=== PATIENT | male | born 1955 | race Caucasian/White ===

== ENCOUNTER → 2018-01-30 07:59 | Outpatient (CLI) | payer MEDICAID, SELFPAY ==
[2018-01-30 09:51] LABS: Vitamin D,25 Hydroxy 21.8 ng/mL (29.95-100.01)
[2018-01-30 09:55] LABS: Anion Gap 12 (5-15); BUN 14 mg/dL (7-18); BUN/Creat Ratio 11.5 RATIO (10-20); Calcium,Total 8.8 mg/dL (8.5-10.1); Chloride 103 mmol/L (98-107); Cholesterol 172 mg/dL (200); Creatinine, Serum 1.22 mg/dL (0.70-1.30); EST Glomerular Filtration Rate 64 mL/min (>60); Est Glom Filt Rate - Afr Amer 77 mL/min (>60); Glucose 97 mg/dL (74-106); High Density Lipoprotein 39 mg/dL; Sodium Level 142 mmol/L (136-145); Thyroid Stim Hormone (TSH) 2.66 uIU/mL (0.358-3.74); Triglycerides 245 mg/dL; Very Low Density Lipoprotein 49 mg/dL (5-40)
== END ==
PROVIDERS: Family Provider Family Medicine; PCP Family Medicine; Visit Provider Family Medicine
DX: Z00.00 Encounter for general adult medical examination without abnormal findings (principal); Z12.5 Encounter for screening for malignant neoplasm of prostate
CPT/HCPCS: 36415; 80048; 80061; 82306; 84153; 84443; G0103

== ENCOUNTER 2018-04-07 08:40 | Day surgery (SDC) | payer MEDICAID, SELFPAY ==
[2018-04-07 09:00] VITALS: BP 110/80; PULSE 96; RESP 18; TEMP 36.9; O2SAT 97; BMI 33.6
--- NOTE | 2018-04-07 09:54 | H&P.OPEN ---
History of Present Illness Date of Admission: 04/07/18 The patient is a 62 year old M here for screening colonoscopy. He has no abdominal pain or blood in his stool. He has never had a colonoscopy in the past. He denies any family history of colon cancer. Past Medical/Surgical History - Planned Operation Planned Operative Procedure/s: COLONOSCOPY Date of Operative Procedure: 04/07/18 Permit Signed: Yes S.O.S: No Is This Patient Having a Total Joint: No - Previous Hospitalizations/Surgeries HX Hospitalizations: No Any Problems With Anesthesia: No You/Your Family Experience Fever (Hyperthermia) With Anes: No Cholinesterase deficiency: No - Cardiovascular Hx Chest Pain within Last 2 months: No Hx of Irregular Heartbeat and/or Afib: No Hx Heart Attack: No Hx Congestive Heart Failure: No Hx Rheumatic Fever: No Hx Hypertension: Yes Hx Internal Defibrillator: No Hx Pacemaker: No Hx Cardiac Catheterization: No Hx Cardiac Surgery/Stents/Etc.: No Hx Stress Test: No HX Edema: No Hx Pain in Legs when Walking/Leg Cramps: No - Respiratory Chronic Cough: No HX of Shortness of Breath: No Hoarseness: No Hx Chronic Obstructive Pulmonary Disease (COPD): No Hx Asthma: No Hx Emphysema: No Hx Sleep Apnea: No Hx Oxygen Use at Home: No Hx Respiratory Tract Infection/Cold (presently): No Do You Snore Loudly (louder than talking or can be heard): No Do You Often Feel Tired/ Fatigued/ Sleepy Dring Daytime?: No Has Anyone Observed You Stop Breathing During Sleep?: No Result (for STOP score): Negative Hx Smoking: No Smoking Status: Never smoker - Gastrointestinal Hx Gastroesophageal Reflux: No Hx Gastrointestinal Disorders: No Hx Gastrointestinal Bleed: No Hx Ulcer: No Hx Hiatal Hernia: No Difficulty Chewing/Swallowing: No Recent Onset of Swallowing Problems: No Special diet followed at home: No Hx Unplanned Weight Loss of 20#: No HX Unplanned Weight Gain of 20#: No - Neurological Hx Seizures: No HX Syncope/Blackout Spells/Unconsciousness: No Hx CVA/Stroke: No Hx Transient Ischemic Attacks (TIA): No Hx Multiple Sclerosis: No Hx Parkinson's Disease: No Hx Head/Neck Injury: No Hx Headaches: No Hx Back Injury/Pain: No Recent Onset of Speech Difficulty: No Restless Legs: No Does patient have nerve stimulator: No - Blood Disorder Hx Leukemia: No Bleeding Tendencies: No Hx Deep Vein Thrombosis: No Hx High Cholesterol: No Blood Transmitted Disease: No Hx Hepatitis: No Hx Cirrhosis: No Hx Anemia: No Hx Blood Disorders: No - Reproduction Is Patient Lactating: No - Genitourinary Hx Renal Disease: No - Musculoskeletal Hx Arthritis: No Hx Rheumatoid Arthritis: No Hx Gout: No Recent Onset of an Orthopedic Problem: No - Endocrine Hx Diabetes: No Thyroid Disease: No Hx Steroid Therapy: No - Psycho/Social Hx Substance Use: No Hx Alcohol Use: No Hx Anxiety: No Hx Depression: Yes Mental Illness: Yes - SCHIZOPHRENIA Hx Dementia: No - Miscellaneous Hx Cancer: No Recent Exposure to Contagious Disease: No Active MRSA: No Hx of C-Diff: No Any Loose Teeth: No Allergies No Known Allergies Allergy (Verified 04/05/18 11:46) - Discharge Is Pt Admitted From a [facility], or a Halfway: Yes After D/C, Where Do you Plan to Go: Return Home - From the PAT History Number of Risk Factors: 1 - Physical Exam General: Alert HEENT: Atraumatic Lungs: Normal air movement Cardiovascular: Regular rate, Regular Rhythm Abdomen: Soft, Non Tender, Non-Distended Vital Signs Temp Pulse Resp BP Pulse Ox 98.4 F 96 18 110/80 97 04/07/18 09:00 04/07/18 09:00 04/07/18 09:00 04/07/18 09:00 04/07/18 09:00 Oxygen Delivery Method Room Air Weight: 227 lb 15.327 oz Body Mass Index (BMI) 33.6 Assessment/Plan 62-year-old male for screening colonoscopy 1. I explained endoscopy in detail to the patient. I explained the risks including but not limited to stroke or heart attack with anesthesia, perforation of the GI tract, bleeding, infection. I explained that any of these could necessitate further emergency surgery. The patient understands and all questions were answered sufficiently. The patient wishes to proceed with procedure. Adrian Morgan MD Pager: [facility] [address] [place] [address], [address] [place] [address] Office: Surgery Risks - Colonoscopy Risks Include but are not Limited To: Risks include but are not limited to: Bleeding, perforation requiring further surgery, inability to complete colonoscopy requiring barium enema.
[2018-04-07 10:32] VITALS: BP 110/80; BP 114/81; PULSE 72; RESP 15; TEMP 36.6; O2SAT 93
[2018-04-07 10:37] VITALS: BP 110/80; BP 117/78; PULSE 69; RESP 16; O2SAT 95
[2018-04-07 10:42] VITALS: BP 110/80; BP 115/82; PULSE 65; RESP 16; O2SAT 93
--- NOTE | 2018-04-07 10:45 | OP.ENDO_ITS ---
Patient Name: Juan Pagan Procedure Date: 04/07/2018 9:48 AM Date of : 1955 Age: 62 Procedure: Colonoscopy Indications: Screening for colorectal malignant neoplasm Providers: Adrian Morgan MD Medicines: Monitored Anesthesia Care Patient Profile: This is a 62 year old male. Refer to note in patient chart for documentation of history and physical. Last Colonoscopy: none. The patient's first colonoscopy is today. Complications: No immediate complications. Procedure: Pre-Anesthesia Assessment: - Prior to the procedure, a History and Physical was performed, and patient medications and allergies were reviewed. The patient's tolerance of previous anesthesia was also reviewed. The risks and benefits of the procedure and the sedation options and risks were discussed with the patient. All questions were answered, and informed consent was obtained. Prior Anticoagulants: The patient has taken no previous anticoagulant or antiplatelet agents. After reviewing the risks and benefits, the patient was deemed in satisfactory condition to undergo the procedure. After I obtained informed consent, the scope was passed under direct vision. Throughout the procedure, the patient's blood pressure, pulse, and oxygen saturations were monitored continuously. The colonoscope was introduced through the anus and advanced to the cecum, identified by appendiceal orifice and ileocecal valve. The colonoscopy was performed without difficulty. The patient tolerated the procedure well. The quality of the bowel preparation was good. Scope In: 10:03:45 AM Scope Withdrawal Time 0 hours 5 minutes 41 seconds Scope Out: 10:28:52 AM Total Procedure Duration Time 0 hours 25 minutes 7 seconds Findings: The entire examined colon appeared normal on direct and retroflexion views. Impression: - The entire examined colon is normal on direct and retroflexion views. - No specimens collected. Recommendation: - Discharge patient to home. - Resume previous diet. - Continue present medications. - Repeat colonoscopy in 10 years for screening purposes. Procedure Code(s): --- Professional --- G0121, Colorectal cancer screening; colonoscopy on individual not meeting criteria for high risk Diagnosis Code(s): --- Professional --- Z12.11, Encounter for screening for malignant neoplasm of colon CPT copyright 2017 [employer]. All rights reserved. The codes documented in this report are preliminary and upon moss picker review may be revised to meet current compliance requirements. Adrian Morgan MD 04/07/2018 10:45:01 AM This report has been signed electronically. Number of Addenda: 0 Note Initiated On: 04/07/2018 9:48 AM
[2018-04-07 10:47] VITALS: BP 110/80; BP 111/88; PULSE 67; RESP 16; TEMP 37.2; O2SAT 93
[2018-04-07 11:10] VITALS: BP 110/80
== END 2018-04-07 11:20 | disposition home or self-care (01) ==
LOC: EN 08:41 → AC 08:44
PROVIDERS: Family Provider Family Medicine; PCP Family Medicine; Referring Provider Surgery; Visit Provider Surgery
PROC: 0DJD8ZZ Inspection of Lower Intestinal Tract, Via Natural or Artificial Opening Endoscopic (ICD-10-PCS; CPT 45378; principal; 2018-04-07 08:55)
DX: Z12.11 Encounter for screening for malignant neoplasm of colon (principal); I10 Essential (primary) hypertension; F20.9 Schizophrenia, unspecified; Z79.899 Other long term (current) drug therapy
CPT/HCPCS: 45378; J7120

== ENCOUNTER → 2018-07-31 10:17 | Outpatient (CLI) | payer MEDICAID, SELFPAY ==
[2018-07-31 13:11] LABS: Vitamin D,25 Hydroxy 22.3 ng/mL (29.95-100.01)
[2018-07-31 13:37] LABS: Anion Gap 10 (5-15); BUN 12 mg/dL (7-18); BUN/Creat Ratio 10.9 RATIO (10-20); Chloride 106 mmol/L (98-107); Cholesterol 185 mg/dL (200); EST Glomerular Filtration Rate 72 mL/min (>60); Est Glom Filt Rate - Afr Amer 87 mL/min (>60); Glucose 104 mg/dL (74-106); High Density Lipoprotein 42 mg/dL; Potassium 4.2 mmol/L (3.5-5.1); Sodium Level 141 mmol/L (136-145); Triglycerides 251 mg/dL; Very Low Density Lipoprotein 50 mg/dL (5-40)
== END ==
PROVIDERS: Family Provider Family Medicine; PCP Family Medicine; Visit Provider Family Medicine
DX: E55.9 Vitamin D deficiency, unspecified (principal); I10 Essential (primary) hypertension
CPT/HCPCS: 36415; 80048; 80061; 82306

== ENCOUNTER 2019-01-02 08:39 | Observation (INO) | payer MEDICAID, SELFPAY ==
[2019-01-02] VITALS (11 sets, daily range): BP systolic 116–148; BP diastolic 71–97; PULSE 60–85; RESP 15–18; TEMP 36.8–36.9; O2SAT 94–96; BMI 30.9; BMI 32.3; BMI 32.4
--- NOTE | 2019-01-02 08:47 | EKG12_ITS ---
Test Reason : CP Blood Pressure : / mmHG Vent. Rate : 059 BPM Atrial Rate : 059 BPM P-R Int : 168 ms QRS Dur : 094 ms QT Int : 444 ms P-R-T Axes : 039 028 -06 degrees QTc Int : 439 ms Sinus bradycardia Otherwise normal ECG When compared with ECG of 02-JAN-2019 08:42, MANUAL COMPARISON REQUIRED, DATA IS UNCONFIRMED Confirmed by ELIZABETH PACHECO ([id number]), scientific editor MIGUEL LOZA ([id number]) on 01/05/2019 9:05:47 AM Referred By: Tanvir Sharma Confirmed By:ELIZABETH PACHECO
--- NOTE | 2019-01-02 08:50 | RAD_ITS ---
STUDY: X-RAY CHEST REASON FOR EXAM: Male, 63 years old. Left-sided chest pain. TECHNIQUE: Single AP portable view of the chest. COMPARISON: Comparison is made with prior study dated January 26, 2017 FINDINGS: EKG electrodes are seen. The lungs are clear and expanded. There is no demonstrated pleural abnormality. Normal size heart. Normal mediastinum and colleen. Normal visualized pulmonary arteries. Normal visualized aortic arch and descending thoracic aorta. There are diffuse degenerative changes of the visualized thoracic spine. Normal visualized ribs, clavicles, and shoulders. There is no demonstrated abnormality of the visualized soft tissue structures of the upper abdomen. RAD/Chest 1 View (Portable) IMPRESSION: No acute abnormality is seen. Electronically Signed: Korey Obrien, at 9:10 EDT , Service support ,
[2019-01-02] MEDS: Aspirin 81 MG TAB.CHEW 324 MG PO (09:07)
[2019-01-02] MEDS: 0.9% Normal Saline 1,000 ML 150 ML IV (09:07)
[2019-01-02 09:09] LABS: Absolute Lymphocyte Count 1.45 X10^3/uL (0.83-4.51); Absolute Neutrophil Count 2.2 X10^3/uL (2.0-7.7); Basophil# 0.02 X10^3/uL; Basophil% 0.5 % (0-1); Eosinophil# 0.09 X10^3/uL; Eosinophils% 2.1 % (0-5); Hematocrit 40.9 % (40-54); Hemoglobin 14.2 g/dL (13.0-16.5); Lymphocyte # 1.45 X10^3/ul (4.0); Lymphocyte % 33.9 % (19-41); Mean Corp Hgb Conc 34.7 g/dL (32-36); Mean Corpuscular Hgb 30.3 pg (27.0-32.0); Mean Corpuscular Volume 87.2 fL (80-94); Mean Platelet Vol. 9.8 fl (6.2-12.0); Monocyte% 11.7 % (0-10); NRBC Flagged by Analyzer 0 % (0-5); Neutrophil % 51.3 % (47-70); Platelet Count 186 K/mm3 (150-450); RBC Distribution Width SD 38.2 fl (35.1-43.9); Red Blood Count 4.69 M/mm3 (4.6-6.2); White Blood Count 4.3 K/mm3 (4.4-11.0)
[2019-01-02] MEDS: Nitroglycerin SL (ED/IMG/CATH) 0.4 MG TABLET SUBLINGUAL (09:13)
--- NOTE | 2019-01-02 09:23 | NURSING ---
1S DOSE OF NITRO GIVEN WITH NO PAIN RELIEF. PT'S BP DECREASED. PER DR MARQUEZ HOLD NITRO.
[2019-01-02 09:34] LABS: Anion Gap 7 (5-15); BUN 16 mg/dL (7-18); BUN/Creat Ratio 13.2 RATIO (10-20); Calcium,Total 8.9 mg/dL (8.5-10.1); Chloride 107 mmol/L (98-107); Creatinine, Serum 1.21 mg/dL (0.70-1.30); EST Glomerular Filtration Rate 64 mL/min (>60); Est Glom Filt Rate - Afr Amer 78 mL/min (>60); Estimated Creatinine Clearance 68.59 ml/min; Glucose 108 mg/dL (74-106); Potassium 3.8 mmol/L (3.5-5.1); Sodium Level 141 mmol/L (136-145)
[2019-01-02 09:51] LABS: D-Dimer Quantitative (DVT/PE) < 0.27 FEU/ug/m (0.27-0.49)
--- NOTE | 2019-01-02 09:56 | ED.VISSUMM ---
- ER Visit Summary Date of Service: 01/02/19 Chief Complaint: [Chest pain] History of Present Illness: The patient is a 63 M [presents to the emergency department chest discomfort x3 days. Patient states the pain seems to come and go. Patient states it was severe this morning but is improved currently and rates it a 5 out of 10. Describes it as a dull pain. The pain is not pleuritic. Patient believes he has had similar pain in 2004 and at which time he was treated with warfarin. Patient was unsure if he had had a blood clot in his leg or lung before and he told me know initially. Patient tells me is never had a stress test or cardiac history. He denies recent travel or surgery. He denies any fever or cough. Patient states that the pain does not come on with activity or exertion necessarily but can come on at any time. He denies any radiation of the pain. He denies any shortness of breath. He denies any nausea or vomiting or diaphoresis.] Patient somewhat of a poor historian. Physical Examination: [HEENT-PERRLA, EOMI. Cranial nerves II through XII grossly intact. TMs clear. Mucous membranes moist. No adenopathy. Cardiovascular-regular rate and rhythm without murmur or ectopy Lungs-clear to auscultation, chest wall stable without crepitus or subcu emphysema Abdomen-normoactive bowel sounds, soft, nontender, no rebound or rigidity, no peritoneal signs. Extremities-intact ?4, normal range of motion, normal pulses, atraumatic] Test Results: [EKG obtained arrival shows sinus rhythm with a ventricular rate of 74 bpm with some nonspecific ST changes. When compared with prior EKG from 2016 no new changes noted. CBC with differential is normal. Chemistries were normal. Troponin was less than 0.015. D-dimer was less than 0.27. Chest x-ray was normal.] Emergency Department Course and Treatment: [Patient received aspirin. Patient received 1 sublingual nitro which did drop his blood pressure however did not seem to improve his pain. On repeat examination however he states mostly the discomfort is gone however he has some minimal discomfort still in his left upper chest.] Treatment Plan: [Admit for further work-up and evaluation of his chest pain] Disposition: [Admit] Impression: [Chest pain-etiology uncertain] This note was generated with Dragon dictation software. It may contain incorrect words, spelling, and punctuation that were not noted in review of the chart prior to signing ED Disposition - Plan for ED Patient: Referrals: Luis Diaz MD [Primary Care Provider] -
--- NOTE | 2019-01-02 10:57 | PCM.HP.STD ---
Problem List (1) Chest pain Status: Acute (2) Hyperlipidemia Status: Chronic (3) Schizophrenia Status: Chronic History of Present Illness Date of Admission: 01/02/19 Chief Complaint: Chest pain. The patient is a 63 year old M past medical history as mentioned above presented to the emergency room because of chest pain. His symptoms started 3 days ago with intermittent left-sided chest pain, nonexertional, dull aching pain, 5 out of 10 in severity, nonradiating, without any associated symptoms and without aggravating or relieving factors. He denied associated shortness of breath, dizziness, lightheadedness, sweating, nausea or vomiting. He mentioned that he had similar pain 15 years ago and he was treated with the blood thinners but he is not sure. He denies history of PE or DVT. He denies cough or sputum production. He denies fever or chills. In the emergency department, his vital signs were stable. Routine blood work was unremarkable. EKG revealed normal sinus rhythm, normal CT interval, normal QRS, nonspecific T wave changes and no new changes compared to previous EKG from May,. Troponin was negative. D-dimer was normal. Chest x-ray showed no acute findings. He is being admitted for chest pain for evaluation. Past Medical History Past Medical History (Chronic Problems): Chronic Problems Hyperlipidemia (Chronic) Schizophrenia (Chronic) Allergies No Known Allergies Allergy (Verified 01/02/19 08:49) Home Medications: Ambulatory Orders Medication Instructions Recorded Atorvastatin Calcium [Lipitor] 10 mg PO QHS 05/18/16 Benztropine [Cogentin] 0.5 mg PO TID 05/18/16 Docusate Sodium [Dok] 100 mg PO DAILY 05/18/16 Loratadine [Claritin] 10 mg PO DAILY 05/18/16 Paliperidone Palmitate [Invega 156 mg IM Q30D 05/18/16 Sustenna] Propranolol HCl [Inderal] 10 mg PO BID 05/18/16 Vitamin E 400 units PO TID 05/18/16 peg 3350-electrolytes 236 4,000 ml PO ONCE #4000 ml 04/05/18 gram-22.74 gram-6.74 gram-5.86 gram solution Surgical History: no surgical history Psychiatric History: Schizophrenia Lives: - - [facility]. Smoking Status: Never smoker Alcohol: None Drugs: None - *Family History Maternal History Items: No pertinent history Paternal History Items: Heart Disease, Hypertension Review of Systems Constitutional: Denies: Anorexia, Chills, Fever, Weakness Eyes: Denies: Blurred vision, Cataracts, Conjunctivae Inflammation, Drainage, Eyelid Inflammation HEENT: Denies: Difficulty Hearing, Dysphasia, Ear Pain, Eye Pain, Nasal bleeding Cardiovascular: Reports: Chest Pain. Denies: Edema, Heaviness, Light Headedness, Orthopnea, Palpitations, Paroxysmal Noc. Dyspnea, Syncope Respiratory: Denies: Cough, Hemoptysis, Pleuritic Pain, Shortness of Breath, Sputum production, Wheezing Gastrointestinal: Denies: Abdominal Pain, Constipation, Diarrhea, Nausea, Vomiting Genitourinary: Denies: Dysuria, Frequency, Hematuria Musculoskeletal: Denies: Arm Pain, Back Pain, Foot Pain Skin: Denies: Dryness, Rash Neurological: Denies: Balance problems, Blurred vision, Double vision, Change in Speech, Slurred speech, Confusion, Incoordination, Numbness Psychiatric: Denies: Anxiety, Depression Endocrine: Denies: Change in Body Habitus, Polydipsia, Polyuria VTE Information - Inpt Only VTE Present on Admission: No VTE Mechan Device Prophylaxis: None VTE Pharm Prophylaxis ordered?: Yes Patient Problems: Active and Suspected Problems Chest pain (Acute) - Physical Exam General: Alert, Oriented x3, Cooperative, No apparent distress HEENT: Atraumatic, PERRLA, EOMI, Normocephalic Oral: Moist Mucosa, No Gingival or Mucosal Lesions/ Ulcerations Neck: Supple, No JVD, Negative Carotid Bruits, Trachea Midline, Thyroid Normal Size and Texture Lungs: Clear to auscultation, Normal air movement, No rhonchi, No wheeze, No rales Cardiovascular: Regular rate, Regular Rhythm, Normal S1, Normal S2, No murmurs, PMI Normal Abdomen: Bowel Sounds Present, Soft, Non Tender, Non-Distended, No Hepato-splenomegaly Extremities: No clubbing, No cyanosis, No edema Skin: No rashes, No breakdown Lymphatic: No Cervical, Supraclavicular, or Inguinal Adenopathy Neurological: Cranial nerves II-XII grossly intact, Motor Exam 5/5 strength throughout Psych/Mental Status: Normal Affect, Appropriate, Alert and oriented to time, place, person, mood and affect Vital Signs Temp Pulse Resp BP Pulse Ox 98.2 F 64 17 116/89 H 95 01/02/19 08:40 01/02/19 10:02 01/02/19 10:02 01/02/19 10:02 01/02/19 10:02 Oxygen Flow Rate (L/min) 2 Oxygen Delivery Method Room Air Weight: 227 lb 15.327 oz Body Mass Index (BMI) 30.9 Laboratory Tests Past 24 Hrs 01/02/19 01/02/19 01/02/19 08:53 08:53 08:53 WBC 4.3 L RBC 4.69 Hgb 14.2 Hct 40.9 MCV 87.2 MCH 30.3 MCHC 34.7 RDW Std Deviation 38.2 RDW Coeff of Clarissa 12.0 Plt Count 186 MPV 9.8 Immature Gran % (Auto) 0.500 Neut % (Auto) 51.3 Lymph % (Auto) 33.9 [place] % (Auto) 11.7 H Eos % (Auto) 2.1 Baso % (Auto) 0.5 Absolute Neuts (auto) 2.2 Absolute Lymphs (auto) 1.45 Nucleated RBC % 0 D-Dimer Quant (PE/DVT) < 0.27 L Sodium 141 Potassium 3.8 Chloride 107 Carbon Dioxide 27.0 Anion Gap 7 BUN 16 Creatinine 1.21 Estim Creat Clear Calc 68.59 Est GFR (MDRD) Af Amer 78 Est GFR (MDRD) Non-Af 64 BUN/Creatinine Ratio 13.2 Glucose 108 H Calcium 8.9 Troponin I < 0.015 Clinical Impression(s) from Imaging Studies Chest X-Ray 01/02/19 08:50 IMPRESSION: No acute abnormality is seen. Electronically Signed: Korey Obrien, at 9:10 EDT , Service support , Assessment/Plan All Active Problems Chest pain (Acute) This is a 63 years old male patient presented to the emergency room because of chest pain and he is being admitted for evaluation. #1 chest pain: Seems to be atypical. Risk factors are only age and history of hyperlipidemia. No family history of premature CAD. His father did have history of heart disease at older age. EKG reviewed as above, no acute ischemic changes. Troponin is negative. Chest x-ray showed no acute findings. Plan: Admit to PCU for observation, cardiac monitoring, serial cardiac enzymes, repeat EKG tomorrow morning, start baby aspirin, continue statins, hold propranolol, nuclear stress test tomorrow morning if cardiac enzymes are negative. #2 hyperlipidemia: Continue statins. #3 schizophrenia: Stable, continue Cogentin, hold Invega Sustenna injections. #4 DVT prophylaxis: Subcu Lovenox. This note was generated with [employer] dictation software. It may contain incorrect words, spelling, and punctuation that were not noted in checking the note before signing. Code Visit OBSV E&M: 01544 Initial observation care L3
[2019-01-02] MEDS: 0.9% Normal Saline 1,000 ML 75 ML IV (14:16)
[2019-01-02] MEDS: Benztropine 2 MG Tablet 0.5 MG PO ×2 (14:22→22:03)
[2019-01-02] MEDS: Atorvastatin Calcium 10 MG Tablet PO (22:01)
[2019-01-03] VITALS (7 sets, daily range): BP systolic 117–123; BP diastolic 67–79; PULSE 59–100; RESP 18; TEMP 36.4–37.1; O2SAT 95–96
--- NOTE | 2019-01-03 05:17 | EKG12_ITS ---
Test Reason : Blood Pressure : / mmHG Vent. Rate : 064 BPM Atrial Rate : 064 BPM P-R Int : 168 ms QRS Dur : 090 ms QT Int : 436 ms P-R-T Axes : 063 021 016 degrees QTc Int : 449 ms Normal sinus rhythm Normal ECG Confirmed by ELIZABETH PACHECO ([id number]), science editor CECILE YU ([id number] on 01/08/2019 11:32:38 AM Referred By: Tanvir Sharma Confirmed By:ELIZABETH PACHECO
--- NOTE | 2019-01-03 05:55 | EKG12_ITS ---
Test Reason : CP Blood Pressure : / mmHG Vent. Rate : 074 BPM Atrial Rate : 074 BPM P-R Int : 166 ms QRS Dur : 088 ms QT Int : 400 ms P-R-T Axes : 056 027 004 degrees QTc Int : 444 ms Normal sinus rhythm Nonspecific T wave abnormality Abnormal ECG Confirmed by CYNTHIA MADDOX, STEVE ([id number]), acquisitions editor MIGUEL LOZA ([id number]) on 01/04/2019 1:36:14 PM Referred By: Tanvir Sharma Confirmed By:STEVE MARIE MD
[2019-01-03] MEDS: Benztropine 2 MG Tablet 0.5 MG PO ×2 (06:07→14:04)
--- NOTE | 2019-01-03 10:23 | STRESSREP_ITS ---
Stress Test Report Date: 01/03/2019 Procedure: Pharmacologic stress nuclear imaging study Indications: Chest pain Consent: Per the patient Procedure: The patient underwent pharmacologic (Regadenoson) evaluation with a peak heart rate of 102 beats per minute (64 %predicted maximal heart rate) and a peak blood pressure of 122/84 mmHg. The baseline ECG demonstrated normal sinus rhythm, nonspecific ST-T changes. EKG during lexiscan infusion revealed no significant change from baseline. EKG post infusion revealed no significant change from baseline [There were no cardiac dysrhythmias pretest, during pharmacologic infusion, or recovery]. Patient had mild left-sided chest discomfort prior to Lexiscan infusion which persisted throughout the test. The examination was discontinued secondary to completion of protocol. Impression: 1. Lexiscan stress test test is negative for Lexiscan infusion induced EKG changes of ischemia. 2. Lexiscan stress test test is negative for Lexiscan infusion induced chest pain. 3. Results of the nuclear portion of the test is as below Myocardial perfusion imaging study: Technique: The patient was injected with 12 millicuries of technetium 99m Cardiolite and subsequently rest SPECT Cardiolite nuclear imaging was obtained in the horizontal long, vertical long, and short axis views. The patient underwent pharmacologic (Regadenoson) evaluation. Please see above for details. The patient was injected with 34.3 millicuries of technetium 99m Cardiolite and subsequently stress SPECT Cardiolite nuclear imaging was obtained in the horizontal long, vertical long, and short axis views. A gated Cardiolite study at peak stress was obtained. Interpretation: Rest and stress SPECT Cardiolite nuclear imaging status post realignment, normalization, and attenuation correction demonstrate [overall uniform myocardial radioisotope uptake. No evidence of significant ischemia or infarction]. Gated images reveal no significant regional wall motion abnormalities. The reported LVEF is 71 %. Impression: 1. There is no evidence of significant ischemia or infarction. 2. Estimated ejection fraction is 71%. This note was generated with [employer] software. It may contain incorrect words, spelling, and punctuation that were not noted in checking the note before signing.
[2019-01-03] MEDS: Docusate Sodium 100 MG Capsule PO (11:09)
[2019-01-03] MEDS: Loratadine 10 MG Tablet PO (11:09)
[2019-01-03] MEDS: Aspirin E.C. 81 MG Tablet PO (11:09)
--- NOTE | 2019-01-03 12:18 | DCINST_ITS ---
- Discharge Diagnoses Current Active Problems: Current Active and Chronic Problems Chest pain (Acute) Hyperlipidemia (Chronic) Schizophrenia (Chronic) You will use the following diet at home:: Regular Your food should be the consistency of: Regular Discharge Activity: Return to Normal Activity Weight Bearing Status: Full weight bearing Call your doctor if you observe: Fever of 101 or Higher, Shortness of breath, Dizziness, Fainting spells, Chest pain, Increased palpitations (irregular heartbeat), Uncontrolled pain Allergies/Adverse Reactions: Allergies No Known Allergies Allergy (Verified 01/02/19 08:49) Medications to take at Discharge Atorvastatin Calcium [Lipitor] 10 mg PO QHS 05/18/16 Benztropine [Cogentin] 0.5 mg PO TID 05/18/16 Docusate Sodium [Dok] 100 mg PO DAILY 05/18/16 Loratadine [Claritin] 10 mg PO DAILY 05/18/16 Paliperidone Palmitate [Invega Sustenna] 156 mg IM Q30D 05/18/16 Propranolol HCl [Inderal (Beta Shilpi)] 10 mg PO BID 05/18/16 Vitamin E 400 units PO TID 05/18/16 Primary Care Physician: Luis Diaz MD [Primary Care Provider] - Please follow up with your Primary Care Physician in: 2-4 weeks. Test Results: Test results from this visit will be discussed in further detail at your follow- up appointment, if applicable.
--- NOTE | 2019-01-03 12:39 | DS.PCM_ITS ---
Discharge Date and Diagnosis - Problem List Patient Problems: Active and Suspected Problems Chest pain (Acute) Date of Admission: 01/02/19 Date of Discharge: 01/03/19 - Primary Discharge Diagnosis Active and Suspected Problems Chest pain, ACS ruled out, probably musculoskeletal pain. - Secondary Discharge Diagnosis Chronic Problems Hyperlipidemia (Chronic) Schizophrenia (Chronic) Hospital Course and Treatment Imaging Results: 01/03/19 05:55 Nuclear Stress Test - Chemical [NM] AM (NON MEDS) Clinical Impression(s) from Imaging Studies Chest X-Ray 01/02/19 08:50 IMPRESSION: No acute abnormality is seen. Electronically Signed: Korey Obrien, at 9:10 EDT , Service support , Operations: None Procedures: EKG, Stress test Summary of Care Provided: Patient seen and examined on the day of discharge and appeared to be stable discharge home. He has no more chest pain. He denied any symptoms. Vital signs are stable. The patient is a 63 year old M admitted because of chest pain for evaluation. His factors were only his age and history of hyperlipidemia. His EKG revealed no acute ischemic changes. Chest x-ray showed no acute findings. Troponin was negative x2 d-dimer was negative. Routine blood work was unremarkable. His vital signs were stable. He underwent nuclear stress test that showed no evidence of stress-induced myocardial ischemia with preserved ejection fraction. ACS ruled out. His pain is likely muscle skeletal pain. Patient discharged home in a stable medical condition, discharged on his previous home medications without any changes, recommended follow-up with PCP in 2 to 4 weeks. Patient Problems: Active and Suspected Problems Chest pain (Acute) - Physical Exam General: Alert, Oriented x3, Cooperative, No apparent distress HEENT: Atraumatic, PERRLA, EOMI, Normocephalic Oral: Moist Mucosa, No Gingival or Mucosal Lesions/ Ulcerations Neck: Supple, No JVD, Negative Carotid Bruits, Trachea Midline Lungs: Clear to auscultation, Normal air movement, No rhonchi, No wheeze, No rales Cardiovascular: Regular rate, Regular Rhythm, Normal S1, Normal S2, PMI Normal Abdomen: Bowel Sounds Present, Soft, Non Tender, Non-Distended, No Hepato- splenomegaly Extremities: No clubbing, No cyanosis, No edema Skin: No rashes, No breakdown Lymphatic: No Cervical, Supraclavicular, or Inguinal Adenopathy Neurological: Cranial nerves II-XII grossly intact, Neuro grossly intact Psych/Mental Status: Normal Affect, Appropriate Vital Signs Temp Pulse Resp BP Pulse Ox 98.0 F 99 18 118/73 95 01/03/19 11:06 01/03/19 12:10 01/03/19 11:06 01/03/19 11:06 01/03/19 11:06 Oxygen Flow Rate (L/min) 2 Oxygen Delivery Method Room Air Weight: 219 lb 2.232 oz Body Mass Index (BMI) 32.3 Intake and Output for Last 24 Hours 01/01/19 01/02/19 01/03/19 23:59 23:59 23:59 Intake Total 1079 / 1870 1049 / 1049 Balance 1079 / 1870 1049 / 1049 Laboratory Tests Past 24 Hrs 01/02/19 01/02/19 12:15 14:48 Troponin I < 0.015 < 0.015 Discharge Activity: Return to Normal Activity Weight Bearing Status: Full weight bearing Call your doctor if you observe: Fever of 101 or Higher, Shortness of breath, Dizziness, Fainting spells, Chest pain, Increased palpitations (irregular heartbeat), Uncontrolled pain Home Medications: Medications to take at Discharge Atorvastatin Calcium [Lipitor] 10 mg PO QHS 05/18/16 Benztropine [Cogentin] 0.5 mg PO TID 05/18/16 Docusate Sodium [Dok] 100 mg PO DAILY 05/18/16 Loratadine [Claritin] 10 mg PO DAILY 05/18/16 Paliperidone Palmitate [Invega Sustenna] 156 mg IM Q30D 05/18/16 Propranolol HCl [Inderal (Beta Shilpi)] 10 mg PO BID 05/18/16 Vitamin E 400 units PO TID 05/18/16 Primary Care Physician: Luis Diaz MD [Primary Care Provider] - Please follow up with your Primary Care Physician in: 2-4 weeks. Disposition: Home Minutes spent on discharge:: 23 Patient Condition:: Stable Medical Necessity - Tobacco Use Smoking Status: Never smoker Meaningful Use Info Meaningful Use Diagnoses (Choose all that apply): None applicable Code Visit OBSV E&M: 53253 Observation care discharge
--- NOTE | 2019-01-03 13:29 | CASEMGMT ---
Patient [facility]. SW met with patient. SW asked if SW needs to call anyone at his [facility] and he said no. SW asked him if he will need a ride home and he does. SW asked if he can get in and out of a van by himself and he said he could. SW called [facility] van and patient needs to be at the main entrance at . LYNNETTE notified RN, patient, and career guidance counselor. Yoselyn GUERRA MSW
== END 2019-01-03 12:19 | disposition home or self-care (01) ==
LOC: ED 09:12 → PCU 10:10
PROVIDERS: Admitting Provider Hospitalist; Emergency Provider Emergency Medicine; Family Provider Family Medicine; PCP Family Medicine; Referring Provider Hospitalist; Visit Provider Hospitalist
DX: R07.89 Other chest pain (principal); E78.5 Hyperlipidemia, unspecified; F20.9 Schizophrenia, unspecified; Z79.899 Other long term (current) drug therapy
CPT/HCPCS: 36415; 71045; 78452; 80048; 84484; 85025; 85379; 93005; 93017; 96360; 96361; 99218; 99283; A9500; J7030; A4216; G0378; J2785

== ENCOUNTER → 2019-08-17 08:14 | Outpatient (CLI) | payer MEDICAID, SELFPAY ==
[2019-01-02 11:03] VITALS: BMI 32.3
[2019-08-17 10:39] LABS: Anion Gap 8 (5-15); BUN 15 mg/dL (7-18); BUN/Creat Ratio 12.2 RATIO (10-20); Calcium,Total 8.9 mg/dL (8.5-10.1); Chloride 109 mmol/L (98-107); Cholesterol 184 mg/dL (200); Creatinine, Serum 1.23 mg/dL (0.70-1.30); EST Glomerular Filtration Rate 63 mL/min (>60); Est Glom Filt Rate - Afr Amer 76 mL/min (>60); Glucose 103 mg/dL (74-106); High Density Lipoprotein 41 mg/dL; Potassium 3.8 mmol/L (3.5-5.1); Sodium Level 141 mmol/L (136-145); Triglycerides 276 mg/dL; Very Low Density Lipoprotein 55 mg/dL (5-40)
[2019-08-18 08:24] LABS: Vitamin D,25 Hydroxy 30.7 ng/mL
== END ==
PROVIDERS: PCP Family Medicine; Visit Provider Family Medicine
DX: I10 Essential (primary) hypertension (principal); E78.5 Hyperlipidemia, unspecified; E55.9 Vitamin D deficiency, unspecified
CPT/HCPCS: 36415; 80048; 80061; 82306

== ENCOUNTER → 2020-02-19 09:44 | Outpatient (CLI) | payer MEDICAID, SELFPAY ==
[2019-01-02 11:03] VITALS: BMI 32.3
[2020-02-19 13:13] LABS: Vitamin D,25 Hydroxy 33.7 ng/mL
[2020-02-19 13:15] LABS: Anion Gap 2 (5-15); BUN 13 mg/dL (7-18); BUN/Creat Ratio 11.1 RATIO (10-20); Calcium,Total 8.9 mg/dL (8.5-10.1); Chloride 108 mmol/L (98-107); Cholesterol 184 mg/dL (200); Creatinine, Serum 1.17 mg/dL (0.70-1.30); EST Glomerular Filtration Rate 67 mL/min (>60); Est Glom Filt Rate - Afr Amer 81 mL/min (>60); Glucose 96 mg/dL (74-106); High Density Lipoprotein 38 mg/dL; Sodium Level 139 mmol/L (136-145); Triglycerides 261 mg/dL; Very Low Density Lipoprotein 52 mg/dL (5-40)
== END ==
PROVIDERS: PCP Family Medicine; Referring Provider Family Medicine; Visit Provider Family Medicine
DX: E55.9 Vitamin D deficiency, unspecified (principal); I10 Essential (primary) hypertension
CPT/HCPCS: 36415; 80048; 80061; 82306

== ENCOUNTER → 2020-05-15 07:48 | Outpatient (CLI) | payer MEDICAID, SELFPAY ==
[2019-01-02 11:03] VITALS: BMI 32.3
[2020-05-15 08:50] LABS: Cholesterol 179 mg/dL (200); High Density Lipoprotein 37 mg/dL; Prolactin 38.1 ng/mL; Triglycerides 232 mg/dL; Very Low Density Lipoprotein 46 mg/dL (5-40)
[2020-05-15 08:55] LABS: Hemoglobin A1c 5.6 % (3.8-5.6)
== END ==
PROVIDERS: PCP Family Medicine; Referring Provider Psychiatry & Neurology Psychiatry; Visit Provider Psychiatry & Neurology Psychiatry
DX: F19.10 Other psychoactive substance abuse, uncomplicated (principal); R53.83 Other fatigue; Z79.899 Other long term (current) drug therapy
CPT/HCPCS: 36415; 80061; 83036; 84146

== ENCOUNTER → 2020-08-13 14:51 | Outpatient (CLI) | payer MEDICAID, SELFPAY ==
[2019-01-02 11:03] VITALS: BMI 32.3
[2020-08-13 18:05] LABS: Anion Gap 8 (5-15); BUN 21 mg/dL (7-18); BUN/Creat Ratio 17.6 RATIO (10-20); Calcium,Total 8.6 mg/dL (8.5-10.1); Chloride 104 mmol/L (98-107); Creatinine, Serum 1.19 mg/dL (0.70-1.30); EST Glomerular Filtration Rate 65 mL/min (>60); Est Glom Filt Rate - Afr Amer 79 mL/min (>60); Glucose 137 mg/dL (74-106); Potassium 3.7 mmol/L (3.5-5.1); Sodium Level 140 mmol/L (136-145)
== END ==
PROVIDERS: PCP Family Medicine; Referring Provider Family Medicine; Visit Provider Family Medicine
DX: I10 Essential (primary) hypertension (principal)
CPT/HCPCS: 36415; 80048

== ENCOUNTER → 2020-09-15 13:14 | Outpatient (CLI) | payer MEDICAID, SELFPAY ==
[2019-01-02 11:03] VITALS: BMI 32.3
--- NOTE | 2020-09-15 15:03 | NEURO_ITS ---
NCS and/or EMG Patient Report Ordering Doctor: Luis Diaz DATE OF SERVICE: 09/15/20 Indication: Intermittent numbness and tingling when awakening from sleep. Symptoms are bilateral, but can occur independent of one another. Evaluate for entrapment neuropathy. Findings: Nerve conduction studies were performed in the right and left upper extremities. The right median motor study recording the abductor pollicis brevis showed a normal amplitude, prolonged distal latency and mildly slowed conduction velocity. The right ulnar motor study recording the abductor digiti minimi showed a normal amplitude, normal distal latency and normal conduction velocity. No conduction block or focal slowing was present across the elbow. The right median sensory response recording digit two showed a normal amplitude, normal latency and borderline conduction velocity. The right ulnar sensory response recording digit five showed a normal amplitude, latency and conduction velocity. The right radial sensory response recording over the extensor snuff box showed a normal amplitude, latency and conduction velocity. The left median motor study recording the abductor pollicis brevis showed a normal amplitude, prolonged distal latency and normal conduction velocity. The left ulnar motor study recording the abductor digiti minimi showed a normal amplitude, normal distal latency and normal conduction velocity. No conduction block or focal slowing was present across the elbow. The left median sensory response recording digit two showed a normal amplitude, normal latency and mildly slowed conduction velocity. The left ulnar sensory response recording digit five showed a reduced amplitude, normal latency and slowed conduction velocity. The left radial sensory response recording over the extensor snuff box showed a normal amplitude, latency and conduction velocity. Right median-ulnar lumbrical / interosseous motor latencies showed a normal median latency compared to the ulnar. Left median-ulnar lumbrical / interosseous motor latencies showed a normal median latency compared to the ulnar. Needle EMG of the left upper extremity and cervical paraspinal muscles was normal. No denervation was seen in any muscle. All motor unit morphology, activation and recruitment patterns were normal. Needle EMG of the right upper extremity was omitted due to the symmetry of the patient's symptoms and paucity of findings on the left. Impression: This is an abnormal, but indeterminate study. There is electrophysiologic evid ence suggestive of a non-localizing left ulnar neuropathy. Further evaluation with neuromuscular ultrasound may be of added utility in determining the precise location and etiology of the condition. In addition, there is mild slowing of the median motor responses across both wrists. Such findings can be seen in entrapment at the carpal tunnel, however, similar slowing was not appreciated in the sensory studies. Advise clinical correlation with symptoms of carpal tunnel syndrome. Finally, there is no electrophysiologic evidence of cervical radiculopathy in the left upper extremity. Sam Foley D.O.
== END ==
PROVIDERS: PCP Family Medicine; Referring Provider Family Medicine; Visit Provider Family Medicine
DX: R20.2 Paresthesia of skin (principal)
CPT/HCPCS: 95886; 95913

== ENCOUNTER 2020-10-24 12:34 | Observation (INO) | payer MEDICAID, SELFPAY ==
[2019-01-02 11:03] VITALS: BMI 32.3
[2020-10-24] VITALS (8 sets, daily range): BP systolic 97–137; BP diastolic 66–95; PULSE 62–81; RESP 16; TEMP 36.3–36.8; O2SAT 94–99; BMI 32.9; BMI 33.0
--- NOTE | 2020-10-24 12:47 | EKG12_ITS ---
Test Reason : DIZZINESS Blood Pressure : / mmHG Vent. Rate : 074 BPM Atrial Rate : 074 BPM P-R Int : 166 ms QRS Dur : 090 ms QT Int : 380 ms P-R-T Axes : 043 009 001 degrees QTc Int : 421 ms Normal sinus rhythm Nonspecific T wave abnormality Abnormal ECG Confirmed by CHACHA MADDOX, ALEJANDRO ([id number]), research editor MIGUEL LOZA ([id number]) on 10/28/2020 10:11:01 A M Referred By: NIGHAT Confirmed By:DONNIE BURNHAM MD
--- NOTE | 2020-10-24 12:48 | EDS_ITS ---
HPI History of Present Illness Chief Complaint: Dizziness Informant: patient Narrative Narrative: 64-year-old male presenting with lightheadedness. He states this began a few days ago. He states he was in the shower this morning and felt like he was going to pass out. Denies syncope. Denies chest pain or shortness of breath. Denies headache. Denies vomiting or diarrhea. Denies other complaints. Prior similar symptoms: Yes Recent Illness/Hospitalization: No PFSH PFSH Medical History (Updated 10/24/20 @ 14:[address] Andree Evans MD) Hyperlipidemia Schizophrenia Home Medications atorvastatin 10 mg PO QHS 05/18/16 [History Last Taken Unknown] docusate sodium [DOK] 100 mg PO DAILY 05/18/16 [History Last Taken Unknown] loratadine [Allergy Relief (loratadine)] 10 mg PO DAILY 05/18/16 [History Last Taken Unknown] paliperidone palmitate [Invega Sustenna] 156 mg IM Q30D 05/18/16 [History Last Taken Unknown] propranolol 10 mg PO BID 05/18/16 [History Last Taken Unknown] vitamin E (dl, acetate) 400 units PO TID 05/18/16 [History Last Taken Unknown] benztropine 0.5 mg PO TID 10/24/20 [History Last Taken 10/24/20] cholecalciferol (vitamin D3) [Vitamin D3] 1,000 unit PO DAILY 10/24/20 [History Last Taken Unknown] Allergy/AdvReac Type Severity Reaction Status Date / Time No Known Allergies Allergy Verified 10/24/20 12:36 Social History Smoking Status: Never smoker ROS [facility] ED Constitutional Constitutional ED: Denies fever(s) Eyes Eyes: Denies change in vision ENT ENT ED: Denies rhinorrhea or sore throat Cardiovascular Cardiovascular: Denies chest pain or palpitations Respiratory/Chest Respiratory/Chest: Denies cough or dyspnea Gastrointestinal Gastrointestinal: Denies abdominal pain, diarrhea, nausea or vomiting Genitourinary Genitourinary ED: Denies dysuria Musculoskeletal Musculoskeletal: Denies myalgias Integumentary Denies rash Neurologic Neurologic: Denies headache(s) Psychiatric Psychiatric: Denies suicidal thoughts EXAM Physical Exam Const Vital Signs: 10/24/20 12:34 10/24/20 12:42 10/24/20 13:57 Temperature 98.3 F Temperature Source Temporal Pulse Rate 81 Pulse Rate [Lying] 62 Pulse Rate [Sitting] 78 Pulse Rate [Standing] 77 Respiratory Rate 16 Respiratory Effort Normal Non-Labored Respiratory Pattern Normal Blood Pressure 137/88 H Blood Pressure [Lying] 125/87 H Blood Pressure [Sitting] 122/88 H Blood Pressure [Standing] 118/88 H Blood Pressure Mean 104 Blood Pressure Mean [Lying] 99 Blood Pressure Mean [Sitting] 99 Blood Pressure Mean [Standing] 98 Pulse Ox 95 Oxygen Delivery Method Room Air Positive well nourished and well developed General Appearance ED: well developed HEENT Reports normocephalic and head/scalp atraumatic Eyes PERRL and EOMs intact bilaterally Neck supple General: Negative for tenderness Chest Wall inspection of chest normal Resp normal respiratory effort and clear to auscultation bilaterally Cardio regular rate and regular rhythm GI non-tender and non-distended Palpation: soft; Negative for guarding or rebound tenderness present no CVA tenderness Extremity normal to inspection Neuro oriented x3, CN's II-XII intact bilaterally and no sensory deficits noted Sensorium / Orientation: alert Motor Exam: strength 5/5 throughout Psych mental status grossly normal MDM MDM MDM Narrative Medical decision making narrative: Patient continues to feel lightheaded. Labs are reviewed. Discussed with hospitalist for observation. Lab Data Attestation: I reviewed the patient's lab results. Labs: Laboratory Results - last 24 hr 10/24/20 10/24/20 12:50 12:50 WBC 6.0 RBC 4.93 Hgb 14.6 Hct 43.2 MCV 87.6 MCH 29.6 MCHC 33.8 RDW Std Deviation 39.2 RDW Coeff of Clairssa 12.1 Plt Count [employer]OPER MPV 10.7 Immature Gran % (Auto) 0.200 Neut % (Auto) 62.3 Lymph % (Auto) 26.3 [place] % (Auto) 10.2 H Eos % (Auto) 0.8 Baso % (Auto) 0.2 Absolute Neuts (auto) 3.7 Absolute Lymphs (auto) 1.57 Nucleated RBC % 0 Differential Comment SCANNED Platelet Estimate ADEQUATE Sodium 136 Potassium 4.6 Chloride 106 Carbon Dioxide 24.0 Anion Gap 6 BUN 16 Creatinine 1.17 Estim Creat Clear Calc 63.78 Est GFR (MDRD) Af Amer 81 Est GFR (MDRD) Non-Af 67 BUN/Creatinine Ratio 13.7 Glucose 111 H Calcium 9.3 Troponin I < 0.015 EKG Initial EKG: Attestation: I personally reviewed and interpreted this EKG as follows: Interpretation: Sinus Rhythm and Non-Specific ST Changes Discharge Plan Dx/Rx/DC Orders Clinical Impression: Near syncope Disposition Disposition: Acute Care Hospital [facility]
[2020-10-24 13:04] LABS: Absolute Lymphocyte Count 1.57 X10^3/uL (0.83-4.51); Absolute Neutrophil Count 3.7 X10^3/uL (2.0-7.7); Basophil# 0.01 X10^3/uL; Basophil% 0.2 % (0-1); Eosinophil# 0.05 X10^3/uL; Eosinophils% 0.8 % (0-5); Hematocrit 43.2 % (40-54); Hemoglobin 14.6 g/dL (13.0-16.5); Lymphocyte # 1.57 X10^3/ul (0.83-4.51); Lymphocyte % 26.3 % (19-41); Mean Corp Hgb Conc 33.8 g/dL (32-36); Mean Corpuscular Hgb 29.6 pg (27.0-32.0); Mean Corpuscular Volume 87.6 fL (80-94); Mean Platelet Vol. 10.7 fl (6.2-12.0); Monocyte# 0.61 X10^3/uL; Monocyte% 10.2 % (0-10); NRBC Flagged by Analyzer 0 % (0-5); Neutrophil # 3.72 X10^3/uL (2.7-7.7); Neutrophil % 62.3 % (47-70); POSITIVE COUNT YES; RBC Distribution Width CV 12.1 % (11.6-14.6); RBC Distribution Width SD 39.2 fl (35.1-43.9); Red Blood Count 4.93 M/mm3 (4.6-6.2)
[2020-10-24 13:29] LABS: Anion Gap 6 (5-15); BUN 16 mg/dL (7-18); BUN/Creat Ratio 13.7 RATIO (10-20); Calcium,Total 9.3 mg/dL (8.5-10.1); Chloride 106 mmol/L (98-107); Creatinine, Serum 1.17 mg/dL (0.70-1.30); EST Glomerular Filtration Rate 67 mL/min (>60); Est Glom Filt Rate - Afr Amer 81 mL/min (>60); Estimated Creatinine Clearance 63.78 ml/min; Glucose 111 mg/dL (74-106); Potassium 4.6 mmol/L (3.5-5.1); Sodium Level 136 mmol/L (136-145)
[2020-10-24 13:40] LABS: Differential Indicated SCAN CRITERIA MET
[2020-10-24 13:42] LABS: Differential Comment SCANNED; Platelet Estimate ADEQUATE (ADEQ)
--- NOTE | 2020-10-24 13:59 | HP.PCM.HOS_ITS ---
HPI - General General Date of Admission: 10/24/20 HPI Narrative YRN VACA, is a 64 M with a PMH as outlined who presents with a complaint of dizziness and lightheadedness. Patient states noted that he got dizzy and lightheaded whenever he ate so he was concerned that this may have something to do with his blood sugars. He also says he almost passed out in the shower. He didnt notice the dizziness being precipitated by him sitting for long periods and standing. He denied any headache, chest pain, palpitations, dizziness, lightheadedness, chest pain, nausea or vomiting or diarrhea. He also denied any urinary symptoms. Review of systems was otherwise negative. EKG show ed no acute ST changes. Vitals showed BP of 125/87, WI of 78, and Temp of 98.3F. CBC was unremarkable and BMP was also unremarkable. He is being admitted to be managed for near syncope, of unknown etiology. [facility] Medical History (Updated 10/24/20 @ 14:[address] Andree Evans MD) Hyperlipidemia Schizophrenia Home Medications Invega Sustenna 156 mg IM Q30D 05/18/16 [History Last Taken 10/07/20] atorvastatin 10 mg PO QHS 05/18/16 [History Last Taken 10/23/20] docusate sodium [DOK] 100 mg PO DAILY 05/18/16 [History Last Taken 10/24/20] loratadine [Allergy Relief (loratadine)] 10 mg PO DAILY 05/18/16 [History Last Taken 10/24/20] propranolol 10 mg PO BID 05/18/16 [History Last Taken 10/24/20] vitamin E (dl, acetate) 400 units PO TID 05/18/16 [History Last Taken 10/24/20] benztropine 0.5 mg PO TID 10/24/20 [History Last Taken 10/24/20] cholecalciferol (vitamin D3) [Vitamin D3] 1,000 unit PO DAILY 10/24/20 [History Last Taken 10/24/20] Allergy/AdvReac Type Severity Reaction Status Date / Time No Known Allergies Allergy Verified 10/24/20 12:36 Social History Smoking Status: Never smoker ROS Constitutional Constitutional: Denies anorexia, change in weight, chills, fatigue, fever(s), malaise or weakness Eyes Eyes: Denies blurry vision or loss of vision ENT HEENT: Denies dysphagia, headache(s), hearing loss or nasal discharge Cardiovascular Cardiovascular: Reports lightheadedness; Denies chest pain, dyspnea on exertion, edema, orthopnea, palpitations, paroxysmal nocturnal dyspnea, rapid heart rate or syncope Respiratory/Chest Respiratory/Chest: Denies cough, dyspnea, hemoptysis, shortness of breath at rest or shortness of breath with exertion Gastrointestinal Gastrointestinal: Denies abdominal pain, constipation or diarrhea Genitourinary Genitourinary: Denies burning urination or dysuria Musculoskeletal Musculoskeletal: Denies arthralgias Neurologic Neurologic: Reports dizziness; Denies confusion, focal weakness or syncope Psychiatric Psychiatric: Denies anxiety Hematologic/Lymphatic Hematologic/Lymphatic: Denies anemia Allergic/Immunologic Allergic/Immunologic: Denies asthma Vital Signs Vital Signs Vital Signs: 10/24/20 12:34 10/24/20 12:42 10/24/20 13:57 Temperature 98.3 F Temperature Source Temporal Pulse Rate 81 Pulse Rate [Lying] 62 Pulse Rate [Sitting] 78 Pulse Rate [Standing] 77 Respiratory Rate 16 Respiratory Effort Normal Non-Labored Respiratory Pattern Normal Blood Pressure 137/88 H Blood Pressure [Lying] 125/87 H Blood Pressure [Sitting] 122/88 H Blood Pressure [Standing] 118/88 H Blood Pressure Mean 104 Blood Pressure Mean [Lying] 99 Blood Pressure Mean [Sitting] 99 Blood Pressure Mean [Standing] 98 Pulse Ox 95 Oxygen Delivery Method Room Air Physical Exam Const alert, oriented x3 and no apparent distress General Appearance: cooperative HEENT normocephalic, head/scalp atraumatic, hearing grossly normal bilaterally and moist oral mucous membranes Eyes PERRL, EOMs intact bilaterally and conjunctivae normal Neck no lymphadenopathy, supple and no JVD Resp normal respiratory effort, no retractions, no use of accessory muscles and clear to auscultation bilaterally Cardio regular rate, regular rhythm, S1 normal heart sound, S2 normal heart sound and no murmurs GI normal to inspection, nondistended, normoactive bowel sounds, soft to palpation, non-tender and non-distended Extremity normal to inspection, full ROM and no clubbing, cyanosis or edema Peripheral Pulses: Yes pulses 2+ throughout Skin no rashes or lesions noted Neuro oriented x3 Sensorium / Orientation: awake and alert Psych affect normal Lab / Micro Data Result Diagrams: 10/24/20 12:50 10/24/20 12:50 Labs: Laboratory Results - last 24 hr 10/24/20 10/24/20 12:50 12:50 WBC 6.0 RBC 4.93 Hgb 14.6 Hct 43.2 MCV 87.6 MCH 29.6 MCHC 33.8 RDW Std Deviation 39.2 RDW Coeff of Clarissa 12.1 Plt Count STOCK REPLENISHER MPV 10.7 Immature Gran % (Auto) 0.200 Neut % (Auto) 62.3 Lymph % (Auto) 26.3 Gray % (Auto) 10.2 H Eos % (Auto) 0.8 Baso % (Auto) 0.2 Absolute Neuts (auto) 3.7 Absolute Lymphs (auto) 1.57 Nucleated RBC % 0 Differential Comment SCANNED Platelet Estimate ADEQUATE Sodium 136 Potassium 4.6 Chloride 106 Carbon Dioxide 24.0 Anion Gap 6 BUN 16 Creatinine 1.17 Estim Creat Clear Calc 63.78 Est GFR (MDRD) Af Amer 81 Est GFR (MDRD) Non-Af 67 BUN/Creatinine Ratio 13.7 Glucose 111 H Calcium 9.3 Troponin I < 0.015 Assessment & Plan Assessment/Plan (1) Near syncope: PLAN: #Near syncope * It is not very clear what the etiology possibly may be as patient states he gets dizzy when he is eating and thinks he may have to do with his blood sugars. * Will check orthostatics. * Gentle hydration with IV fluid normal saline * at 125 cc/hr * PT OT consult. Fall precautions. * 2D echo * #Schizophrenia: on invega and benztropine #Hyperlipidemia: on statin DVT prophylaxis: lovenox Code status: full code * Patient counseled extensively about differences between full code, DNR CCA and DNR CCA. Patient states he wants everything done including intubation and CPR if needed and therefore patient elects to be full code. * Total aydi-aq-xqdx time 16 minutes. Visit Charges OBSV E&M: 24010 Initial observation care L2 Procedures Hospitalists Procedures: 79535 Advncd Care Plan 30 Min
--- NOTE | 2020-10-24 14:02 | NURSING ---
DR TERESO DISLA
--- NOTE | 2020-10-24 14:11 | NURSING ---
PCU OBS KORAM NEAR SYNCOPE
--- NOTE | 2020-10-24 15:52 | ECHOD_ITS ---
Reason For Study: Near syncope Procedure This was a 2D Doppler, Color Flow transthoracic echocardiogram. Exam performed portable in patient room. Left Ventricle Normal LV size. The estimated ejection fraction is 65 %. Normal diastology for age. No regional wall motion abnormalities noted. Right Ventricle Normal RV size. Normal systolic function. Atria Normal left atrium. Normal right atrium. No doppler evidence for ASD. Mitral Valve There is no mitral valve stenosis. Trivial mitral valve insufficiency. Tricuspid Valve There is no tricuspid stenosis. Trivial tricuspid valve insufficiency. Unable to estimate RV systolic pressure due to insufficient tricuspid regurgitant envelope. Aortic Valve Trisinus/trileaflet aortic valve. There is no aortic stenosis. No aortic valve insufficiency. Pulmonic Valve There is no pulmonic valvular stenosis. No pulmonic valve insufficiency. Great Vessels Normal aortic root. Pericardium/Pleural No pericardial effusion. MMode/2D Measurements & Calculations LVIDd: 4.4 cm IVSd: 1.3 cm Ao root diam: 3.1 cm LVIDs: 2.9 cm LVPWd: 1.2 cm RVDd: 3.0 cm FS: 33.7 % LAV(MOD-bp): 41.7 ml LVAd ap4: 25.6 cm2 LVAd ap2: 27.5 cm2 LAV(MOD-bp) Indexed: 19.3 ml/m2 LVLd ap4: 7.7 cm LVLd ap2: 8.4 cm LAV(MOD-sp2): 54.3 ml EDV(MOD-sp4): 67.5 ml EDV(MOD-sp2): 73.9 ml LAV(MOD-sp4): 31.3 ml EDV(sp4-el): 71.7 ml EDV(sp2-el): 76.6 ml LVAs ap4: 13.8 cm2 LVAs ap2: 13.7 cm2 LVLs ap4: 6.8 cm LVLs ap2: 6.9 cm ESV(MOD-sp4): 24.0 ml ESV(MOD-sp2): 23.9 ml ESV(sp4-el): 23.8 ml ESV(sp2-el): 23.1 ml EF(MOD-sp4): 64.4 % EF(MOD-sp2): 67.7 % EF(sp4-el): 66.8 % SV(MOD-sp4): 43.4 ml SV(MOD-sp2): 50.0 ml SV(sp4-el): 47.9 ml LA dimension(2D): 3.4 cm LA A4 area: 13.3 cm2 RA A4 area: 9.1 cm2 Doppler Measurements & Calculations MV E max sergei: 57.7 cm/sec Lat Peak E' Sergei: 7.7 cm/sec Med Peak E' Sergei: 6.3 cm/sec MV A max sergei: 58.3 cm/sec E/E' lat: 7.5 E/E' med: 9.1 MV E/A: 0.99 Ao V2 max: 126.1 cm/sec LV V1 max: 115.5 cm/sec PA V2 max: 91.3 cm/sec Ao max P.4 mmHg LV V1 max P.3 mmHg TR max sergei: 237.0 cm/sec TR max P.5 mmHg ECHO/Echo Complete Interpretation Summary The estimated ejection fraction is 65 %. Normal diastology for age. Trivial mitral valve insufficiency. Ordering Physician: Lupe Romero Referring Physician: Luis Diaz Performed By: Dinah Arias RDCS
[2020-10-24] MEDS: Vitamin E 400 UNITS Capsule PO (17:08)
[2020-10-24] MEDS: 0.9% Normal Saline 1,000 ML 125 ML IV ×2 (17:08→23:52)
[2020-10-24] MEDS: Benztropine Mesylate 0.5 MG TABLET PO (21:37)
[2020-10-24] MEDS: Atorvastatin Calcium 10 MG Tablet PO (21:38)
[2020-10-25] VITALS (7 sets, daily range): BP systolic 107–138; BP diastolic 63–85; PULSE 60–85; RESP 16; TEMP 36.5–36.6; O2SAT 93–96
[2020-10-25] MEDS: Benztropine Mesylate 0.5 MG TABLET PO (05:54)
[2020-10-25 06:41] LABS: Absolute Lymphocyte Count 2.11 X10^3/uL (0.83-4.51); Absolute Neutrophil Count 2.9 X10^3/uL (2.0-7.7); Basophil# 0.03 X10^3/uL; Basophil% 0.5 % (0-1); Eosinophil# 0.07 X10^3/uL; Eosinophils% 1.2 % (0-5); Hematocrit 40.5 % (40-54); Hemoglobin 13.6 g/dL (13.0-16.5); Lymphocyte # 2.11 X10^3/ul (0.83-4.51); Lymphocyte % 37.1 % (19-41); Mean Corp Hgb Conc 33.6 g/dL (32-36); Mean Corpuscular Hgb 30.2 pg (27.0-32.0); Mean Corpuscular Volume 89.8 fL (80-94); Mean Platelet Vol. 9.8 fl (6.2-12.0); Monocyte# 0.59 X10^3/uL; Monocyte% 10.4 % (0-10); NRBC Flagged by Analyzer 0 % (0-5); Neutrophil # 2.87 X10^3/uL (2.7-7.7); Neutrophil % 50.6 % (47-70); Platelet Count 191 K/mm3 (150-450); RBC Distribution Width CV 12.1 % (11.6-14.6); Red Blood Count 4.51 M/mm3 (4.6-6.2); White Blood Count 5.7 K/mm3 (4.4-11.0)
[2020-10-25 07:02] LABS: BUN 15 mg/dL (7-18); Creatinine, Serum 1.11 mg/dL (0.70-1.30); Estimated Creatinine Clearance 67.23 ml/min; Glucose 100 mg/dL (74-106)
[2020-10-25 07:03] LABS: Anion Gap 5 (5-15); BUN/Creat Ratio 13.5 RATIO (10-20); Calcium,Total 8.4 mg/dL (8.5-10.1); Chloride 108 mmol/L (98-107); EST Glomerular Filtration Rate 71 mL/min (>60); Est Glom Filt Rate - Afr Amer 86 mL/min (>60); Sodium Level 140 mmol/L (136-145)
[2020-10-25] MEDS: Vitamin E 400 UNITS Capsule PO (09:02)
[2020-10-25] MEDS: Loratadine 10 MG Tablet PO (09:02)
[2020-10-25] MEDS: Enoxaparin 40 MG/0.4 ML Syringe SC (09:03)
[2020-10-25] MEDS: Cholecalciferol (VIT D3) 25 MCG TABLET (1,000 UNITS) PO (09:03)
[2020-10-25] MEDS: Docusate Sodium 100 MG Capsule PO (09:03)
[2020-10-25] MEDS: Propranolol 10 MG Tablet PO (09:03)
--- NOTE | 2020-10-25 11:05 | PCM.DC ---
Discharge Instructions Diet Discharge Diet: Low fat / Low cholesterol and 2000 mg Sodium Diet Activity Discharge Activity: Return to Normal Activity and May Not Drive Dressing / Incision Call your doctor if you observe: Fever of 101 or Higher, Coldness, Increased Pain, Numbness or Tingling, Change in Color, Inability to urinate, Inability to have a bowel movement, Shortness of breath, Dizziness, Fainting spells, Swelling in the ankles, Chest pain, Prolonged hiccupping, Increased palpitations (irregular heartbeat), Calf discomfort and Uncontrolled pain Follow Up Care Test Results: Test results from this visit will be discussed in further detail at your follow-up appointment, if applicable. Discharge Plan Admission Admit Date/Time: 10/24/20 15:48 Primary Reason for Your Visit: Near syncope Attending Provider: Michael Gotti Primary Care Provider: Luis Diaz Instructions Patient Instructions: Dizziness (Vertigo) and Balance Problems: Diagnostic Tests, ED Chest Pain, Noncardiac Discharge Orders/Prescriptions Prescriptions: New meclizine 12.5 mg tablet 12.5 mg PO .4 times daily PRN (Reason: dizziness) Qty: 30 RF: 0 Continued propranolol 10 MG tablet 10 mg PO BID RF: 0 docusate sodium [DOK] 100 MG capsule 100 mg PO DAILY RF: 0 vitamin E (dl, acetate) 400 UNITS capsule 400 units PO TID RF: 0 Invega Sustenna 156 MG/ML syringe 156 mg IM Q30D RF: 0 cholecalciferol (vitamin D3) [Vitamin D3] 25 mcg (1,000 unit) capsule 1,000 unit PO DAILY RF: 0 benztropine 0.5 mg tablet 0.5 mg PO TID RF: 0 Changed atorvastatin 10 MG tablet 20 mg PO QHS Qty: 0 RF: 0 loratadine [Allergy Relief (loratadine)] 10 MG tablet 10 mg PO DAILY PRN (Reason: dizziness) Qty: 0 RF: 0 Referrals / Follow Up: Luis Diaz MD [Primary Care Provider] - Disposition Disposition (needs filled in before D/C Order can be placed): Home, self care
--- NOTE | 2020-10-25 11:12 | DS.PCM_ITS ---
Providers Date of Admission: 10/24/20 Primary Care Physician: Dr. Luis Diaz MD Reason For Visit: NEAR SYNCOPE Diagnosis Discharge Diagnosis (1) Near syncope: Status: Acute Code(s): R55 - Syncope and collapse Medications at Discharge Home Medications Invega Sustenna 156 mg IM Q30D 05/18/16 docusate sodium [DOK] 100 mg PO DAILY 05/18/16 propranolol 10 mg PO BID 05/18/16 vitamin E (dl, acetate) 400 units PO TID 05/18/16 benztropine 0.5 mg PO TID 10/24/20 cholecalciferol (vitamin D3) [Vitamin D3] 1,000 unit PO DAILY 10/24/20 atorvastatin 20 mg PO QHS #0 tab 10/25/20 loratadine [Allergy Relief (loratadine)] 10 mg PO DAILY PRN #0 tab 10/25/20 meclizine 12.5 mg PO .4 times daily PRN #30 tab 10/25/20 Hospital Course Summary of Care Provided Hospital Course: This is a 64-year-old gentleman was admitted with dizziness, lightheadedness after he had right ear wax removal on day of admission. Patient was admitted in PCU. Orthostatic vitals were negative twice at the time of admission and today. Patient denies vertigo. Patient thought his blood sugar was low but is normal, glucose 137, 111.. Serial troponins negative. Electrolytes normal. No fever or chills. Patient has a comorbidities which include schizophrenia on Invega and benztropine, dyslipidemia on a statin. Patient walked around the nursing station in supervision of nursing staff and he did well. 2D echo was done. Reported as EF 65% with normal diastole, trivial MR. Discharge medication reconciliation done. Discharge follow-up instructions completed. Discharge process discussed with the patient and all questions were answered to patient's satisfaction. Total time spent, exact 35 minutes on discharge meds reconciliation, examination, coordination of care with nurses and ancillary staff, review of imaging and blood test and discussion with the patient on follow-up instructions Physical Exam Narrative Patient has history of his chronic pain and other multiple comorbid including hyperlipidemia. Patient was admitted with dizziness, lightheadedness after he had right ear wax removal in [facility]. Currently symptom-free. Denies vertigo. awake overnight monitor shows sinus rhythm with PVCs General: Alert, Oriented x3, Cooperative HEENT: Atraumatic, PERRLA, EOMI, Normocephalic Oral: No Gingival or Mucosal Lesions/ Ulcerations Neck: Supple, No JVD, Negative Carotid Bruits Lungs: Air entry diminished in bilateral lung bases. No crepitation/rhonchi Cardiovascular: Regular rate, Regular Rhythm, Normal S1, Normal S2, PVCs, no murmurs Abdomen: Bowel Sounds Present, Soft, Non Tender, Non-Distended : No renal angle tenderness. No suprapubic tenderness. Extremities: No edema, Capillary Refill Less than 3 Seconds Skin: No rashes, No breakdown Musculoskeletal: No Tenderness to Palpation of Joints or Extremities Neurological: Cranial nerves II-XII grossly intact, Deep Tendon Reflexes 2+/4 and Symmetrical, Neuro grossly intact Psych/Mental Status: Flat affect. ABG / Lab / Microbiology Data Result Diagrams: 10/25/20 05:41 10/25/20 05:41 Laboratory: Laboratory Results - last 24 hr 10/24/20 10/24/20 10/24/20 12:50 12:50 16:40 WBC 6.0 RBC 4.93 Hgb 14.6 Hct 43.2 MCV 87.6 MCH 29.6 MCHC 33.8 RDW Std Deviation 39.2 RDW Coeff of Clarissa 12.1 Plt Count DIETARY SUPERVISOR MPV 10.7 Immature Gran % (Auto) 0.200 Neut % (Auto) 62.3 Lymph % (Auto) 26.3 [place] % (Auto) 10.2 H Eos % (Auto) 0.8 Baso % (Auto) 0.2 Absolute Neuts (auto) 3.7 Absolute Lymphs (auto) 1.57 Nucleated RBC % 0 Differential Comment SCANNED Platelet Estimate ADEQUATE Sodium 136 Potassium 4.6 Chloride 106 Carbon Dioxide 24.0 Anion Gap 6 BUN 16 Creatinine 1.17 Estim Creat Clear Calc 63.78 Est GFR (MDRD) Af Amer 81 Est GFR (MDRD) Non-Af 67 BUN/Creatinine Ratio 13.7 Glucose 111 H Calcium 9.3 Troponin I < 0.015 < 0.015 10/24/20 10/25/20 10/25/20 19:43 05:41 05:41 WBC 5.7 RBC 4.51 L Hgb 13.6 Hct 40.5 MCV 89.8 MCH 30.2 MCHC 33.6 RDW Std Deviation 40.0 RDW Coeff of Clarissa 12.1 Plt Count 191 MPV 9.8 Immature Gran % (Auto) 0.200 Neut % (Auto) 50.6 Lymph % (Auto) 37.1 [place] % (Auto) 10.4 H Eos % (Auto) 1.2 Baso % (Auto) 0.5 Absolute Neuts (auto) 2.9 Absolute Lymphs (auto) 2.11 Nucleated RBC % 0 Differential Comment Platelet Estimate Sodium 140 Potassium 4.0 Chloride 108 H Carbon Dioxide 27.0 Anion Gap 5 BUN 15 Creatinine 1.11 Estim Creat Clear Calc 67.23 Est GFR (MDRD) Af Amer 86 Est GFR (MDRD) Non-Af 71 BUN/Creatinine Ratio 13.5 Glucose 100 Calcium 8.4 L Troponin I < 0.015 D/C Instructions Discharge Diet: Low fat / Low cholesterol and 2000 mg Sodium Diet Discharge Activity: Return to Normal Activity and May Not Drive Call your doctor if you observe: Fever of 101 or Higher, Coldness, Increased Pain, Numbness or Tingling, Change in Color, Inability to urinate, Inability to have a bowel movement, Shortness of breath, Dizziness, Fainting spells, Swelling in the ankles, Chest pain, Prolonged hiccupping, Increased palpitations (irregular heartbeat), Calf discomfort and Uncontrolled pain Meaningful Use Info Meaningful Use Diagnoses (Choose all that apply): None applicable Discharge Plan Admission Admit Date/Time: 10/24/20 15:48 Primary Reason for Your Visit: Near syncope Attending Provider: Michael Gotti Primary Care Provider: Luis Diaz Instructions Patient Instructions: Dizziness (Vertigo) and Balance Problems: Diagnostic Tests, ED Chest Pain, Noncardiac Discharge Orders/Prescriptions Prescriptions: New meclizine 12.5 mg tablet 12.5 mg PO .4 times daily PRN (Reason: dizziness) Qty: 30 RF: 0 Continued propranolol 10 MG tablet 10 mg PO BID RF: 0 docusate sodium [DOK] 100 MG capsule 100 mg PO DAILY RF: 0 vitamin E (dl, acetate) 400 UNITS capsule 400 units PO TID RF: 0 Invega Sustenna 156 MG/ML syringe 156 mg IM Q30D RF: 0 cholecalciferol (vitamin D3) [Vitamin D3] 25 mcg (1,000 unit) capsule 1,000 unit PO DAILY RF: 0 benztropine 0.5 mg tablet 0.5 mg PO TID RF: 0 Changed atorvastatin 10 MG tablet 20 mg PO QHS Qty: 0 RF: 0 loratadine [Allergy Relief (loratadine)] 10 MG tablet 10 mg PO DAILY PRN (Reason: dizziness) Qty: 0 RF: 0 Referrals / Follow Up: Luis Diaz MD [Primary Care Provider] - Disposition Disposition (needs filled in before D/C Order can be placed): Home, self care Visit Charges OBSV E&M: 85695 Observation care discharge
== END 2020-10-25 11:10 | disposition home or self-care (01) ==
LOC: ED 14:08 → PCU 16:03
PROVIDERS: Admitting Provider Student in an Organized Health Care Education/Training Program; Emergency Provider Emergency Medicine; PCP Family Medicine; Visit Provider Internal Medicine
DX: R55 Syncope and collapse (principal); R42 Dizziness and giddiness; E78.5 Hyperlipidemia, unspecified; F20.9 Schizophrenia, unspecified; Z79.899 Other long term (current) drug therapy
CPT/HCPCS: 36415; 80048; 84484; 85025; 93005; 93306; 96360; 96361; 96372; 99218; 99285; J7030; J7040; A4216; G0378

== ENCOUNTER 2020-11-15 20:42 | Emergency (ER) | payer MEDICAID, SELFPAY ==
[2020-10-24 15:00] VITALS: BMI 33.0
[2020-11-15 20:43] VITALS: BP 121/71; PULSE 78; RESP 15; TEMP 36.2; O2SAT 95; BMI 32.8
--- NOTE | 2020-11-15 21:16 | EKG12_ITS ---
Test Reason : CP Blood Pressure : / mmHG Vent. Rate : 077 BPM Atrial Rate : 077 BPM P-R Int : 162 ms QRS Dur : 086 ms QT Int : 376 ms P-R-T Axes : 059 006 006 degrees QTc Int : 425 ms Normal sinus rhythm Nonspecific T wave abnormality Abnormal ECG Confirmed by JANINA MADDOX, CHAGO ([id number]), editor dictionary MIGUEL LOZA ([id number]) on 11/20/2020 9:26:17 AM Referred By: EVAN VERDIN Confirmed By:CHAGO ROA MD
[2020-11-15] MEDS: Aspirin 81 MG TAB.CHEW 324 MG PO (21:27)
[2020-11-15] MEDS: 0.9% Normal Saline 1,000 ML 1000 ML IV (21:30)
[2020-11-15 21:40] LABS: Absolute Lymphocyte Count 2.21 X10^3/uL (0.83-4.51); Absolute Neutrophil Count 3.1 X10^3/uL (2.0-7.7); Basophil# 0.02 X10^3/uL; Basophil% 0.3 % (0-1); Eosinophil# 0.11 X10^3/uL; Eosinophils% 1.8 % (0-5); Hematocrit 40.4 % (40-54); Hemoglobin 13.9 g/dL (13.0-16.5); Lymphocyte # 2.21 X10^3/ul (0.83-4.51); Lymphocyte % 36.8 % (19-41); Mean Corp Hgb Conc 34.4 g/dL (32-36); Mean Corpuscular Hgb 30.3 pg (27.0-32.0); Mean Corpuscular Volume 88.2 fL (80-94); Mean Platelet Vol. 9.8 fl (6.2-12.0); NRBC Flagged by Analyzer 0 % (0-5); Neutrophil # 3.05 X10^3/uL (2.7-7.7); Neutrophil % 50.9 % (47-70); Platelet Count 197 K/mm3 (150-450); RBC Distribution Width CV 12.3 % (11.6-14.6); RBC Distribution Width SD 39.5 fl (35.1-43.9); Red Blood Count 4.58 M/mm3 (4.6-6.2)
--- NOTE | 2020-11-15 21:45 | EDS_ITS ---
HPI History of Present Illness Chief Complaint: Dizziness Informant: patient Narrative Narrative: Patient presents today for recurrent lightheaded symptoms worse with standing. Reports 2 weeks ago seen in the ED for similar was admitted to the hospital. Denied any spinning sensations. Yesterday states had 90 minutes of left-sided chest pains. No radicular symptoms. No dyspnea or nausea. Denies any cough. Unclear if he has had a stress test. Denies any heart caths in the past. He has not follow-up with his PCP since being discharged. Denies any recent vomiting or diarrhea. Denies urinary symptoms. History of hypercholesterolemia and schizophrenia. Reviewing records observations admission had echocardiogram in the hospital EF 65% had trivial MR. Serial troponins were negative. Prior similar symptoms: Yes PFSH PFSH Medical History Hyperlipidemia Schizophrenia Home Medications Invega Sustenna 156 mg IM Q30D 05/18/16 [History Last Taken 10/07/20] docusate sodium [DOK] 100 mg PO DAILY 05/18/16 [History Last Taken 10/24/20] propranolol 10 mg PO BID 05/18/16 [History Last Taken 10/24/20] vitamin E (dl, acetate) 400 units PO TID 05/18/16 [History Last Taken 10/24/20] benztropine 0.5 mg PO TID 10/24/20 [History Last Taken 10/24/20] cholecalciferol (vitamin D3) [Vitamin D3] 1,000 unit PO DAILY 10/24/20 [History Last Taken 10/24/20] atorvastatin 20 mg PO QHS #0 tab 10/25/20 [Rx Last Taken 10/23/20] loratadine [Allergy Relief (loratadine)] 10 mg PO DAILY PRN #0 tab 10/25/20 [Rx Last Taken 10/24/20] meclizine 12.5 mg PO .4 times daily PRN #30 tab 10/25/20 [Rx Last Taken Unknown] Allergy/AdvReac Type Severity Reaction Status Date / Time No Known Allergies Allergy Verified 11/15/20 20:47 Social History Smoking Status: Never smoker ROS ROS ED Constitutional Constitutional ED: Denies chills, fever(s) or sweats Eyes Eyes: Denies change in vision ENT ENT ED: Denies dysphagia or sore throat Cardiovascular Cardiovascular: Denies chest pain, leg edema, palpitations or racing heartbeat Respiratory/Chest Respiratory/Chest: Denies cough, dyspnea or dyspnea on exertion Gastrointestinal Gastrointestinal: Denies abdominal pain, diarrhea, nausea or vomiting Genitourinary Genitourinary ED: Denies dysuria, hematuria or urinary frequency Musculoskeletal Musculoskeletal: Denies back pain, extremity pain or neck pain Integumentary Denies rash or wounds Neurologic Neurologic: Denies headache(s), paresthesias or weakness EXAM Physical Exam Const Vital Signs: 11/15/20 20:43 11/15/20 20:52 11/15/20 21:24 Temperature 97.2 F L Temperature Source Temporal Pulse Rate 78 Respiratory Rate 15 Respiratory Effort Normal Non-Labored Respiratory Pattern Normal Blood Pressure 121/71 H Blood Pressure Mean 87 Pulse Ox 95 Oxygen Delivery Method Room Air Room Air Positive well nourished and well developed General Appearance ED: well developed and NAD HEENT Reports TM's clear and moist mucous membranes normocephalic and atraumatic Tympanic Membrane ED: Yes TM's clear Eyes PERRL, EOMs intact bilaterally and conjunctivae normal General Eye ED: Yes normal appearance of both eyes Neck no lymphadenopathy and supple General: Negative for tenderness Chest Wall Chest: Negative for tenderness Resp normal respiratory effort and normal air movement Effort and Inspection: symmetric chest movement; Negative for respiratory distress Cardio regular rate, regular rhythm and no murmurs Peripheral Pulses: pulses 2+ throughout GI normal to inspection, nondistended, normoactive bowel sounds and non-tender Palpation: Negative for guarding or rebound tenderness present Back/Spine no CVA tenderness and no thoracic nor lumbar tenderness Extremity normal to inspection General Extremety ED: Negative for edema or tenderness General Extremity: Negative for edema Neuro oriented x3 and no sensory deficits noted Sensorium / Orientation: awake and alert Skin no rashes or lesions noted and no wounds MDM MDM MDM Narrative Medical decision making narrative: EKG with no new changes. Normal echocardiogram couple weeks ago. Cardiac work-up initiated due to 90 minutes of chest pain yesterday. Patient cardiac work-up negative. Heart score is a 3. Chest pain was yesterday. Is given IV fluids. Basic labs normal. Chest x-ray 1 view reviewed by myself shows no acute process. Patient was ambulated with no return of symptoms. Discussed with patient to follow-up with his PCP for further testing as an outpatient for his chest pains. Continue oral fluids. Signs and symptoms discussed return. Prior to discharge he was ambulated with no return of symptoms. All questions were answered. Lab Data Labs: Laboratory Results - last 24 hr 11/15/20 11/15/20 21:32 21:32 WBC 6.0 RBC 4.58 L Hgb 13.9 Hct 40.4 MCV 88.2 MCH 30.3 MCHC 34.4 RDW Std Deviation 39.5 RDW Coeff of Clarissa 12.3 Plt Count 197 MPV 9.8 Immature Gran % (Auto) 0.200 Neut % (Auto) 50.9 Lymph % (Auto) 36.8 [place] % (Auto) 10.0 Eos % (Auto) 1.8 Baso % (Auto) 0.3 Absolute Neuts (auto) 3.1 Absolute Lymphs (auto) 2.21 Nucleated RBC % 0 Sodium 140 Potassium 4.0 Chloride 109 H Carbon Dioxide 26.0 Anion Gap 5 BUN 19 H Creatinine 1.16 Estim Creat Clear Calc 63.49 Est GFR (MDRD) Af Amer 81 Est GFR (MDRD) Non-Af 67 BUN/Creatinine Ratio 16.4 Glucose 101 Calcium 9.0 Troponin I < 0.015 Radiography Chest X-Ray - ED: 1 View, Read by ED Physician and No Acute Disease EKG Initial EKG: Attestation: I personally reviewed and interpreted this EKG as follows: Comments: Sinus rhythm rate of 77, no ST changes, T wave inversions inferior lateral leads similar to EKG on October 24, 2020. Discharge Plan Triage Chief Complaint: Dizziness ED Provider: Jona Izaguirre Dx/Rx/DC Orders Clinical Impression: Near syncope, Chest pain Instructions: ED Chest Pain, Uncertain Cause, ED Near-Fainting, Uncertain Cause Prescriptions: No Action propranolol 10 MG tablet 10 mg PO BID RF: 0 docusate sodium [DOK] 100 MG capsule 100 mg PO DAILY RF: 0 vitamin E (dl, acetate) 400 UNITS capsule 400 units PO TID RF: 0 Invega Sustenna 156 MG/ML syringe 156 mg IM Q30D RF: 0 cholecalciferol (vitamin D3) [Vitamin D3] 25 mcg (1,000 unit) capsule 1,000 unit PO DAILY RF: 0 benztropine 0.5 mg tablet 0.5 mg PO TID RF: 0 atorvastatin 10 MG tablet 20 mg PO QHS Qty: 0 RF: 0 loratadine [Allergy Relief (loratadine)] 10 MG tablet 10 mg PO DAILY PRN (Reason: dizziness) Qty: 0 RF: 0 meclizine 12.5 mg tablet 12.5 mg PO .4 times daily PRN (Reason: dizziness) Qty: 30 RF: 0 Primary Care Provider: Luis iDaz Referrals: Luis Diaz MD [Primary Care Provider] - 3-5 Days Disposition Disposition: Home, self care
--- NOTE | 2020-11-15 21:45 | RAD_ITS ---
HISTORY: chest pain EXAM: XR Chest 1 View: COMPARISON: January 02, 2019 FINDINGS: # of images incl. paperwork: 1 Lungs are clear. Heart is not enlarged. No acute osseous pathology perceived. Pulmonary vascularity is distinct. No effusions. RAD/Chest 1 View (Portable) IMPRESSION: Normal. at 2225 Reported and signed by: Manny Hayward MD Electronically Signed: Manny Hayward MD at 22:24 EDT Tel , Service support ,
[2020-11-15 22:00] LABS: Anion Gap 5 (5-15); BUN 19 mg/dL (7-18); BUN/Creat Ratio 16.4 RATIO (10-20); Chloride 109 mmol/L (98-107); Creatinine, Serum 1.16 mg/dL (0.70-1.30); EST Glomerular Filtration Rate 67 mL/min (>60); Est Glom Filt Rate - Afr Amer 81 mL/min (>60); Estimated Creatinine Clearance 63.49 ml/min; Glucose 101 mg/dL (74-106); Sodium Level 140 mmol/L (136-145)
[2020-11-15 22:35] VITALS: BP 129/82
== END 2020-11-15 22:39 | disposition home or self-care (01) ==
PROVIDERS: Emergency Provider Emergency Medicine; PCP Family Medicine
DX: R55 Syncope and collapse (principal); R07.9 Chest pain, unspecified; E78.00 Pure hypercholesterolemia, unspecified; E78.5 Hyperlipidemia, unspecified
CPT/HCPCS: 71045; 80048; 84484; 85025; 93005; 99284; J7030

== ENCOUNTER → 2020-11-25 11:15 | Outpatient (CLI) | payer MEDICAID, SELFPAY ==
[2020-11-15 20:43] VITALS: BMI 32.8
--- NOTE | 2020-11-25 13:20 | STRESSREP ---
Stress Test Report Date: 11-25-2020 Procedure: Exercise tolerance test Indications: Chest pain Consent: Per the patient Procedure: The patient exercised on a Tone protocol for 4 minutes and 20 seconds completing stage I and 1 minute and 20 seconds of stage II achieving a peak heart rate of 136 bpm (87% predicted maximal heart rate) with a peak blood pressure 132/74 mmHg and a peak MET capacity of approximately 6 MET's. The baseline ECG demonstrated normal sinus rhythm; nonspecific T wave abnormality. The peak exercise ECG demonstrated no obvious ECG changes. There were occasional PVCs during exercise and recovery. The functional capacity was considered decreased. The patient had no complaint of chest discomfort during exercise or recovery. The examination was discontinued secondary to dyspnea. Impression: 1. Technically adequate (percent predicted maximal heart rate greater than 85%) exercise tolerance test 2. Peak exercise ECG with no obvious ECG changes 3. There were occasional PVCs during exercise and recovery This note was generated with [employer] software. It may contain incorrect words, spelling, and punctuation that were not noted in checking the note before signing.
== END ==
PROVIDERS: PCP Family Medicine; Referring Provider Family Medicine; Visit Provider Family Medicine
DX: R07.9 Chest pain, unspecified (principal)
CPT/HCPCS: 93017

== ENCOUNTER 2021-02-09 14:21 | Emergency (ER) | payer MEDICAID, SELFPAY ==
[2021-02-09 14:24] VITALS: BP 124/70; PULSE 100; RESP 18; TEMP 35.6; O2SAT 98; BMI 32.3
--- NOTE | 2021-02-09 15:54 | EDS_ITS ---
HPI History of Present Illness Chief Complaint: General Illness Informant: patient Narrative Narrative: 65-year-old male presenting for the evaluation of shortness of breath and near syncope. Symptoms have been intermittent over the past couple days. He states that at times he does not feel like he can get a good breath. Today he started to feel very lightheaded like he might pass out but did not. This is what prompted him to come to emergency. He notes chronic sinus drainage with postnasal drip and phlegm in the back of his throat. He denies any chest pain fevers. Non-smoker. [facility] Medical History Hyperlipidemia Schizophrenia Home Medications Invega Sustenna 156 mg IM Q30D 05/18/16 [History Last Taken 10/07/20] docusate sodium [DOK] 100 mg PO DAILY 05/18/16 [History Last Taken 10/24/20] propranolol 10 mg PO BID 05/18/16 [History Last Taken 10/24/20] vitamin E (dl, acetate) 400 units PO TID 05/18/16 [History Last Taken 10/24/20] benztropine 0.5 mg PO TID 10/24/20 [History Last Taken 10/24/20] cholecalciferol (vitamin D3) [Vitamin D3] 1,000 unit PO DAILY 10/24/20 [History Last Taken 10/24/20] atorvastatin 20 mg PO QHS #0 tab 10/25/20 [Rx Last Taken 10/23/20] loratadine [Allergy Relief (loratadine)] 10 mg PO DAILY PRN #0 tab 10/25/20 [Rx Last Taken 10/24/20] meclizine 12.5 mg PO .4 times daily PRN #30 tab 10/25/20 [Rx Last Taken Unknown] fluticasone propionate [Flonase Allergy Relief] 1 spray INTRANASAL BID #16 g 02/09/21 [Rx Last Taken Unknown] Allergy/AdvReac Type Severity Reaction Status Date / Time No Known Allergies Allergy Verified 02/09/21 14:24 Social History (Updated 02/09/21 @ 15:[address] Bernard Quijano DO) Smoking Status: Never smoker substance use type: does not use ROS ROS ED Constitutional Constitutional ED: Denies chills or weight loss Eyes Eyes: Denies change in vision or diplopia ENT ENT ED: Reports rhinorrhea; Denies ear pain or sore throat Cardiovascular Cardiovascular: Reports other Details: Near syncope ; Denies chest pain, orthopnea, palpitations or racing heartbeat Respiratory/Chest Respiratory/Chest: Reports dyspnea; Denies cough or orthopnea Gastrointestinal Gastrointestinal: Denies abdominal pain, diarrhea, nausea or vomiting Genitourinary Genitourinary ED: Denies dysuria, hematuria or urinary frequency Musculoskeletal Musculoskeletal: Denies arthralgias or myalgias Integumentary Denies abscess or rash Neurologic Neurologic: Denies headache(s) or weakness Psychiatric Psychiatric: Denies anxiety, depression, suicidal ideation or suicidal thoughts Endocrine Endocrinology: Denies polydipsia, polyphagia or polyuria Allergic/Immunologic Allergic/Immunologic ED: Denies mouth swelling, tongue swelling or urticaria EXAM Physical Exam Const Vital Signs: 02/09/21 14:24 02/09/21 15:39 Temperature 96.0 F L Temperature Source Temporal Pulse Rate 100 Respiratory Rate 18 Respiratory Effort Short of Breath Labored Respiratory Pattern Normal Blood Pressure 124/70 H Blood Pressure Mean 88 Pulse Ox 98 Oxygen Delivery Method Room Air Positive well nourished and well developed General Appearance ED: well developed HEENT Reports normocephalic, head/scalp atraumatic and moist mucous membranes Eyes PERRL and EOMs intact bilaterally Neck no lymphadenopathy, supple and no JVD Resp normal respiratory effort and clear to auscultation bilaterally Cardio regular rate, regular rhythm and no murmurs GI normal to inspection, nondistended, normoactive bowel sounds and non-tender Palpation: soft Back/Spine no CVA tenderness and normal ROM Extremity normal to inspection General Extremety ED: Negative for edema General Extremity: Negative for edema Neuro oriented x3 and CN's II-XII intact bilaterally Sensorium / Orientation: alert Motor Exam: strength 5/5 throughout Psych mental status grossly normal Mood & Affect: Negative for depressed or tearful Skin no rashes or lesions noted and no wounds MDM MDM MDM Narrative Medical decision making narrative: My interpretation of the chest x-ray is no acute process. Basic labs CBC BMP and troponin negative. Said no events on the monitor. Patient is inquiring about his postnasal drip. He believes that is what is causing him to be intermittently short of breath. He states that he has had this nasal drainage for greater than a year. He believes it to be allergies. We can certainly try some medications for him Lab Data Labs: Laboratory Results - last 24 hr 02/09/21 02/09/21 15:46 15:46 WBC 8.1 RBC 4.77 Hgb 14.2 Hct 42.4 MCV 88.9 MCH 29.8 MCHC 33.5 RDW Std Deviation 39.0 RDW Coeff of Clarissa 11.9 Plt Count 208 MPV 10.1 Immature Gran % (Auto) 0.200 Neut % (Auto) 65.1 Lymph % (Auto) 24.1 [place] % (Auto) 9.4 Eos % (Auto) 1.0 Baso % (Auto) 0.2 Absolute Neuts (auto) 5.3 Absolute Lymphs (auto) 1.95 Nucleated RBC % 0 Sodium 142 Potassium 3.9 Chloride 108 H Carbon Dioxide 26.0 Anion Gap 8 BUN 19 H Creatinine 1.23 Estim Creat Clear Calc 59.87 Est GFR (MDRD) Af Amer 76 Est GFR (MDRD) Non-Af 63 BUN/Creatinine Ratio 15.4 Glucose 112 H Calcium 9.3 Troponin I High Sens 23 EKG Initial EKG: Attestation: I personally reviewed and interpreted this EKG as follows: Comments: Sinus rhythm at a rate of 101 with frequent PVCs. Discharge Plan Triage Chief Complaint: General Illness ED Provider: Bernard Quijano Dx/Rx/DC Orders Clinical Impression: Near syncope, Dyspnea, Allergic rhinitis Instructions: ED Dyspnea, ED Allergic Rhinitis Prescriptions: New fluticasone propionate [Flonase Allergy Relief] 50 mcg/actuation spray,suspension 1 spray intranasal BID Qty: 16 RF: 0 No Action propranolol 10 MG tablet 10 mg PO BID RF: 0 docusate sodium [DOK] 100 MG capsule 100 mg PO DAILY RF: 0 vitamin E (dl, acetate) 400 UNITS capsule 400 units PO TID RF: 0 Invega Sustenna 156 MG/ML syringe 156 mg IM Q30D RF: 0 cholecalciferol (vitamin D3) [Vitamin D3] 25 mcg (1,000 unit) capsule 1,000 unit PO DAILY RF: 0 benztropine 0.5 mg tablet 0.5 mg PO TID RF: 0 atorvastatin 10 MG tablet 20 mg PO QHS Qty: 0 RF: 0 loratadine [Allergy Relief (loratadine)] 10 MG tablet 10 mg PO DAILY PRN (Reason: dizziness) Qty: 0 RF: 0 meclizine 12.5 mg tablet 12.5 mg PO .4 times daily PRN (Reason: dizziness) Qty: 30 RF: 0 Primary Care Provider: Luis Diaz Referrals: Luis Diaz MD [Primary Care Provider] - 1 Week Disposition Disposition: Home, Self Care
--- NOTE | 2021-02-09 16:15 | RAD_ITS ---
STUDY: X-RAY CHEST REASON FOR EXAM: Male, 65 years old. sob TECHNIQUE: Single AP portable view of the chest. COMPARISON: 11/15/2020. FINDINGS: The lungs are clear and expanded. There is no demonstrated pleural abnormality. Normal size heart. Normal mediastinum and colleen. Normal visualized pulmonary arteries. Normal visualized aortic arch and descending thoracic aorta. Normal visualized thoracic spine. Normal visualized ribs, clavicles, and shoulders. There is no demonstrated abnormality of the visualized soft tissue structures of the upper abdomen. RAD/Chest 1 View (Portable) IMPRESSION: Normal x-ray examination of the chest. Electronically Signed: Vane Dorado MD at 17:49 EDT Tel , Service support ,
--- NOTE | 2021-02-09 16:15 | EKG12_ITS ---
Test Reason : SOB Blood Pressure : / mmHG Vent. Rate : 101 BPM Atrial Rate : 101 BPM P-R Int : 150 ms QRS Dur : 072 ms QT Int : 374 ms P-R-T Axes : 066 032 038 degrees QTc Int : 484 ms Sinus tachycardia with frequent Premature ventricular complexes Nonspecific T wave abnormality Abnormal ECG Confirmed by CYNTHIA MADDOX, STEVE ([id number]), desk editor MIGUEL LOZA ([id number]) on 02/11/2021 9:12:03 AM Referred By: TL Confirmed By:STEVE MARIE MD
[2021-02-09 16:20] LABS: Absolute Lymphocyte Count 1.95 X10^3/uL (0.83-4.51); Absolute Neutrophil Count 5.3 X10^3/uL (2.0-7.7); Basophil# 0.02 X10^3/uL; Basophil% 0.2 % (0-1); Eosinophil# 0.08 X10^3/uL; Hematocrit 42.4 % (40-54); Hemoglobin 14.2 g/dL (13.0-16.5); Lymphocyte # 1.95 X10^3/ul (0.83-4.51); Lymphocyte % 24.1 % (19-41); Mean Corp Hgb Conc 33.5 g/dL (32-36); Mean Corpuscular Hgb 29.8 pg (27.0-32.0); Mean Corpuscular Volume 88.9 fL (80-94); Mean Platelet Vol. 10.1 fl (6.2-12.0); Monocyte# 0.76 X10^3/uL; Monocyte% 9.4 % (0-10); NRBC Flagged by Analyzer 0 % (0-5); Neutrophil # 5.25 X10^3/uL (2.7-7.7); Neutrophil % 65.1 % (47-70); Platelet Count 208 K/mm3 (150-450); RBC Distribution Width CV 11.9 % (11.6-14.6); Red Blood Count 4.77 M/mm3 (4.6-6.2); White Blood Count 8.1 K/mm3 (4.4-11.0)
[2021-02-09 16:47] LABS: Anion Gap 8 (5-15); BUN 19 mg/dL (7-18); BUN/Creat Ratio 15.4 RATIO (10-20); Calcium,Total 9.3 mg/dL (8.5-10.1); Chloride 108 mmol/L (98-107); Creatinine, Serum 1.23 mg/dL (0.70-1.30); EST Glomerular Filtration Rate 63 mL/min (>60); Est Glom Filt Rate - Afr Amer 76 mL/min (>60); Estimated Creatinine Clearance 59.87 ml/min; Glucose 112 mg/dL (74-106); Potassium 3.9 mmol/L (3.5-5.1); Sodium Level 142 mmol/L (136-145); Troponin-I HS 23 pg/mL (3.0-78.0)
--- NOTE | 2021-02-09 18:07 | NURSING ---
[facility] called for pickup.
== END 2021-02-09 18:16 | disposition home or self-care (01) ==
PROVIDERS: Emergency Provider Emergency Medicine; PCP Family Medicine
DX: R55 Syncope and collapse (principal); R06.00 Dyspnea, unspecified; J30.9 Allergic rhinitis, unspecified; E78.5 Hyperlipidemia, unspecified; F20.9 Schizophrenia, unspecified; Z79.899 Other long term (current) drug therapy
CPT/HCPCS: 71045; 80048; 84484; 85025; 93005; 99283; A4216

== ENCOUNTER → 2021-02-12 08:39 | Outpatient (CLI) | payer MEDICAID, SELFPAY ==
[2021-02-12 09:38] LABS: Cholesterol 165 mg/dL (200); High Density Lipoprotein 44 mg/dL; Triglycerides 162 mg/dL; Very Low Density Lipoprotein 32 mg/dL (5-40)
== END ==
PROVIDERS: PCP Family Medicine; Referring Provider Family Medicine; Visit Provider Family Medicine
DX: E78.5 Hyperlipidemia, unspecified (principal)
CPT/HCPCS: 36415; 80061

== ENCOUNTER 2021-03-11 21:53 | Emergency (ER) | payer MEDICAID, SELFPAY ==
[2021-03-11 21:59] VITALS: BP 134/75; BP 139/78; PULSE 57; RESP 16; TEMP 35.6; O2SAT 95; BMI 31.8
--- NOTE | 2021-03-11 22:24 | EKG12_ITS ---
Test Reason : MHC Blood Pressure : / mmHG Vent. Rate : 066 BPM Atrial Rate : 066 BPM P-R Int : 140 ms QRS Dur : 092 ms QT Int : 420 ms P-R-T Axes : -09 011 003 degrees QTc Int : 440 ms Normal sinus rhythm Nonspecific T wave abnormality Abnormal ECG Confirmed by CHACHA MADDOX, ALEJANDRO ([id number]), industrial editor MIGUEL LOZA ([id number]) on 03/16/2021 12:15:04 PM Referred By: LINDSEY Confirmed By:DONNIE BURNHAM MD
--- NOTE | 2021-03-11 22:25 | EX.ED.DYSGE1 ---
HPI History of Present Illness Chief Complaint: Suicidal Informant: patient Onset/Context/Timing Onset: Today Context: Gradual Onset Timing: Continuous Location: Left antecubital laceration Location: Left wrist superficial laceration Worsened by: Nothing Relieved by: Nothing Narrative Narrative: Patient presents with suicidal attempt that occurred tonight. Patient states he became more depressed tonight and cut himself. Patient states he cut himself over his left antecubital area, left wrist, and neck. Patient states nothing in particular seem to bring this on. Patient denies any visual or auditory hallucinations. Patient states he just feels depressed from living in a alf. [facility] Medical History Hyperlipidemia Schizophrenia Home Medications Invega Sustenna 156 mg IM Q30D 05/18/16 [History Last Taken 10/07/20] docusate sodium [DOK] 100 mg PO DAILY 05/18/16 [History Last Taken 10/24/20] propranolol 10 mg PO BID 05/18/16 [History Last Taken 10/24/20] vitamin E (dl, acetate) 400 units PO TID 05/18/16 [History Last Taken 10/24/20] cholecalciferol (vitamin D3) [Vitamin D3] 1,000 unit PO DAILY 10/24/20 [History Last Taken 10/24/20] atorvastatin 20 mg PO QHS #0 tab 10/25/20 [Rx Last Taken 10/23/20] loratadine [Allergy Relief (loratadine)] 10 mg PO DAILY PRN #0 tab 10/25/20 [Rx Last Taken 10/24/20] Allergy/AdvReac Type Severity Reaction Status Date / Time No Known Allergies Allergy Verified 03/11/21 21:58 Social History Smoking Status: Never smoker substance use type: does not use ROS ROS ED Constitutional Constitutional ED: Denies chills or fever(s) Eyes Eyes: Denies blurry vision or change in vision ENT ENT ED: Denies rhinorrhea or sore throat Cardiovascular Cardiovascular: Denies chest pain or palpitations Respiratory/Chest Respiratory/Chest: Denies cough or dyspnea Gastrointestinal Gastrointestinal: Denies nausea or vomiting Genitourinary Genitourinary ED: Reports urinary frequency; Denies dysuria or hematuria Musculoskeletal Musculoskeletal: Denies back pain or neck pain Integumentary Denies abscess or rash Neurologic Neurologic: Denies headache(s) or weakness Psychiatric Psychiatric: Reports depression, suicidal ideation and suicidal thoughts Allergic/Immunologic Allergic/Immunologic ED: Denies mouth swelling or urticaria EXAM Physical Exam Const Vital Signs: 03/11/21 21:59 03/11/21 23:07 Temperature 96.1 F L Temperature Source Temporal Pulse Rate 57 L Respiratory Rate 16 18 Blood Pressure 139/78 H Blood Pressure Mean 98 Pulse Ox 95 Oxygen Delivery Method Room Air Positive well nourished and well developed General Appearance ED: cooperative and well developed HEENT normocephalic and atraumatic Neck supple and no JVD Resp normal respiratory effort and clear to auscultation bilaterally Cardio no murmurs Rate: regular rate Rhythm: regular rhythm GI non-tender and non-distended Auscultation: normoactive bowel sounds Palpation: soft Extremity normal to inspection Extremity Narrative: There is a 2 cm full-thickness linear laceration in the left antecubital area. There is no active bleeding noted. There are no foreign bodies visualized. There is a 1.5 cm superficial laceration over the volar aspect of the left wrist. There are other superficial abrasions in this area. There is no active bleeding. There is minimal gapping of the wound margins. There is full range of motion of the left wrist and left elbow. Strength is 5/5 bilaterally. Radial pulses are equal bilaterally. Ulnar pulses are equal bilaterally. Sensation was intact to light touch in all digits. Capillary refill was less than 2 seconds in all digits. General Extremety ED: Negative for edema or tenderness General Extremity: Negative for edema Neuro oriented x3, CN's II-XII intact bilaterally and no sensory deficits noted Sensorium / Orientation: alert Motor Exam: strength 5/5 throughout Psych mental status grossly normal Activity / Motor Behavior: avoids eye contact Speech: minimal and soft Mood & Affect: depressed and flat affect Thought Content: suicidality Skin Skin Narrative: There is also a superficial linear abrasion over the anterior neck. Is approximately 1 cm in length. There is no bleeding. There is minimal gapping of the wound margins. Rashes: no rashes MDM MDM MDM Narrative Medical decision making narrative: Patient was given a tetanus booster here. CBC was within normal limits. Basic metabolic profile was normal. Alcohol level was normal. Urine tox screen was negative. The wound was cleaned and irrigated with copious amounts of normal saline. The wound was anesthetized with 1% plain lidocaine locally. The wound was closed with 3 horizontal mattress #4-0 nylon sutures under sterile technique. Patient tolerated the procedure well. Bacitracin dressing was applied. EKG was obtained. On my interpretation, it showed a normal sinus rhythm with a rate of 66. MI interval, QRS interval, and QTc intervals were all normal. [place] was normal. There are nonspecific ST-T wave changes. This was unchanged compared to previous EKG dated 02/09/2021. COVID-19 rapid antigen was obtained and was negative. Patient is medically cleared for crisis evaluation. He would likely need transfer to a psychiatric facility. Care of the patient was turned over to the oncoming physician pending placement. Lab Data Attestation: I reviewed the patient's lab results. Labs: Laboratory Results - last 24 hr 03/11/21 03/11/21 03/11/21 22:30 22:30 22:30 WBC 7.6 RBC 4.77 Hgb 14.3 Hct 42.1 MCV 88.3 MCH 30.0 MCHC 34.0 RDW Std Deviation 38.9 RDW Coeff of Clarissa 12.0 Plt Count 178 MPV 10.0 Immature Gran % (Auto) 0.300 Neut % (Auto) 67.6 Lymph % (Auto) 23.2 [place] % (Auto) 7.6 Eos % (Auto) 1.0 Baso % (Auto) 0.3 Absolute Neuts (auto) 5.2 Absolute Lymphs (auto) 1.77 Nucleated RBC % 0 Sodium 139 Potassium 3.9 Chloride 107 Carbon Dioxide 25.0 Anion Gap 7 BUN 19 H Creatinine 1.15 Estim Creat Clear Calc 64.04 Est GFR (MDRD) Af Amer 82 Est GFR (MDRD) Non-Af 68 BUN/Creatinine Ratio 16.5 Glucose 119 H Calcium 8.8 Urine Opiates Screen Urine Methadone Screen Ur Barbiturates Screen Ur Phencyclidine Scrn Ur Amphetamines Screen U Methamphetamin-MDMA U Benzodiazepines Scrn Urine Cocaine Screen U Cannabinoids Screen Ur Drug Screen Comment Ethyl Alcohol < 3.0 03/12/21 00:21 WBC RBC Hgb Hct MCV MCH MCHC RDW Std Deviation RDW Coeff of Clarissa Plt Count MPV Immature Gran % (Auto) Neut % (Auto) Lymph % (Auto) [place] % (Auto) Eos % (Auto) Baso % (Auto) Absolute Neuts (auto) Absolute Lymphs (auto) Nucleated RBC % Sodium Potassium Chloride Carbon Dioxide Anion Gap BUN Creatinine Estim Creat Clear Calc Est GFR (MDRD) Af Amer Est GFR (MDRD) Non-Af BUN/Creatinine Ratio Glucose Calcium Urine Opiates Screen NEGATIVE Urine Methadone Screen NEGATIVE Ur Barbiturates Screen NEGATIVE Ur Phencyclidine Scrn NEGATIVE Ur Amphetamines Screen NEGATIVE U Methamphetamin-MDMA NEGATIVE U Benzodiazepines Scrn NEGATIVE Urine Cocaine Screen NEGATIVE U Cannabinoids Screen NEGATIVE Ur Drug Screen Comment Ethyl Alcohol EKG Initial EKG: Attestation: I personally reviewed and interpreted this EKG as follows: Interpretation: Sinus Rhythm (66) and Non-Specific ST Changes Prior EKG tracings: available for review Prior: Unchanged (02/09/2021) Discharge Plan Triage Chief Complaint: Suicidal ED Provider: [place] Dx/Rx/DC Orders Clinical Impression: Suicide attempt by adequate means Prescriptions: No Action propranolol 10 MG tablet 10 mg PO BID RF: 0 docusate sodium [DOK] 100 MG capsule 100 mg PO DAILY RF: 0 vitamin E (dl, acetate) 400 UNITS capsule 400 units PO TID RF: 0 Invega Sustenna 156 MG/ML syringe 156 mg IM Q30D RF: 0 cholecalciferol (vitamin D3) [Vitamin D3] 25 mcg (1,000 unit) capsule 1,000 unit PO DAILY RF: 0 atorvastatin 10 MG tablet 20 mg PO QHS Qty: 0 RF: 0 loratadine [Allergy Relief (loratadine)] 10 MG tablet 10 mg PO DAILY PRN (Reason: dizziness) Qty: 0 RF: 0 Primary Care Provider: Luis Diaz Referrals: Luis Diaz MD [Primary Care Provider] -
[2021-03-11] MEDS: Diphth,Pertuss(Acell),Tet Vac 0.5 ML Vial IM (22:36)
[2021-03-11] MEDS: Lidocaine 1% (20 ml mdv) 20 ML Vial INFILT (22:38)
[2021-03-11 22:45] LABS: Absolute Lymphocyte Count 1.77 X10^3/uL (0.83-4.51); Absolute Neutrophil Count 5.2 X10^3/uL (2.0-7.7); Basophil# 0.02 X10^3/uL; Basophil% 0.3 % (0-1); Eosinophil# 0.08 X10^3/uL; Hematocrit 42.1 % (40-54); Hemoglobin 14.3 g/dL (13.0-16.5); Lymphocyte # 1.77 X10^3/ul (0.83-4.51); Lymphocyte % 23.2 % (19-41); Mean Corpuscular Volume 88.3 fL (80-94); Monocyte# 0.58 X10^3/uL; Monocyte% 7.6 % (0-10); NRBC Flagged by Analyzer 0 % (0-5); Neutrophil # 5.17 X10^3/uL (2.7-7.7); Neutrophil % 67.6 % (47-70); Platelet Count 178 K/mm3 (150-450); RBC Distribution Width SD 38.9 fl (35.1-43.9); Red Blood Count 4.77 M/mm3 (4.6-6.2); White Blood Count 7.6 K/mm3 (4.4-11.0)
[2021-03-11 23:01] LABS: Anion Gap 7 (5-15); BUN 19 mg/dL (7-18); BUN/Creat Ratio 16.5 RATIO (10-20); Calcium,Total 8.8 mg/dL (8.5-10.1); Chloride 107 mmol/L (98-107); Creatinine, Serum 1.15 mg/dL (0.70-1.30); EST Glomerular Filtration Rate 68 mL/min (>60); Est Glom Filt Rate - Afr Amer 82 mL/min (>60); Estimated Creatinine Clearance 64.04 ml/min; Glucose 119 mg/dL (74-106); Potassium 3.9 mmol/L (3.5-5.1); Sodium Level 139 mmol/L (136-145)
[2021-03-11 23:07] VITALS: RESP 18
[2021-03-11 23:16] LABS: Alcohol, Blood (Medical)-Serum < 3.0 mg/dL
[2021-03-12] VITALS (10 sets, daily range): BP systolic 128–145; BP diastolic 70–75; PULSE 60–65; RESP 15–18; O2SAT 97
[2021-03-12 00:45] LABS: Amphetamine Urine VISTA NEGATIVE (<1000 ng/mL); Barbiturate Urine VISTA NEGATIVE (< 200 ng/mL); Benzodiazepine Urine VISTA NEGATIVE (< 200 ng/mL); Cocaine Urine VISTA NEGATIVE (< 300 ng/mL); Ecstacy Urine VISTA NEGATIVE (< 500 ng/mL); Methadone Urine VISTA NEGATIVE (< 300 ng/mL); PCP Urine VISTA NEGATIVE (< 25 ng/mL); THC Urine VISTA NEGATIVE (< 50 ng/mL); Vista UDS pH Range 7
--- NOTE | 2021-03-12 01:22 | EKG12_ITS ---
Test Reason : [facility] [place] Blood Pressure : / mmHG Vent. Rate : 065 BPM Atrial Rate : 065 BPM P-R Int : 140 ms QRS Dur : 090 ms QT Int : 424 ms P-R-T Axes : -08 011 016 degrees QTc Int : 440 ms Normal sinus rhythm Nonspecific T wave abnormality Abnormal ECG When compared with ECG of 09-FEB-2021 14:28, Premature ventricular complexes are no longer Present Vent. rate has decreased BY 36 BPM Confirmed by JANINA MADDOX, CHAGO ([id number]), digital editor MIGUEL LOZA ([id number]) on 03/17/2021 9:47:43 AM Referred By: LINDSEY Confirmed By:CHAGO ROA MD
--- NOTE | 2021-03-12 08:28 | NURSING ---
FAXED [facility] TO [facility]. PER [facility] PT IS ACCEPTED PENDING FAX. SHE WILL CALL WITH ACCEPTANCE INFORMATION.
== END 2021-03-12 10:58 ==
PROVIDERS: Emergency Provider Emergency Medicine; PCP Family Medicine
DX: S61.512A Laceration without foreign body of left wrist, initial encounter (principal); X78.9XXA Intentional self-harm by unspecified sharp object, initial encounter
CPT/HCPCS: 12001; 80048; 80307; 82077; 85025; 87426; 90715; 93005; 96372; 99285

== ENCOUNTER 2021-04-04 17:31 | Emergency (ER) | payer MEDICAID, SELFPAY ==
[2021-04-04 17:34] VITALS: BP 137/98; PULSE 85; RESP 14; TEMP 36.3; O2SAT 95; BMI 32.1
--- NOTE | 2021-04-04 17:47 | EKG12_ITS ---
Test Reason : DIZZY Blood Pressure : / mmHG Vent. Rate : 084 BPM Atrial Rate : 084 BPM P-R Int : 156 ms QRS Dur : 078 ms QT Int : 396 ms P-R-T Axes : 058 005 020 degrees QTc Int : 467 ms Sinus rhythm with frequent Premature ventricular complexes Otherwise normal ECG Confirmed by CYNTHIA MADDOX, STEVE ([id number]), assistant editor MIGUEL LOZA ([id number]) on 04/07/2021 9:27:49 AM Referred By: EVAN/HAYDEN Confirmed By:STEVE MARIE MD
--- NOTE | 2021-04-04 17:47 | EDS_ITS ---
HPI History of Present Illness Chief Complaint: Dizziness Detail of Chief Complaint: Lightheaded. Informant: patient Onset/Context/Timing Onset: Today Timing: Intermittent Current Severity: Mild Maximum Severity: Mild Narrative Narrative: 65-year-old male said he tripped over a rocking chair at his home landed on his bed. Said he has had lightheadedness since then. Prior to the fall he said he felt fine. Denies any head injury. He is on no blood thinners. He does have a history of schizophrenia. He denies any recent illness. Prior similar symptoms: Yes Recent Illness/Hospitalization: No PFSH PFSH Medical History Hyperlipidemia Schizophrenia Home Medications Invega Sustenna 156 mg IM Q30D 05/18/16 [History Last Taken 10/07/20] docusate sodium [DOK] 100 mg PO DAILY 05/18/16 [History Last Taken 10/24/20] propranolol 10 mg PO BID 05/18/16 [History Last Taken 10/24/20] vitamin E (dl, acetate) 400 units PO TID 05/18/16 [History Last Taken 10/24/20] cholecalciferol (vitamin D3) [Vitamin D3] 1,000 unit PO DAILY 10/24/20 [History Last Taken 10/24/20] atorvastatin 20 mg PO QHS #0 tab 10/25/20 [Rx Last Taken 10/23/20] loratadine [Allergy Relief (loratadine)] 10 mg PO DAILY PRN #0 tab 10/25/20 [Rx Last Taken 10/24/20] Allergy/AdvReac Type Severity Reaction Status Date / Time No Known Allergies Allergy Verified 04/04/21 17:38 Social History Smoking Status: Never smoker substance use type: does not use ROS ROS ED ROS Narrative Denies recent illness. Review of Systems ROS Unobtainable: Denies due to encephalopathy Constitutional Constitutional ED: Denies chills or fever(s) Eyes Eyes: Denies change in vision ENT ENT ED: Denies ear pain or sore throat Cardiovascular Cardiovascular: Denies chest pain or palpitations Respiratory/Chest Respiratory/Chest: Denies cough or dyspnea Gastrointestinal Gastrointestinal: Denies abdominal pain, diarrhea, nausea or vomiting Genitourinary Genitourinary ED: Denies dysuria Musculoskeletal Musculoskeletal: Denies myalgias Integumentary Denies rash Neurologic Neurologic: Denies headache(s) Psychiatric Psychiatric: Denies depression Endocrine Endocrinology: Denies polyuria Allergic/Immunologic Allergic/Immunologic ED: Denies urticaria EXAM Physical Exam Narrative Exam Narrative: 75-year-old male no acute distress vital signs stable afebrile. Pulse ox 95% on room air no signs hypoxia. HEENT exam normal. Atraumatic. Pupils are reactive light. Normal speech. No facial droop. Neck nontender. Lungs clear to auscultation bilaterally. Heart regular rhythm rate about 80 no murmur. Chest were nontender. Abdomen soft nontender. Moving all 4 extremities. Neurovascular intact. Nontender no edema. 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 Dorsi plantarflexion intact. Back exam nontender. Neurologically is awake and alert with no focal motor or sensory deficits. NIH score of 0. GCS of 15. Fingertip to nose within normal limits. Const Vital Signs: 04/04/21 17:34 04/04/21 17:36 04/04/21 19:40 Temperature 97.3 F L Temperature Source Oral Pulse Rate 85 90 Respiratory Rate 14 20 H Respiratory Effort Normal Non-Labored Blood Pressure 137/98 H 125/96 H Blood Pressure Mean 111 105 Pulse Ox 95 Oxygen Delivery Method Room Air 04/04/21 21:00 Temperature Temperature Source Pulse Rate 87 Respiratory Rate 17 Respiratory Effort Blood Pressure 106/65 Blood Pressure Mean 78 Pulse Ox 97 Oxygen Delivery Method Room Air Positive well nourished and well developed; Negative for obese, cachectic, contractures or unkempt General Appearance ED: well developed and NAD; Negative for unkempt, cachectic, contractures, cyanotic, diaphoretic or pallor Nutritional Appearance: Negative for cachectic or obese HEENT Reports moist mucous membranes Negative for trauma or tenderness Eyes PERRL and EOMs intact bilaterally General Eye ED: Negative for pale conjunctiva Neck no lymphadenopathy, supple and no JVD General: Negative for tenderness Chest Wall inspection of chest normal and palpation of chest normal Resp normal respiratory effort and clear to auscultation bilaterally Auscultation: Negative for rales, rhonchi or wheezes Cardio regular rate, regular rhythm, S1 normal heart sound, S2 normal heart sound and no murmurs GI normal to inspection, nondistended, normoactive bowel sounds, non-tender, non- distended and no masses Inspection: Negative for abdominal distention Auscultation: normoactive bowel sounds Palpation: soft; Negative for tender, guarding or rebound tenderness present Back/Spine no CVA tenderness General Back: Negative for CVA tenderness Extremity normal to inspection General Extremety ED: Negative for edema or tenderness General Extremity: Negative for edema Neuro oriented x3 and CN's II-XII intact bilaterally Sensorium / Orientation: Negative for orientation impaired, lethargic or stuporous Motor Exam: strength 5/5 throughout Psych mental status grossly normal Appearance: Negative for unkempt Attitude: No agitated Mood & Affect: Negative for depressed or tearful Skin no rashes or lesions noted, no wounds and No skin turgor normal General Skin Exam: Negative for elasticity normal, jaundice or pallor MDM MDM MDM Narrative Medical decision making narrative: 65-year-old male with lightheadedness after a fall. Exam is benign. Vital signs are stable. We will check a CBC, chemistry and EKG. My clinical suspicion is low for any significant acute pathology. Repeat exam patient is doing well at 9 PM. I discussed his test results and EKG with him he'll be discharged home with outpatient follow-up. Lab Data Attestation: I reviewed the patient's lab results. Lab results narrative: CBC shows a normal white count of 5.7 hemoglobin 14.6. Electrolytes unremarkable gap at 9 normal BUN and creatinine. Glucose 116. Labs: Laboratory Results - last 24 hr 04/04/21 04/04/21 17:45 17:45 WBC 5.7 RBC 4.71 Hgb 14.6 Hct 40.9 MCV 86.8 MCH 31.0 MCHC 35.7 RDW Std Deviation 38.0 RDW Coeff of [place] 11.9 Plt Count 230 MPV 9.8 Immature Gran % (Auto) 0.400 Neut % (Auto) 64.4 Lymph % (Auto) 23.8 [place] % (Auto) 8.6 Eos % (Auto) 2.3 Baso % (Auto) 0.5 Absolute Neuts (auto) 3.7 Absolute Lymphs (auto) 1.35 Nucleated RBC % 0 Sodium 139 Potassium 3.7 Chloride 105 Carbon Dioxide 25.0 Anion Gap 9 BUN 18 Creatinine 1.15 Estim Creat Clear Calc 64.04 Est GFR (MDRD) Af Amer 82 Est GFR (MDRD) Non-Af 68 BUN/Creatinine Ratio 15.7 Glucose 116 H Calcium 9.0 Rhythm Strip Rhythm Strip: Sinus Rhythm Rate: 84 Ectopy: PVC(s) EKG Initial EKG: Attestation: I personally reviewed and interpreted this EKG as follows: Interpretation: Sinus Rhythm and No Acute Injury Pattern Comments: Normal sinus rhythm rate of 84. PVCs. No acute signs of [place] or ischemia unchanged from March 12. Prior EKG tracings: available for review Prior: Unchanged Discharge Plan Triage Chief Complaint: Dizziness ED Provider: Darian Evans Dx/Rx/DC Orders Clinical Impression: Schizophrenia, Fall, Light headedness Instructions: ED Dizziness, Uncertain Cause Prescriptions: No Action propranolol 10 MG tablet 10 mg PO BID RF: 0 docusate sodium [DOK] 100 MG capsule 100 mg PO DAILY RF: 0 vitamin E (dl, acetate) 400 UNITS capsule 400 units PO TID RF: 0 Invega Sustenna 156 MG/ML syringe 156 mg IM Q30D RF: 0 cholecalciferol (vitamin D3) [Vitamin D3] 25 mcg (1,000 unit) capsule 1,000 unit PO DAILY RF: 0 atorvastatin 10 MG tablet 20 mg PO QHS Qty: 0 RF: 0 loratadine [Allergy Relief (loratadine)] 10 MG tablet 10 mg PO DAILY PRN (Reason: dizziness) Qty: 0 RF: 0 Primary Care Provider: Luis Diaz Referrals: Luis Diaz MD [Primary Care Provider] - 3-5 Days if not improving Activity Restrictions/Additional Instructions: Return if feeling worse. Follow-up with your primary care physician if not improving. Plenty of fluids and rest. Disposition Disposition: Home, Self Care
[2021-04-04 18:00] LABS: Absolute Lymphocyte Count 1.35 X10^3/uL (0.83-4.51); Absolute Neutrophil Count 3.7 X10^3/uL (2.0-7.7); Basophil# 0.03 X10^3/uL; Basophil% 0.5 % (0-1); Eosinophil# 0.13 X10^3/uL; Eosinophils% 2.3 % (0-5); Hematocrit 40.9 % (40-54); Hemoglobin 14.6 g/dL (13.0-16.5); Lymphocyte # 1.35 X10^3/ul (0.83-4.51); Lymphocyte % 23.8 % (19-41); Mean Corp Hgb Conc 35.7 g/dL (32-36); Mean Corpuscular Volume 86.8 fL (80-94); Mean Platelet Vol. 9.8 fl (6.2-12.0); Monocyte# 0.49 X10^3/uL; Monocyte% 8.6 % (0-10); NRBC Flagged by Analyzer 0 % (0-5); Neutrophil # 3.65 X10^3/uL (2.7-7.7); Neutrophil % 64.4 % (47-70); Platelet Count 230 K/mm3 (150-450); RBC Distribution Width CV 11.9 % (11.6-14.6); Red Blood Count 4.71 M/mm3 (4.6-6.2); White Blood Count 5.7 K/mm3 (4.4-11.0)
[2021-04-04 18:10] LABS: Anion Gap 9 (5-15); BUN 18 mg/dL (7-18); BUN/Creat Ratio 15.7 RATIO (10-20); Chloride 105 mmol/L (98-107); Creatinine, Serum 1.15 mg/dL (0.70-1.30); EST Glomerular Filtration Rate 68 mL/min (>60); Est Glom Filt Rate - Afr Amer 82 mL/min (>60); Estimated Creatinine Clearance 64.04 ml/min; Glucose 116 mg/dL (74-106); Potassium 3.7 mmol/L (3.5-5.1); Sodium Level 139 mmol/L (136-145)
[2021-04-04 19:40] VITALS: BP 125/96; PULSE 90; RESP 20
[2021-04-04 21:00] VITALS: BP 106/65; PULSE 87; RESP 17; O2SAT 97
[2021-04-04 21:15] VITALS: BP 110/88; PULSE 102; RESP 16; O2SAT 97
== END 2021-04-04 21:18 | disposition home or self-care (01) ==
LOC: ED 17:56
PROVIDERS: Emergency Provider Emergency Medicine; PCP Family Medicine
DX: F20.9 Schizophrenia, unspecified (principal); R42 Dizziness and giddiness; W01.0XXA Fall on same level from slipping, tripping and stumbling without subsequent striking against object, initial encounter
CPT/HCPCS: 80048; 85025; 93005; 99285; A4216

== ENCOUNTER 2021-05-05 15:42 | Emergency (ER) | payer MEDICAID, SELFPAY ==
[2021-05-05 15:42] VITALS: BP 130/89; PULSE 62; RESP 18; TEMP 36; O2SAT 95; BMI 31.3
--- NOTE | 2021-05-05 16:24 | EDS_ITS ---
HPI History of Present Illness Chief Complaint: Dizziness Informant: patient Onset/Context/Timing Onset: Hours (1.5 hours) Context: Sudden Onset Timing: Continuous and Waxes and wanes Quality: Lightheaded as if I am going to pass out Location: Not applicable Current Severity: Mild Maximum Severity: Severe Worsened by: Upright position Relieved by: Apparently nothing Associated Symptoms Associated Symptoms: None Narrative Narrative: Patient is a elderly male who is a poor informant who presents with dizziness, which he defines as being lightheaded as if he is going to pass out. He denies fever, chills night sweats. He denies double vision, blurred vision loss of vision. He denies rhinorrhea, congestion, postnasal drainage or sore throat. He denies change in his voice, difficulty swallowing or breathing. He denies chest pain. He denies shortness of breath or cough. He denies nausea, vomiting or diarrhea. He denies black or maroon-colored stool. He denies dysuria, frequency, urgency or hematuria. He denies myalgias or arthralgias. He denies joint swelling. He denies problems with his balance. He denies paresthesia, anesthesia or motor weakness. Prior similar symptoms: Yes (Dehydration) Recent Illness/Hospitalization: No [facility] REPLAC[facility] BY [facility] Medical History (Updated 05/05/21 @ 17:[address] Freeman Mcdermott MD) Allergic rhinitis Hyperlipidemia Hyperlipidemia Schizophrenia Home Medications Invega Sustenna 156 mg IM Q30D 05/18/16 [History Last Taken 10/07/20] docusate sodium [DOK] 100 mg PO DAILY 05/18/16 [History Last Taken 10/24/20] propranolol 10 mg PO BID 05/18/16 [History Last Taken 10/24/20] vitamin E (dl, acetate) 400 units PO TID 05/18/16 [History Last Taken 10/24/20] cholecalciferol (vitamin D3) [Vitamin D3] 1,000 unit PO DAILY 10/24/20 [History Last Taken 10/24/20] atorvastatin 20 mg PO QHS #0 tab 10/25/20 [Rx Last Taken 10/23/20] loratadine [Allergy Relief (loratadine)] 10 mg PO DAILY PRN #0 tab 10/25/20 [Rx Last Taken 10/24/20] Allergy/AdvReac Type Severity Reaction Status Date / Time No Known Allergies Allergy Verified 05/05/21 15:44 Social History (Updated 05/05/21 @ 16:[address] Freeman Mcdermott MD) household members: none Smoking Status: Never smoker substance use type: does not use ROS ROS ED Constitutional Constitutional ED: Denies chills, fever(s), subjective, sweats or weight loss Eyes Eyes: Denies blurry vision, change in vision or diplopia ENT ENT ED: Denies ear pain, rhinorrhea or sore throat Cardiovascular Cardiovascular: Denies chest pain, palpitations or racing heartbeat Respiratory/Chest Respiratory/Chest: Denies cough, dyspnea, dyspnea on exertion or sputum Gastrointestinal Gastrointestinal: Denies abdominal pain, diarrhea, melena, nausea or vomiting Genitourinary Genitourinary ED: Denies dysuria, hematuria or urinary frequency Musculoskeletal Musculoskeletal: Denies arthralgias, back pain, myalgias or neck pain Integumentary Denies abscess, Abrasions or rash Neurologic Neurologic: Reports weakness; Denies headache(s) or paresthesias Endocrine Endocrinology: Denies polydipsia, polyphagia or polyuria Allergic/Immunologic Allergic/Immunologic ED: Denies mouth swelling or urticaria EXAM Physical Exam Const Vital Signs: 05/05/21 15:42 05/05/21 16:18 05/05/21 17:02 Temperature 96.8 F L Temperature Source Temporal Pulse Rate 62 Pulse Rate [Lying] 78 Pulse Rate [Sitting] 64 Pulse Rate [Standing] 91 Respiratory Rate 18 Respiratory Effort Normal Non-Labored Respiratory Pattern Normal Blood Pressure 130/89 H Blood Pressure [Lying] 131/69 H Blood Pressure [Sitting] 104/70 Blood Pressure [Standing] 134/80 H Blood Pressure Mean 102 Blood Pressure Mean [Lying] 89 Blood Pressure Mean [Sitting] 81 Blood Pressure Mean [Standing] 98 Pulse Ox 95 Oxygen Delivery Method Room Air Positive well nourished, well developed and unkempt General Appearance ED: unkempt, well developed and NAD; Negative for cyanotic or diaphoretic HEENT Reports dry mucous membranes HEENT Narrative: Head is atraumatic normocephalic. Ears normal. Nares patent. Mouth ED: Yes dry mucous membranes Mouth: dry mucous membranes Eyes PERRL and EOMs intact bilaterally General Eye ED: Negative for pale conjunctiva or scleral icterus Neck no lymphadenopathy, supple and no JVD Chest Wall inspection of chest normal Resp normal respiratory effort and clear to auscultation bilaterally Cardio regular rate, S1 normal heart sound, S2 normal heart sound and no murmurs Rhythm: abnormal rhythm other (There is irregularity. Monitor reveals frequent PACs.) GI normal to inspection, nondistended, normoactive bowel sounds, non-tender and non-distended Auscultation: normoactive bowel sounds Palpation: soft Back/Spine no CVA tenderness Cervical Spine: Negative for cervical spine tenderness Thoracic Spine / Upper Back: Negative for thoracic spinal tenderness or paraspinal muscle tenderness Extremity normal to inspection General Extremety ED: Negative for edema or tenderness General Extremity: Negative for edema Neuro oriented x3 and CN's II-XII intact bilaterally Sensorium / Orientation: alert Motor Exam: strength 5/5 throughout Psych Appearance: unkempt Mood & Affect: depressed Skin no rashes or lesions noted, no wounds and skin turgor normal MDM MDM MDM Narrative Medical decision making narrative: Will have nurse perform orthostatic vital signs. Will obtain electrolytes to assess BUN/creatinine. As well as assess electrolytes and renal function. He will receive a liter of normal saline. Lab Data Attestation: I reviewed the patient's lab results. Lab results narrative: CBC, H&H and differential are unremarkable. Orthostatic vital signs were negative. BUN creatinine ratio is normal. GFR is normal. Patient was informed the cause of his lightheadedness is unknown. Since his work-up was negative he was discharged home. He was understanding. He had no questions. He was discharged to home Labs: Laboratory Results - last 24 hr 05/05/21 05/05/21 16:10 16:10 WBC 5.2 RBC 4.79 Hgb 14.1 Hct 41.5 MCV 86.6 MCH 29.4 MCHC 34.0 RDW Std Deviation 38.8 RDW Coeff of Clarissa 12.3 Plt Count 236 MPV 9.4 Immature Gran % (Auto) 0.200 Neut % (Auto) 61.2 Lymph % (Auto) 27.9 [place] % (Auto) 7.6 Eos % (Auto) 2.3 Baso % (Auto) 0.8 Absolute Neuts (auto) 3.2 Absolute Lymphs (auto) 1.46 Nucleated RBC % 0 Sodium 139 Potassium 4.0 Chloride 104 Carbon Dioxide 28.0 Anion Gap 7 BUN 14 Creatinine 1.19 Estim Creat Clear Calc 61.89 Est GFR (MDRD) Af Amer 79 Est GFR (MDRD) Non-Af 65 BUN/Creatinine Ratio 11.8 Glucose 109 H Calcium 9.1 Total Bilirubin 0.30 AST 18 ALT 29 Alkaline Phosphatase 69 Total Protein 7.1 Albumin 3.6 Globulin 3.5 Albumin/Globulin Ratio 1.0 Discharge Plan Triage Chief Complaint: Dizziness ED Provider: Freeman Mcdermott Dx/Rx/DC Orders Clinical Impression: Orthostatic dizziness Instructions: ED Dizziness, Uncertain Cause Prescriptions: No Action propranolol 10 MG tablet 10 mg PO BID RF: 0 docusate sodium [DOK] 100 MG capsule 100 mg PO DAILY RF: 0 vitamin E (dl, acetate) 400 UNITS capsule 400 units PO TID RF: 0 Invega Sustenna 156 MG/ML syringe 156 mg IM Q30D RF: 0 cholecalciferol (vitamin D3) [Vitamin D3] 25 mcg (1,000 unit) capsule 1,000 unit PO DAILY RF: 0 atorvastatin 10 MG tablet 20 mg PO QHS Qty: 0 RF: 0 loratadine [Allergy Relief (loratadine)] 10 MG tablet 10 mg PO DAILY PRN (Reason: dizziness) Qty: 0 RF: 0 Primary Care Provider: Luis Diaz Referrals: Luis Diaz MD [Primary Care Provider] - 1 Week if not improving Disposition Disposition: Home, Self Care
--- NOTE | 2021-05-05 16:29 | EKG12_ITS ---
Test Reason : DIZZINESS Blood Pressure : / mmHG Vent. Rate : 087 BPM Atrial Rate : 087 BPM P-R Int : 162 ms QRS Dur : 086 ms QT Int : 370 ms P-R-T Axes : 046 013 012 degrees QTc Int : 445 ms Sinus rhythm with frequent Premature ventricular complexes Otherwise normal ECG Confirmed by CYNTHIA MADDOX, STEVE ([id number]), scientific publications editor MIGUEL LOZA ([id number]) on 05/07/2021 8:27:38 AM Referred By: JACQUELINE Confirmed By:STEVE MARIE MD
[2021-05-05 16:57] LABS: Absolute Lymphocyte Count 1.46 X10^3/uL (0.83-4.51); Absolute Neutrophil Count 3.2 X10^3/uL (2.0-7.7); Basophil# 0.04 X10^3/uL; Basophil% 0.8 % (0-1); Eosinophil# 0.12 X10^3/uL; Eosinophils% 2.3 % (0-5); Hematocrit 41.5 % (40-54); Hemoglobin 14.1 g/dL (13.0-16.5); Lymphocyte # 1.46 X10^3/ul (0.83-4.51); Lymphocyte % 27.9 % (19-41); Mean Corpuscular Hgb 29.4 pg (27.0-32.0); Mean Corpuscular Volume 86.6 fL (80-94); Mean Platelet Vol. 9.4 fl (6.2-12.0); Monocyte% 7.6 % (0-10); NRBC Flagged by Analyzer 0 % (0-5); Neutrophil % 61.2 % (47-70); Platelet Count 236 K/mm3 (150-450); RBC Distribution Width CV 12.3 % (11.6-14.6); RBC Distribution Width SD 38.8 fl (35.1-43.9); Red Blood Count 4.79 M/mm3 (4.6-6.2); White Blood Count 5.2 K/mm3 (4.4-11.0)
[2021-05-05 17:02] VITALS: BP 104/70; BP 131/69; BP 134/80; PULSE 64; PULSE 78; PULSE 91
[2021-05-05 17:17] LABS: AST(SGOT) 18 U/L (15-37); Alanine Aminotransfer ALT/SGPT 29 U/L (16-61); Albumin, Serum 3.6 g/dL (3.2-5.0); Alkaline Phosphatase 69 U/L (45-117); Anion Gap 7 (5-15); BUN 14 mg/dL (7-18); BUN/Creat Ratio 11.8 RATIO (10-20); Calcium,Total 9.1 mg/dL (8.5-10.1); Chloride 104 mmol/L (98-107); Creatinine, Serum 1.19 mg/dL (0.70-1.30); EST Glomerular Filtration Rate 65 mL/min (>60); Est Glom Filt Rate - Afr Amer 79 mL/min (>60); Estimated Creatinine Clearance 61.89 ml/min; Globulin 3.5 g/dL (2.2-4.2); Glucose 109 mg/dL (74-106); Protein, Total 7.1 g/dL (6.4-8.2); Sodium Level 139 mmol/L (136-145)
[2021-05-05 17:19] VITALS: BP 134/80; PULSE 79; RESP 18; O2SAT 94
== END 2021-05-05 17:43 | disposition home or self-care (01) ==
PROVIDERS: Emergency Provider Emergency Medicine; PCP Family Medicine
DX: R42 Dizziness and giddiness (principal)
CPT/HCPCS: 80053; 85025; 93005; 99285; J7030

== ENCOUNTER 2021-08-14 07:35 | Outpatient (CLI) | payer MEDICAID, SELFPAY ==
[2021-08-14 08:51] LABS: Anion Gap 3 (5-15); BUN 13 mg/dL (7-18); Calcium,Total 9.1 mg/dL (8.5-10.1); Chloride 105 mmol/L (98-107); Creatinine, Serum 1.18 mg/dL (0.70-1.30); EST Glomerular Filtration Rate 66 mL/min (>60); Est Glom Filt Rate - Afr Amer 80 mL/min (>60); Glucose 108 mg/dL (74-106); PSA,Total - Annual Screen 1.02 ng/mL (0.00-4.00); Potassium 3.9 mmol/L (3.5-5.1); Sodium Level 137 mmol/L (136-145)
[2021-08-14 08:52] LABS: Hemoglobin A1c 5.6 % (3.8-5.6)
== END 2021-08-14 23:59 | disposition home or self-care (01) ==
LOC: LAB 07:38
PROVIDERS: PCP Family Medicine; Referring Provider Family Medicine; Visit Provider Family Medicine
DX: R73.9 Hyperglycemia, unspecified (principal); I10 Essential (primary) hypertension; Z12.5 Encounter for screening for malignant neoplasm of prostate
CPT/HCPCS: 84153; 36415; 80048; 83036; G0103

== ENCOUNTER → 2022-02-17 | Outpatient (CLI) | payer MEDICAID, SELFPAY ==
[2022-02-17 12:45] LABS: Anion Gap 6 (5-15); BUN 18 mg/dL (7-18); BUN/Creat Ratio 15.4 RATIO (10-20); Calcium,Total 9.1 mg/dL (8.5-10.1); Chloride 103 mmol/L (98-107); Cholesterol 188 mg/dL (200); Creatinine, Serum 1.17 mg/dL (0.70-1.30); EST Glomerular Filtration Rate 66 mL/min (>60); Est Glom Filt Rate - Afr Amer 80 mL/min (>60); Glucose 77 mg/dL (74-106); High Density Lipoprotein 49 mg/dL; Potassium 4.2 mmol/L (3.5-5.1); Sodium Level 138 mmol/L (136-145); Triglycerides 197 mg/dL; Very Low Density Lipoprotein 39 mg/dL (5-40)
== END | disposition home or self-care (01) ==
LOC: MTLAB 11:06
PROVIDERS: PCP Family Medicine; Referring Provider Family Medicine; Visit Provider Family Medicine
DX: I10 Essential (primary) hypertension (principal)
CPT/HCPCS: 36415; 80048; 80061

== ENCOUNTER 2022-03-17 16:12 | Emergency (ER) | payer MEDICAID, SELFPAY ==
[2022-03-17 16:13] VITALS: BP 132/89; PULSE 61; RESP 15; TEMP 36.2; O2SAT 98; BMI 29.0
--- NOTE | 2022-03-17 17:39 | CT_ITS ---
STUDY: CT ABDOMEN AND PELVIS WITHOUT CONTRAST REASON FOR EXAM: Male, 66 years old. Right flank pain RADIATION DOSAGE (If Supplied By Facility): CTDIvol = ( 7.60 ) mGy, DLP = ( 425.11 ) mGycm TECHNIQUE: Transaxial images were obtained from the dome of the diaphragm to the symphysis pubis without oral contrast, and without intravenous contrast. Sagittal and coronal images were reconstructed. Individualized dose optimization techniques were used for this CT. COMPARISON: None. FINDINGS: The visualized lung bases are unremarkable. There are coronary artery calcifications. Normal liver. The gallbladder is contracted. There is no biliary dilatation. Normal spleen. Normal pancreas. Normal bilateral adrenal glands. Normal right kidney. Normal left kidney. Normal visualized stomach. Normal small intestine. Normal colon. The appendix is visualized and appears normal. There is atherosclerotic calcification of the abdominal aorta, without a demonstrated aneurysm. Normal inferior vena cava. Normal retroperitoneum. There are calcified mesenteric lymph nodes in the left lower quadrant. Normal urinary bladder. There is no free fluid in the abdomen or pelvis. Normal abdominal wall. There is degenerative change of the spine. CT/Abdomen/Pelvis without Cont IMPRESSION: No stones or hydronephrosis. No dominant mass or obstruction. Calcified mesenteric lymph nodes suggesting prior granulomatous infection or lymphoproliferative process. Electronically Signed: Deepak Hernández MD at 18:20 EDT ,
--- NOTE | 2022-03-17 17:40 | EX.ED.DYSGE1 ---
HPI History of Present Illness Chief Complaint: Flank Pain Informant: patient Narrative Narrative: Patient is not the best informant for details. He is not sure of all his medicines but is pretty sure he is not on any blood thinners. He states that on Tuesday he woke up and he has soreness in his right flank area. He is not really sure what makes it better or worse. But it does seem to be a little bit worse today. Today he noticed that if he sits still and sits down its not that bad but its worse when he moves around. He is not sure if it is worse with urination. He notices no change in the urine. He has no change in the bowels. He is eating and drinking normally. He denies fevers or chills. No anterior abdominal pain. No chest pain or trouble breathing at all. He does not think he is ever had a kidney stone but is not certain. [facility] Medical History Allergic rhinitis Hyperlipidemia Hyperlipidemia Schizophrenia Home Medications docusate sodium 100 mg capsule (DOK) 100 mg PO DAILY constipation 05/18/16 [History Last Taken 10/24/20] paliperidone palmitate 156 mg/mL intramuscular syringe (Invega Sustenna) 156 mg IM Q30D schitzophrenia 05/18/16 [History Last Taken 10/07/20] propranolol 10 mg tablet 10 mg PO BID heart 05/18/16 [History Last Taken 10/24/20] vitamin E (dl, acetate) 180 mg (400 unit) capsule 400 units PO TID suppliment 05/18/16 [History Last Taken 10/24/20] cholecalciferol (vitamin D3) 25 mcg (1,000 unit) capsule (Vitamin D3) 1,000 unit PO DAILY 10/24/20 [History Last Taken 10/24/20] atorvastatin 10 mg tablet 20 mg PO QHS lowers cholesterol #0 tabs 10/25/20 [Rx Last Taken 10/23/20] loratadine 10 mg tablet (Allergy Relief (loratadine)) 10 mg PO DAILY PRN dizziness #0 tabs 10/25/20 [Rx Last Taken 10/24/20] Allergy/AdvReac Type Severity Reaction Status Date / Time No Known Allergies Allergy Verified 03/17/22 17:24 Social History household members: none Smoking Status: Never smoker substance use type: does not use ROS ROS ED Constitutional Constitutional ED: Denies chills or fever(s) ENT ENT ED: Denies sore throat Cardiovascular Cardiovascular: Denies chest pain or palpitations Respiratory/Chest Respiratory/Chest: Denies cough, dyspnea or dyspnea on exertion Gastrointestinal Gastrointestinal: Denies abdominal pain, constipation, diarrhea, melena, nausea or vomiting Genitourinary Genitourinary ED: Denies dysuria, hematuria or urinary frequency Musculoskeletal Musculoskeletal: Reports back pain Integumentary Denies rash Neurologic Neurologic: Denies paresthesias or weakness Endocrine Endocrinology: Denies polydipsia or polyuria Hematologic/Lymphatic Hematologic/Lymphatic: Denies easy bleeding or easy bruising Allergic/Immunologic Allergic/Immunologic ED: Denies urticaria EXAM Physical Exam Const Vital Signs: 03/17/22 16:13 03/17/22 17:24 Temperature 97.1 F L Temperature Source Temporal Pulse Rate 61 Respiratory Rate 15 Respiratory Effort Normal Non-Labored Respiratory Pattern Normal Blood Pressure 132/89 H Blood Pressure Mean 103 Pulse Ox 98 Oxygen Delivery Method Room Air Positive well nourished and well developed Constitutional Narrative: Patient sitting quietly in bed. He looks comfortable. General Appearance ED: well developed HEENT Reports moist mucous membranes Eyes General Eye ED: Negative for pale conjunctiva or scleral icterus Chest Wall inspection of chest normal and palpation of chest normal Resp normal respiratory effort and clear to auscultation bilaterally Resp Narrative: No pain with deep breath. No rales or rhonchi is at his bases. Cardio regular rate, regular rhythm and no murmurs GI GI Narrative: Abdomen is soft and completely nontender. Bowel sounds are normal. Is not distended. No hernias felt. Narrative: He does have some mild CVA tenderness on the right but it is also tender with some mild soft touch and just pressure. Back/Spine General Back: CVA tenderness Extremity normal to inspection Extremity Narrative: Normal distal pulses. No edema cords Neuro Sensorium / Orientation: alert Psych mental status grossly normal Psych Narrative: Mildly flat affect Skin no rashes or lesions noted MDM MDM MDM Narrative Medical decision making narrative: CT scan, CBC, electrolytes, liver unction test and urinalysis shows no marked abnormality. Patient very well may have musculoskeletal pain. I recommend Tylenol or [id number]-[id number] meds. He is okay with this plan. We discussed returning with worsening pain, lightheadedness, numbness tingling weakness, bowel bladder dysfunction fevers or other concerns. Lab Data Attestation: I reviewed the patient's lab results. Labs: Laboratory Results - last 24 hr 03/17/22 03/17/22 03/17/22 17:44 17:51 17:51 WBC 5.7 RBC 4.50 L Hgb 13.4 Hct 40.7 MCV 90.4 MCH 29.8 MCHC 32.9 RDW Std Deviation 41.5 RDW Coeff of Clarissa 12.6 Plt Count 204 MPV 9.5 Immature Gran % (Auto) 0.200 Neut % (Auto) 47.9 Lymph % (Auto) 38.1 [place] % (Auto) 11.2 H Eos % (Auto) 2.1 Baso % (Auto) 0.5 Absolute Neuts (auto) 2.7 Absolute Lymphs (auto) 2.17 Nucleated RBC % 0 Sodium 139 Potassium 4.0 Chloride 105 Carbon Dioxide 30.0 Anion Gap 4 L BUN 19 H Creatinine 1.12 Estim Creat Clear Calc 64.88 Est GFR (MDRD) Af Amer 84 Est GFR (MDRD) Non-Af 70 BUN/Creatinine Ratio 17.0 Glucose 95 Calcium 9.5 Total Bilirubin 0.40 AST 17 ALT 24 Alkaline Phosphatase 61 Total Protein 7.1 Albumin 3.7 Globulin 3.4 Albumin/Globulin Ratio 1.1 Urine Color Yellow Urine Clarity Clear Urine pH 6.0 Ur Specific [place] 1.015 Urine Protein Negative Urine Glucose (UA) Normal Urine Ketones Negative Urine Occult Blood Negative Urine Nitrite Negative Urine Bilirubin Negative Urine Urobilinogen Normal Ur Leukocyte Esterase Negative Urine RBC 0 SEEN Urine WBC 0 SEEN Ur Squamous Epith Cells 0 SEEN Urine Bacteria 0 SEEN Urine Mucus 0 SEEN Radiography Diagnostic Testing: Clinical Impression(s) from Imaging Studies Abdomen/Pelvis CT 03/17/22 17:39 IMPRESSION: No stones or hydronephrosis. No dominant mass or obstruction. Calcified mesenteric lymph nodes suggesting prior granulomatous infection or lymphoproliferative process. Electronically Signed: Deepak Hernández MD at 18:20 EDT , CT scan showed no mass/kidney stone or other acute process. Discharge Plan Triage Chief Complaint: Flank Pain ED Provider: Grady Mccauley Dx/Rx/DC Orders Clinical Impression: Acute right flank pain Instructions: ED Flank Pain, Uncertain Cause Prescriptions: No Action propranolol 10 MG tablet 10 mg PO BID docusate sodium [DOK] 100 MG capsule 100 mg PO DAILY vitamin E (dl, acetate) 400 UNITS capsule 400 units PO TID Invega Sustenna 156 MG/ML syringe 156 mg IM Q30D cholecalciferol (vitamin D3) [Vitamin D3] 25 mcg (1,000 unit) capsule 1,000 unit PO DAILY atorvastatin 10 MG tablet 20 mg PO QHS Qty: 0 0RF loratadine [Allergy Relief (loratadine)] 10 MG tablet 10 mg PO DAILY PRN (Reason: dizziness) Qty: 0 0RF Primary Care Provider: Luis Diaz Referrals: Luis Diaz MD [Primary Care Provider] - 3-5 Days if not improving Disposition Disposition: Home, Self Care
[2022-03-17 17:54] LABS: Bacteria 0 SEEN /hpf (None Seen); Mucous, Urine 0 SEEN /hpf (<or=2+); Red Blood Cells-Urine 0 SEEN /hpf (0-5); Squamous Epithelial Cells - UA 0 SEEN /hpf (0-5); White Blood Cells 0 SEEN /hpf (0-5)
[2022-03-17 17:58] LABS: Absolute Lymphocyte Count 2.17 X10^3/uL (0.83-4.51); Absolute Neutrophil Count 2.7 X10^3/uL (2.0-7.7); Basophil# 0.03 X10^3/uL; Basophil% 0.5 % (0-1); Eosinophil# 0.12 X10^3/uL; Eosinophils% 2.1 % (0-5); Hematocrit 40.7 % (40-54); Hemoglobin 13.4 g/dL (13.0-16.5); Lymphocyte # 2.17 X10^3/ul (0.83-4.51); Lymphocyte % 38.1 % (19-41); Mean Corp Hgb Conc 32.9 g/dL (32-36); Mean Corpuscular Hgb 29.8 pg (27.0-32.0); Mean Corpuscular Volume 90.4 fL (80-94); Mean Platelet Vol. 9.5 fl (6.2-12.0); Monocyte# 0.64 X10^3/uL; Monocyte% 11.2 % (0-10); NRBC Flagged by Analyzer 0 % (0-5); Neutrophil # 2.72 X10^3/uL (2.7-7.7); Neutrophil % 47.9 % (47-70); Platelet Count 204 K/mm3 (150-450); RBC Distribution Width CV 12.6 % (11.6-14.6); RBC Distribution Width SD 41.5 fl (35.1-43.9); White Blood Count 5.7 K/mm3 (4.4-11.0)
[2022-03-17 18:00] LABS: Color, Urine Yellow (Yellow); Glucose, Dipstick Normal (Normal); Ketone-Dipstick Negative (Negative); Leukocyte Esterase-Dipstick Negative /ul (Negative); Nitrite-Dipstick Negative (Negative); Occult Blood-Urine Negative /ul (Negative); Protein-Dipstick Negative (Negative); Specific Gravity, Urine 1.015 (1.002-1.030); Urine Bilirubin Dipstick Negative (Negative); Urine Clarity Clear (Clear); Urine Urobilinogen Normal (Normal)
[2022-03-17 18:20] LABS: ALB/GLOB Ratio 1.1 RATIO (0.9-2.4); AST(SGOT) 17 U/L (15-37); Alanine Aminotransfer ALT/SGPT 24 U/L (16-61); Albumin, Serum 3.7 g/dL (3.2-5.0); Alkaline Phosphatase 61 U/L (45-117); Anion Gap 4 (5-15); BUN 19 mg/dL (7-18); Calcium,Total 9.5 mg/dL (8.5-10.1); Chloride 105 mmol/L (98-107); Creatinine, Serum 1.12 mg/dL (0.70-1.30); EST Glomerular Filtration Rate 70 mL/min (>60); Est Glom Filt Rate - Afr Amer 84 mL/min (>60); Estimated Creatinine Clearance 64.88 ml/min; Globulin 3.4 g/dL (2.2-4.2); Glucose 95 mg/dL (74-106); Protein, Total 7.1 g/dL (6.4-8.2); Sodium Level 139 mmol/L (136-145)
[2022-03-17 19:22] VITALS: BP 128/80; PULSE 58; RESP 16; O2SAT 98
[2022-03-17] MEDS: Acetaminophen 500 MG Tablet 1000 MG PO (19:27)
== END 2022-03-17 19:29 | disposition home or self-care (01) ==
PROVIDERS: Emergency Provider Emergency Medicine; PCP Family Medicine; Visit Provider Emergency Medicine
DX: R10.9 Unspecified abdominal pain (principal)
CPT/HCPCS: 74176; 80053; 81001; 85025; 99285; A4216

== ENCOUNTER 2022-04-13 14:41 | Emergency (ER) | payer MEDICAID, SELFPAY ==
[2022-04-13 14:42] VITALS: TEMP 36.4; BMI 30.7
[2022-04-13 14:44] VITALS: BP 150/95; PULSE 64; RESP 15; O2SAT 98
--- NOTE | 2022-04-13 15:15 | ED.VIS.CHEST ---
HPI History of Present Illness Chief Complaint: Chest Pain Informant: patient Onset/Context/Timing Onset: Yesterday Activity at onset: sudden and rest Timing: Intermittent and Lasts (10 minutes) Quality: Positive for Sharp Location: Left Chest Worsened By: Movement of Arm, Movement of Torso and - (Laying on left side) Relieved By: - (Sitting up) Associated Symptoms: Negative for Nausea, Vomiting, Diaphoresis, Dyspnea, Cough, Fever, Lightheadedness, Acid Reflux or Palpitations Narrative Narrative: Patient presents with chest pain that began last night. Patient states it has been intermittent since last night. Patient describes it as sharp. Patient states it is over the left chest. Patient states it is worse whenever he lays on his left side. Patient states it is better when he sits up. Patient states it is also worse with certain movements. Patient denies any nausea or vomiting. Patient denies any shortness of breath or cough. Patient denies any diaphoresis or lightheadedness. CVD Risk Factors: Positive for Hypercholesterolemia; Negative for Hypertension, Diabetes, Family History 1' </=55 or Smoking PE Risk Factors: Negative for Recent Travel/Surgery, Recent Immobilization, Prior DVT or PE or Cancer [facility] Medical History Allergic rhinitis Hyperlipidemia Hyperlipidemia Schizophrenia Home Medications docusate sodium 100 mg capsule (DOK) 100 mg PO DAILY constipation 05/18/16 [History Last Taken 10/24/20] paliperidone palmitate 156 mg/mL intramuscular syringe (Invega Sustenna) 156 mg IM Q30D schitzophrenia 05/18/16 [History Last Taken 10/07/20] propranolol 10 mg tablet 10 mg PO BID heart 05/18/16 [History Last Taken 10/24/20] vitamin E (dl, acetate) 180 mg (400 unit) capsule 400 units PO TID suppliment 05/18/16 [History Last Taken 10/24/20] cholecalciferol (vitamin D3) 25 mcg (1,000 unit) capsule (Vitamin D3) 1,000 unit PO DAILY 10/24/20 [History Last Taken 10/24/20] atorvastatin 10 mg tablet 20 mg PO QHS lowers cholesterol #0 tabs 10/25/20 [Rx Last Taken 10/23/20] loratadine 10 mg tablet (Allergy Relief (loratadine)) 10 mg PO DAILY PRN dizziness #0 tabs 10/25/20 [Rx Last Taken 10/24/20] Allergy/AdvReac Type Severity Reaction Status Date / Time No Known Allergies Allergy Verified 03/17/22 17:24 Social History household members: none Smoking Status: Never smoker substance use type: does not use ROS ROS ED Constitutional Constitutional ED: Denies chills or fever(s) Eyes Eyes: Denies blurry vision or change in vision ENT ENT ED: Denies rhinorrhea or sore throat Cardiovascular Cardiovascular: Reports chest pain; Denies palpitations Respiratory/Chest Respiratory/Chest: Denies cough or dyspnea Gastrointestinal Gastrointestinal: Denies abdominal pain, nausea or vomiting Genitourinary Genitourinary ED: Denies dysuria or hematuria Musculoskeletal Musculoskeletal: Denies back pain or neck pain Integumentary Denies abscess or rash Neurologic Neurologic: Denies headache(s) or weakness Allergic/Immunologic Allergic/Immunologic ED: Denies mouth swelling or urticaria EXAM Physical Exam Const Vital Signs: 04/13/22 14:42 04/13/22 14:44 04/13/22 15:43 Temperature 97.6 F L Temperature Source Oral Pulse Rate 64 Respiratory Rate 15 Blood Pressure 150/95 H Blood Pressure Mean 113 Pulse Ox 98 Oxygen Delivery Method Room Air Room Air Oxygen Flow Rate (L/min) 97 04/13/22 15:47 Temperature Temperature Source Pulse Rate 68 Respiratory Rate 21 H Blood Pressure 130/86 H Blood Pressure Mean 100 Pulse Ox 97 Oxygen Delivery Method Room Air Oxygen Flow Rate (L/min) Positive well nourished, well developed and obese General Appearance ED: well developed Nutritional Appearance: obese HEENT normocephalic and atraumatic Eyes PERRL and EOMs intact bilaterally Neck supple and no JVD Chest Wall palpation of chest normal Resp normal respiratory effort and clear to auscultation bilaterally Effort and Inspection: Negative for respiratory distress Cardio regular rate, regular rhythm and no murmurs GI normal to inspection, nondistended, normoactive bowel sounds, soft to palpation, non-tender and non-distended Extremity normal to inspection General Extremety ED: Negative for edema or tenderness General Extremity: Negative for edema Neuro oriented x3, CN's II-XII intact bilaterally and no sensory deficits noted Sensorium / Orientation: awake and alert Motor Exam: strength 5/5 throughout Psych mental status grossly normal Heart Score History: Slightly/Non-Suspicious ECG: Normal Age: >/= 65 years Risk Factors: 1 or 2 Risk Factors Score: 3 MDM MDM MDM Narrative Medical decision making narrative: EKG was obtained. On my interpretation, it showed a normal sinus rhythm with a rate of 65. WI interval, QRS interval, and QTc intervals were all normal. Mead was normal. There are no acute ST or T wave changes. Portable 1 view chest x-ray was obtained. On my interpretation, lung tuttle are clear. There is normal cardiac silhouette. Bony thorax is normal. There is no acute process noted. Radiologist also interpreted the x-ray and agrees. CBC was within normal limits. Basic metabolic profile was within normal limits. High-sensitivity troponin was normal. Patient has a HEART score of 3. Patient was advised that this is low risk for acute cardiac event. Patient was advised that this is most likely musculoskeletal in nature. Patient was instructed to follow-up with his primary care physician in 5 to 7 days. Patient was instructed return if worse in any way. Patient understood and was agreeable with the plan. All questions were answered. Lab Data Attestation: I reviewed the patient's lab results. Labs: Laboratory Results - last 24 hr 04/13/22 04/13/22 14:32 14:32 WBC 5.1 RBC 4.80 Hgb 14.5 Hct 42.2 MCV 87.9 MCH 30.2 MCHC 34.4 RDW Std Deviation 39.1 RDW Coeff of Clarissa 12.1 Plt Count 208 MPV 9.4 Immature Gran % (Auto) 0.200 Neut % (Auto) 51.2 Lymph % (Auto) 34.9 [place] % (Auto) 10.1 H Eos % (Auto) 3.0 Baso % (Auto) 0.6 Absolute Neuts (auto) 2.6 Absolute Lymphs (auto) 1.76 Nucleated RBC % 0 Sodium 138 Potassium 4.0 Chloride 104 Carbon Dioxide 29.0 Anion Gap 5 BUN 15 Creatinine 1.01 Estim Creat Clear Calc 71.94 Est GFR (MDRD) Af Amer 95 Est GFR (MDRD) Non-Af 78 BUN/Creatinine Ratio 14.9 Glucose 68 L Calcium 9.4 Troponin I High Sens 24 Radiography Chest X-Ray - ED: 1 View, Read by ED Physician, Read by Radiologist and No Acute Disease Diagnostic Testing: Clinical Impression(s) from Imaging Studies Chest X-Ray 04/13/22 15:30 IMPRESSION: Hyperinflation. The lungs are clear. Electronically Signed: Korey Obrien MD at 15:40 EST , EKG Initial EKG: Attestation: I personally reviewed and interpreted this EKG as follows: Interpretation: Sinus Rhythm (65) and No Acute Injury Pattern Prior EKG tracings: available for review Prior: Unchanged (05/05/2021) Discharge Plan Triage Chief Complaint: Chest Pain ED Provider: [place] Dx/Rx/DC Orders Clinical Impression: Chest pain, Schizophrenia Instructions: ED Chest Pain, Uncertain Cause Prescriptions: No Action propranolol 10 MG tablet 10 mg PO BID docusate sodium [DOK] 100 MG capsule 100 mg PO DAILY vitamin E (dl, acetate) 400 UNITS capsule 400 units PO TID Invega Sustenna 156 MG/ML syringe 156 mg IM Q30D cholecalciferol (vitamin D3) [Vitamin D3] 25 mcg (1,000 unit) capsule 1,000 unit PO DAILY atorvastatin 10 MG tablet 20 mg PO QHS Qty: 0 0RF loratadine [Allergy Relief (loratadine)] 10 MG tablet 10 mg PO DAILY PRN (Reason: dizziness) Qty: 0 0RF Primary Care Provider: Luis Diaz Referrals: Luis Diaz MD [Primary Care Provider] - 5-7 Days Disposition Disposition: Home, Self Care
--- NOTE | 2022-04-13 15:23 | EKG12_ITS ---
Test Reason : CP Blood Pressure : / mmHG Vent. Rate : 065 BPM Atrial Rate : 065 BPM P-R Int : 180 ms QRS Dur : 092 ms QT Int : 398 ms P-R-T Axes : 061 016 040 degrees QTc Int : 413 ms Normal sinus rhythm Normal ECG Confirmed by CYNTHIA MADDOX, STEVE ([id number]), copy editor MIGUEL LOZA ([id number]) on 04/14/2022 11:17:38 AM Referred By: Confirmed By:STEVE MARIE MD
--- NOTE | 2022-04-13 15:30 | RAD_ITS ---
STUDY: X-RAY CHEST REASON FOR EXAM: Male, 66 years old. Chest pain TECHNIQUE: Single AP portable view of the chest. COMPARISON: Comparison is made with prior study of 02/09/2021. FINDINGS: EKG electrodes are seen. Hyperinflation. The lungs are clear. There is no demonstrated pleural abnormality. Normal size heart. Normal mediastinum and colleen. Normal visualized pulmonary arteries. Normal visualized aortic arch and descending thoracic aorta. Normal visualized thoracic spine. Normal visualized ribs, clavicles, and shoulders. There is no demonstrated abnormality of the visualized soft tissue structures of the upper abdomen. RAD/Chest 1 View (Portable) IMPRESSION: Hyperinflation. The lungs are clear. Electronically Signed: Korey Obrien MD at 15:40 EST ,
[2022-04-13 15:35] LABS: Absolute Lymphocyte Count 1.76 X10^3/uL (0.83-4.51); Absolute Neutrophil Count 2.6 X10^3/uL (2.0-7.7); Basophil# 0.03 X10^3/uL; Basophil% 0.6 % (0-1); Eosinophil# 0.15 X10^3/uL; Hematocrit 42.2 % (40-54); Hemoglobin 14.5 g/dL (13.0-16.5); Lymphocyte # 1.76 X10^3/ul (0.83-4.51); Lymphocyte % 34.9 % (19-41); Mean Corp Hgb Conc 34.4 g/dL (32-36); Mean Corpuscular Hgb 30.2 pg (27.0-32.0); Mean Corpuscular Volume 87.9 fL (80-94); Mean Platelet Vol. 9.4 fl (6.2-12.0); Monocyte# 0.51 X10^3/uL; Monocyte% 10.1 % (0-10); NRBC Flagged by Analyzer 0 % (0-5); Neutrophil # 2.59 X10^3/uL (2.7-7.7); Neutrophil % 51.2 % (47-70); Platelet Count 208 K/mm3 (150-450); RBC Distribution Width CV 12.1 % (11.6-14.6); RBC Distribution Width SD 39.1 fl (35.1-43.9); White Blood Count 5.1 K/mm3 (4.4-11.0)
[2022-04-13] MEDS: Aspirin 81 MG TAB.CHEW 324 MG PO (15:45)
[2022-04-13 15:47] VITALS: BP 130/86; PULSE 68; RESP 21; O2SAT 97
[2022-04-13 16:06] LABS: Anion Gap 5 (5-15); BUN 15 mg/dL (7-18); BUN/Creat Ratio 14.9 RATIO (10-20); Calcium,Total 9.4 mg/dL (8.5-10.1); Chloride 104 mmol/L (98-107); Creatinine, Serum 1.01 mg/dL (0.70-1.30); EST Glomerular Filtration Rate 78 mL/min (>60); Est Glom Filt Rate - Afr Amer 95 mL/min (>60); Estimated Creatinine Clearance 71.94 ml/min; Glucose 68 mg/dL (74-106); Sodium Level 138 mmol/L (136-145); Troponin-I HS 24 pg/mL (3.0-78.0)
[2022-04-13 16:59] VITALS: PULSE 60
== END 2022-04-13 17:00 | disposition home or self-care (01) ==
PROVIDERS: Emergency Provider Emergency Medicine; PCP Family Medicine; Visit Provider Emergency Medicine
DX: R07.9 Chest pain, unspecified (principal); F20.9 Schizophrenia, unspecified; E66.9 Obesity, unspecified
CPT/HCPCS: 71045; 80048; 84484; 85025; 93005; 99284; A4216

== ENCOUNTER → 2022-04-15 | Outpatient (CLI) | payer MEDICAID, SELFPAY ==
[2022-04-15 18:18] LABS: D-Dimer Quantitative (DVT/PE) 0.33 FEU/ug/m (0.27-0.49)
== END | disposition home or self-care (01) ==
LOC: MFPLAB 16:15
PROVIDERS: PCP Family Medicine; Referring Provider Family Medicine; Visit Provider Family Medicine
DX: R07.9 Chest pain, unspecified (principal)
CPT/HCPCS: 36415; 85379

== ENCOUNTER → 2022-07-05 | Outpatient (CLI) | payer MEDICAID, SELFPAY ==
[2022-07-05 16:48] LABS: Hemoglobin A1c 5.8 % (3.8-5.6)
[2022-07-05 17:58] LABS: AST(SGOT) 18 U/L (15-37); Alanine Aminotransfer ALT/SGPT 23 U/L (16-61); Albumin, Serum 3.6 g/dL (3.2-5.0); Alkaline Phosphatase 53 U/L (45-117); Anion Gap 6 (5-15); BUN 15 mg/dL (7-18); BUN/Creat Ratio 13.5 RATIO (10-20); Calcium,Total 9.2 mg/dL (8.5-10.1); Chloride 104 mmol/L (98-107); Creatinine, Serum 1.11 mg/dL (0.70-1.30); EST Glomerular Filtration Rate 70 mL/min (>60); Est Glom Filt Rate - Afr Amer 85 mL/min (>60); Globulin 3.5 g/dL (2.2-4.2); Glucose 101 mg/dL (74-106); Potassium 4.6 mmol/L (3.5-5.1); Prolactin 16.6 ng/mL; Protein, Total 7.1 g/dL (6.4-8.2); Sodium Level 140 mmol/L (136-145)
== END | disposition home or self-care (01) ==
PROVIDERS: PCP Family Medicine; Referring Provider Psychiatry & Neurology Psychiatry; Visit Provider Psychiatry & Neurology Psychiatry
DX: F19.10 Other psychoactive substance abuse, uncomplicated (principal); R53.83 Other fatigue; Z79.899 Other long term (current) drug therapy
CPT/HCPCS: 36415; 80053; 83036; 84146

== ENCOUNTER 2022-07-26 09:42 | Emergency (ER) | payer MEDICAID, SELFPAY ==
[2022-07-26 09:44] VITALS: BP 138/96; PULSE 78; RESP 18; TEMP 35.8; O2SAT 98; BMI 28.8
--- NOTE | 2022-07-26 09:56 | RAD_ITS ---
INDICATION: Cough EXAMINATION/TECHNIQUE: X-RAY - XR Chest 2 Views COMPARISON: 04/13/2022 FINDINGS: LINES/DEVICES: None. LUNGS: No consolidation, edema or effusion. No pneumothorax. Previously visualized overhydration no longer present. MEDIASTINUM AND CARDIOVASCULAR STRUCTURES: Cardiac silhouette not enlarged. Central airways and mediastinal contour are unremarkable. BONES AND SOFT TISSUES: Unremarkable. RAD/Chest PA and Lateral IMPRESSION: No radiographic evidence of acute cardiopulmonary disease. Electronically Signed: Gerardo Briceno MD, ANGELINA at 10:52 EST ,
--- NOTE | 2022-07-26 10:00 | EX.ED.VIS.UR ---
HPI HPI - URI History of Present Illness Chief Complaint: Cold Sx Detail of Chief Complaint: I think I have COVID Informant: patient Onset/Context/Timing Onset: Days (Onset of illness 2 to 3 days ago) Context: Sudden Onset Timing: Continuous and Waxes and wanes Quality: Rhinorrhea, congestion, sore throat and cough Location: Upper respiratory Current Severity: Mild Maximum Severity: Moderate Worsened by: Not Worsened By Swallowing, Eating Solids or Drinking Liquids Relieved by: Not Relieved By Tylenol or NSAIDs Associated Symptoms Associated Symptoms: Positive for Nasal Congestion and Productive Cough (Not certain the color since he swallows his sputum); Negative for Headache, Sinus Pressure, Myalgias, Nausea, Vomiting, Diarrhea, Shortness of Breath, Chest Pain, Nonproductive cough or Hemoptysis Narrative Narrative: Patient is a 66-year-old male who is a poor informant. Prior records were reviewed to determine what healthcare problems he has, medications and allergies. Patient states he lives in a senior living. Patient states he went out to [place] looking for a job. Patient denies headache. He does endorse rhinorrhea, congestion and sore throat. He does have a cough which is productive. Color is unknown. He denies fever or chills. He denies myalgias or arthralgias. He denies abdominal pain, nausea, vomiting or diarrhea. He denies dysuria, frequency, urgency or hematuria. He denies myalgias or arthralgias. He denies rash. Patient has past history of depression with suicide attempt, hyperlipidemia, allergic rhinitis and possibly hypertension based on medication. Patient has been immunized for COVID in 2020. Last influenza vaccine March 06, 2018. Recent CBC dated April 13, 2022 is unremarkable. Most recent UA dated March 17, 2022 was negative. Most recent BMP dated July 05, 2022 is unremarkable. Most recent liver enzymes were unremarkable as well. Prior similar symptoms: Yes Recent Illness/Hospitalization: No ROS ROS ED Constitutional Constitutional ED: Denies chills, fever(s), subjective, sweats or weight loss Eyes Eyes: Denies blurry vision, change in vision or diplopia ENT ENT ED: Reports rhinorrhea and sore throat; Denies ear pain Cardiovascular Cardiovascular: Denies chest pain, orthopnea, palpitations, paroxysmal nocturnal dyspnea or racing heartbeat Respiratory/Chest Respiratory/Chest: Reports cough and sputum; Denies dyspnea, dyspnea on exertion, orthopnea or paroxysmal nocturnal dyspnea Gastrointestinal Gastrointestinal: Denies abdominal pain, diarrhea, nausea or vomiting Genitourinary Genitourinary ED: Denies dysuria, hematuria or urinary frequency Musculoskeletal Musculoskeletal: Denies arthralgias, back pain, myalgias or neck pain Integumentary Denies rash Neurologic Neurologic: Denies headache(s), paresthesias or weakness Hematologic/Lymphatic Hematologic/Lymphatic: Denies easy bleeding or easy bruising PFSH PFSH Medical History Allergic rhinitis Hyperlipidemia Hyperlipidemia Schizophrenia Home Medications docusate sodium 100 mg capsule (DOK) 100 mg PO DAILY constipation 05/18/16 [History Last Taken 10/24/20] paliperidone palmitate 156 mg/mL intramuscular syringe (Invega Sustenna) 156 mg IM Q30D schitzophrenia 05/18/16 [History Last Taken 10/07/20] propranolol 10 mg tablet 10 mg PO BID heart 05/18/16 [History Last Taken 10/24/20] vitamin E (dl, acetate) 180 mg (400 unit) capsule 400 units PO TID suppliment 05/18/16 [History Last Taken 10/24/20] cholecalciferol (vitamin D3) 25 mcg (1,000 unit) capsule (Vitamin D3) 1,000 unit PO DAILY 10/24/20 [History Last Taken 10/24/20] atorvastatin 10 mg tablet 20 mg PO QHS lowers cholesterol #0 tabs 10/25/20 [Rx Last Taken 10/23/20] loratadine 10 mg tablet (Allergy Relief (loratadine)) 10 mg PO DAILY PRN dizziness #0 tabs 10/25/20 [Rx Last Taken 10/24/20] Allergy/AdvReac Type Severity Reaction Status Date / Time No Known Allergies Allergy Verified 07/26/22 09:48 Social History (Updated 07/26/22 @ 10:[address] Freeman Mcdermott MD) household members: none housing: other details: retirement Smoking Status: Never smoker substance use type: does not use EXAM Physical Exam Const Vital Signs: 07/26/22 09:44 07/26/22 09:54 Temperature 96.5 F L Temperature Source Temporal Pulse Rate 78 Respiratory Rate 18 Respiratory Effort Normal Non-Labored Blood Pressure 138/96 H Blood Pressure Mean 110 Pulse Ox 98 Oxygen Delivery Method Room Air Positive well nourished and well developed General Appearance ED: well developed and NAD; Negative for cyanotic, diaphoretic or pallor HEENT Reports moist mucous membranes HEENT Narrative: Positive rhinorrhea. Discharge is clear. TMs are normal. Posterior pharynx mild erythema. Uvula midline. There is no exudate. normocephalic and atraumatic Face and Sinus: Negative for sinus tenderness Throat: posterior oropharynx normal Eyes PERRL and EOMs intact bilaterally Neck no lymphadenopathy, supple and no meningeal signs General: Negative for anterior neck swelling Resp normal respiratory effort and clear to auscultation bilaterally Cardio S1 normal heart sound, S2 normal heart sound and no murmurs Rate: regular rate Rhythm: regular rhythm GI non-tender, non-distended and no masses Palpation: soft Extremity normal to inspection and full ROM Neuro oriented x3 and CN's II-XII intact bilaterally Sensorium / Orientation: alert Psych Psych Narrative: Affect is flat. Skin General Skin Exam: Negative for jaundice or pallor Lesions: no lesions Rashes: no rashes MDM MDM MDM Narrative Medical decision making narrative: Patient with upper respiratory symptoms. Will assess for influenza and COVID and obtain chest x-ray to assess for pneumonia. Because patient is a poor informant outside records were reviewed. This was documented in the HPI narrative. With a negative chest x-ray and negative for antigen for influenza and COVID treatment is symptomatic. Patient was made aware of his results. He also was told that his blood pressure was elevated and he needs to follow-up with Dr. Luis Diaz in 1 to 2 weeks for recheck. Lab Data Lab results narrative: Rapid COVID and influenza antigen are both negative. Radiography Diagnostic Testing: Clinical Impression(s) from Imaging Studies Chest X-Ray 07/26/22 09:56 IMPRESSION: No radiographic evidence of acute cardiopulmonary disease. Electronically Signed: Gerardo Briceno MD, ANGELINA at 10:52 EST , 3 view chest x-ray revealed no acute process. There is mild chronic changes noted. Cardiac silhouette and size normal. Perihilar regions unremarkable. Osseous structures are unremarkable. There is no evidence of infiltrate or effusion. This was independently reviewed and interpreted by me. Discharge Plan Triage Chief Complaint: Cold Sx Other Complaint: Shortness of Breath ED Provider: Freeman Mcdermott Dx/Rx/DC Orders Clinical Impression: Upper respiratory infection with cough and congestion, History of schizophrenia, Elevated blood pressure reading Instructions: ED Hypertension, To Be Confirmed, ED URI, Viral, No Abx (Adult) Prescriptions: No Action propranolol 10 MG tablet 10 mg PO BID docusate sodium [DOK] 100 MG capsule 100 mg PO DAILY vitamin E (dl, acetate) 400 UNITS capsule 400 units PO TID Invega Sustenna 156 MG/ML syringe 156 mg IM Q30D cholecalciferol (vitamin D3) [Vitamin D3] 25 mcg (1,000 unit) capsule 1,000 unit PO DAILY atorvastatin 10 MG tablet 20 mg PO QHS Qty: 0 0RF loratadine [Allergy Relief (loratadine)] 10 MG tablet 10 mg PO DAILY PRN (Reason: dizziness) Qty: 0 0RF Primary Care Provider: Luis Diaz Referrals: Luis Diaz MD [Primary Care Provider] - 1-2 Weeks Disposition Disposition: Home, Self Care
== END 2022-07-26 12:27 | disposition home or self-care (01) ==
PROVIDERS: Emergency Provider Emergency Medicine; PCP Family Medicine; Visit Provider Emergency Medicine
DX: J06.9 Acute upper respiratory infection, unspecified (principal); R03.0 Elevated blood-pressure reading, without diagnosis of hypertension
CPT/HCPCS: 71046; 87428; 99282

== ENCOUNTER → 2022-08-20 | Outpatient (CLI) | payer MEDICAID, SELFPAY ==
[2022-08-20 10:34] LABS: Cholesterol 256 mg/dL (200); High Density Lipoprotein 50 mg/dL; Triglycerides 139 mg/dL; Very Low Density Lipoprotein 28 mg/dL (5-40)
== END | disposition home or self-care (01) ==
PROVIDERS: PCP Family Medicine; Referring Provider Family Medicine; Visit Provider Family Medicine
DX: E78.5 Hyperlipidemia, unspecified (principal)
CPT/HCPCS: 36415; 80061

== ENCOUNTER 2022-09-03 21:23 | Emergency (ER) | payer MEDICAID, SELFPAY ==
[2022-09-03 21:24] VITALS: BP 147/85; PULSE 89; RESP 16; TEMP 36.6; O2SAT 94; BMI 32.5
--- NOTE | 2022-09-03 22:59 | EX.ED.DYSGE1 ---
HPI History of Present Illness Chief Complaint: Constipation Narrative Narrative: Patient is a 66-year-old male with past medical history of of hypertension hyperlipidemia and schizophrenia. He states he typically will have a bowel movement every day to every other day. He states has been 3 days since he had a bowel movement. He states he has been trying to go by forcing it out. He states with this he noticed some bright red blood per rectum. He denies any history of bleeding disorder or blood thinners. He states he is concerned that he is constipated and may need a laxative and with this comes in for evaluation. He denies any history of abdominal surgeries or previous obstruction [facility] Medical History Allergic rhinitis Hyperlipidemia Hyperlipidemia Schizophrenia Home Medications docusate sodium 100 mg capsule (DOK) 100 mg PO DAILY constipation 05/18/16 [History Last Taken 10/24/20] paliperidone palmitate 156 mg/mL intramuscular syringe (Invega Sustenna) 156 mg IM Q30D schitzophrenia 05/18/16 [History Last Taken 10/07/20] propranolol 10 mg tablet 10 mg PO BID heart 05/18/16 [History Last Taken 10/24/20] vitamin E (dl, acetate) 180 mg (400 unit) capsule 400 units PO TID suppliment 05/18/16 [History Last Taken 10/24/20] cholecalciferol (vitamin D3) 25 mcg (1,000 unit) capsule (Vitamin D3) 1,000 unit PO DAILY 10/24/20 [History Last Taken 10/24/20] atorvastatin 10 mg tablet 20 mg PO QHS lowers cholesterol #0 tabs 10/25/20 [Rx Last Taken 10/23/20] loratadine 10 mg tablet (Allergy Relief (loratadine)) 10 mg PO DAILY PRN dizziness #0 tabs 10/25/20 [Rx Last Taken 10/24/20] docusate sodium 100 mg capsule (Colace) 100 mg PO BID 7 days #14 caps 09/04/22 [Rx Last Taken Unknown] polyethylene glycol 3350 17 gram oral powder packet (Miralax) 17 g PO DAILY #30 ea 09/04/22 [Rx Last Taken Unknown] Allergy/AdvReac Type Severity Reaction Status Date / Time No Known Allergies Allergy Verified 09/03/22 21:25 Social History (Updated 07/26/22 @ 10:[address] Freeman Mcdermott MD) household members: none housing: other details: [facility] Smoking Status: Never smoker substance use type: does not use ROS ROS ED Constitutional Constitutional ED: Denies chills or fever(s) ENT ENT ED: Denies sore throat Cardiovascular Cardiovascular: Denies chest pain Respiratory/Chest Respiratory/Chest: Denies cough or dyspnea Gastrointestinal Gastrointestinal: Reports constipation; Denies abdominal pain, diarrhea, nausea or vomiting Genitourinary Genitourinary ED: Denies dysuria Musculoskeletal Musculoskeletal: Denies myalgias Integumentary Denies rash Neurologic Neurologic: Denies headache(s) Hematologic/Lymphatic Hematologic/Lymphatic: Denies easy bleeding or easy bruising EXAM Physical Exam Const Vital Signs: 09/03/22 21:24 09/04/22 01:29 Temperature 98 F Temperature Source Temporal Pulse Rate 89 79 Respiratory Rate 16 18 Blood Pressure 147/85 H Blood Pressure Mean 105 Pulse Ox 94 96 Oxygen Delivery Method Room Air Positive well nourished and well developed General Appearance ED: well developed Eyes PERRL and EOMs intact bilaterally Neck supple Resp normal respiratory effort and clear to auscultation bilaterally Cardio regular rate and regular rhythm GI non-tender and non-distended GI Narrative: Abdomen is soft nontender and nondistended with hypoactive bowel sounds. No voluntary guarding or rigidity. No pulsatile mass or fluid wave. No increased tympany Auscultation: hypoactive bowel sounds Palpation: soft Narrative: Rectal exam shows an anal fissure at the 12 o'clock position without active bleeding. Rectal tone is normal there is stool in the rectal vault which is soft in nature and brown in color. No external or internal hemorrhoids or masses palpated. Extremity normal to inspection Neuro oriented x3 and CN's II-XII intact bilaterally Sensorium / Orientation: alert Psych Psych Narrative: Patient has a flat affect Skin no rashes or lesions noted MDM MDM MDM Narrative Medical decision making narrative: Patient presented to the ER with a soft nonsurgical abdomen and reported constipation and straining with bright red blood per rectum. History of bright red blood is most consistent with internal versus external hemorrhoids or possibly an anal fissure. As he does not have fever or abdominal pain I do not believe obstruction or diverticulitis is present. Therefore I only felt need for an x-ray to confirm constipation and rule out signs of obstruction and perforation. X-ray confirmed constipation without signs of obstruction. On exam he has an anal fissure which would correlate with the bright red blood he is seen along with his straining. At this time there is no need for further evaluation as he does not have signs of obstruction or infection or true internal bleeding. He will be given GoLytely to help with constipation and placed on MiraLAX and Colace secondary to the anal fissure. He can follow-up with family doctor and possible referral to surgery if symptoms persist but at this time as he does not have overt infection or signs of obstruction is otherwise safe for discharge. History & Record Review Discussion w/independent historian: Patient Radiography Diagnostic Testing: Clinical Impression(s) from Imaging Studies Acute Abdomen Series 09/03/22 23:07 IMPRESSION: Constipation with possible rectal fecal impaction. Electronically Signed: Srinivasa Andrade MD at 23:35 EDT , Acute abdominal x-ray with 1 view chest as interpreted by the emergency medicine physician reveals stool within the rectal vault consistent with constipation but no air-fluid levels to suggest obstruction and chest component reveals no acute infiltrate pneumothorax or pleural effusion Discharge Plan Triage Chief Complaint: Constipation ED Provider: Ke Lugo Dx/Rx/DC Orders Clinical Impression: Constipation, Acute anal fissure Instructions: ED Understanding Anal Fissures, ED Constipation (Adult) Prescriptions: New polyethylene glycol 3350 [Miralax] 17 gram powder in packet 17 g PO DAILY Qty: 30 0RF docusate sodium [Colace] 100 mg capsule 100 mg PO BID 7 Days Qty: 14 0RF No Action propranolol 10 MG tablet 10 mg PO BID docusate sodium [DOK] 100 MG capsule 100 mg PO DAILY vitamin E (dl, acetate) 400 UNITS capsule 400 units PO TID Invega Sustenna 156 MG/ML syringe 156 mg IM Q30D cholecalciferol (vitamin D3) [Vitamin D3] 25 mcg (1,000 unit) capsule 1,000 unit PO DAILY atorvastatin 10 MG tablet 20 mg PO QHS Qty: 0 0RF loratadine [Allergy Relief (loratadine)] 10 MG tablet 10 mg PO DAILY PRN (Reason: dizziness) Qty: 0 0RF Primary Care Provider: Luis Diaz Referrals: Luis Diaz MD [Primary Care Provider] - Activity Restrictions/Additional Instructions: Please drink the GoLytely until it stimulates a bowel movement. The next day begin taking MiraLAX and Colace to help prevent constipation and allow your anal fissure to heal. Return to the ER should you have any further concerns Disposition Disposition: Home, Self Care Discharge Date/Time: 09/04/22 01:31
--- NOTE | 2022-09-03 23:07 | RAD_ITS ---
EXAM: XR ABDOMEN, 2 VIEWS AND XR CHEST, 1 VIEW CLINICAL INDICATION: constipation TECHNIQUE: Frontal view of the chest, frontal view of the abdomen/pelvis and upright or decubitus view of the abdomen. This report was created using [employer] report [email or web address] technology. COMPARISON: None. FINDINGS: CHEST: LUNGS AND PLEURAL SPACES: Unremarkable. No consolidation or edema. No pneumothorax. No effusion. HEART: Unremarkable. Cardiac silhouette not enlarged. MEDIASTINUM: Central airways and mediastinal contour are unremarkable. ABDOMEN: INTRAPERITONEAL SPACE: No free air. GASTROINTESTINAL TRACT: Large amount of fecal material in the distal sigmoid and rectum. ORGANS: Unremarkable as visualized. No organomegaly. No abnormal calcifications. TUBES, LINES AND DEVICES: None. BONES/JOINTS: No acute findings. SOFT TISSUES: No acute findings. RAD/Acute Abdomen Inc Chest IMPRESSION: Constipation with possible rectal fecal impaction. Electronically Signed: Srinivasa Andrade MD at 23:35 EDT ,
[2022-09-04] MEDS: Electrolyte Solution/Peg's 4000 ML 2000 ML PO (01:18)
[2022-09-04 01:29] VITALS: PULSE 79; RESP 18; O2SAT 96
== END 2022-09-04 01:31 | disposition home or self-care (01) ==
PROVIDERS: Emergency Provider Emergency Medicine; PCP Family Medicine; Visit Provider Emergency Medicine
DX: K59.00 Constipation, unspecified (principal); F20.9 Schizophrenia, unspecified; K60.0 Acute anal fissure
CPT/HCPCS: 74022; 99284

== ENCOUNTER → 2023-03-10 | Outpatient (CLI) | payer MEDICAID, SELFPAY ==
[2023-03-10 13:19] LABS: ALB/GLOB Ratio 1.1 RATIO (0.9-2.4); AST(SGOT) 18 U/L (15-37); Alanine Aminotransfer ALT/SGPT 29 U/L (16-61); Albumin, Serum 3.7 g/dL (3.2-5.0); Alkaline Phosphatase 51 U/L (45-117); Anion Gap 5 (5-15); BUN 18 mg/dL (7-18); BUN/Creat Ratio 15.1 RATIO (10-20); Calcium,Total 9.1 mg/dL (8.5-10.1); Chloride 104 mmol/L (98-107); Cholesterol 199 mg/dL (200); Creatinine, Serum 1.19 mg/dL (0.70-1.30); EST Glomerular Filtration Rate 65 mL/min (>60); Est Glom Filt Rate - Afr Amer 78 mL/min (>60); Globulin 3.5 g/dL (2.2-4.2); Glucose 97 mg/dL (74-106); High Density Lipoprotein 45 mg/dL; PSA,Total - Annual Screen 1.19 ng/mL (0.00-4.00); Protein, Total 7.2 g/dL (6.4-8.2); Sodium Level 136 mmol/L (136-145); Triglycerides 145 mg/dL; Very Low Density Lipoprotein 29 mg/dL (5-40)
== END | disposition home or self-care (01) ==
LOC: MFPLAB 10:42
PROVIDERS: PCP Family Medicine; Visit Provider Family Medicine
DX: E78.5 Hyperlipidemia, unspecified (principal); Z12.5 Encounter for screening for malignant neoplasm of prostate
CPT/HCPCS: 84153; 36415; 80053; 80061; G0103

== ENCOUNTER 2023-05-04 20:02 | Emergency (ER) | payer MEDICAID, SELFPAY ==
[2023-05-04] VITALS (15 sets, daily range): BP systolic 87–132; BP diastolic 65–82; PULSE 68–79; RESP 12–18; TEMP 36.9; O2SAT 93–96; BMI 31.7
--- NOTE | 2023-05-04 20:11 | EKG12_ITS ---
Test Reason : CP Blood Pressure : / mmHG Vent. Rate : 079 BPM Atrial Rate : 079 BPM P-R Int : 162 ms QRS Dur : 082 ms QT Int : 402 ms P-R-T Axes : 051 005 015 degrees QTc Int : 460 ms Normal sinus rhythm Nonspecific T wave abnormality Abnormal ECG Confirmed by JANINA MADDOX, CHAGO ([id number]), assistant production editor MIGUEL LOZA ([id number]) on 05/05/2023 10:50:54 AM Referred By: Confirmed By:CHAGO ROA MD
--- NOTE | 2023-05-04 20:12 | EDS_ITS ---
HPI History of Present Illness Chief Complaint: Chest Pain Detail of Chief Complaint: Chest pain Informant: patient Narrative Narrative: Patient presents to the emergency department complaint of chest pain that started about half an hour ago. Pain came on at rest. He is never had pain like this before. Describes a tightness in his chest. He called EMS and they gave him aspirin and 1 nitroglycerin tablet which seemed to help a little bit. Patient denies shortness of breath or diaphoresis. He denies radiation of the pain. He had no nausea or vomiting. He has had recent travel and that he drove back from [place] yesterday and today. No history of PE or DVT. Patient does not smoke. No significant family history of heart disease. Prior Similar Symptoms: No PFSH PFSH Medical History Allergic rhinitis Hyperlipidemia Hyperlipidemia Schizophrenia Home Medications docusate sodium 100 mg capsule (DOK) 100 mg PO DAILY constipation 05/18/16 [History Last Taken 10/24/20] paliperidone palmitate 156 mg/mL intramuscular syringe (Invega Sustenna) 156 mg IM Q30D schitzophrenia 05/18/16 [History Last Taken 10/07/20] propranolol 10 mg tablet 10 mg PO BID heart 05/18/16 [History Last Taken 10/24/20] vitamin E (dl, acetate) 180 mg (400 unit) capsule 400 units PO TID suppliment 05/18/16 [History Last Taken 10/24/20] cholecalciferol (vitamin D3) 25 mcg (1,000 unit) capsule (Vitamin D3) 1,000 unit PO DAILY 10/24/20 [History Last Taken 10/24/20] loratadine 10 mg tablet (Allergy Relief (loratadine)) 10 mg PO DAILY PRN dizziness #0 tabs 10/25/20 [Rx Last Taken 10/24/20] docusate sodium 100 mg capsule (Colace) 100 mg PO BID 7 days #14 caps 09/04/22 [Rx Last Taken Unknown] atorvastatin 20 mg tablet 20 mg PO QHS hyperlipidemia 05/04/23 [History Last Taken Unknown] folic acid 1 mg tablet 1 mg PO 05/04/23 [History Last Taken Unknown] omeprazole 40 mg capsule,delayed release 40 mg PO 05/04/23 [History Last Taken Unknown] oxcarbazepine 300 mg tablet 300 mg PO seizures 05/04/23 [History Last Taken Unknown] risperidone 2 mg tablet 2 mg PO schizophrenia 05/04/23 [History Last Taken Unknown] Allergy/AdvReac Type Severity Reaction Status Date / Time No Known Allergies Allergy Verified 05/04/23 20:07 Social History (Updated 07/26/22 @ 10:[address] Freeman Mcdermott MD) household members: none housing: other details: long-term Smoking Status: Never smoker substance use type: does not use ROS ROS ED Review of Systems ROS Unobtainable: other Constitutional Constitutional ED: Reports lethargy; Denies chills, fever(s), sweats or weight loss Eyes Eyes: Denies blurry vision, change in vision or diplopia ENT ENT ED: Denies rhinorrhea or sore throat Cardiovascular Cardiovascular: Reports chest pain; Denies orthopnea or racing heartbeat Respiratory/Chest Respiratory/Chest: Denies cough, dyspnea, dyspnea on exertion, orthopnea or sputum Gastrointestinal Gastrointestinal: Denies abdominal pain, diarrhea, nausea or vomiting Genitourinary Genitourinary ED: Denies dysuria, hematuria or urinary frequency Musculoskeletal Musculoskeletal: Denies arthralgias, back pain, myalgias or neck pain Integumentary Denies abscess, Abrasions or rash Neurologic Neurologic: Denies headache(s) or weakness Psychiatric Psychiatric: Denies anxiety, depression or suicidal thoughts Endocrine Endocrinology: Denies polydipsia, polyphagia or polyuria Hematologic/Lymphatic Hematologic/Lymphatic: Denies easy bleeding, easy bruising or lymphadenopathy Allergic/Immunologic Allergic/Immunologic ED: Denies mouth swelling, tongue swelling or urticaria EXAM Physical Exam Const Vital Signs: 05/04/23 20:03 05/04/23 20:08 05/04/23 20:22 Temperature 98.4 F Temperature Source Temporal Pulse Rate 79 79 73 Respiratory Rate 14 17 Respiratory Effort Respiratory Pattern Blood Pressure 87/65 L 132/70 H 103/69 Blood Pressure Mean 72 90 Pulse Ox 96 96 Oxygen Delivery Method Room Air Room Air 05/04/23 20:46 05/04/23 20:11 05/04/23 20:59 Temperature Temperature Source Pulse Rate 69 Respiratory Rate 16 Respiratory Effort Normal Respiratory Pattern Normal Blood Pressure Blood Pressure Mean Pulse Ox 96 94 Oxygen Delivery Method Room Air 05/04/23 21:00 05/04/23 21:03 05/04/23 21:10 Temperature Temperature Source Pulse Rate 72 69 73 Respiratory Rate 17 13 12 Respiratory Effort Respiratory Pattern Blood Pressure 113/82 H Blood Pressure Mean 92 Pulse Ox 93 94 96 Oxygen Delivery Method 05/04/23 21:15 05/04/23 21:20 05/04/23 21:30 Temperature Temperature Source Pulse Rate 68 78 71 Respiratory Rate 13 15 12 Respiratory Effort Respiratory Pattern Blood Pressure 108/71 92/69 Blood Pressure Mean 78 78 Pulse Ox 96 96 96 Oxygen Delivery Method Room Air 05/04/23 21:40 05/04/23 21:41 05/04/23 21:45 Temperature Temperature Source Pulse Rate 70 73 71 Respiratory Rate 18 14 13 Respiratory Effort Respiratory Pattern Blood Pressure 97/72 97/70 Blood Pressure Mean 78 77 Pulse Ox 95 95 Oxygen Delivery Method Positive well nourished and well developed General Appearance ED: well developed and NAD HEENT Reports TM's clear and moist mucous membranes normocephalic and atraumatic; Negative for trauma or tenderness Tympanic Membrane ED: Yes TM's clear Eyes PERRL and EOMs intact bilaterally General Eye ED: Negative for pale conjunctiva or scleral icterus Neck no lymphadenopathy, supple and no JVD General: Negative for tenderness Chest Wall inspection of chest normal and palpation of chest normal Chest: Negative for tenderness Resp normal respiratory effort and clear to auscultation bilaterally Effort and Inspection: Negative for respiratory distress or pain with movement Auscultation: Negative for rhonchi, wheezes or diminished lung sounds Cardio regular rate, regular rhythm, S1 normal heart sound, S2 normal heart sound and no murmurs Peripheral Pulses: pulses 2+ throughout GI normal to inspection, nondistended, normoactive bowel sounds, soft to palpation, non-tender, non-distended and no masses Back/Spine no CVA tenderness and no thoracic nor lumbar tenderness Extremity normal to inspection General Extremety ED: Negative for edema General Extremity: Negative for edema Neuro oriented x3, CN's II-XII intact bilaterally, no sensory deficits noted and gait normal Sensorium / Orientation: awake, alert, oriented to person, oriented to place and oriented to time Motor Exam: strength 5/5 throughout and strength abnormal Psych mental status grossly normal Skin no rashes or lesions noted and no wounds Heart Score History: Slightly/Non-Suspicious ECG: Nonspecific Repolarization Age: >/= 65 years Risk Factors: 1 or 2 Risk Factors Troponin: </= Normal Limit Score: 4 MDM MDM MDM Narrative Medical decision making narrative: Presents with chest pain. In the differential would be acute coronary syndrome versus PE versus pneumothorax or infectious etiology. IV line established. 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 EKG obtained shows sinus rhythm with a rate of [address] changes. She was appropriately 0.6 with hemoglobin 15 and platelet count of 244. Chemistries unremarkable. Troponin was normal at 31. 2-hour delta troponin also normal at 30. Heart score is a 4 but clinically I have low suspicion for acute coronary syndrome. D-dimer was normal. Chest x-ray was unremarkable. Patient is feeling well. Will discharge to home. Advised return if worsening pain, increasing shortness of breath, exertional dyspnea, or condition worsening way. Lab Data Attestation: I reviewed the patient's lab results. Labs: Laboratory Results - last 24 hr 05/04/23 05/04/23 19:50 21:48 WBC 8.6 RBC 4.99 Hgb 15.1 Hct 44.9 MCV 90.0 MCH 30.3 MCHC 33.6 RDW Std Deviation 41.4 RDW Coeff of Clarissa 12.6 Plt Count 244 MPV 9.3 Immature Gran % (Auto) 0.500 Neut % (Auto) 50.9 Lymph % (Auto) 36.3 [place] % (Auto) 8.9 Eos % (Auto) 2.8 Baso % (Auto) 0.6 Absolute Neuts (auto) 4.4 Absolute Lymphs (auto) 3.13 Nucleated RBC % 0 D-Dimer Quant (PE/DVT) 0.29 Sodium 139 Potassium 3.6 Chloride 106 Carbon Dioxide 29.0 Anion Gap 4 L BUN 14 Creatinine 1.20 Estim Creat Clear Calc 59.73 Est GFR (MDRD) Af Amer 78 Est GFR (MDRD) Non-Af 64 BUN/Creatinine Ratio 11.7 Glucose 107 H Calcium 8.7 Troponin I High Sens 31 30 Radiography Diagnostic Testing: Clinical Impression(s) from Imaging Studies Chest X-Ray 05/04/23 20:25 IMPRESSION: Minor right basilar subsegmental atelectasis Electronically Signed: Vignesh Watkins MD at 20:41 EST , Chest x-ray obtained interpreted by myself as no evidence of infiltrate or pneumothorax or acute disease process. Radiology in agreement. EKG Initial EKG: Attestation: I personally reviewed and interpreted this EKG as follows: Comments: Sinus rhythm with rate of [address] changes Discharge Plan Triage Chief Complaint: Chest Pain ED Provider: Falguni Isaac Dx/Rx/DC Orders Clinical Impression: Chest pain Instructions: ED Chest Pain, Uncertain Cause Prescriptions: No Action propranolol 10 MG tablet 10 mg PO BID docusate sodium [DOK] 100 MG capsule 100 mg PO DAILY vitamin E (dl, acetate) 400 UNITS capsule 400 units PO TID Invega Sustenna 156 MG/ML syringe 156 mg IM Q30D cholecalciferol (vitamin D3) [Vitamin D3] 25 mcg (1,000 unit) capsule 1,000 unit PO DAILY loratadine [Allergy Relief (loratadine)] 10 MG tablet 10 mg PO DAILY PRN (Reason: dizziness) Qty: 0 0RF docusate sodium [Colace] 100 mg capsule 100 mg PO BID 7 Days Qty: 14 0RF atorvastatin 20 mg tablet 20 mg PO QHS oxcarbazepine 300 mg tablet 300 mg PO omeprazole 40 mg capsule,delayed release(DR/EC) 40 mg PO risperidone 2 mg tablet 2 mg PO folic acid 1 mg tablet 1 mg PO Primary Care Provider: Luis Diaz Referrals: Luis Diaz MD [Primary Care Provider] - 3-5 Days Disposition Disposition: Home, Self Care
[2023-05-04] MEDS: Nitroglycerin Oint 1 INCH PACKET TD (20:22)
[2023-05-04] MEDS: 0.9% Normal Saline (1000mL) 1,000 ML 150 ML IV (20:25)
--- NOTE | 2023-05-04 20:25 | RAD_ITS ---
STUDY: X-RAY CHEST REASON FOR EXAM: Male, 67 years old. chest pain TECHNIQUE: AP portable COMPARISON: July 26, 2022 FINDINGS: Minor subsegmental atelectasis in the right lower lobe. There is no demonstrated pleural abnormality. Normal size heart. Normal mediastinum and colleen. Normal visualized pulmonary arteries. Normal visualized aortic arch and descending thoracic aorta. Normal visualized thoracic spine. Normal visualized ribs, clavicles, and shoulders. There is no demonstrated abnormality of the visualized soft tissue structures of the upper abdomen. RAD/Chest 1 View (Portable) IMPRESSION: Minor right basilar subsegmental atelectasis Electronically Signed: Vignesh Watkins MD at 20:41 EST ,
[2023-05-04 20:33] LABS: Absolute Lymphocyte Count 3.13 X10^3/uL (0.83-4.51); Absolute Neutrophil Count 4.4 X10^3/uL (2.0-7.7); Basophil# 0.05 X10^3/uL; Basophil% 0.6 % (0-1); Eosinophil# 0.24 X10^3/uL; Eosinophils% 2.8 % (0-5); Hematocrit 44.9 % (40-54); Hemoglobin 15.1 g/dL (13.0-16.5); Lymphocyte # 3.13 X10^3/ul (0.83-4.51); Lymphocyte % 36.3 % (19-41); Mean Corp Hgb Conc 33.6 g/dL (32-36); Mean Corpuscular Hgb 30.3 pg (27.0-32.0); Mean Platelet Vol. 9.3 fl (6.2-12.0); Monocyte# 0.77 X10^3/uL; Monocyte% 8.9 % (0-10); NRBC Flagged by Analyzer 0 % (0-5); Neutrophil # 4.39 X10^3/uL (2.7-7.7); Neutrophil % 50.9 % (47-70); Platelet Count 244 K/mm3 (150-450); RBC Distribution Width CV 12.6 % (11.6-14.6); RBC Distribution Width SD 41.4 fl (35.1-43.9); Red Blood Count 4.99 M/mm3 (4.6-6.2); White Blood Count 8.6 K/mm3 (4.4-11.0)
[2023-05-04 20:45] LABS: D-Dimer Quantitative (DVT/PE) 0.29 FEU/ug/m (0.27-0.49)
[2023-05-04 20:51] LABS: Anion Gap 4 (5-15); BUN 14 mg/dL (7-18); BUN/Creat Ratio 11.7 RATIO (10-20); Calcium,Total 8.7 mg/dL (8.5-10.1); Chloride 106 mmol/L (98-107); EST Glomerular Filtration Rate 64 mL/min (>60); Est Glom Filt Rate - Afr Amer 78 mL/min (>60); Estimated Creatinine Clearance 59.73 ml/min; Glucose 107 mg/dL (74-106); Potassium 3.6 mmol/L (3.5-5.1); Sodium Level 139 mmol/L (136-145); Troponin-I HS (w/2H Reflex) 31 pg/mL (3.0-78.0)
[2023-05-04 22:21] LABS: Reflex Troponin-HS? (from REC) Y
[2023-05-04 22:38] LABS: Troponin-I HS 30 pg/mL (3.0-78.0)
--- NOTE | 2023-05-04 23:04 | ED.RN ---
[facility] CALLED FOR PT, PT HAS FUNDS TO PAY
--- NOTE | 2023-05-04 23:05 | ED.RN ---
NITRO PASTE REMOVED PRIOR TO DISCHARGE
== END 2023-05-04 23:06 | disposition home or self-care (01) ==
PROVIDERS: Emergency Provider Emergency Medicine; PCP Family Medicine; Visit Provider Emergency Medicine
DX: R07.9 Chest pain, unspecified (principal); F20.9 Schizophrenia, unspecified; E78.5 Hyperlipidemia, unspecified; Z79.899 Other long term (current) drug therapy
CPT/HCPCS: 71045; 80048; 84484; 85025; 85379; 93005; 99285; J7030; A4216

== ENCOUNTER 2023-05-27 18:07 | Emergency (ER) | payer MEDICAID, SELFPAY ==
[2023-05-27 18:08] VITALS: BP 160/96; PULSE 109; RESP 16; TEMP 36.2; O2SAT 96; BMI 31.0
[2023-05-27 18:21] VITALS: O2SAT 95
--- NOTE | 2023-05-27 18:23 | EX.ED.DYSGE1 ---
HPI History of Present Illness Chief Complaint: Cough Informant: patient Onset/Context/Timing Onset: Yesterday Narrative Narrative: Patient present secondary to dry cough over the past 2 days. He reports some mild diarrhea this morning. No fever has been noted and he has not felt as if he has been running a temperature. He was sent in by his detention for a COVID test. [facility] Medical History (Updated 05/27/23 @ 19:[address] Felisha Stapleton MD) Allergic rhinitis Hyperlipidemia Schizophrenia Home Medications docusate sodium 100 mg capsule (DOK) 100 mg PO DAILY constipation 05/18/16 [History Last Taken 10/24/20] paliperidone palmitate 156 mg/mL intramuscular syringe (Invega Sustenna) 156 mg IM Q30D schitzophrenia 05/18/16 [History Last Taken 10/07/20] propranolol 10 mg tablet 10 mg PO BID heart 05/18/16 [History Last Taken 10/24/20] vitamin E (dl, acetate) 180 mg (400 unit) capsule 400 units PO TID suppliment 05/18/16 [History Last Taken 10/24/20] cholecalciferol (vitamin D3) 25 mcg (1,000 unit) capsule (Vitamin D3) 1,000 unit PO DAILY 10/24/20 [History Last Taken 10/24/20] loratadine 10 mg tablet (Allergy Relief (loratadine)) 10 mg PO DAILY PRN dizziness #0 tabs 10/25/20 [Rx Last Taken 10/24/20] docusate sodium 100 mg capsule (Colace) 100 mg PO BID 7 days #14 caps 09/04/22 [Rx Last Taken Unknown] atorvastatin 20 mg tablet 20 mg PO QHS hyperlipidemia 05/04/23 [History Last Taken Unknown] folic acid 1 mg tablet 1 mg PO 05/04/23 [History Last Taken Unknown] omeprazole 40 mg capsule,delayed release 40 mg PO 05/04/23 [History Last Taken Unknown] oxcarbazepine 300 mg tablet 300 mg PO seizures 05/04/23 [History Last Taken Unknown] risperidone 2 mg tablet 2 mg PO schizophrenia 05/04/23 [History Last Taken Unknown] Allergy/AdvReac Type Severity Reaction Status Date / Time No Known Allergies Allergy Verified 05/27/23 18:20 Social History household members: none housing: other details: custodial Smoking Status: Never smoker substance use type: does not use ROS ROS ED Constitutional Constitutional ED: Denies chills or fever(s) Eyes Eyes: Denies discharge from eye(s) ENT ENT ED: Reports rhinorrhea; Denies discharge from eye(s) or sore throat Cardiovascular Cardiovascular: Denies chest pain or palpitations Respiratory/Chest Respiratory/Chest: Reports cough; Denies dyspnea or sputum Gastrointestinal Gastrointestinal: Reports diarrhea; Denies abdominal pain, nausea or vomiting Genitourinary Genitourinary ED: Denies dysuria Musculoskeletal Musculoskeletal: Denies back pain or extremity pain Integumentary Denies Abrasions or rash Neurologic Neurologic: Denies headache(s) or weakness Psychiatric Psychiatric: Denies anxiety or depression Allergic/Immunologic Allergic/Immunologic ED: Denies lip swelling or urticaria EXAM Physical Exam Const Vital Signs: 05/27/23 18:08 05/27/23 18:21 Temperature 97.1 F L Temperature Source Temporal Pulse Rate 109 H Respiratory Rate 16 Respiratory Effort Normal Respiratory Depth Normal Respiratory Pattern Normal Blood Pressure 160/96 H Blood Pressure Mean 117 Pulse Ox 96 Oxygen Delivery Method Room Air Room Air Positive well nourished and well developed General Appearance ED: well developed Eyes EOMs intact bilaterally Chest Wall inspection of chest normal and palpation of chest normal Resp normal respiratory effort and clear to auscultation bilaterally Cardio regular rate and regular rhythm GI normal to inspection, nondistended, normoactive bowel sounds and non-tender Extremity normal to inspection Neuro oriented x3 Sensorium / Orientation: alert Psych mental status grossly normal Skin no rashes or lesions noted MDM MDM MDM Narrative Medical decision making narrative: Swab for COVID and influenza be sent. Chest x-ray obtained to evaluate for acute lung pathology, cardiac size, or mediastinal abnormality. Radiography Diagnostic Testing: Clinical Impression(s) from Imaging Studies Chest X-Ray 05/27/23 18:38 IMPRESSION: Mild left infrahilar interstitial prominence. Electronically Signed: Andre Fortune DO at 19:23 EST Reading Location ID and State: [facility] / [place] Tel [phone], Service support , Treatment and Re-Evaluation :: Portable chest x-ray per my interpretation was chronic changes with no focal infiltrate. Radiology interpretation reviewed. They feel there is mild left infrahilar prominence. Patient's COVID test is negative but he does test positive for influenza A. This was discussed with him and he will continue supportive care. Return instructions given. Discharge Plan Triage Chief Complaint: Cough ED Provider: Felisha Stapleton Dx/Rx/DC Orders Clinical Impression: Influenza A Instructions: ED Influenza (Adult) Prescriptions: No Action propranolol 10 MG tablet 10 mg PO BID docusate sodium [DOK] 100 MG capsule 100 mg PO DAILY vitamin E (dl, acetate) 400 UNITS capsule 400 units PO TID Invega Sustenna 156 MG/ML syringe 156 mg IM Q30D cholecalciferol (vitamin D3) [Vitamin D3] 25 mcg (1,000 unit) capsule 1,000 unit PO DAILY loratadine [Allergy Relief (loratadine)] 10 MG tablet 10 mg PO DAILY PRN (Reason: dizziness) Qty: 0 0RF docusate sodium [Colace] 100 mg capsule 100 mg PO BID 7 Days Qty: 14 0RF atorvastatin 20 mg tablet 20 mg PO QHS oxcarbazepine 300 mg tablet 300 mg PO omeprazole 40 mg capsule,delayed release(DR/EC) 40 mg PO risperidone 2 mg tablet 2 mg PO folic acid 1 mg tablet 1 mg PO Primary Care Provider: Luis Diaz Referrals: Luis Diaz MD [Primary Care Provider] - 1-2 Weeks Disposition Disposition: Home, Self Care
--- NOTE | 2023-05-27 18:38 | RAD_ITS ---
INDICATION: cough EXAMINATION/TECHNIQUE: X-RAY - XR Chest 1 View COMPARISON: May 04, 2023 FINDINGS: LINES/DEVICES: None. LUNGS: Mild left infrahilar interstitial prominence.. Right upper lobe granuloma. No pneumothorax. MEDIASTINUM AND CARDIOVASCULAR STRUCTURES: Cardiac silhouette not enlarged. Central airways and mediastinal contour are unremarkable. BONES AND SOFT TISSUES: Unremarkable. RAD/Chest 1 View (Portable) IMPRESSION: Mild left infrahilar interstitial prominence. Electronically Signed: Andre Fortune DO at 19:23 EST ,
[2023-05-27 19:53] VITALS: BP 133/102; PULSE 94; RESP 18; O2SAT 94
== END 2023-05-27 19:55 | disposition home or self-care (01) ==
PROVIDERS: Emergency Provider Emergency Medicine; PCP Family Medicine; Visit Provider Emergency Medicine
DX: J10.1 Influenza due to other identified influenza virus with other respiratory manifestations (principal); F20.9 Schizophrenia, unspecified
CPT/HCPCS: 71045; 87428; 99282

== ENCOUNTER → 2023-06-13 | Outpatient (CLI) | payer MEDICAID, SELFPAY ==
--- NOTE | 2023-06-13 16:12 | STRESSREP ---
Stress Test Report Exercise stress test. 67-year-old man with a history of chest pain Stress protocol: Resting EKG demonstrates normal sinus rhythm with a rate of 65 bpm resting blood pressure is 120/82 mmHg. The patient exercised according to the regular Tone protocol for a total duration of 4 minutes attaining a maximum heart rate of 150 bpm which was 98% of maximum predicted heart rate; the maximum workload was 7 metabolic equivalents. At rest there were no ST or T wave changes noted to suggest ischemia and at peak exercise upsloping ST changes only were noted which did not meet the criteria for ischemia. No clinical angina was noted the test was terminated due to the target heart rate being achieved/fatigue. The peak blood pressure was 138/74 mmHg. Rate-pressure product was 17,800. Conclusion: Stress test with no EKG criteria for ischemia at a moderate workload Mild to moderate functional aerobic impairment.
== END | disposition home or self-care (01) ==
LOC: CVS 11:13
PROVIDERS: PCP Family Medicine; Referring Provider Family Medicine; Visit Provider Family Medicine
DX: R07.9 Chest pain, unspecified (principal)
CPT/HCPCS: 93017

== ENCOUNTER → 2023-06-22 | Outpatient (CLI) | payer MEDICAID, SELFPAY ==
--- OUTSIDE RECORDS SUMMARY | 2023-06-22 16:37 | XMS RPT_ITS | CCD ---
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 [employer] Name Role Phone Luis Diaz MD Primary Care Provider Medications Current Medications Medication Drug Class(es) Dates Sig (Normalized) Sig (Original) atorvastatin 10 mg oral tablet (2 sources) HMG-CoA Reductase Inhibitor Start: 08-28-2020 atorvastatin (LIPITOR) 10 MG tablet benztropine mesylate 0.5 mg oral tablet (2 sources) Anticholinergic, Antihistamine Start: 08-27-2020 benztropine (COGENTIN) 0.5 MG tablet cholecalciferol 0.025 mg oral capsule (2 sources) Vitamin D Start: 10-21-2020 vitamin D 25 MCG (1000 UT) CAPS docusate sodium 100 mg oral capsule (2 sources) Start: 08-28-2020 docusate sodium (COLACE) 100 MG capsule loratadine 10 mg oral tablet (2 sources) Start: 08-27-2020 loratadine (CLARITIN) 10 MG tablet meclizine hydrochloride 12.5 mg oral tablet (2 sources) Antiemetic take 1 tablet by mouth four times daily meclizine (ANTIVERT) 12.5 MG tablet Take 12.5 mg by mouth 4 times daily 0 Active 1.5 ml paliperidone palmitate 156 mg/ml prefilled syringe (2 sources) Atypical Antipsychotic paliperidone palmitate ER (INVEGA SUSTENNA) 234 MG/1.5ML CATALINA IM injection Inject 234 mg into the muscle once 0 Active propranolol hydrochloride 10 mg oral tablet (2 sources) beta-Adrenergic Shilpi Start: 08-29-2020 propranolol (INDERAL) 10 MG tablet vitamin e d-alpha 400 unt oral capsule (2 sources) take 1 capsule by mouth once daily vitamin E 400 UNIT capsule Take 400 Units by mouth daily 0 Active Problems Problem Classification Problem Date Documented Da te Episodic/Chronic Malaise and fatigue (1 source) Fatigue; Translations: [Other fatigue] Episodic Other nervous system disorders (1 source) Paresthesia of foot ; Translations: [Anesthesia of skin] Episodic Results Test Name Value Interpretation Reference Range Facil ity Encounters Encounter Date Encounter Type Care Provider Facility Start: 01-27-2021 End: 01-27-2021 Subsequent hospital visit by physician Samuel Frazier MD Work Phone: [facility] Procedures Date Procedure Procedure Detail Performing Clinician Start: 01-27-2021 EMG REPORT Chandana Salazar Samaria telma DO Work Phone: Start: 01-27-2021 NERVE CONDUCTION NGHIA T WITH EMG Samuel Frazier MD Work Phone: Plan of Treatment Date Care Activity Detail Author Start: 04-07-2028 Screening for malignant neoplasm of colon Colon cancer screen colonoscopy [facility] Work Phone: Start: 01-07-2024 Diabetes screen Diabetes screen [facility] Work Phone: Start: 02-04-2021 Influenza vaccination Flu vaccine (#1) [facility] Work Phone: Start: 02-03-2021 End: 02-03-2021 Patient encounter procedure 02/03/2021 Office Visit Neurology Vianney Dennis, ASHLEY - [employer] [address] [place] [address] [phone] [facility] [place] Start: 01-27-2021 End: 01-27-2021 Patient encounter procedure 01/27/2021 Appointment Neurology [facility] Start: 11-02-2020 Pneumococcal 65+ years Vaccine (1 of 1 - PPSV23) Pneumococcal 65+ years Vaccine (1 of 1 - PPSV23) [facility] Work Phone: Start: 11-02-2005 Shingles Vaccine (1 of 2) Shingles Vaccine (1 of 2) [facility] Work Phone: Start: 1995 Diabetes screen Diabetes screen [facility] Work Phone: Start: 11-02-1974 DTaP/Tdap/Td vaccine (1 - Tdap) DTaP/Tdap/Td vaccine (1 - Tdap) [facility] Work Phone: Start: 11-02-1970 HIV screening HIV screen [facility] Work Phone: Start: 11-02-1965 Lipid panel Lipid screen [facility] Work Phone: Start: 1955 Hepatitis C screening Hepatitis C screen [facility] Work Phone: EMG REPORT [facility] REPORT Neuro logy 01/27/2021 2:13 PM EDT [facility] Work Phone: End: 01-06-2021 XR LUMBOSACRAL W OBLIQUES AND FLEXION AND EXTENSION XR LUMBOSACRAL W OBLIQUES AND FLEXION AND EXTENSION Imaging Routine Once for 1 Occurrences starting 01/06/2021 until 01/06/2021 [facility] Work Phone: Payers Date Payer Category Payer Unknown [employer] [facility] MEDICAID [id number] 2020-Present [phone] CLAIMS DEPARTMENT [address] [place] [address] [id number] Social History Date Type Detail Facility Start: 01-06-2021 Tobacco smoking stat [facility] Never smoker [facility] Work Phone: Start: 01-06-2021 Tobacco use and exposure Never used [facility] Start: 01-06-2021 Alcohol intake Lifetime non-d jeniffer (finding) [facility] Work Phone: Start: 11-21-2020 History SDOH Alcohol Frequency 1 [facility] Work Phone: Start: 1955 Sex Assigned At Not on file [facility] [place] Work Phone: Progress note 10-24-2020 Note Date & Type Note Facility 10-24-2020 Note HNO ID: [id number] Author: Sushil Chakraborty MD Service: ? Author Type: Physician Type: Progress Notes Filed: 10/24/2020 2:38 PM Note Text: Patient presents with: Dizziness: fatigue, tingling in toes and frequent urination x 1 week HPI: Feeling dizzy for about a week, not able to remember exactly. Feels like he might pass out. No vertigo. Had a couple episodes of near syncope the last few days. Staff at his senior care noticed he was not right. He is worried he may have diabetes. Denies chest pain, palpitations, shortness of breath, weakness, headache. Toes feel tingly the last 2 days. Reading has been difficult lately. Appropriately sweating some with hot temps this week. Frequent urination one day this week-resolved. Dysuria: No Frequency: Yes Hematuria: No Nausea: No. No vomiting. Had diarrhea one day this week-resolved. Fever or chills: No Back pain: No Abdominal pain: No Prior UTI: No Labs checked about 3 months ago showed reportedly normal sugar. PAST MEDICAL HISTORY Diagnosis Date - Schizophrenia (HCC) - TB lung, latent 11/21/2017 MEDICATIONS: Current Outpatient Medications Medication Instructions - albuterol HFA (PROAIR HFA) 90 mcg/actuation inhaler 2 Puffs, INHALATION, EVERY 4 HOURS NEEDED - atorvastatin (LIPITOR) 10 mg, ORAL, DAILY - BENZTROPINE MESYLATE (BENZTROPINE ORAL) ORAL - Cholecalciferol, Vitamin D3, 25 mcg (1,000 unit) cap No dose, route, or frequency recorded. - DOCUSATE SODIUM (DOC-Q-LACE ORAL) ORAL - HYDROXYZINE PAMOATE ORAL Take by mouth. - loratadine (CLARITIN) 10 mg, ORAL, DAILY - PALIPERIDONE ORAL Take by mouth. - paliperidone palmitate (INVEGA SUSTENNA) 156 mg, INTRAMUSCULAR, ONCE - propranolol (INDERAL) 10 mg, ORAL, 3 TIMES DAILY - Vitamin E, dl, acetate, (VITAMIN E) 400 unit capsule No dose, route, or frequency recorded. - VITAMIN E,DL-ALPHA TOCOPHEROL, (VITAMIN E, BULK, MISC) Miscell. (Med.Supl.;Non-Drugs) ALLERGIES: ALLERGIES No Known Allergies VITALS: BP 108/68 Pulse 90 Temp 36.3 ?C (97.3 ?F) (Tympanic) Resp 16 Wt 101.2 kg (223 lb) SpO2 95% PHYSICAL EXAM: GEN: NAD HEENT: EOMI, conjunctiva clear, moist mucous membranes. Right cerumen impaction. TMs and canals clear after removal of cerumen. HEART: regular rate and rhythm, no murmurs LUNGS: clear to auscultation, no wheezes or crackles, no increased WOB ABDOMEN: Soft, nondistended, no masses, no suprapubic tenderness BACK: No CVA tenderness NEURO: Alert and oriented to person, place, and time. CN II-XII intact. DTR 1+/4. Normal strength. Normal gait. Upper body rocking, probably no tremor. PSYCH: Normal mood, full range of affect, speech rate normal and content appropriate ASSESSMENT/PLAN: 1. Near syncope - ICD9: 780.2, ICD10: R55 (primary diagnosis) 2. Dizziness - ICD9: 780.4, ICD10: R42 3. Numbness of toes - ICD9: 782.0, ICD10: R20.0 4. Vision changes - ICD9: 368.9, ICD10: H53.9 Referred to the ER for further evaluation. Report sent to [facility] by ER passport. Patient will go by cab. 5. Impacted cerumen of right ear - ICD9: 380.4, ICD10: H61.21 Successful removal of cerumen today (mechanical removal with plastic cerumen hook by myself, water irrigation by staff). 6. Urinary frequency - ICD9: 788.41, ICD10: R35.0 7. Proteinuria, unspecified type - ICD9: 791.0, ICD10: R80.9 - UA DIP, URINE (POC) trace protein. Written instruction to follow-up with PCP for further evaluation. Patient is able to repeat this in his own words. Reassured no sugar in the urine makes diabetes and unlikely cause of frequency. Sushil Chakraborty MD [facility] Evaluation note Note Date & Type Note Facility documented in this encounter [facility] Work Phone: Reason for Referral Status Reason Specialty Diagnoses / Procedures Referre d By Contact Referred To Contact [facility] Diagnoses Numbness and tingling of both feet Other fatigue Procedures Nerve Conduction Test with EMG Samuel Frazier MD [address] [place] [address] Summary Purpose Family History No Family History Records FoundNo Family History Records Found Advance Directives No Advanced Directives Records FoundNo Advanced Directives Records Found Additional Source Comments Reason for Visit (unrecogniz ed section and content) (unrecognized sect ion and content) No Status Records FoundNo Status Records Found INFORMATION SOURCE (unrecogn ized section and content) DATE CREATED AUTHOR AUTHOR'S ORGANIZ ATION 07/03/2021 [facility] FOR RECORDS PERTAINING TO PATIENTS WHO ARE OR HAVE BEEN ENROLLED IN A CHEMICAL DEPENDENCY/SUBSTANCEABUSE PROGRAM, SOME INFORMATION MAY BE OMITTED. This clinical summary was aggregated from multiple sources. Caution should be exercised in using it in the provision of clinical care. This summary normalizes information from multiple sources, and as a consequence, information in this document may materially change the coding, format and clinical context of patient data. In addition, data may be omitted in some cases. CLINICAL DECISIONS SHOULD BE BASED ON THE PRIMARY CLINICAL RECORDS. [facility] [employer] [facility]. provides no warranty or guarantee of the accuracy or completeness of information in this document.
[2023-06-22 17:43] LABS: Absolute Lymphocyte Count 2.43 X10^3/uL (0.83-4.51); Absolute Neutrophil Count 2.5 X10^3/uL (2.0-7.7); Basophil# 0.04 X10^3/uL; Basophil% 0.7 % (0-1); Eosinophil# 0.24 X10^3/uL; Eosinophils% 4.2 % (0-5); Hemoglobin 13.3 g/dL (13.0-16.5); Lymphocyte # 2.43 X10^3/ul (0.83-4.51); Lymphocyte % 42.1 % (19-41); Mean Corp Hgb Conc 32.4 g/dL (32-36); Mean Corpuscular Hgb 29.9 pg (27.0-32.0); Mean Corpuscular Volume 92.1 fL (80-94); Mean Platelet Vol. 9.9 fl (6.2-12.0); Monocyte# 0.57 X10^3/uL; Monocyte% 9.9 % (0-10); NRBC Flagged by Analyzer 0 % (0-5); Neutrophil # 2.48 X10^3/uL (2.7-7.7); Neutrophil % 42.9 % (47-70); Platelet Count 182 K/mm3 (150-450); RBC Distribution Width CV 12.9 % (11.6-14.6); RBC Distribution Width SD 43.5 fl (35.1-43.9); Red Blood Count 4.45 M/mm3 (4.6-6.2); White Blood Count 5.8 K/mm3 (4.4-11.0)
[2023-06-22 18:21] LABS: Anion Gap 5 (5-15); BUN 17 mg/dL (7-18); BUN/Creat Ratio 16.5 RATIO (10-20); Calcium,Total 8.7 mg/dL (8.5-10.1); Chloride 109 mmol/L (98-107); Creatinine, Serum 1.03 mg/dL (0.70-1.30); EST Glomerular Filtration Rate 76 mL/min (>60); Est Glom Filt Rate - Afr Amer 93 mL/min (>60); Glucose 110 mg/dL (74-106); Potassium 4.2 mmol/L (3.5-5.1); Sodium Level 141 mmol/L (136-145); Thyroid Stim Hormone (TSH) 1.67 uIU/mL (0.358-3.74)
== END | disposition home or self-care (01) ==
PROVIDERS: PCP Family Medicine; Referring Provider Family Medicine; Visit Provider Family Medicine
DX: R53.83 Other fatigue (principal)
CPT/HCPCS: 36415; 80048; 84403; 84443; 85025

== ENCOUNTER → 2023-07-22 | Outpatient (CLI) | payer MEDICAID, SELFPAY ==
[2023-07-22 16:41] LABS: ALB/GLOB Ratio 1.2 RATIO (0.9-2.4); AST(SGOT) 19 U/L (15-37); Alanine Aminotransfer ALT/SGPT 24 U/L (16-61); Albumin, Serum 3.8 g/dL (3.2-5.0); Alkaline Phosphatase 57 U/L (45-117); Anion Gap 6 (5-15); BUN 19 mg/dL (7-18); BUN/Creat Ratio 17.4 RATIO (10-20); Calcium,Total 9.6 mg/dL (8.5-10.1); Chloride 106 mmol/L (98-107); Cholesterol 224 mg/dL (200); Creatinine, Serum 1.09 mg/dL (0.70-1.30); EST Glomerular Filtration Rate 72 mL/min (>60); Est Glom Filt Rate - Afr Amer 87 mL/min (>60); Globulin 3.3 g/dL (2.2-4.2); Glucose 107 mg/dL (74-106); High Density Lipoprotein 46 mg/dL; Potassium 3.9 mmol/L (3.5-5.1); Prolactin 13.9 ng/mL; Protein, Total 7.1 g/dL (6.4-8.2); Sodium Level 140 mmol/L (136-145); Triglycerides 381 mg/dL; Very Low Density Lipoprotein 76 mg/dL (5-40)
[2023-07-22 16:43] LABS: Hemoglobin A1c 5.8 % (3.8-5.6)
--- OUTSIDE RECORDS SUMMARY | 2023-07-22 17:34 | XMS RPT_ITS | CCD ---
Author Name Unknown Address [address] [place] [address] Organization [facility] Care Team Providers Care Medical Microbiologist Name Role Phone Luis Diaz MD Primary [...] by physician Samuel Frazier MD Work Phone: [facility] Procedures Date Procedure Procedure Detail Performing Clinician Start: 01-27-2021 EMG REPORT Chandana Salazar Samaria telma DO Work Phone: Start: 01-27-2021 NERVE CONDUCTION NGHIA T WITH EMG Samuel Frazier MD Work Phone: Plan of Treatment Date Care Activity Detail Author Start: 04-07-2028 Screening for malignant neoplasm of colon Colon cancer screen colonoscopy [facility] Work Phone: Start: 01-07-2024 Diabetes screen Diabetes screen [facility] Work Phone: Start: 02-04-2021 Influenza vaccination Flu vaccine (#1) [facility] Work Phone: Start: 02-03-2021 End: 02-03-2021 Patient encounter procedure 02/03/2021 Office Visit Neurology Vianney Dennis, ASHLEY - [employer] [address] [place] [address] [phone] [facility] Neurology [place] Start: 01-27-2021 End: 01-27-2021 Patient encounter procedure 01/27/2021 Appointment Neurology [facility] Start: 11-02-2020 Pneumococcal 65+ years Vaccine (1 of 1 - PPSV23) Pneumococcal 65+ years Vaccine (1 of 1 - PPSV23) [facility] Work Phone: Start: 11-02-2005 Shingles Vaccine (1 of 2) Shingles Vaccine (1 of 2) [facility] Work Phone: Start: 1995 Diabetes screen Diabetes screen [facility] Work Phone: Start: 11-02-1974 DTaP/Tdap/Td vaccine (1 - Tdap) DTaP/Tdap/Td vaccine (1 - Tdap) [facility] Work Phone: Start: 11-02-1970 HIV screening HIV screen [facility] Work Phone: Start: 11-02-1965 Lipid panel Lipid screen [facility] Work Phone: Start: 1955 Hepatitis C screening Hepatitis C screen [facility] Work Phone: EMG REPORT EMG REPORT Neuro logy 01/27/2021 2:13 PM EDT [facility] Work Phone: End: 01-06-2021 XR LUMBOSACRAL W OBLIQUES AND FLEXION AND EXTENSION XR LUMBOSACRAL W OBLIQUES AND FLEXION AND EXTENSION Imaging Routine Once for 1 Occurrences starting 01/06/2021 until 01/06/2021 [facility] Work Phone: Payers Date Payer Category Payer Unknown [employer] [facility] MEDICAID [id number] 2020-Present [phone] CLAIMS DEPARTMENT [address] [place] [address] [id number] Social History Date Type Detail Facility Start: 01-06-2021 Tobacco smoking stat [facility] Never smoker [facility] Work Phone: Start: 01-06-2021 Tobacco use and exposure Never used [facility] Start: 01-06-2021 Alcohol intake Lifetime non-d jeniffer (finding) [facility] Work Phone: Start: 11-21-2020 History SDOH Alcohol Frequency 1 [facility] Work Phone: Start: 1955 Sex Assigned At Not on file [facility] Work Phone: Progress note 10-24-2020 Note Date & Type Note Facility 10-24-2020 Note HNO ID: [id number] Author: Sushil Chakraborty MD Service: ? Author [...] the last few days. Staff at his custodial noticed he was not right. He is [...] ER for further evaluation. Report sent to [facility] by ER passport. Patient will [...] unlikely cause of frequency. Sushil Chakraborty MD [facility] Evaluation note Note Date & Type Note Facility documented in this encounter [facility] Work Phone: Reason for Referral Status Reason Specialty Diagnoses / Procedures Referre d By Contact Referred To Contact [facility] Diagnoses Numbness and tingling of both feet Other fatigue Procedures Nerve Conduction Test with EMG Samuel Frazier MD [address] [place] [address] Summary Purpose Family History No Family History Records FoundNo Family History Records Found Advance Directives No Advanced Directives Records FoundNo Advanced Directives Records Found Additional Source Comments Reason for Visit (unrecogniz ed section and content) (unrecognized sect ion and content) No Status Records FoundNo Status Records Found INFORMATION SOURCE (unrecogn ized section and content) DATE CREATED AUTHOR AUTHOR'S ORGANIZ ATION 07/03/2021 [facility] FOR RECORDS PERTAINING TO PATIENTS WHO ARE [...] ON THE PRIMARY CLINICAL RECORDS. [facility]. provides no warranty or guarantee of the accuracy or completeness of information in this document.
== END | disposition home or self-care (01) ==
LOC: LAB 15:49
PROVIDERS: PCP Family Medicine; Referring Provider Psychiatry & Neurology Psychiatry; Visit Provider Psychiatry & Neurology Psychiatry
DX: R53.83 Other fatigue (principal); F19.10 Other psychoactive substance abuse, uncomplicated; Z79.899 Other long term (current) drug therapy
CPT/HCPCS: 36415; 80053; 80061; 83036; 84146

== ENCOUNTER 2023-09-03 09:29 | Emergency (ER) | payer MEDICAID, SELFPAY ==
[2023-09-03 09:30] VITALS: BP 130/99; PULSE 50; RESP 18; TEMP 35.8; O2SAT 98; BMI 31.6
[2023-09-03 09:31] VITALS: BP 130/99; PULSE 94; RESP 18; TEMP 35.8; O2SAT 98
--- NOTE | 2023-09-03 09:43 | EDS_ITS ---
HPI History of Present Illness Chief Complaint: Shortness of Breath Informant: patient Narrative Narrative: 67-year-old male states he woke up a couple hours ago and his throat feels swollen and it is making him feel like he is a little short of breath. He denies any symptoms in his chest such as discomfort, palpitations, wheezing. He denies any edema in his legs or orthopnea. He denies any new medications, he cannot remember what he ate for dinner last night but he does not recall eating any new or different foods lately. No antibiotics recently for anything and denies any other recent illness. He states he feels it when he swallows and it is making him feel like he needs to clear his throat. He denies his voice being any different. [facility] Medical History Allergic rhinitis Hyperlipidemia Schizophrenia Home Medications docusate sodium 100 mg capsule (DOK) 100 mg PO DAILY constipation 05/18/16 [History Last Taken 10/24/20] paliperidone palmitate 156 mg/mL intramuscular syringe (Invega Sustenna) 156 mg IM Q30D schitzophrenia 05/18/16 [History Last Taken 10/07/20] propranolol 10 mg tablet 10 mg PO BID heart 05/18/16 [History Last Taken 10/24/20] vitamin E (dl, acetate) 180 mg (400 unit) capsule 400 units PO TID suppliment 05/18/16 [History Last Taken 10/24/20] cholecalciferol (vitamin D3) 25 mcg (1,000 unit) capsule (Vitamin D3) 1,000 unit PO DAILY 10/24/20 [History Last Taken 10/24/20] loratadine 10 mg tablet (Allergy Relief (loratadine)) 10 mg PO DAILY PRN dizziness #0 tabs 10/25/20 [Rx Last Taken 10/24/20] docusate sodium 100 mg capsule (Colace) 100 mg PO BID 7 days #14 caps 09/04/22 [Rx Last Taken Unknown] atorvastatin 20 mg tablet 20 mg PO QHS hyperlipidemia 05/04/23 [History Last Taken Unknown] folic acid 1 mg tablet 1 mg PO 05/04/23 [History Last Taken Unknown] omeprazole 40 mg capsule,delayed release 40 mg PO 05/04/23 [History Last Taken Unknown] oxcarbazepine 300 mg tablet 300 mg PO seizures 05/04/23 [History Last Taken Unknown] risperidone 2 mg tablet 2 mg PO schizophrenia 05/04/23 [History Last Taken Unknown] Allergy/AdvReac Type Severity Reaction Status Date / Time No Known Allergies Allergy Verified 09/03/23 09:36 Social History household members: none housing: other details: long term Smoking Status: Never smoker substance use type: does not use ROS ROS ED Constitutional Constitutional ED: Denies chills or fever(s) Eyes Eyes: Denies change in vision or diplopia ENT ENT ED: Reports as per HPI and throat swelling; Denies ear pain, rhinorrhea or sore throat Cardiovascular Cardiovascular: Reports lightheadedness; Denies chest pain, palpitations or syncope Respiratory/Chest Respiratory/Chest: Reports as per HPI and dyspnea; Denies cough or difficulty clearing secretions Gastrointestinal Gastrointestinal: Denies abdominal pain, diarrhea, nausea or vomiting Genitourinary Genitourinary ED: Denies dysuria or hematuria Musculoskeletal Musculoskeletal: Denies back pain or neck pain Integumentary Denies abscess or rash Neurologic Neurologic: Denies headache(s), paresthesias or weakness Psychiatric Psychiatric: Denies anxiety or suicidal thoughts EXAM Physical Exam Const Vital Signs: 09/03/23 09:30 09/03/23 09:31 09/03/23 09:49 Temperature 96.4 F L 96.4 F L Temperature Source Temporal Temporal Pulse Rate 50 L 94 Respiratory Rate 18 18 Respiratory Effort Normal Respiratory Depth Normal Respiratory Pattern Normal Blood Pressure 130/99 H 130/99 H Blood Pressure Mean 109 109 Pulse Ox 98 98 Oxygen Delivery Method Room Air Nasal Cannula Room Air Positive well nourished and well developed General Appearance ED: well developed and NAD HEENT Reports moist mucous membranes HEENT Narrative: Posterior oropharynx clear, tongue depressor used. No stridor. Normal phonation. Normal oral mucosa no tongue elevation. Almost completely edentulous gingiva unremarkable. normocephalic and atraumatic Eyes PERRL and EOMs intact bilaterally Neck full ROM, no lymphadenopathy, supple and no JVD Chest Wall inspection of chest normal and palpation of chest normal Resp normal respiratory effort and clear to auscultation bilaterally Cardio regular rate, regular rhythm and no murmurs Rate: Negative for tachycardic GI non-tender and non-distended Auscultation: normoactive bowel sounds Palpation: soft Back/Spine no CVA tenderness General Back: other FROM Extremity normal to inspection General Extremety ED: Negative for edema, pulses abnormal or tenderness General Extremity: Negative for edema or pulses abnormal Neuro oriented x3, CN's II-XII intact bilaterally and no sensory deficits noted Sensorium / Orientation: awake and alert Motor Exam: strength 5/5 throughout Psych Psych Narrative: Flat affect Skin no rashes or lesions noted and no wounds MDM MDM MDM Narrative Medical decision making narrative: Patient has a normal exam, symptoms in his throat not his chest. I do not think this is an aortic dissection, I did obtain a chest x-ray partially to look at t he mediastinum, 2 views normal in my interpretation radiology in agreement. Also obtain 2 view soft tissue neck x-ray to look at the epiglottis, posterior pharynx, and the neck soft tissues in general. On my interpretation this is normal as well and radiology also agreed with that. Patient told nursing I think this is an infection, please swab my throat. I was happy to send a strep swab it is negative. He denied having a sore throat or odynophagia. At this time his vital signs are normal I do not think he needs any other further testing will give him a dose of Decadron orally and have him follow-up if symptoms persist or you can return here if he has any worsening. Radiography Diagnostic Testing: Clinical Impression(s) from Imaging Studies Chest X-Ray 09/03/23 09:45 IMPRESSION: Normal x-ray examination of the chest. Electronically Signed: Rowdy Zhang MD at 10:46 EDT , Soft Tissue Neck X-Ray 09/03/23 09:45 IMPRESSION: Unremarkable x-ray soft tissue neck. Electronically Signed: Rowdy Zhang MD at 10:40 EDT , Discharge Plan Triage Chief Complaint: Shortness of Breath ED Provider: Deepak Oates Dx/Rx/DC Orders Clinical Impression: Sensation of swollen throat Instructions: ED Pharyngitis, Viral Prescriptions: No Action propranolol 10 MG tablet 10 mg PO BID docusate sodium [DOK] 100 MG capsule 100 mg PO DAILY vitamin E (dl, acetate) 400 UNITS capsule 400 units PO TID Invega Sustenna 156 MG/ML syringe 156 mg IM Q30D cholecalciferol (vitamin D3) [Vitamin D3] 25 mcg (1,000 unit) capsule 1,000 unit PO DAILY loratadine [Allergy Relief (loratadine)] 10 MG tablet 10 mg PO DAILY PRN (Reason: dizziness) Qty: 0 0RF docusate sodium [Colace] 100 mg capsule 100 mg PO BID 7 Days Qty: 14 0RF atorvastatin 20 mg tablet 20 mg PO QHS oxcarbazepine 300 mg tablet 300 mg PO omeprazole 40 mg capsule,delayed release(DR/EC) 40 mg PO risperidone 2 mg tablet 2 mg PO folic acid 1 mg tablet 1 mg PO Primary Care Provider: Luis Diaz Referrals: Luis Diaz MD [Primary Care Provider] - 1 Week if not improving Disposition Disposition: Home, Self Care
--- NOTE | 2023-09-03 09:45 | RAD_ITS ---
STUDY: X-RAY - SOFT TISSUE NECK REASON FOR EXAM: Male, 67 years old. swelling TECHNIQUE: 2 view(s) of the neck were obtained. COMPARISON: None. FINDINGS: Normal visualized nasopharynx, oropharynx, hypopharynx. Normal epiglottis. Normal visualized subglottic tracheal air column. Normal prevertebral soft tissue structures. There are degenerative changes of the cervical spine with cervical spondylosis. The soft tissue structures are unremarkable. RAD/Neck for Soft Tissue IMPRESSION: Unremarkable x-ray soft tissue neck. Electronically Signed: Rowdy Zhang MD at 10:40 EDT ,
--- NOTE | 2023-09-03 09:45 | RAD_ITS ---
STUDY: X-RAY CHEST REASON FOR EXAM: Male, 67 years old. sob TECHNIQUE: PA and lateral views of the chest. COMPARISON: May 27, 2023 FINDINGS: The lungs are clear and expanded. There is no demonstrated pleural abnormality. Normal size heart. Normal mediastinum and colleen. Normal visualized pulmonary arteries. Normal visualized aortic arch and descending thoracic aorta. Normal visualized thoracic spine. Normal visualized ribs, clavicles, and shoulders. There is no demonstrated abnormality of the visualized soft tissue structures of the upper abdomen. RAD/Chest PA and Lateral IMPRESSION: Normal x-ray examination of the chest. Electronically Signed: Rowdy Zhang MD at 10:46 EDT ,
[2023-09-03 09:49] VITALS: O2SAT 97
[2023-09-03 11:29] VITALS: BP 124/81; PULSE 80; RESP 18; O2SAT 96
[2023-09-03] MEDS: dexAMETHasone 4 MG Tablet 8 MG PO (12:09)
[2023-09-03 12:11] VITALS: BP 137/63; PULSE 71; RESP 15; TEMP 36.3; O2SAT 96
== END 2023-09-03 12:12 | disposition home or self-care (01) ==
PROVIDERS: Emergency Provider Emergency Medicine; PCP Family Medicine; Visit Provider Emergency Medicine
DX: J02.9 Acute pharyngitis, unspecified (principal); F20.9 Schizophrenia, unspecified
CPT/HCPCS: 70360; 71046; 87651; 99282

== ENCOUNTER → 2023-12-20 | Outpatient (CLI) | payer MEDICAID, SELFPAY ==
[2023-12-20 08:35] LABS: AST(SGOT) 33 U/L (15-37); Alanine Aminotransfer ALT/SGPT 29 U/L (16-61); Albumin, Serum 3.5 g/dL (3.2-5.0); Alkaline Phosphatase 62 U/L (45-117); Anion Gap 5 (5-15); BUN 23 mg/dL (7-18); BUN/Creat Ratio 18.3 RATIO (10-20); Calcium,Total 8.8 mg/dL (8.5-10.1); Chloride 107 mmol/L (98-107); Cholesterol 214 mg/dL (200); Creatinine, Serum 1.26 mg/dL (0.70-1.30); EST Glomerular Filtration Rate 61 mL/min (>60); Est Glom Filt Rate - Afr Amer 73 mL/min (>60); Globulin 3.6 g/dL (2.2-4.2); Glucose 135 mg/dL (74-106); High Density Lipoprotein 50 mg/dL; Potassium 3.8 mmol/L (3.5-5.1); Prolactin 17.6 ng/mL; Protein, Total 7.1 g/dL (6.4-8.2); Sodium Level 139 mmol/L (136-145); Triglycerides 169 mg/dL; Very Low Density Lipoprotein 34 mg/dL (5-40)
[2023-12-20 13:13] LABS: Hemoglobin A1c 5.5 % (3.8-5.6)
== END | disposition home or self-care (01) ==
LOC: LAB 07:41
PROVIDERS: PCP Family Medicine; Referring Provider Psychiatry & Neurology Psychiatry; Visit Provider Psychiatry & Neurology Psychiatry
DX: Z79.899 Other long term (current) drug therapy (principal)
CPT/HCPCS: 36415; 80053; 80061; 83036; 84146

== ENCOUNTER 2024-08-03 17:51 | Emergency (ER) | payer MEDICAID, SELFPAY ==
[2024-08-03 17:52] VITALS: BP 127/89; PULSE 72; RESP 18; TEMP 37.2; O2SAT 96; BMI 34.3
--- NOTE | 2024-08-03 18:03 | ED.VIS.CHEST ---
HPI History of Present Illness Chief Complaint: Chest Pain Informant: patient Onset/Context/Timing Onset: Today and Hours (2) Activity at onset: sudden Timing: Intermittent and Lasts (Approximately 2 minutes) Quality: Positive for Sharp Location: Substernal Associated Symptoms: Negative for Nausea, Vomiting, Diaphoresis, Dyspnea, Cough, Fever, Lightheadedness, Acid Reflux or Palpitations Narrative Narrative: Patient presents with chest pain that began 2 hours prior to arrival. Patient states it began suddenly. Patient states it lasted approximately 2 minutes and then resolved. Patient called EMS. Patient describes the pain as sharp. Patient states the pain is over the substernal area. Patient states it got better when he took the blanket off. Patient states nothing makes it worse. Patient denies any nausea or vomiting. Patient denies any shortness of breath or cough. Patient denies any diaphoresis or lightheadedness. CVD Risk Factors: Positive for Hypercholesterolemia; Negative for Hypertension, Diabetes, Family History 1' </=55 or Smoking PE Risk Factors: Negative for Recent Travel/Surgery, Recent Immobilization, Prior DVT or PE, Cancer or OCP + Smoking + >/=35 PFSH PFS Medical History Allergic rhinitis Hyperlipidemia Schizophrenia Home Medications ?Medication ?Instructions ?Recorded ?Last Taken ?Type docusate sodium 100 mg capsule 100 mg PO DAILY constipation 05/18/16 10/24/20 History (DOK) paliperidone palmitate 156 mg/mL 156 mg IM Q30D schitzophrenia 05/18/16 10/07/20 History intramuscular syringe (Invega Sustenna) propranolol 10 mg tablet 10 mg PO BID heart 05/18/16 10/24/20 History vitamin E (dl, acetate) 180 mg 400 units PO TID suppliment 05/18/16 10/24/20 History (400 unit) capsule cholecalciferol (vitamin D3) 25 1,000 unit PO DAILY 10/24/20 10/24/20 History mcg (1,000 unit) capsule (Vitamin D3) loratadine 10 mg tablet (Allergy 10 mg PO DAILY PRN dizziness #0 10/25/20 10/24/20 Rx Relief (loratadine)) tabs docusate sodium 100 mg capsule 100 mg PO BID 7 days #14 caps 09/04/22 Unknown Rx (Colace) atorvastatin 20 mg tablet 20 mg PO QHS hyperlipidemia 05/04/23 Unknown History folic acid 1 mg tablet 1 mg PO 05/04/23 Unknown History omeprazole 40 mg capsule,delayed 40 mg PO 05/04/23 Unknown History release oxcarbazepine 300 mg tablet 300 mg PO seizures 05/04/23 Unknown History risperidone 2 mg tablet 2 mg PO schizophrenia 05/04/23 Unknown History Allergy/AdvReac Type Severity Reaction Status Date / Time No Known Allergies Allergy Verified 08/03/24 17:52 Surgical History no surgical history no surgical history Social History household members: none housing: other details: halfway Smoking Status: Never smoker substance use type: does not use ROS ROS ED Constitutional Constitutional ED: Denies chills or fever(s) Eyes Eyes: Denies blurry vision or change in vision ENT ENT ED: Reports sore throat; Denies rhinorrhea Cardiovascular Cardiovascular: Reports chest pain; Denies palpitations Respiratory/Chest Respiratory/Chest: Denies cough or dyspnea Gastrointestinal Gastrointestinal: Denies nausea or vomiting Genitourinary Genitourinary ED: Denies dysuria or hematuria Musculoskeletal Musculoskeletal: Denies back pain or neck pain Integumentary Denies abscess or rash Neurologic Neurologic: Denies headache(s) or weakness Allergic/Immunologic Allergic/Immunologic ED: Denies mouth swelling or urticaria EXAM Physical Exam Const Vital Signs: 08/03/24 17:52 08/03/24 17:55 08/03/24 18:27 Temperature 98.9 F Temperature Source Oral Pulse Rate 72 Respiratory Rate 18 Respiratory Effort Normal Blood Pressure 127/89 H Blood Pressure Mean 101 Pulse Ox 96 Oxygen Delivery Method Room Air Room Air 08/03/24 19:13 08/03/24 19:53 08/03/24 21:00 Temperature Temperature Source Pulse Rate 72 65 89 Respiratory Rate 18 20 H 18 Respiratory Effort Blood Pressure 102/80 112/81 H 120/68 Blood Pressure Mean 87 91 85 Pulse Ox 99 95 98 Oxygen Delivery Method Room Air Room Air Room Air Positive well nourished and well developed General Appearance ED: well developed and NAD HEENT Reports moist mucous membranes Neck supple and no JVD Chest Wall palpation of chest normal Resp normal respiratory effort and clear to auscultation bilaterally Cardio regular rate and regular rhythm GI soft to palpation, non-tender and non-distended Extremity normal to inspection Neuro oriented x3, CN's II-XII intact bilaterally and no sensory deficits noted Sensorium / Orientation: awake and alert Motor Exam: strength 5/5 throughout Psych mental status grossly normal Heart Score History: Slightly/Non-Suspicious ECG: Nonspecific Repolarization Age: >/= 65 years Risk Factors: 1 or 2 Risk Factors Troponin: </= Normal Limit Score: 4 MDM MDM MDM Narrative Medical decision making narrative: Differential diagnosis includes cardiac dysrhythmia, cardiac ischemia, gastroesophageal reflux disease, musculoskeletal pain, electrolyte abnormality, and anxiety. EKG will be obtained to assess for cardiac dysrhythmia and cardiac ischemia. Chest x-ray will be obtained to assess for pneumonia and bronchitis. Basic metabolic profile will be obtained to assess for electrolyte abnormality and renal function. CBC will be obtained to assess for leukocytosis and anemia. High-sensitivity troponin will be obtained to assess for cardiac ischemia. 2-hour repeat high-sensitivity troponin will be obtained to assess for ongoing cardiac ischemia. Lab Data Attestation: I reviewed the patient's lab results. Lab results narrative: CBC was reviewed and was within normal limits. Basic metabolic profile was reviewed and was essentially within normal limits. Initial high-sensitivity troponin was reviewed and was normal at 7. 2-hour repeat high-sensitivity troponin was reviewed and was also 7. The delta is 0. Labs: Laboratory Results - last 24 hr 08/03/24 08/03/24 18:25 20:26 WBC 6.3 RBC 4.58 L Hgb 13.7 Hct 39.8 L MCV 86.9 MCH 29.9 MCHC 34.4 RDW Std Deviation 38.4 RDW Coeff of Clarissa 12.1 Plt Count 210 MPV 9.1 Immature Gran % (Auto) 0.200 Neut % (Auto) 49.2 Lymph % (Auto) 38.2 [place] % (Auto) 7.8 Eos % (Auto) 4.0 Baso % (Auto) 0.6 Absolute Neuts (auto) 3.1 Absolute Lymphs (auto) 2.40 Nucleated RBC % 0 Sodium 138 Potassium 3.8 Chloride Direct 103 Carbon Dioxide 23.7 Anion Gap 12 BUN 21 H Creatinine 0.97 Estim Creat Clear Calc 87.28 Est GFR (MDRD) Non-Af 85 BUN/Creatinine Ratio 21.5 H Glucose 119 H Calcium 9.2 Troponin T High Sens 7 Troponin T Hi Sens 2 Hr 7 Troponin T Hi Sens 2Hr Delta 0 Radiography Chest X-Ray - ED: 2 View, Read by ED Physician, Read by Radiologist and No Acute Disease Diagnostic Testing: Clinical Impression(s) from Imaging Studies Chest X-Ray 08/03/24 18:30 IMPRESSION: No radiographic evidence of acute cardiopulmonary disease Reading Location: [facility] [place] and lateral chest x-ray was obtained. There are 2 views. On my independent interpretation, lung tuttle are clear. There is normal cardiac silhouette. Bony thorax is normal. There is no acute process noted. Radiologist also interpreted the x-ray and agrees. EKG Initial EKG: Attestation: I personally reviewed and interpreted this EKG as follows: Interpretation: Sinus Rhythm (73) and Non-Specific ST Changes Comments: EKG was obtained. On my independent interpretation, it showed a normal sinus rhythm with a rate of 73. [place] interval, QRS interval, and QTc intervals were all normal. [place] was normal. There are nonspecific ST-T wave changes. Prior EKG tracings: available for review Prior: Unchanged (05/04/2023) Treatment and Re-Evaluation :: Patient was given aspirin. Patient was resting comfortably on reevaluation. Patient was advised of findings. Patient has a HEART score of 4. However, given to negative high-sensitivity troponin results and a delta of 0, I do not feel this is cardiac in nature. Patient is stable to be discharged. Patient is agreeable with this. Patient was instructed to follow-up with his primary care physician in 5 to 7 days. Patient understood and was agreeable with plan. All questions were answered. Discharge Plan Triage Chief Complaint: Chest Pain ED Provider: [place] Dx/Rx/DC Orders Clinical Impression: Chest pain, Schizophrenia Instructions: ED Chest Pain, Uncertain Cause Prescriptions: No Action propranolol 10 MG tablet 10 mg PO BID docusate sodium [DOK] 100 MG capsule 100 mg PO DAILY vitamin E (dl, acetate) 400 UNITS capsule 400 units PO TID Invega Sustenna 156 MG/ML syringe 156 mg IM Q30D cholecalciferol (vitamin D3) [Vitamin D3] 25 mcg (1,000 unit) capsule 1,000 unit PO DAILY loratadine [Allergy Relief (loratadine)] 10 MG tablet 10 mg PO DAILY PRN (Reason: dizziness) Qty: 0 0RF docusate sodium [Colace] 100 mg capsule 100 mg PO BID 7 Days Qty: 14 0RF atorvastatin 20 mg tablet 20 mg PO QHS oxcarbazepine 300 mg tablet 300 mg PO omeprazole 40 mg capsule,delayed release(DR/EC) 40 mg PO risperidone 2 mg tablet 2 mg PO folic acid 1 mg tablet 1 mg PO Primary Care Provider: Luis Diaz Referrals: Luis Diaz MD [Primary Care Provider] - 5-7 Days Print Language: Gabonese Disposition Disposition: Home, Self Care
--- NOTE | 2024-08-03 18:13 | EKG12_ITS ---
Test Reason : CP Blood Pressure : */* mmHG Vent. Rate : 73 BPM Atrial Rate : 73 BPM P-R Int : 178 ms QRS Dur : 90 ms QT Int : 398 ms P-R-T Axes : 57 16 28 degrees QTcB Int : 438 ms Normal sinus rhythm Nonspecific T wave abnormality Abnormal ECG Confirmed by Srinivasa Haskins ([id number]), film and video editor MIGUEL LOZA ([id number]) on 08/06/2024 10:49:55 AM Referred By: Confirmed By: Srinivasa Haskins
[2024-08-03] MEDS: Aspirin 81 MG TAB.CHEW 324 MG PO (18:23)
--- NOTE | 2024-08-03 18:30 | RAD_ITS ---
PROCEDURE: CHEST PA AND LATERAL REASON FOR EXAM: Chest pain TECHNIQUE: Frontal and lateral views of the chest. COMPARISON: 09/03/2023 FINDINGS: The heart size is normal. The mediastinal contour is unremarkable. The lungs are clear. The bones are unremarkable. RAD/Chest PA and Lateral IMPRESSION: No radiographic evidence of acute cardiopulmonary disease Reading Location: [facility]
[2024-08-03 18:42] LABS: Absolute Neutrophil Count 3.1 X10^3/uL (2.0-7.7); Basophil# 0.04 X10^3/uL; Basophil% 0.6 % (0-1); Eosinophil# 0.25 X10^3/uL; Hematocrit 39.8 % (40-54); Hemoglobin 13.7 g/dL (13.0-16.5); Lymphocyte % 38.2 % (19-41); Mean Corp Hgb Conc 34.4 g/dL (32-36); Mean Corpuscular Hgb 29.9 pg (27.0-32.0); Mean Corpuscular Volume 86.9 fL (80-94); Mean Platelet Vol. 9.1 fl (6.2-12.0); Monocyte# 0.49 X10^3/uL; Monocyte% 7.8 % (0-10); NRBC Flagged by Analyzer 0 % (0-5); Neutrophil % 49.2 % (47-70); Platelet Count 210 K/mm3 (150-450); RBC Distribution Width CV 12.1 % (11.6-14.6); RBC Distribution Width SD 38.4 fl (35.1-43.9); Red Blood Count 4.58 M/mm3 (4.6-6.2); White Blood Count 6.3 K/mm3 (4.4-11.0)
[2024-08-03 18:58] LABS: Anion Gap 12 (5-15); BUN 21 mg/dL (4-19); BUN/Creat Ratio 21.5 RATIO (10-20); Calcium 9.2 mg/dL (7.6-11.0); Carbon Dioxide 23.7 mmol/L (22.0-29.0); Chloride 103 mmol/L (96-108); Creatinine, Serum 0.97 mg/dL (0.70-1.20); EST Glomerular Filtration Rate 85 (>60); Estimated Creatinine Clearance 87.28 ml/min; Glucose 119 mg/dL (70-99); Potassium 3.8 mmol/L (3.3-5.1); Sodium Level 138 mmol/L (133-145); Troponin T High Sensitivity 7 ng/L (<=22)
[2024-08-03 19:13] VITALS: BP 102/80; PULSE 72; RESP 18; O2SAT 99
[2024-08-03 19:53] VITALS: BP 112/81; PULSE 65; RESP 20; O2SAT 95
[2024-08-03 21:00] VITALS: BP 120/68; PULSE 89; RESP 18; O2SAT 98
[2024-08-03 21:33] LABS: TROPONIN VARIANCE 2 HR 0; Troponin T High Sens 2 HR 7 ng/L (<=22)
== END 2024-08-03 22:24 | disposition home or self-care (01) ==
PROVIDERS: Emergency Provider Emergency Medicine; PCP Family Medicine; Visit Provider Emergency Medicine
DX: R07.9 Chest pain, unspecified (principal); F20.9 Schizophrenia, unspecified
CPT/HCPCS: 71046; 80048; 84484; 85025; 93005; 99285; A4216

== ENCOUNTER 2024-12-31 11:17 | Emergency (ER) | payer MEDICAID, SELFPAY ==
[2024-12-31 11:18] VITALS: BP 111/63; PULSE 67; RESP 19; TEMP 36.4; O2SAT 98; BMI 32.2
--- NOTE | 2024-12-31 11:59 | EDS_ITS ---
HPI History of Present Illness Chief Complaint: Chest Pain Informant: patient Onset/Context/Timing Onset: Yesterday Activity at onset: gradual Timing: Continuous Quality: Positive for Dull Location: Left Chest Worsened By: Nothing Relieved By: Nothing Associated Symptoms: Positive for Lightheadedness; Negative for Nausea, Vomiting, Diaphoresis, Dyspnea, Cough, Fever, Acid Reflux or Palpitations Narrative Narrative: Patient presents with chest pain that began yesterday. Patient states it came on gradually. Patient states it has been constant. Patient describes it as dull. Patient states it is over the left side of his chest. Patient denies any radiation of the pain. Patient states nothing makes it better and nothing makes it worse. Patient is to some lightheadedness. Patient denies any nausea or vomiting. Patient denies any diaphoresis. Patient denies any shortness of breath or cough. CVD Risk Factors: Positive for Hypertension and Hypercholesterolemia; Negative for Diabetes, Family History 1' </=55 or Smoking PE Risk Factors: Negative for Recent Travel/Surgery, Recent Immobilization, Prior DVT or PE, Cancer or OCP + Smoking + >/=35 PFSH PFSH Medical History Allergic rhinitis Hyperlipidemia Schizophrenia Home Medications ?Medication ?Instructions ?Recorded ?Last Taken ?Type docusate sodium 100 mg capsule 100 mg PO DAILY constip ation 05/18/16 10/24/20 History (DOK) paliperidone palmitate 156 mg/mL 156 mg IM Q30D schitz ophrenia 05/18/16 10/07/20 History intramuscular syringe (Invega Sustenna) propranolol 10 mg tablet 10 mg PO BID heart 05/18/16 10/24/20 History vitamin E (dl, acetate) 180 mg 400 units PO TID suppli ment 05/18/16 10/24/20 History (400 unit) capsule cholecalciferol (vitamin D3) 25 1,000 unit PO DAILY 10/24/20 History mcg (1,000 unit) capsule (Vitamin D3) loratadine 10 mg tablet (Allergy 10 mg PO DAILY PRN di zziness #0 10/25/20 10/24/20 Rx Relief (loratadine)) tabs atorvastatin 20 mg tablet 20 mg PO QHS hyperlipidemia 05/04/23 Unknown History folic acid 1 mg tablet 1 mg PO DAILY 05/04/23 Unkno wn History omeprazole 40 mg capsule,delayed 40 mg PO DAILY Unknown History release oxcarbazepine 300 mg tablet 300 mg PO BID seizures Unknown History risperidone 2 mg tablet 2 mg PO BID schizophrenia Unknown History Allergy/AdvReac Type Severity Reaction Status Date / Time
--- NOTE | 2024-12-31 11:59 | ED.VIS.CHEST ---
HPI History of Present Illness Chief Complaint: Chest Pain Informant: patient Onset/Context/Timing Onset: Yesterday Activity at onset: gradual Timing: Continuous Quality: Positive for Dull Location: Left Chest Worsened By: Nothing Relieved By: Nothing Associated Symptoms: Positive for Lightheadedness; Negative for Nausea, Vomiting, Diaphoresis, Dyspnea, Cough, Fever, Acid Reflux or Palpitations Narrative Narrative: Patient presents with chest pain that began yesterday. Patient states it came on gradually. Patient states it has been constant. Patient describes it as dull. Patient states it is over the left side of his chest. Patient denies any radiation of the pain. Patient states nothing makes it better and nothing makes it worse. Patient is to some lightheadedness. Patient denies any nausea or vomiting. Patient denies any diaphoresis. Patient denies any shortness of breath or cough. CVD Risk Factors: Positive for Hypertension and Hypercholesterolemia; Negative for Diabetes, Family History 1' </=55 or Smoking PE Risk Factors: Negative for Recent Travel/Surgery, Recent Immobilization, Prior DVT or PE, Cancer or OCP + Smoking + >/=35 PFSH PFSH Medical History Allergic rhinitis Hyperlipidemia Schizophrenia Home Medications ?Medication ?Instructions ?Recorded ?Last Taken ?Type docusate sodium 100 mg capsule 100 mg PO DAILY constipation 05/18/16 10/24/20 History (DOK) paliperidone palmitate 156 mg/mL 156 mg IM Q30D schitzophrenia 05/18/16 10/07/20 History intramuscular syringe (Invega Sustenna) propranolol 10 mg tablet 10 mg PO BID heart 05/18/16 10/24/20 History vitamin E (dl, acetate) 180 mg 400 units PO TID suppliment 05/18/16 10/24/20 History (400 unit) capsule cholecalciferol (vitamin D3) 25 1,000 unit PO DAILY 10/24/20 10/24/20 History mcg (1,000 unit) capsule (Vitamin D3) loratadine 10 mg tablet (Allergy 10 mg PO DAILY PRN dizziness #0 10/25/20 10/24/20 Rx Relief (loratadine)) tabs atorvastatin 20 mg tablet 20 mg PO QHS hyperlipidemia 05/04/23 Unknown History folic acid 1 mg tablet 1 mg PO DAILY 05/04/23 Unknown History omeprazole 40 mg capsule,delayed 40 mg PO DAILY 05/04/23 Unknown History release oxcarbazepine 300 mg tablet 300 mg PO BID seizures 05/04/23 Unknown History risperidone 2 mg tablet 2 mg PO BID schizophrenia 05/04/23 Unknown History Allergy/AdvReac Type Severity Reaction Status Date / Time No Known Allergies Allergy Verified 12/31/24 11:19 Social History household members: none housing: other details: longterm Smoking Status: Never smoker substance use type: does not use ROS ROS ED Constitutional Constitutional ED: Denies chills or fever(s) Eyes Eyes: Denies blurry vision or change in vision ENT ENT ED: Denies rhinorrhea or sore throat Cardiovascular Cardiovascular: Reports chest pain; Denies palpitations Respiratory/Chest Respiratory/Chest: Denies cough or dyspnea Gastrointestinal Gastrointestinal: Denies nausea or vomiting Genitourinary Genitourinary ED: Denies dysuria or hematuria Musculoskeletal Musculoskeletal: Denies back pain or neck pain Integumentary Denies abscess or rash Neurologic Neurologic: Denies headache(s) or weakness Allergic/Immunologic Allergic/Immunologic ED: Denies mouth swelling or urticaria EXAM Physical Exam Const Vital Signs: 12/31/24 11:18 12/31/24 12:20 12/31/24 12:21 Temperature 97.6 F L Temperature Source Oral Pulse Rate 67 102 H Respiratory Rate 19 H 15 Blood Pressure 111/63 111/65 Blood Pressure Mean 79 80 Pulse Ox 98 100 Oxygen Delivery Method Room Air Room Air 12/31/24 13:00 12/31/24 14:00 12/31/24 15:00 Temperature Temperature Source Pulse Rate 59 L 64 Respiratory Rate Blood Pressure 107/79 125/90 H 125/74 H Blood Pressure Mean 88 101 91 Pulse Ox Oxygen Delivery Method 12/31/24 15:34 Temperature 98.4 F Temperature Source Pulse Rate 69 Respiratory Rate 16 Blood Pressure 147/86 H Blood Pressure Mean 106 Pulse Ox 100 Oxygen Delivery Method Positive well nourished and well developed General Appearance ED: well developed and NAD HEENT Reports moist mucous membranes Neck supple and no JVD Chest Wall palpation of chest normal Resp normal respiratory effort and clear to auscultation bilaterally Cardio regular rate and regular rhythm GI soft to palpation, non-tender and non-distended Extremity normal to inspection General Extremety ED: Negative for edema or tenderness General Extremity: Negative for edema Neuro oriented x3, CN's II-XII intact bilaterally and no sensory deficits noted Sensorium / Orientation: awake and alert Motor Exam: strength 5/5 throughout Psych mental status grossly normal Heart Score History: Slightly/Non-Suspicious ECG: Normal Age: >/= 65 years Risk Factors: 1 or 2 Risk Factors Troponin: </= Normal Limit Score: 3 MDM MDM MDM Narrative Medical decision making narrative: Differential diagnosis includes cardiac dysrhythmia, cardiac ischemia, pneumonia, bronchitis, electrolyte abnormality, gastroesophageal reflux disease, and musculoskeletal pain. EKG will be obtained to assess for cardiac dysrhythmia and cardiac ischemia. Chest x-ray will be obtained to assess for pneumonia and bronchitis. CBC will be obtained to assess for leukocytosis and anemia. Basic metabolic profile will be obtained to assess for electrolyte abnormality and renal function. High-sensitivity troponin will be obtained to assess for cardiac ischemia. 2-hour repeat high-sensitivity troponin will be obtained to assess for ongoing cardiac ischemia. History & Record Review Additional record(s) reviewed:: Prior ED visit and Prior labs Lab Data Attestation: I reviewed the patient's lab results. Lab results narrative: CBC was reviewed and was within normal limits. Basic metabolic profile was reviewed and was within normal limits. Initial high-sensitivity troponin was reviewed and was normal at 8. 2-hour repeat high-sensitivity troponin was reviewed and was normal at 7. Labs: Laboratory Results - last 24 hr 12/31/24 12/31/24 11:27 13:59 WBC 5.2 RBC 4.79 Hgb 14.6 Hct 42.2 MCV 88.1 MCH 30.5 MCHC 34.6 RDW Std Deviation 39.1 RDW Coeff of Clarissa 12.2 Plt Count 221 MPV 9.8 Immature Gran % (Auto) 0.200 Neut % (Auto) 48.6 Lymph % (Auto) 38.2 [place] % (Auto) 8.8 Eos % (Auto) 3.6 Baso % (Auto) 0.6 Absolute Neuts (auto) 2.5 Absolute Lymphs (auto) 1.99 Nucleated RBC % 0 Sodium 137 Potassium 4.0 Chloride 102 Carbon Dioxide 24.7 Anion Gap 10 BUN 16 Creatinine 1.18 Estim Creat Clear Calc 68.54 Est GFR (MDRD) Non-Af 67 BUN/Creatinine Ratio 13.6 Glucose 113 H Calcium 9.2 Troponin T High Sens 8 D Troponin T Hi Sens 2 Hr 7 Radiography Chest X-Ray - ED: 1 View, Read by ED Physician, Read by Radiologist and No Acute Disease Diagnostic Testing: Clinical Impression(s) from Imaging Studies Chest X-Ray 12/31/24 12:04 IMPRESSION: No acute process is identified in the chest. Reading Location: [facility] Portable 1 view chest x-ray was obtained. On my independent interpretation, lung tuttle are clear. There is normal cardiac silhouette. Bony thorax is normal. There is no acute process noted. Radiologist also interpreted the x-ray and agrees. EKG Initial EKG: Attestation: I personally reviewed and interpreted this EKG as follows: Interpretation: No Acute Injury Pattern and Sinus Bradycardia (59) Comments: EKG was obtained. On my independent interpretation, it showed a sinus bradycardia with a rate of 59. [place] interval, QRS interval, and QTc intervals were all normal. [place] was normal. There are no acute ST or T wave changes. Prior EKG tracings: available for review Prior: Unchanged (08/03/2024) Treatment and Re-Evaluation :: Patient was given aspirin. Patient was advised of his findings. Patient has a HEART score of 3. Patient was advised that this is low risk for acute cardiac event. Patient was instructed to follow-up with his primary care physician in 5 to 7 days. Patient understood and was agreeable with the plan. All questions were answered. Discharge Plan Triage Chief Complaint: Chest Pain ED Provider: [place] Dx/Rx/DC Orders Clinical Impression: Chest pain, Schizophrenia Instructions: ED Chest Pain, Uncertain Cause Prescriptions: No Action propranolol 10 MG tablet 10 mg PO BID docusate sodium [DOK] 100 MG capsule 100 mg PO DAILY vitamin E (dl, acetate) 400 UNITS capsule 400 units PO TID Invega Sustenna 156 MG/ML syringe 156 mg IM Q30D cholecalciferol (vitamin D3) [Vitamin D3] 25 mcg (1,000 unit) capsule 1,000 unit PO DAILY loratadine [Allergy Relief (loratadine)] 10 MG tablet 10 mg PO DAILY PRN (Reason: dizziness) Qty: 0 0RF atorvastatin 20 mg tablet 20 mg PO QHS oxcarbazepine 300 mg tablet 300 mg PO BID omeprazole 40 mg capsule,delayed release(DR/EC) 40 mg PO DAILY risperidone 2 mg tablet 2 mg PO BID folic acid 1 mg tablet 1 mg PO DAILY Primary Care Provider: Luis Diaz Referrals: Luis Diaz MD [Primary Care Provider] - 5-7 Days Print Language: Portuguese Disposition Disposition: Home, Self Care Discharge Date/Time: 12/31/24 15:34
--- NOTE | 2024-12-31 12:04 | EKG12_ITS ---
Test Reason : CP Blood Pressure : */* mmHG Vent. Rate : 59 BPM Atrial Rate : 59 BPM P-R Int : 178 ms QRS Dur : 92 ms QT Int : 438 ms P-R-T Axes : 58 5 13 degrees QTcB Int : 433 ms Sinus bradycardia Otherwise normal ECG Confirmed by JANINA MADDOX, CHAGO ([id number]), loan expeditor MIGUEL LOZA ([id number]) on 01/01/2025 1:00:58 PM Referred By: Confirmed By: CHAGO ROA MD
--- NOTE | 2024-12-31 12:04 | RAD_ITS ---
PROCEDURE: CHEST 1 VIEW (PORTABLE) 12/31/2024 REASON FOR EXAM: CHEST PAIN TECHNIQUE: Frontal view of the chest. COMPARISON: August 03, 2024 FINDINGS: Heart size and mediastinal configuration are within normal limits. There is no focal infiltrate or consolidation. There is no pneumothorax or effusion. There is no acute bony abnormality. There is no definite atherosclerosis. RAD/Chest 1 View (Portable) IMPRESSION: No acute process is identified in the chest. Reading Location: [facility]
[2024-12-31 12:21] VITALS: BP 111/65; PULSE 102; RESP 15; O2SAT 100
[2024-12-31 12:29] LABS: Hematocrit 42.2 % (40-54); Hemoglobin 14.6 g/dL (13.0-16.5); Immature Granulocytes Count 0.010 X10^3/uL (0.0-0.0); Mean Corp Hgb Conc 34.6 g/dL (32-36); Mean Corpuscular Volume 88.1 fL (80-94); Mean Platelet Vol. 9.8 fl (6.2-12.0); NRBC Flagged by Analyzer 0 % (0-5); Platelet Count 221 K/mm3 (150-450); RBC Distribution Width CV 12.2 % (11.6-14.6); RBC Distribution Width SD 39.1 fl (35.1-43.9); Red Blood Count 4.79 M/mm3 (4.6-6.2); White Blood Count 5.2 K/mm3 (4.4-11.0)
[2024-12-31 12:55] LABS: Anion Gap 10 (5-15); BUN 16 mg/dL (4-19); BUN/Creat Ratio 13.6 RATIO (10-20); Calcium,Total 9.2 mg/dL (7.6-11.0); Carbon Dioxide 24.7 mmol/L (21.0-32.0); Chloride 102 mmol/L (98-108); Estimated Creatinine Clearance 68.54 ml/min (50-250); Glucose 113 mg/dL (70-99); Potassium 4.0 mmol/L (3.3-5.1); Troponin T High Sensitivity 8 ng/L (<=22)
[2024-12-31 13:00] VITALS: BP 107/79; PULSE 59
[2024-12-31 14:00] VITALS: BP 125/90; PULSE 64
[2024-12-31 14:40] LABS: Troponin T High Sens 2 HR 7 ng/L (<=22)
[2024-12-31 15:00] VITALS: BP 125/74
[2024-12-31 15:34] VITALS: BP 147/86; PULSE 69; RESP 16; TEMP 36.9; O2SAT 100
--- OUTSIDE RECORDS SUMMARY | 2024-12-31 22:18 | XMS RPT_ITS | CCD ---
Author Organization [facility] Care Team Providers Care Slip Feeder Name Role Phone Luis Diaz MD Primary Care Provider Joe, Dr. Smith Primary Care Provider Joe, Dr. Smith Referring Provider Joe, Dr. Smith Other Provider Dr. Chinedu Lopez Attending Provider Dr. Luis Diaz Primary Care Provider Joe, Dr. Smith Referring Provider Joe, Dr. Smith Other Provider Dr. Chinedu Lopez Attending Provider Melinda Ames Referring Unavailable Melinda Ames Attending Unavailable Luis Diaz Primary Care Unavailable Luis Diaz Primary Care Unavailable Urbano Rock Attending Unavailable Deepak Oates Attending Unavailable Luis Diaz Primary Care Unavailable Dr. Luis Diaz MD Primary Care Provider [phone] Dr. Urbano Rock DO Emergency Provider Medications Current Medications Medication Drug Class(es) Dates Sig (Normalized) Sig (Original) atorvastatin 20 mg oral tablet (20 sources) HMG-CoA Reductase Inhibitor Start: 05-04-2023 take 1 tablet by mouth at bedtime Atorvastatin 20 mg tablet Active 20 mg PO AT BEDTIME May 04, 2023 1:00am hyperlipidemia Start: 10-25-2020 End: 05-04-2023 take 2 tablets by mouth at bedtime Atorvastatin 10 MG tablet Discontinued 20 mg PO AT BEDTIME 0 0 October 25, 2020 11:08am May 04, 2023 10:39pm lowers cholesterol Start: 10-25-2020 End: 05-04-2023 take 20 mg by mouth at bedtime Atorvastatin Discontinu ed 20 MG PO AT BEDTIME 0 October 25, 2020 11:08am May 04, 2023 10:39pm Start: 05-18-2016 End: 10-25-2020 take 1 tablet by mouth at bedtime Atorvastatin 10 MG tablet Discontinued 10 mg PO AT BEDTIME May 18, 2016 1:00am October 25, 2020 11:08am lowers cholesterol benztropine mesylate 0.5 mg oral tablet (2 sources) Anticholinergic, Antihistamine Start: 08-27-2020 benztropine (COGENTIN) 0.5 MG tablet cholecalciferol 0.025 mg oral capsule (14 sources) Vitamin D Start: 10-21-2020 take 1 capsule by mouth once daily Cholecalciferol (Vitamin D3) (Vitamin D3) 25 mcg (1,000 unit) capsule Active 1000 U PO DAILY October 24, 2020 12:00am folic acid 1 mg oral tablet (6 sources) Start: 05-04-2023 take 1 tablet by mouth once daily Folic Acid 1 mg tablet Active 1 mg PO DAILY May 04, 2023 1:00am loratadine 10 mg oral tablet (20 sources) Start: 05-18-2016 End: 10-25-2020 take 1 tablet by mouth once daily as needed for dizziness Loratadine (Allergy Relief (Loratadine)) 10 MG tablet Active 10 mg PO DAILY as needed for dizziness 0 0 October 25, 2020 11:08am allegies meclizine hydrochloride 12.5 mg oral tablet (2 sources) Antiemetic take 1 tablet by mouth four times daily meclizine (ANTIVERT) 12.5 MG tablet Take 12.5 mg by mouth 4 times daily 0 Active omeprazole 40 mg delayed release oral capsule (6 sources) Proton Pump Inhibitor Start: 05-04-2023 take 1 capsule by mouth once daily Omeprazole 40 mg capsule,delayed release(DR/EC) Active 40 mg PO DAILY May 04, 2023 1:00am OXcarbazepine 300 mg oral tablet (6 sources) Anti-epileptic Agent Start: 05-04-2023 take 1 tablet by mouth twice daily Oxcarbazepine 300 mg tablet Active 300 mg PO TWICE A DAY May 04, 2023 1:00am seizures 1 ml paliperidone palmitate 156 mg/ml prefilled syringe (14 sources) Atypical Antipsychotic Start: 05-18-2016 inject 156 mg by intramuscular injection every 30 days Paliperidone Palmitate (Invega Sustenna) 156 MG/ML syringe Active 156 mg IM Q30D May 18, 2016 1:00am schitzophrenia paliperidone pal mitate ER (INVEGA SUSTENNA) 234 MG/1.5ML CATALINA IM injection Inject 234 mg into the muscle once 0 Active propranolol hydrochloride 10 mg oral tablet (14 sources) beta-Adrenergic Shilpi Start: 05-18-2016 take 1 tablet by mouth twice daily Propranolol 10 MG tablet Active 10 mg PO TWICE A DAY May 18, 2016 1:00am heart risperiDONE 2 mg oral tablet (6 sources) Atypical Antipsychotic Start: 05-04-2023 take 1 tablet by mouth twice daily Risperidone 2 mg tablet Active 2 mg PO TWICE A DAY May 04, 2023 1:00am schizophrenia vitamin e 180 mg oral capsule (14 sources) Start: 05-18-2016 Vitamin E (Dl, Acetate) 400 UNITS capsule Active 400 U PO THREE TIMES A DAY May 18, 2016 1:00am suppliment take 1 capsule by mouth once saray ly vitamin E 400 UNIT capsule Take 400 Units by mouth daily 0 Active Completed/Discontinued Medications Medication Drug Class(es) Dates Sig (Normalized) Sig (Original) docusate sodium 100 mg oral capsule (20 sources) Start: 09-04-2022 End: 12-31-2024 take 1 capsule by mouth twice daily Docusate Sodium (Colace) 100 mg capsule Discontinued 100 mg PO TWICE A DAY 14 7 0 September 04, 2022 12:00am December 31, 2024 11:53am Start: 05-18-2016 take 1 capsule by mo [facility] once daily Docusate Sodium (Dok) 100 MG capsule Active 100 mg PO DAILY May 18, 2016 1:00am constipation polyethylene glycol 3350 93606 mg powder for oral solution (7 sources) Osmotic Laxative Start: 09-04-2022 End: 05-04-2023 Polyethylene Glycol 3350 (Miralax) 17 gram powder in packet Discontinued 17 g PO DAILY 30 0 September 04, 2022 12:00am May 04, 2023 10:39pm Problems Active Problems Problem Classification Problem Date Documented Da te Episodic/Chronic Abdominal pain (12 sources) Right flank pain; Translations: [Unspecified abdominal pain] 03-25-2022 Episodic Anal and rectal conditions (7 sources) Acute anal fissure; Translations: [Acute anal fissure] 09-04-2022 Episodic Conditions associated with dizziness or vertigo (20 sources) Lightheadedness; Translations: [Dizziness and giddiness] 04-12-2021 Episodic Disorders of lipid metabolism (12 sources) Hyperlipidemia; Translations: [Hyperlipidemia, unspecified] 05-05-2021 Chronic E Codes: Fall (12 sources) Fall; Translations: [Unspecified fall, initial encounter] 04-12-2021 Episodic Influenza (5 sources) Influenza due to Influenza A virus; Translations: [Influenza due to other identified influenza virus with other respiratory manifestations] 06-04-2023 Episodic Malaise and fatigue (1 source) Fatigue; Translations: [Other fatigue] Episodic Nonspecific chest pain (19 sources) Chest pain; Translations: [Chest pain, unspecified] Onset: 08-16-2024 04-13-2022 Episodic Other circulatory disease (8 sources) Elevated blood pressure; Translations: [Elevated blood-pressure reading, without diagnosis of hypertension] 07-26-2022 Episodic Other gastrointestinal disorders (7 sources) Constipation; Translations: [Constipation, unspecified] 09-04-2022 Episodic Other lower respiratory disease (12 sources) Dyspnea; Translations: [Dyspnea, unspecified] 02-09-2021 Episodic Other nervous system disorders (1 source) Paresthesia of foot ; Translations: [Anesthesia of skin] Episodic Other upper respiratory disease (12 sources) Allergic rhinitis; Translations: [Allergic rhinitis, unspecified] 05-05-2021 Chronic Other upper respiratory infections (8 sources) Upper respiratory infection; Translations: [Acute upper respiratory infection, unspecified] 07-26-2022 Episodic Residual codes; unclassified (2 sources) Finding of neck region; Translations: [Other general symptoms and signs] 09-03-2023 Episodic Schizophrenia and other psychotic disorders (12 sources) Schizophrenia; Translations: [Schizophrenia, unspecified] 01-02-2019 Chronic Screening and history of mental health and substance abuse codes (8 sources) H/O: schizophrenia; Translations: [Personal history of other mental and behavioral disorders] 07-26-2022 Episodic Suicide and intentional self-inflicted injury (12 sources) Intentional self-harm by other specified means, initial encounter; Translations: [Suicide attempt by adequate means] 03-20-2021 Episodic Syncope (20 sources) Near syncope; Translations: [Syncope and collapse] 10-24-2020 Episodic Past or Other Problems Problem Classification Problem Date Documented Da te Episodic/Chronic Other aftercare (1 source) Other nursing home (current) drug therapy; Translations: [Other nursing home (current) drug therapy] Onset: 01-03-2024 Episodic Other lower respiratory disease (1 source) Shortness of breath; Translations: [Shortness of breath] Onset: 09-08-2023 Episodic Results Test Name Value Interpretation Reference Range Facility Absolute lymphocyte countOrd ered By: Urbano Rock on 12-31-2024 Lymphocytes Auto (Unsp spec) [#/Vol] 1.99 10*3/uL 0.83-4.51 [facility] Absolute neutrophil countOrd ered By: Urbano Rock on 12-31-2024 Neutrophils (Bld) [#/Vol] 2.5 10*3/uL 2.0-7.7 [facility] Anion gap in Serum or Plasma Ordered By: Urbano Rock on 12-31-2024 Anion gap [Moles/Vol] 10 mmol/L 5-15 [facility] Automated lymphocyte count a s percentage of total leukocytesOrdered By: Urbano Rock on 12-31-2024 Lymphocytes/100 WBC Auto (Unsp spec) 38.2 % 19-41 [facility] BUN/creatinine ratioOrdered By: Urbano Rock on 12-31-2024 Urea nitrogen/Creatinine [Mass ratio] 13.6 mg/mg 10-20 [facility] Basophil percentageOrdered B y: Urbano Rock on 12-31-2024 Basophils/100 WBC (Bld) 0.6 % 0-1 [facility] Carbon dioxide, total [Moles /volume] in Central venous bloodOrdered By: Urbano Rock on 12-31-2024 CO2 [Moles/Vol] 24.7 mmol/L 21.0-32.0 [facility] Chloride assayOrdered By: Masood Rock on 12-31-2024 Chloride [Moles/Vol] 102 mmol/L 98-108 [facility] Eosinophil percentageOrdered By: Urbano Rock on 12-31-2024 Eosinophils/100 WBC (Bld) 3.6 % 0-5 [facility] Erythrocyte distribution wid th ratioOrdered By: Urbano Rock on 12-31-2024 Erythrocyte distribution width (RBC) [Ratio] 12.2 % 11.6-14.6 [facility] Erythrocyte distribution wid th standard deviationOrdered By: Urbano Rock on 12-31-2024 Erythrocyte distribution width (RBC) [Ratio] 39.1 fl 35.1-43.9 [facility] Glomerular filtration rate ( GFR) estimation/1.73 sq m using serum, plasma, or whole bOrdered By: Urbano Rock on 12-31-2024 GFR/1.73 sq M.predicted among non-blacks MDRD (S/P/Bld) [Vol rate/Area] 67 mL/min/{1.73_m2} >60 [facility] Comment on above: mL/min/1.73m2 CKD-EP I Creatinine Equation (2020) Hematocrit Auto (Bld) [Volum e fraction]Ordered By: Urbano Rock on 12-31-2024 Hematocrit (Bld) [Volume fraction] 42.2 % 40-54 [facility] Hemoglobin measurementOrdere d By: Urbano Rock on 12-31-2024 Hemoglobin (Bld) [Mass/Vol] 14.6 g/dL 13.0-16.5 [facility] Immature granulocytes/100 WB C Auto (Bld)Ordered By: Urbano Rock on 12-31-2024 Immature granulocytes/100 WBC (Bld) 0.200 % 0.0-0.9 [facility] Comment on above: IG% - Immature Granu locytes (promyelocytes, myelocytes and metamyelocytes) > 1% indicates that a LEFT SHIFT is Present. MCV (mean corpuscular volume ) determinationOrdered By: Urbano Rock on 12-31-2024 MCV (RBC) [Entitic vol] 88.1 fL 80-94 [facility] Mean corpuscular hemoglobin (MCH) determinationOrdered By: Urbano Rock 12-31-2024 MCH (RBC) [Entitic mass] 30.5 pg 27.0-32.0 [facility] Mean corpuscular hemoglobin concentration (MCHC) determinationOrdered By: Urbano Rock on 12-31-2024 MCHC (RBC) [Mass/Vol] 34.6 g/dL 32-36 [facility] Mean platelet volume determi nationOrdered By: Urbano Rock on 12-31-2024 Platelet mean volume (Bld) [Entitic vol] 9.8 fL 6.2-12.0 [facility] Monocyte percentageOrdered B y: Urbano Rock on 12-31-2024 Monocytes/100 WBC (Bld) 8.8 % 0-10 [facility] Neutrophil percentageOrdered By: Urbano Rock on 12-31-2024 Neutrophils/100 WBC (Bld) 48.6 % 47-70 [facility] Nucleated red blood cell per centageOrdered By: Urbano Rock on 12-31-2024 Nucleated RBC/100 WBC (Bld) [Ratio] 0 % 0-5 [facility] Platelet countOrdered By: Masood Rock on 12-31-2024 Platelets (Bld) [#/Vol] 221 10*3/uL 150-450 [facility] Potassium measurement (mass/ volume)Ordered By: Urbano Rock on 12-31-2024 Potassium (Unsp spec) [Mass/Vol] 4.0 mmol/L 3.3-5.1 [facility] RBC Auto (Bld) [#/Vol]Ordere d By: Urbano Rock on 12-31-2024 RBC (Bld) [#/Vol] 4.79 10*6/uL 4.6-6.2 [facility] Serum creatinine measurement (mass/volume)Ordered By: Urbano Rock on 12-31-2024 Creatinine [Mass/Vol] 1.18 mg/dL 0.70-1.20 [facility] Serum glucose measurement (m ass/volume)Ordered By: Urbano Rock on 12-31-2024 Glucose [Mass/Vol] 113 mg/dL High 70-99 [facility] Serum or plasma calcium phyllis urement (mass/volume)Ordered By: Urbano Rock on 12-31-2024 Calcium [Mass/Vol] 9.2 mg/dL 7.6-11.0 [facility] Serum or plasma urea nitroge n measurement (mass/volume)Ordered By: Urbano Rock on 12-31-2024 Urea nitrogen [Mass/Vol] 16 mg/dL 4-19 [facility] Sodium levelOrdered By: Urbano Rock on 12-31-2024 Sodium [Moles/Vol] 137 mmol/L 133-145 [facility] Troponin T.cardiac [Mass/vol ume] in Serum or Plasma by High sensitivity methodOrdered By: Urbano Rock on 12-31-2024 Troponin T.cardiac High sensitivity method [Mass/Vol] 7 ng/L <22 [facility] Troponin T.cardiac High sensitivity method [Mass/Vol] 8 ng/L <22 [facility] Comment on above: Delta: 7 on 08/03/24 -182 White blood cell (WBC) count Ordered By: Urbano Rock on 12-31-2024 WBC (Bld) [#/Vol] 5.2 10*3/uL 4.4-11.0 [facility] 12 Lead EKGon 08-03-2024 12 Lead EKG [facility] Cardiovascular Services [address] [place] [address] 12 Lead EKG 08/03/24 1753 MR#: [id number] Acct: [id number] Name: ALIZA VACA Rep #: [id number] : 1955 68 From: Srinivasa Haskins MD Attending Dr: Status: DEP ER Ordering Urbano Hurd DO Date: 08/03/24 Location: ED Sex: M C Admitted: Test Reason : CP Blood Pressure : */* mmHG Vent. Rate : 73 BPM Atrial Rate : 73 BPM P-R Int : 178 ms QRS Dur : 90 ms QT Int : 398 ms P-R-T Axes : 57 16 28 degrees QTcB Int : 438 ms Normal sinus rhythm Nonspecific T wave abnormality Abnormal ECG Confirmed by Srinivasa Haskins ([id number]), manuscript editor MIGUEL LOZA ([id number]) on 08/06/2024 10:49:55 AM Referred By: Confirmed By: Srinivasa Haskins 08/06/24 1049 Date Srinivasa Haskins MD CC: Dr. Urbano Rock, DO; Dr. Luis Diaz MD Signed Normal [facility] Basic Metabolic Profile (BMP )on 08-03-2024 Anion gap [Moles/Vol] 12 mmol/L Normal 5-15 [facility] Comment on above: Performed By: #### L 500.2500, L100.0100, L501.4021 ####[facility] [address] [place], [address] BUN/CRE 21.5 RATIO High 10-20 [facility] Comment on above: Performed By: #### L 500.2500, L100.0100, L501.4021 ####[facility] [address] [place], [address] Calcium [Mass/Vol] 9.2 mg/dL Normal 7.6-11.0 [facility] Comment on above: Performed By: #### L 500.2500, L100.0100, L501.4021 ####[facility] [address] [place], [address] Chloride [Moles/Vol] 103 mmol/L Normal 96-108 [facility] Comment on above: Performed By: #### L 500.2500, L100.0100, L501.4021 ####[facility] [address] [place], [address] CO2 [Moles/Vol] 23.7 mmol/L Normal 22.0-29.0 [facility] Comment on above: Performed By: #### L 500.2500, L100.0100, L501.4021 ####[facility] [address] [place], [address] Creatinine [Mass/Vol] 0.97 mg/dL Normal 0.70-1.20 [facility] Comment on above: Performed By: #### L 500.2500, L100.0100, L501.4021 ####[facility] [address] [place], [address] ECRCL 87.28 ml/min Normal [facility] Comment on above: Performed By: #### L 500.2500, L100.0100, L501.4021 ####[facility] [address] [place], [address] GFR/1.73 sq M.predicted among non-blacks MDRD (S/P/Bld) [Vol rate/Area] 85 mL/min/{1.73_m2} Normal >60 [facility] Comment on above: Result Comment: mL/m in/1.73m2 CKD-EPI Creatinine Equation (2020) Performed By: #### L 500.2500, L100.0100, L501.4021 ####[facility] [address] [place], [address] Glucose [Mass/Vol] 119 mg/dL High 70-99 [facility] Comment on above: Performed By: #### L 500.2500, L100.0100, L501.4021 ####[facility] [address] [place], [address] Potassium [Moles/Vol] 3.8 mmol/L Normal 3.3-5.1 [facility] Comment on above: Performed By: #### L 500.2500, L100.0100, L501.4021 ####[facility] [address] [place], [address] Sodium [Moles/Vol] 138 mmol/L Normal 133-145 [facility] Comment on above: Performed By: #### L 500.2500, L100.0100, L501.4021 ####[facility] [address] [place], [address] Urea nitrogen [Mass/Vol] 21 mg/dL High 4-19 [facility] Comment on above: Performed By: #### L 500.2500, L100.0100, L501.4021 ####[facility] [address] [place], [address] CBC W/Diff, Automatedon 07-08 Absolute Lymph 2.40 X10 3/uL Normal 0.83-4.51 [facility] Comment on above: Performed By: #### L 500.2500, L100.0100, L501.4021 ####[facility] [address] [place], [address] Absolute Neut 3.1 X10 3/uL Normal 2.0-7.7 [facility] Comment on above: Performed By: #### L 500.2500, L100.0100, L501.4021 ####[facility] [address] [place], [address] Basophils/100 WBC (Bld) 0.6 % Normal 0-1 [facility] Comment on above: Performed By: #### L 500.2500, L100.0100, L501.4021 ####[facility] [address] [place], [address] Eosinophils/100 WBC (Bld) 4.0 % Normal 0-5 [facility] Comment on above: Performed By: #### L 500.2500, L100.0100, L501.4021 ####[facility] [address] [place], [address] Erythrocyte distribution width (RBC) [Ratio] 12.1 % Normal 11.6-14.6 [facility] Comment on above: Performed By: #### L 500.2500, L100.0100, L501.4021 ####[facility] [address] [place], [address] Hematocrit (Bld) [Volume fraction] 39.8 % Low 40-54 [facility] Comment on above: Performed By: #### L 500.2500, L100.0100, L501.4021 ####[facility] [address] [place], [address] Hemoglobin (Bld) [Mass/Vol] 13.7 g/dL Normal 13.0-16.5 [facility] Comment on above: Performed By: #### L 500.2500, L100.0100, L501.4021 ####[facility] [address] [place], [address] IG% 0.200 Normal 0.0-0.9 [facility] Comment on above: Result Comment: IG% - Immature Granulocytes (promyelocytes, myelocytes and metamyelocytes) > 1% indicates that a LEFT SHIFT is Present. Performed By: #### L 500.2500, L100.0100, L501.4021 ####[facility] [address] [place], [address] Lymphocytes/100 WBC (Bld) 38.2 % Normal 19-41 [facility] Comment on above: Performed By: #### L 500.2500, L100.0100, L501.4021 ####[facility] [address] [place], [address] MCH (RBC) [Entitic mass] 29.9 pg Normal 27.0-32.0 [facility] Comment on above: Performed By: #### L 500.2500, L100.0100, L501.4021 ####[facility] [address] [place], [address] MCHC (RBC) [Mass/Vol] 34.4 g/dL Normal 32-36 [facility] Comment on above: Performed By: #### L 500.2500, L100.0100, L501.4021 ####[facility] [address] [place], [address] MCV (RBC) [Entitic vol] 86.9 fL Normal 80-94 [facility] Comment on above: Performed By: #### L 500.2500, L100.0100, L501.4021 ####[facility] [address] [place], [address] Monocytes/100 WBC (Bld) 7.8 % Normal 0-10 [facility] Comment on above: Performed By: #### L 500.2500, L100.0100, L501.4021 ####[facility] [address] [place], [address] Neutrophils/100 WBC (Bld) 49.2 % Normal 47-70 [facility] Comment on above: Performed By: #### L 500.2500, L100.0100, L501.4021 ####[facility] [address] [place], [address] Nucleated RBC (Bld) [#/Vol] 0 10*3/uL Normal 0-5 [facility] Comment on above: Performed By: #### L 500.2500, L100.0100, L501.4021 ####[facility] [address] [place], [address] Platelet mean volume (Bld) [Entitic vol] 9.1 fL Normal 6.2-12.0 [facility] Comment on above: Performed By: #### L 500.2500, L100.0100, L501.4021 ####[facility] [address] [place], [address] Platelets (Bld) [#/Vol] 210 10*3/uL Normal 150-450 [facility] Comment on above: Performed By: #### L 500.2500, L100.0100, L501.4021 ####[facility] [address] [place], [address] RBC (Bld) [#/Vol] 4.58 10*6/uL Low 4.6-6.2 [facility] Comment on above: Performed By: #### L 500.2500, L100.0100, L501.4021 ####[facility] [address] [place], [address] RDW SD 38.4 fl Normal 35.1-43.9 [facility] Comment on above: Performed By: #### L 500.2500, L100.0100, L501.4021 ####[facility] [address] [place], [address] WBC (Bld) [#/Vol] 6.3 10*3/uL Normal 4.4-11.0 [facility] Comment on above: Performed By: #### L 500.2500, L100.0100, L501.4021 ####[facility] [address] [place], [address] Chest PA and Lateralon 08-03 Chest PA and Lateral [facility] Imaging Services [address] [place] [address] Chest PA and Lateral MR#: [id number] Acct: [id number] Name: ALIZA VACA Rep #: [id number] : 1955 M 68 From: Luis Grimm MD PCP: Dr. Luis Diaz MD Status: [facility] ER Study: Chest PA and Lateral Date of Exam: 08/03/24 Exam# [id number] Ordering Dr: Urbano Rock DO PROCEDURE: CHEST PA AND LATERAL REASON FOR EXAM: Chest pain TECHNIQUE: Frontal and lateral views of the chest. COMPARISON: 09/03/2023 FINDINGS: The heart size is normal. The mediastinal contour is unremarkable. The lungs are clear. The bones are unremarkable. RAD/Chest PA and Lateral IMPRESSION: No radiographic evidence of acute cardiopulmonary disease Reading Location: [facility] CC: Dr. Urbano Rock DO; Dr. Luis Diaz MD Deli Clerk: Signed Normal [facility] Emergency Department Summary on 08-03-2024 Emergency Department Summary [facility] Medical Records Department [address] [place] [address] Emergency Department Summary 08/03/24 MR#: [id number] Acct: [id number] Name: ALIZA VACA Rep #: [id number] : 1955 68 From: Urbano Rock DO PCP: Dr. Luis Diaz MD Status:DEP ER Location: ED HPI History of Present Illness Chief Complaint: Chest Pain Informant: patient Onset/Context/Timin g Onset: Today and Hours (2) Activity at onset: sudden Timing: Intermittent and Lasts (Approximately 2 minutes) Quality: Positive for Sharp Location: Substernal Associated Symptoms: Negative for Nausea, Vomiting, Diaphoresis, Dyspnea, Cough, Fever, Lightheadedness, Acid Reflux or Palpitations Narrative Narrative: Patient presents with chest pain that began 2 hours prior to arrival. Patient states it began suddenly. Patient states it lasted approximately 2 minutes and then resolved. Patient called EMS. Patient describes the pain as sharp. Patient states the pain is over the substernal area. Patient states it got better when he took the blanket off. Patient states nothing makes it worse. Patient denies any nausea or vomiting. Patient denies any shortness of breath or cough. Patient denies any diaphoresis or lightheadedness. CVD Risk Factors: Positive for Hypercholesterolemi a; Negative for Hypertension, Diabetes, Family History 1' PE Risk Factors: Negative for Recent Travel/Surgery, Recent Immobilization, Prior DVT or PE, Cancer or OCP + Smoking + >/=35 PFSH PFSH Medical History Allergic rhinitis Hyperlipidemia Schizophrenia Home Medications ???Medication ???Instructions ???Recorded ???Last Taken ???Type docusate sodium 100 mg capsule 100 mg PO DAILY constipation 05/1810/24/20 History (DOK) paliperidone palmitate 156 mg/mL 156 mg IM Q30D schitzophrenia 05/0610/07/20 History intramuscular syringe (Invega Sustenna) propranolol 10 mg tablet 10 mg PO BID heart 05/18/16 History vitamin E (dl, acetate) 180 mg 400 units PO TID suppliment 10/24/20 History (400 unit) capsule cholecalciferol (vitamin D3) 25 1,000 unit PO DAILY 10/24/2010/24 History mcg (1,000 unit) capsule (Vitamin D3) loratadine 10 mg tablet (Allergy 10 mg PO DAILY PRN dizziness #0 10/24/20 Rx Relief (loratadine)) tabs docusate sodium 100 mg capsule 100 mg PO BID 7 days #14 caps 06/28 Unknown Rx (Colace) atorvastatin 20 mg tablet 20 mg PO QHS hyperlipidemia Unknown History folic acid 1 mg tablet 1 mg PO 05/04/23 Unknown History omeprazole 40 mg capsule,delayed 40 mg PO 05/04/23 Unknown History release oxcarbazepine 300 mg tablet 300 mg PO seizures 05/04/23 Unknow n History risperidone 2 mg tablet 2 mg PO schizophrenia 05/04/23 Unk nown History Allergy/AdvReac Type Severity Reaction Status Date / Time No Known Allergies Allergy Verified 08/03/24 17:52 Surgical History no surgical history no surgical history Social History household members: none housing: other details: prison Smoking Status: Never smoker substance use type: does not use ROS ROS ED Constitutional Constitutional ED: Denies chills or fever(s) Eyes Eyes: Denies blurry vision or change in vision ENT ENT ED: Reports sore throat; Denies rhinorrhea Cardiovascular Cardiovascular: Reports chest pain; Denies palpitations Respiratory/Chest Respiratory/Chest: Denies cough or dyspnea Gastrointestinal Gastrointestinal: Denies nausea or vomiting Genitourinary Genitourinary ED: Denies dysuria or hematuria Musculoskeletal Musculoskeletal: Denies back pain or neck pain Integumentary Denies abscess or rash Neurologic Neurologic: Denies headache(s) or weakness Allergic/Immunologi c Allergic/Immunologi c ED: Denies mouth swelling or urticaria EXAM Physical Exam Const Vital Signs: 08/03/24 17:52 08/03/24 17:55 08/03/24 18:27 Temperature 98.9 F Temperature Source Oral Pulse Rate 72 Respiratory Rate 18 Respiratory Effort Normal Blood Pressure 127/89 H Blood Pressure Mean 101 Pulse Ox 96 Oxygen Delivery Method Room Air Room Air 08/03/24 19:13 08/03/24 19:53 08/03/24 21:00 Temperature Temperature Source Pulse Rate 72 65 89 Respiratory Rate 18 20 H 18 Respiratory Effort Blood Pressure 102/80 112/81 H 120/68 Blood Pressure Mean 87 91 85 Pulse Ox 99 95 98 Oxygen Delivery Method Room Air Room Air Room Air Positive well nourished and well developed General Appearance ED: well developed and NAD HEENT Reports moist mucous membranes Neck supple and no JVD Chest Wall palpation of chest normal Resp filemon (more content not included)... Normal [facility] L499.0042on 08-03-2024 Trop T Delta 0 Normal [facility] Comment on above: Result Comment: If c linical suspicion for ACS is high, suggest getting a third troponin. Otherwise, stress test or CTCA. Performed By: #### L 499.0042 ####[facility] [address] [place], [address] Trop T High Sen 7 ng/L Normal <=22 [facility] Comment on above: Performed By: #### L 499.0042 ####[facility] [address] [place], [address] L499.0043on 08-03-2024 Trop T Delta Normal [facility] Comment on above: Result Comment: MERRICK ENT DISCHARGED Performed By: #### L 499.0043 ####[facility] [address] [place], [address] Trop T High Sen Normal <=22 [facility] Comment on above: Result Comment: MERRICK ENT DISCHARGED Performed By: #### L 499.0043 ####[facility] [address] [place], [address] L501.4021on 08-03-2024 Trop T High Sen 7 ng/L Normal <=22 [facility] Comment on above: Performed By: #### L 500.2500, L100.0100, L501.4021 ####[facility] [address] [place], [address] Comprehensive Metabolic Prof ilon 12-20-2023 Albumin [Mass/Vol] 3.5 g/dL Normal 3.2-5.0 [facility] Comment on above: Performed By: #### L 500.4100, L500.4050, L501.9985, L3100.5420 #### [facility] [address] [place], [address] Albumin/Globulin [Mass ratio] 1.0 {ratio} Normal 0.9-2.4 [facility] Comment on above: Performed By: #### L 500.4100, L500.4050, L501.9985, L3100.5420 #### [facility] [address] [place], [address] ALK P 62 U/L Normal 45-117 [facility] Comment on above: Performed By: #### L 500.4100, L500.4050, L501.9985, L3100.5420 #### [facility] [address] [place], [address] ALT [Catalytic activity/Vol] 29 U/L Normal 16-61 [facility] Comment on above: Performed By: #### L 500.4100, L500.4050, L501.9985, L3100.5420 #### [facility] [address] [place], [address] AST [Catalytic activity/Vol] 33 U/L Normal 15-37 [facility] Comment on above: Performed By: #### L 500.4100, L500.4050, L501.9985, L3100.5420 #### [facility] [address] [place], [address] Bilirubin [Mass/Vol] 0.40 mg/dL Normal 0.20-1.00 [facility] Comment on above: Result Comment: For patients on eltrombopag therapy, use of Dimension [place] TBIL is not recommended. Performed By: #### L 500.4100, L500.4050, L501.9985, L3100.5420 #### [facility] [address] [place], [address] BUN/CRE 18.3 RATIO Normal 10-20 [facility] Comment on above: Performed By: #### L 500.4100, L500.4050, L501.9985, L3100.5420 #### [facility] [address] [place], [address] CA,Total 8.8 mg/dL Normal 8.5-10.1 [facility] Comment on above: Performed By: #### L 500.4100, L500.4050, L501.9985, L3100.5420 #### [facility] [address] [place], [address] Chloride [Moles/Vol] 107 mmol/L Normal 98-107 [facility] Comment on above: Performed By: #### L 500.4100, L500.4050, L501.9985, L3100.5420 #### [facility] [address] [place], [address] CO2 [Moles/Vol] 27.0 mmol/L Normal 21.0-32.0 [facility] Comment on above: Performed By: #### L 500.4100, L500.4050, L501.9985, L3100.5420 #### [facility] [address] [place], [address] Creatinine [Mass/Vol] 1.26 mg/dL Normal 0.70-1.30 [facility] Comment on above: Result Comment: The validity of the calculated GFR GFRAA in patients over 70 years has not been determined. Clinical correlation is essential. Performed By: #### L 500.4100, L500.4050, L501.9985, L3100.5420 #### [facility] [address] [place], [address] EST GFR - AA 73 mL/min Normal >60 [facility] Comment on above: Result Comment: Afri can Russian GFR Calc Performed By: #### L 500.4100, L500.4050, L501.9985, L3100.5420 #### [facility] [address] [place], [address] GAP 5 Normal 5-15 [facility] Comment on above: Performed By: #### L 500.4100, L500.4050, L501.9985, L3100.5420 #### [facility] [address] [place], [address] GFR/1.73 sq M.predicted among non-blacks MDRD (S/P/Bld) [Vol rate/Area] 61 mL/min/{1.73_m2} Normal >60 [facility] Comment on above: Result Comment: Non- GFR Calc Performed By: #### L 500.4100, L500.4050, L501.9985, L3100.5420 #### [facility] [address] [place], [address] Globulin (S) [Mass/Vol] 3.6 g/dL Normal 2.2-4.2 [facility] Comment on above: Performed By: #### L 500.4100, L500.4050, L501.9985, L3100.5420 #### [facility] [address] [place], [address] Glucose [Mass/Vol] 135 mg/dL High 74-106 [facility] Comment on above: Result Comment: Fast ing Glucose result greater than or equal to 126 mg/dL suggests DIABETES MELLITUS per A.D.A. criteria. Performed By: #### L 500.4100, L500.4050, L501.9985, L3100.5420 #### [facility] [address] [place], [address] Potassium [Moles/Vol] 3.8 mmol/L Normal 3.5-5.1 [facility] Comment on above: Performed By: #### L 500.4100, L500.4050, L501.9985, L3100.5420 #### [facility] [address] [place], [address] Sodium [Moles/Vol] 139 mmol/L Normal 136-145 [facility] Comment on above: Performed By: #### L 500.4100, L500.4050, L501.9985, L3100.5420 #### [facility] [address] [place], [address] T PROT 7.1 g/dL Normal 6.4-8.2 [facility] Comment on above: Performed By: #### L 500.4100, L500.4050, L501.9985, L3100.5420 #### [facility] [address] [place], [address] Urea nitrogen [Mass/Vol] 23 mg/dL High 7-18 [facility] Comment on above: Performed By: #### L 500.4100, L500.4050, L501.9985, L3100.5420 #### [facility] [address] [place], [address] Hemoglobin A1con 12-20-2023 HbA1c (Bld) [Mass fraction] 5.5 % Normal 3.8-5.6 [facility] Comment on above: Result Comment: Norm al < 5.7 % Prediabetic 5.7 - 6.4 % Diabetic >or= 6.5 % Please note range changes. Performed By: #### L 500.4100, L500.4050, L501.9985, L3100.5420 ####[facility] [address] [place], [address] Lipid Profileon 12-20-2023 Cholesterol [Mass/Vol] 214 mg/dL High 200 [facility] Comment on above: Result Comment: <200 mg/dL Desirable 200-240 mg/dL Borderline >240 mg/dL High Risk Performed By: #### L 500.4100, L500.4050, L501.9985, L3100.5420 #### [facility] [address] [place], [address] Cholesterol in HDL [Mass/Vol] 50 mg/dL Normal [facility] Comment on above: Result Comment: The drugs N-Acetylcysteine and Metamizole may falsely depress this assay. Reference Range HDL <40 mg/dL Low HDL Cholesterol HDL >or= 60 mg/dL High HDL Cholesterol Performed By: #### L 500.4100, L500.4050, L501.9985, L3100.5420 #### [facility] [address] [place], [address] Cholesterol in LDL [Mass/Vol] 130 mg/dL Normal 0-130 [facility] Comment on above: Performed By: #### L 500.4100, L500.4050, L501.9985, L3100.5420 #### [facility] [address] [place], [address] Cholesterol in VLDL [Mass/Vol] 34 mg/dL Normal 5-40 [facility] Comment on above: Performed By: #### L 500.4100, L500.4050, L501.9985, L3100.5420 #### [facility] [address] [place], [address] Triglyceride [Mass/Vol] 169 mg/dL Normal [facility] Comment on above: Result Comment: The drugs N-Acetylcysteine and Metamizole may falsely depress this assay. Serum Triglycerides Reference Interval Normal <150 mg/dL Borderline high 150 - 199 mg/dL High 200 - 499 mg/dL Very High > or = 500 mg/dL Performed By: #### L 500.4100, L500.4050, L501.9985, L3100.5420 #### [facility] [address] [place], [address] Prolactinon 12-20-2023 PROLACTIN 17.6 ng/mL Normal [facility] Comment on above: Result Comment: NORMAL REFERENCE RANGES FEMALE NON- 2.2 - 30.3 ng/mL 8.1 - 347.6 ng/mL POST-MENOPAUSAL 0.7 - 31.5 ng/mL MALE 2.5 - 17.4 ng/mL Performed By: #### L 500.4100, L500.4050, L501.9985, L3100.5420 #### [facility] [address] [facility] [address] [place], [place], [address] Chest PA and Lateralon 09-02 Chest PA and Lateral [facility] Services [address] [place] [address] Chest PA and Lateral MR#: [id number] Acct: [id number] Name: ALIZA VACA Rep #: [id number] : 1955 67 From: Rowdy barlow MD PCP: Dr. Luis Diaz MD Status: [facility] ER Study: Chest PA and Lateral Date of Exam: 09/03/23 Exam# [id number] Ordering Dr: Deepak Oates MD -[id number] STUDY: X-RAY CHEST REASON FOR EXAM: Male, 67 years old. sob TECHNIQUE: PA and lateral views of the chest. COMPARISON: May 27, 2023 FINDINGS: The lungs are clear and expanded. There is no demonstrated pleural abnormality. Normal size heart. Normal mediastinum and colleen. Normal visualized pulmonary arteries. Normal visualized aortic arch and descending thoracic aorta. Normal visualized thoracic spine. Normal visualized ribs, clavicles, and shoulders. There is no demonstrated abnormality of the visualized soft tissue structures of the upper abdomen. RAD/Chest PA and Lateral IMPRESSION: Normal x-ray examination of the chest. Electronically Signed: Rowdy Zhang MD at 10:46 EDT , CC: Dr. Deepak Oates MD; Dr. Luis Diaz MD Deli Clerk: Signed Normal [facility] Emergency Department Summary on 09-03-2023 Emergency Department Summary [facility] Medical Records Department [address] [place] [address] Emergency Department Summary 09/03/23 MR#: [id number] Acct: [id number] Name: ALIZA VACA Rep #: [id number] : 1955 67 From: Deepak Oates MD PCP: Dr. Luis Diaz MD Status:REG ER Location: ED HPI History of Present Illness Chief Complaint: Shortness of Breath Informant: patient Narrative Narrative: 67-year-old male states he woke up a couple hours ago and his throat feels swollen and it is making him feel like he is a little short of breath. He denies any symptoms in his chest such as discomfort, palpitations, wheezing. He denies any edema in his legs or orthopnea. He denies any new medications, he cannot remember what he ate for dinner last night but he does not recall eating any new or different foods lately. No antibiotics recently for anything and denies any other recent illness. He states he feels it when he swallows and it is making him feel like he needs to clear his throat. He denies his voice being any different. [facility] Medical History Allergic rhinitis Hyperlipidemia Schizophrenia Home Medications docusate sodium 100 mg capsule (DOK) 100 mg PO DAILY constipation 05/18/16 [History Last Taken 10/24/20] paliperidone palmitate 156 mg/mL intramuscular syringe (Invega Sustenna) 156 mg IM Q30D schitzophrenia 05/18/16 [History Last Taken 10/07/20] propranolol 10 mg tablet 10 mg PO BID heart 05/18/16 [History Last Taken 10/24/20] vitamin E (dl, acetate) 180 mg (400 unit) capsule 400 units PO TID suppliment 05/18/16 [History Last Taken 10/24/20] cholecalciferol (vitamin D3) 25 mcg (1,000 unit) capsule (Vitamin D3) 1,000 unit PO DAILY 10/24/20 [History Last Taken 10/24/20] loratadine 10 mg tablet (Allergy Relief (loratadine)) 10 mg PO DAILY PRN dizziness #0 tabs 10/25/20 [Rx Last Taken 10/24/20] docusate sodium 100 mg capsule (Colace) 100 mg PO BID 7 days #14 caps 09/04/22 [Rx Last Taken Unknown] atorvastatin 20 mg tablet 20 mg PO QHS hyperlipidemia 05/04/23 [History Last Taken Unknown] folic acid 1 mg tablet 1 mg PO 05/04/23 [History Last Taken Unknown] omeprazole 40 mg capsule,delayed release 40 mg PO 05/04/23 [History Last Taken Unknown] oxcarbazepine 300 mg tablet 300 mg PO seizures 05/04/23 [History Last Taken Unknown] risperidone 2 mg tablet 2 mg PO schizophrenia 05/04/23 [History Last Taken Unknown] Allergy/AdvReac Type Severity Reaction Status Date / Time No Known Allergies Allergy Verified 09/03/23 09:36 Social History household members: none housing: other details: prison Smoking Status: Never smoker substance use type: does not use ROS ROS ED Constitutional Constitutional ED: Denies chills or fever(s) Eyes Eyes: Denies change in vision or diplopia ENT ENT ED: Reports as per HPI and throat swelling; Denies ear pain, rhinorrhea or sore throat Cardiovascular Cardiovascular: Reports lightheadedness; Denies chest pain, palpitations or syncope Respiratory/Chest Respiratory/Chest: Reports as per HPI and dyspnea; Denies cough or difficulty clearing secretions Gastrointestinal Gastrointestinal: Denies abdominal pain, diarrhea, nausea or vomiting Genitourinary Genitourinary ED: Denies dysuria or hematuria Musculoskeletal Musculoskeletal: Denies back pain or neck pain Integumentary Denies abscess or rash Neurologic Neurologic: Denies headache(s), paresthesias or weakness Psychiatric Psychiatric: Denies anxiety or suicidal thoughts EXAM Physical Exam Const Vital Signs: 09/03/23 09:30 09/03/23 09:31 09/03/23 09:49 Temperature 96.4 F L 96.4 F L Temperature Source Temporal Temporal Pulse Rate 50 L 94 Respiratory Rate 18 18 Respiratory Effort Normal Respiratory Depth Normal Respiratory Pattern Normal Blood Pressure 130/99 H 130/99 H Blood Pressure Mean 109 109 Pulse Ox 98 98 Oxygen Delivery Method Room Air Nasal Cannula Room Air Positive well nourished and well developed General Appearance ED: well developed and NAD HEENT Reports moist mucous membranes HEENT Narrative: Posterior oropharynx clear, tongue depressor used. No stridor. Normal phonation. Normal oral mucosa no tongue elevation. Almost completely edentulous gingiva unremarkable. normocephalic and atraumatic Eyes PERRL and EOMs intact bilaterally Neck full ROM, no lymphadenopathy, supple and no JVD Chest Wall inspection of chest normal and palpation of chest normal Resp normal respiratory effort and clear to auscultation bilaterally Cardio regular rate, regular rhythm and no murmurs Rate: Negative for tachycardic GI non-tender and non-distended Auscultation: normoactive bowel sounds Palpation: s (more content not included)... Normal [facility] M100.677on 09-03-2023 M100.677 Negative Normal [facility] Comment on above: Performed By: #### M 100.677 #### [facility] [address] [facility] [address] [place], [address] Neck for Soft Tissueon 09-02 Neck for Soft Tissue [facility] Imaging Services [address] [place] [address] Neck for Soft Tissue MR#: [id number] Acct: [id number] Name: ALIZA VACA Rep #: [id number] : 1955 M 67 From: Rowdy barlow MD PCP: Dr. Luis Diaz MD Status: REG ER Study: Neck for Soft Tissue Date of Exam: 09/03/23 Exam# [id number] Ordering Dr: Deepak Oates MD -[id number] STUDY: X-RAY - SOFT TISSUE NECK REASON FOR EXAM: Male, 67 years old. swelling TECHNIQUE: 2 view(s) of the neck were obtained. COMPARISON: None. FINDINGS: Normal visualized nasopharynx, oropharynx, hypopharynx. Normal epiglottis. Normal visualized subglottic tracheal air column. Normal prevertebral soft tissue structures. There are degenerative changes of the cervical spine with cervical spondylosis. The soft tissue structures are unremarkable. RAD/Neck for Soft Tissue IMPRESSION: Unremarkable x-ray soft tissue neck. Electronically Signed: Rowdy Zhang MD at 10:40 EDT , CC: Dr. Deepak Oates MD; Dr. Luis Diaz MD Deli Clerk: Signed Normal [facility] Streptococcus pyogenes rRNA detection in throat by DNA probeOrdered By: Deepak Oates on 09-03-2023 S. pyogenes rRNA Probe Ql (Throat) [facility] Basophil percentageOrdered B y: Melinda Ames on 07-22-2023 Bilirubin [Mass/Vol] 0.40 mg/dL 0.20-1.00 [facility] Comment on above: For patients on eltr ombopag therapy, use of Dimension [place] TBIL is not recommended. Chloride [Moles/Vol] 106 mmol/L 98-107 [facility] Cholesterol [Mass/Vol] 224 mg/dL <200 [facility] Comment on above: <200 mg/dL Desirable 200-240 mg/dL Borderline >240 mg/dL High Risk Glucose [Mass/Vol] 107 mg/dL 74-106 [facility] Comment on above: Fasting Glucose resu lt from 100 to 125 mg/dL suggests IMPAIRED HOMEOSTASIS per A.D.A. criteria. Potassium [Moles/Vol] 3.9 mmol/L 3.5-5.1 [facility] Protein [Mass/Vol] 7.1 g/dL 6.4-8.2 [facility] Sodium [Moles/Vol] 140 mmol/L 136-145 [facility] Triglyceride [Mass/Vol] 381 mg/dL <199 [facility] Comment on above: The drugs N-Acetylcy steine and Metamizole may falsely depress this assay.Serum Triglycerides Reference Interval Normal <150 mg/dL Borderline high 150 - 199 mg/dL High 200 - 499 mg/dL Very High > or = 500 mg/dL Laboratory - Chemistry and C hemistry - challengeOrdered By: Melinda Ames on 07-22-2023 Albumin/Globulin [Mass ratio] 1.2 {ratio} 0.9-2.4 [facility] ALP [Catalytic activity/Vol] 57 U/L 45-117 [facility] ALT [Catalytic activity/Vol] 24 U/L 16-61 [facility] Cholesterol in HDL [Mass/Vol] 46 mg/dL >40 [facility] Comment on above: The drugs N-Acetylcy steine and Metamizole may falsely depress this assay. Reference Range HDL <40 mg/dL Low HDL Cholesterol HDL >or= 60 mg/dL High HDL Cholesterol Cholesterol in LDL [Mass/Vol] 102 mg/dL 0-130 [facility] CO2 [Moles/Vol] 28.0 mmol/L 21.0-32.0 [facility] Globulin (S) [Mass/Vol] 3.3 g/dL 2.2-4.2 [facility] Urea nitrogen/Creatinine [Mass ratio] 17.4 mg/mg 10-20 [facility] No Panel InformationOrdered By: Melinda Ames on 07-22-2023 Estimated GFR (MDRD) Amer 87 mL/min >60 [facility] Comment on above: GFR Calc Estimated GFR (MDRD) Non-Af Amer 72 mL/min >60 [facility] Comment on above: Non- GFR Calc Prolactin 13.9 ng/mL [facility] Comment on above: NORMAL REFERENCE RAN GES FEMALE NON- 2.2 - 30.3 ng/mL 8.1 - 347.6 ng/mL POST-MENOPAUSAL 0.7 - 31.5 ng/mL MALE 2.5 - 17.4 ng/mL VLDL Cholesterol 76 mg/dL 5-40 [facility] Serum or plasma calcium phyllis urement (mass/volume)Ordered By: Melinda Ames on 07-22-2023 Calcium [Mass/Vol] 9.6 mg/dL 8.5-10.1 [facility] Serum or plasma creatinine m easurement (mass/volume)Ordered By: Melinda Ames on 07-22-2023 Creatinine [Mass/Vol] 1.09 mg/dL 0.70-1.30 [facility] Comment on above: The validity of the calculated GFR & GFRAA in patients over 70 years has not been determined. Clinical correlation is essential. Serum or plasma urea nitroge n measurement (mass/volume)Ordered By: Melinda Ames on 07-22-2023 Urea nitrogen [Mass/Vol] 19 mg/dL 7-18 [facility] Thin prep Papanicolaou smear with manual screeningOrdered By: [facility] on 07-22-2023 Thin prep Papanicolaou smear with manual screening 3.8 g/dL 3.2-5.0 [facility] Thin prep Papanicolaou smear with manual screening 19 U/L 15-37 [facility] Thin prep Papanicolaou smear with manual screening 6 5-15 [facility] Whole blood hemoglobin A1c/t otal hemoglobin ratio (mass fraction)Ordered By: Melinda Ames on 07-22-2023 HbA1c (Bld) [Mass fraction] 5.8 % 3.8-5.6 [facility] Comment on above: Normal < 5.7 % Predi abetic 5.7 - 6.4 % Diabetic >or= 6.5 % Please note range changes. Absolute lymphocyte countOrd ered By: Luis Diaz on 06-22-2023 Lymphocytes Auto (Unsp spec) [#/Vol] 2.43 10*3/uL 0.83-4.51 [facility] Automated lymphocyte count a s percentage of total leukocytesOrdered By: Luis Diaz on 06-22-2023 Lymphocytes/100 WBC Auto (Unsp spec) 42.1 % 19-41 [facility] Basophil percentageOrdered B y: Luis Diaz on 06-22-2023 Basophils/100 WBC (Bld) 0.7 % 0-1 [facility] Chloride [Moles/Vol] 109 mmol/L 98-107 [facility] Eosinophils/100 WBC (Bld) 4.2 % 0-5 [facility] Glucose [Mass/Vol] 110 mg/dL 74-106 [facility] Comment on above: Fasting Glucose resu lt from 100 to 125 mg/dL suggests IMPAIRED HOMEOSTASIS per A.D.A. criteria. Hemoglobin (Bld) [Mass/Vol] 13.3 g/dL 13.0-16.5 [facility] Monocytes/100 WBC (Bld) 9.9 % 0-10 [facility] Neutrophils (Bld) [#/Vol] 2.5 10*3/uL 2.0-7.7 [facility] Neutrophils/100 WBC (Bld) 42.9 % 47-70 [facility] Potassium [Moles/Vol] 4.2 mmol/L 3.5-5.1 [facility] Sodium [Moles/Vol] 141 mmol/L 136-145 [facility] Testosterone [Mass/Vol] 343.96 ng/dL [facility] Comment on above: CENTRAL 90% REFERENC E RANGES MALE AGE <50 197.44 - 669.58 ng/dL MALE AGE > or = 50 187.72 - 684.19 ng/dL FEMALE AGE <50 8.38 - 35.01 ng/dL FEMALE AGE > or = 50 <7.00 - 35.92 ng/dL Effective as of 12/30/20 WBC (Bld) [#/Vol] 5.8 10*3/uL 4.4-11.0 [facility] Determination of erythrocyte mean corpuscular volume (MCV)Ordered By: Luis Diaz on 06-22-2023 MCV (RBC) [Entitic vol] 92.1 fL 80-94 [facility] Erythrocyte distribution wid th ratioOrdered By: Luis Diaz on 06-22-2023 Erythrocyte distribution width (RBC) [Ratio] 12.9 % 11.6-14.6 [facility] Erythrocyte distribution wid th standard deviationOrdered By: Luis Diaz on 06-22-2023 Erythrocyte distribution width (RBC) [Entitic vol] 43.5 fL 35.1-43.9 [facility] Hematocrit Auto (Bld) [Volum e fraction]Ordered By: Luis Diaz on 06-22-2023 Hematocrit (Bld) [Volume fraction] 41.0 % 40-54 [facility] Immature granulocytes/100 WB C Auto (Bld)Ordered By: Luis Diaz on 06-22-2023 Immature granulocytes/100 WBC (Bld) 0.200 % 0.0-0.9 [facility] Comment on above: IG% - Immature Granu locytes (promyelocytes, myelocytes and metamyelocytes) > 1% indicates that a LEFT SHIFT is Present. Laboratory - Chemistry and C hemistry - challengeOrdered By: Luis Diaz on 06-22-2023 CO2 [Moles/Vol] 27.0 mmol/L 21.0-32.0 [facility] Urea nitrogen/Creatinine [Mass ratio] 16.5 mg/mg 10-20 [facility] Laboratory - Hematology and Cell countsOrdered By: Luis Diaz on 06-22-2023 MCH (RBC) [Entitic mass] 29.9 pg 27.0-32.0 [facility] MCHC (RBC) [Mass/Vol] 32.4 g/dL 32-36 [facility] Nucleated RBC/100 WBC (Bld) [Ratio] 0 % 0-5 [facility] Platelets (Bld) [#/Vol] 182 10*3/uL 150-450 [facility] No Panel InformationOrdered By: Luis Diaz on 06-22-2023 Estimated GFR (MDRD) Amer 93 mL/min >60 [facility] Comment on above: GFR Calc Estimated GFR (MDRD) Non-Af Amer 76 mL/min >60 [facility] Comment on above: Non- GFR Calc Platelet mean volume Alfonso-Ec ker (Bld) [Entitic vol]Ordered By: Luis Diaz on 06-22-2023 Platelet mean volume (Bld) [Entitic vol] 9.9 fL 6.2-12.0 [facility] RBC Auto (Bld) [#/Vol]Ordere d By: Luis Diaz on 06-22-2023 RBC (Bld) [#/Vol] 4.45 10*6/uL 4.6-6.2 [facility] Serum or plasma calcium phyllis urement (mass/volume)Ordered By: Luis Diaz on 06-22-2023 Calcium [Mass/Vol] 8.7 mg/dL 8.5-10.1 [facility] Serum or plasma creatinine m easurement (mass/volume)Ordered By: Luis Diaz on 06-22-2023 Creatinine [Mass/Vol] 1.03 mg/dL 0.70-1.30 [facility] Comment on above: The validity of the calculated GFR & GFRAA in patients over 70 years has not been determined. Clinical correlation is essential. Serum or plasma thyroid stim ulating hormone (TSH) measurement (units/volume)Ordered By: Luis Diaz on 06-22-2023 TSH Qn 1.67 uIU/mL 0.358-3.74 [facility] Serum or plasma urea nitroge n measurement (mass/volume)Ordered By: Luis Diaz on 06-22-2023 Urea nitrogen [Mass/Vol] 17 mg/dL 7-18 [facility] Thin prep Papanicolaou smear with manual screeningOrdered By: Luis Diaz on 06-22-2023 Thin prep Papanicolaou smear with manual screening 5 5-15 [facility] Influenza virus A and B and SARS-CoV-2 (COVID-19) Ag panel - Upper respiratory specimOrdered By: Felisha Stapleton on 05-27-2023 SARS-CoV-2 & FLU Antigen (Rapid) Influenzae [facility] Upper respiratory specimen i nfluenza A virus, influenza B virus, and severe acute resOrdered By: Felisha Stapleton on 05-27-2023 SARS-CoV-2 & FLU Antigen (Rapid) Influenzae A [facility] Absolute lymphocyte countOrd ered By: Falguni Isaac on 05-04-2023 Lymphocytes Auto (Unsp spec) [#/Vol] 3.13 10*3/uL 0.83-4.51 [facility] Basophil percentageOrdered B y: Falguni Isaac on 05-04-2023 Basophils/100 WBC (Bld) 0.6 % 0-1 [facility] Chloride [Moles/Vol] 106 mmol/L 98-107 [facility] Eosinophils/100 WBC (Bld) 2.8 % 0-5 [facility] Glucose [Mass/Vol] 107 mg/dL 74-106 [facility] Comment on above: Fasting Glucose resu lt from 100 to 125 mg/dL suggests IMPAIRED HOMEOSTASIS per A.D.A. criteria. Neutrophils (Bld) [#/Vol] 4.4 10*3/uL 2.0-7.7 [facility] Neutrophils/100 WBC (Bld) 50.9 % 47-70 [facility] Potassium [Moles/Vol] 3.6 mmol/L 3.5-5.1 [facility] Sodium [Moles/Vol] 139 mmol/L 136-145 [facility] WBC (Bld) [#/Vol] 8.6 10*3/uL 4.4-11.0 [facility] Blood erythrocytes count (nu mber/volume)Ordered By: Falguni Isaac on 05-04-2023 RBC (Bld) [#/Vol] 4.99 10*6/uL 4.6-6.2 [facility] Blood hemoglobin measurement (mass/volume)Ordered By: Falguni Isaac on 05-04-2023 Hemoglobin (Bld) [Mass/Vol] 15.1 g/dL 13.0-16.5 [facility] Blood lymphocytes/100 leukoc ytesOrdered By: Falguni Isaac on 05-04-2023 Lymphocytes/100 WBC (Bld) 36.3 % 19-41 [facility] Blood monocytes/100 leukocyt esOrdered By: Falguni Isaac on 05-04-2023 Monocytes/100 WBC (Bld) 8.9 % 0-10 [facility] Blood platelet mean volumeOr dered By: Falguni Isaac on 05-04-2023 Platelet mean volume (Bld) [Entitic vol] 9.3 fL 6.2-12.0 [facility] Determination of erythrocyte mean corpuscular volume (MCV)Ordered By: Falguni Isaac on 05-04-2023 MCV (RBC) [Entitic vol] 90.0 fL 80-94 [facility] Hematocrit Auto (Bld) [Volum e fraction]Ordered By: Falguni Isaac on 05-04-2023 Hematocrit (Bld) [Volume fraction] 44.9 % 40-54 [facility] Laboratory - Chemistry and C hemistry - challengeOrdered By: Falguni Isaac on 05-04-2023 CO2 [Moles/Vol] 29.0 mmol/L 21.0-32.0 [facility] Urea nitrogen/Creatinine [Mass ratio] 11.7 mg/mg 10-20 [facility] Laboratory - Hematology and Cell countsOrdered By: Falguni Isaac on 05-04-2023 Erythrocyte distribution width (RBC) [Entitic vol] 41.4 fL 35.1-43.9 [facility] Erythrocyte distribution width (RBC) [Ratio] 12.6 % 11.6-14.6 [facility] Immature granulocytes/100 WBC (Bld) 0.500 % 0.0-0.9 [facility] Comment on above: IG% - Immature Granu locytes (promyelocytes, myelocytes and metamyelocytes) > 1% indicates that a LEFT SHIFT is Present. MCH (RBC) [Entitic mass] 30.3 pg 27.0-32.0 [facility] Nucleated RBC/100 WBC (Bld) [Ratio] 0 % 0-5 [facility] MCHC Auto (RBC) [Mass/Vol]Or dered By: Falguni Isaac on 05-04-2023 MCHC (RBC) [Mass/Vol] 33.6 g/dL 32-36 [facility] No Panel InformationOrdered By: Falguni Isaac on 05-04-2023 Troponin I High Sensitivity 30 pg/mL 3.0-78.0 [facility] Comment on above: Please Note: New Nghia t Units and Gender Specific Reference Ranges. For more information see Policy Stat Procedure [place] High Sensitivity Troponin (TNIH) and attachments. D-Dimer Quantitative (PE/DVT) 0.29 FEU/ug/m 0.27-0.49 [facility] Comment on above: NORMAL D-Dimer level (<0.50) indicates no DVT or PE. Estimated Creatinine Clearance Calc 59.73 ml/min [facility] Estimated GFR (MDRD) Amer 78 mL/min >60 [facility] Comment on above: GFR Calc Estimated GFR (MDRD) Non-Af Amer 64 mL/min >60 [facility] Comment on above: Non- GFR Calc Platelets bldOrdered By: Noy Isaac on 05-04-2023 Platelets (Bld) [#/Vol] 244 10*3/uL 150-450 [facility] Serum or plasma calcium phyllis urement (mass/volume)Ordered By: Falguni Isaac on 05-04-2023 Calcium [Mass/Vol] 8.7 mg/dL 8.5-10.1 [facility] Serum or plasma creatinine m easurement (mass/volume)Ordered By: [facility] 05-04-2023 Creatinine [Mass/Vol] 1.20 mg/dL 0.70-1.30 [facility] Comment on above: The validity of the calculated GFR & GFRAA in patients over 70 years has not been determined. Clinical correlation is essential. Serum or plasma urea nitroge n measurement (mass/volume)Ordered By: [place] Marlin on 05-04-2023 Urea nitrogen [Mass/Vol] 14 mg/dL 7-18 [facility] Thin prep Papanicolaou smear with manual screeningOrdered By: [facility] Thin prep Papanicolaou smear with manual screening 4 5-15 [facility] Basophil percentageOrdered B y: Luis Diaz on 03-10-2023 Bilirubin [Mass/Vol] 0.40 mg/dL 0.20-1.00 [facility] Comment on above: For patients on eltr ombopag therapy, use of Dimension [place] TBIL is not recommended. Chloride [Moles/Vol] 104 mmol/L 98-107 [facility] Cholesterol [Mass/Vol] 199 mg/dL <200 [facility] Comment on above: <200 mg/dL Desirable 200-240 mg/dL Borderline >240 mg/dL High Risk Glucose [Mass/Vol] 97 mg/dL 74-106 [facility] Potassium [Moles/Vol] 4.0 mmol/L 3.5-5.1 [facility] Protein [Mass/Vol] 7.2 g/dL 6.4-8.2 [facility] Sodium [Moles/Vol] 136 mmol/L 136-145 [facility] Triglyceride [Mass/Vol] 145 mg/dL <199 [facility] Comment on above: The drugs N-Acetylcy steine and Metamizole may falsely depress this assay.Serum Triglycerides Reference Interval Normal <150 mg/dL Borderline high 150 - 199 mg/dL High 200 - 499 mg/dL Very High > or = 500 mg/dL Laboratory - Chemistry and C hemistry - challengeOrdered By: Luis Diaz on 03-10-2023 ALP [Catalytic activity/Vol] 51 U/L 45-117 [facility] ALT [Catalytic activity/Vol] 29 U/L 16-61 [facility] CO2 [Moles/Vol] 27.0 mmol/L 21.0-32.0 [facility] Globulin (S) [Mass/Vol] 3.5 g/dL 2.2-4.2 [facility] Urea nitrogen/Creatinine [Mass ratio] 15.1 mg/mg 10-20 [facility] No Panel InformationOrdered By: Luis Diaz on 03-10-2023 Estimated GFR (MDRD) Amer 78 mL/min >60 [facility] Comment on above: GFR Calc Estimated GFR (MDRD) Non-Af Amer 65 mL/min >60 [facility] Comment on above: Non- GFR Calc Prostate Specific Antigen Screen 1.19 ng/mL 0.00-4.00 [facility] Comment on above: This test was perfor med using the TPSA assay method for theDN2K chemistry system. Values obtained with differentassay methods cannot be used interchangably.When changing PSA assays in the course of monitoring apatient, additional sequential testing should be carriedout to confirm baseline values. Serum or plasma albumin phyllis urement (mass/volume)Ordered By: Luis Diaz on 03-10-2023 Albumin [Mass/Vol] 3.7 g/dL 3.2-5.0 [facility] Serum or plasma albumin/glob ulin mass ratioOrdered By: Luis Diaz on 03-10-2023 Albumin/Globulin [Mass ratio] 1.1 {ratio} 0.9-2.4 [facility] Serum or plasma calcium phyllis urement (mass/volume)Ordered By: Luis Diaz on 03-10-2023 Calcium [Mass/Vol] 9.1 mg/dL 8.5-10.1 [facility] Serum or plasma cholesterol in HDL measurement (mass/volume)Ordered By: Luis Diaz on 03-10-2023 Cholesterol in HDL [Mass/Vol] 45 mg/dL >40 [facility] Comment on above: The drugs N-Acetylcy steine and Metamizole may falsely depress this assay. Reference Range HDL <40 mg/dL Low HDL Cholesterol HDL >or= 60 mg/dL High HDL Cholesterol Serum or plasma cholesterol in VLDL measurement (mass/volume)Ordered By: Luis Diaz on 03-10-2023 Cholesterol in VLDL [Mass/Vol] 29 mg/dL 5-40 [facility] Serum or plasma creatinine m easurement (mass/volume)Ordered By: Luis Diaz on 03-10-2023 Creatinine [Mass/Vol] 1.19 mg/dL 0.70-1.30 [facility] Comment on above: The validity of the calculated GFR & GFRAA in patients over 70 years has not been determined. Clinical correlation is essential. Serum or plasma low density lipoprotein (LDL) cholesterol measurement (mass/volume)Ordered By: Luis Diaz on 03-10-2023 Cholesterol in LDL [Mass/Vol] 125 mg/dL 0-130 [facility] Serum or plasma urea nitroge n measurement (mass/volume)Ordered By: Luis Diaz on 03-10-2023 Urea nitrogen [Mass/Vol] 18 mg/dL 7-18 [facility] Thin prep Papanicolaou smear with manual screeningOrdered By: Luis Diaz on 03-10-2023 Thin prep Papanicolaou smear with manual screening 18 U/L 15-37 [facility] Thin prep Papanicolaou smear with manual screening 5 5-15 [facility] Basophil percentageOrdered B y: Dr. Diaz on 08-20-2022 Cholesterol [Mass/Vol] 256 mg/dL <200 [facility] Comment on above: <200 mg/dL Desirable 200-240 mg/dL Borderline >240 mg/dL High Risk Triglyceride [Mass/Vol] 139 mg/dL <199 [facility] Comment on above: The drugs N-Acetylcy steine and Metamizole may falsely depress this assay.Serum Triglycerides Reference Interval Normal <150 mg/dL Borderline high 150 - 199 mg/dL High 200 - 499 mg/dL Very High > or = 500 mg/dL Serum or plasma cholesterol in HDL measurement (mass/volume)Ordered By: Dr. Diaz on 08-20-2022 Cholesterol in HDL [Mass/Vol] 50 mg/dL >40 [facility] Comment on above: The drugs N-Acetylcy steine and Metamizole may falsely depress this assay. Reference Range HDL <40 mg/dL Low HDL Cholesterol HDL >or= 60 mg/dL High HDL Cholesterol Serum or plasma cholesterol in VLDL measurement (mass/volume)Ordered By: Dr. Diaz on 08-20-2022 Cholesterol in VLDL [Mass/Vol] 28 mg/dL 5-40 [facility] Serum or plasma low density lipoprotein (LDL) cholesterol measurement (mass/volume)Ordered By: Dr. Diaz on 08-20-2022 Cholesterol in LDL [Mass/Vol] 178 mg/dL 0-130 [facility] Influenza virus A and B and SARS-CoV-2 (COVID-19) Ag panel - Upper respiratory specimOrdered By: Dr. Mcdermott on 07-26-2022 SARS-CoV-2 (COVID-19) RNA MAXIME+probe Ql (Resp) [facility] Basophil percentageOrdered B y: Dr. Ames on 07-05-2022 Bilirubin [Mass/Vol] 0.30 mg/dL 0.20-1.00 [facility] Comment on above: For patients on eltr ombopag therapy, use of Dimension [place] TBIL is not recommended. Chloride [Moles/Vol] 104 mmol/L 98-107 [facility] Glucose [Mass/Vol] 101 mg/dL 74-106 [facility] Comment on above: Fasting Glucose resu lt from 100 to 125 mg/dL suggests IMPAIRED HOMEOSTASIS per A.D.A. criteria. Potassium [Moles/Vol] 4.6 mmol/L 3.5-5.1 [facility] Protein [Mass/Vol] 7.1 g/dL 6.4-8.2 [facility] Sodium [Moles/Vol] 140 mmol/L 136-145 [facility] Laboratory - Chemistry and C hemistry - challengeOrdered By: Dr. Ames on 07-05-2022 ALP [Catalytic activity/Vol] 53 U/L 45-117 [facility] ALT [Catalytic activity/Vol] 23 U/L 16-61 [facility] CO2 [Moles/Vol] 30.0 mmol/L 21.0-32.0 [facility] Globulin (S) [Mass/Vol] 3.5 g/dL 2.2-4.2 [facility] Urea nitrogen/Creatinine [Mass ratio] 13.5 mg/mg 10-20 [facility] No Panel InformationOrdered By: Dr. Ames on 07-05-2022 Estimated GFR (MDRD) Amer 85 mL/min >60 [facility] Comment on above: GFR Calc Estimated GFR (MDRD) Non-Af Amer 70 mL/min >60 [facility] Comment on above: Non- GFR Calc Serum or plasma albumin phyllis urement (mass/volume)Ordered By: Dr. Ames on 07-05-2022 Albumin [Mass/Vol] 3.6 g/dL 3.2-5.0 [facility] Serum or plasma albumin/glob ulin mass ratioOrdered By: Dr. Ames on 07-05-2022 Albumin/Globulin [Mass ratio] 1.0 {ratio} 0.9-2.4 [facility] Serum or plasma calcium phyllis urement (mass/volume)Ordered By: Dr. Ames on 07-05-2022 Calcium [Mass/Vol] 9.2 mg/dL 8.5-10.1 [facility] Serum or plasma creatinine m easurement (mass/volume)Ordered By: Dr. Ames on 07-05-2022 Creatinine [Mass/Vol] 1.11 mg/dL 0.70-1.30 [facility] Comment on above: The validity of the calculated GFR & GFRAA in patients over 70 years has not been determined. Clinical correlation is essential. Serum or plasma prolactin me asurement (mass/volume)Ordered By: Dr. Ames on 07-05-2022 Prolactin [Mass/Vol] 16.6 ng/mL [facility] Comment on above: NORMAL REFERENCE RAN GES FEMALE NON- 2.2 - 30.3 ng/mL 8.1 - 347.6 ng/mL POST-MENOPAUSAL 0.7 - 31.5 ng/mL MALE 2.5 - 17.4 ng/mL Serum or plasma urea nitroge n measurement (mass/volume)Ordered By: Dr. Ames on 07-05-2022 Urea nitrogen [Mass/Vol] 15 mg/dL 7-18 [facility] Thin prep Papanicolaou smear with manual screeningOrdered By: Dr. Ames on 07-05-2022 Thin prep Papanicolaou smear with manual screening 18 U/L 15-37 [facility] Thin prep Papanicolaou smear with manual screening 6 5-15 [facility] Whole blood hemoglobin A1c/t otal hemoglobin ratio (mass fraction)Ordered By: Dr. Ames on 07-05-2022 HbA1c (Bld) [Mass fraction] 5.8 % 3.8-5.6 [facility] Comment on above: Normal < 5.7 % Predi abetic 5.7 - 6.4 % Diabetic >or= 6.5 % Please note range changes. No Panel InformationOrdered By: Dr. Diaz on 04-15-2022 D-Dimer Quantitative (PE/DVT) 0.33 FEU/ug/m 0.27-0.49 [facility] Comment on above: NORMAL D-Dimer level (<0.50) indicates no DVT or PE. Absolute lymphocyte countOrd ered By: Dr. Rock on 04-13-2022 Lymphocytes Auto (Unsp spec) [#/Vol] 1.76 10*3/uL 0.83-4.51 [facility] Basophil percentageOrdered B y: Dr. Rock on 04-13-2022 Basophils/100 WBC (Bld) 0.6 % 0-1 [facility] Chloride [Moles/Vol] 104 mmol/L 98-107 [facility] Eosinophils/100 WBC (Bld) 3.0 % 0-5 [facility] Glucose [Mass/Vol] 68 mg/dL 74-106 [facility] Neutrophils (Bld) [#/Vol] 2.6 10*3/uL 2.0-7.7 [facility] Neutrophils/100 WBC (Bld) 51.2 % 47-70 [facility] Potassium [Moles/Vol] 4.0 mmol/L 3.5-5.1 [facility] Sodium [Moles/Vol] 138 mmol/L 136-145 [facility] WBC (Bld) [#/Vol] 5.1 10*3/uL 4.4-11.0 [facility] Blood erythrocytes count (nu mber/volume)Ordered By: Dr. Rock on 04-13-2022 RBC (Bld) [#/Vol] 4.80 10*6/uL 4.6-6.2 [facility] Blood hemoglobin measurement (mass/volume)Ordered By: Dr. Rock on 04-13-2022 Hemoglobin (Bld) [Mass/Vol] 14.5 g/dL 13.0-16.5 [facility] Blood lymphocytes/100 leukoc ytesOrdered By: Dr. Rock on 04-13-2022 Lymphocytes/100 WBC (Bld) 34.9 % 19-41 [facility] Blood monocytes/100 leukocyt esOrdered By: Dr. Rock on 04-13-2022 Monocytes/100 WBC (Bld) 10.1 % 0-10 [facility] Blood platelet mean volumeOr dered By: Dr. Rock on 04-13-2022 Platelet mean volume (Bld) [Entitic vol] 9.4 fL 6.2-12.0 [facility] Determination of erythrocyte mean corpuscular volume (MCV)Ordered By: Dr. Rock on 04-13-2022 MCV (RBC) [Entitic vol] 87.9 fL 80-94 [facility] Hematocrit Auto (Bld) [Volum e fraction]Ordered By: Dr. Rock on 04-13-2022 Hematocrit (Bld) [Volume fraction] 42.2 % 40-54 [facility] Laboratory - Chemistry and C hemistry - challengeOrdered By: Dr. Rock on 04-13-2022 CO2 [Moles/Vol] 29.0 mmol/L 21.0-32.0 [facility] Urea nitrogen/Creatinine [Mass ratio] 14.9 mg/mg 10-20 [facility] Laboratory - Hematology and Cell countsOrdered By: Dr. Rock on 04-13-2022 Erythrocyte distribution width (RBC) [Entitic vol] 39.1 fL 35.1-43.9 [facility] Erythrocyte distribution width (RBC) [Ratio] 12.1 % 11.6-14.6 [facility] Immature granulocytes/100 WBC (Bld) 0.200 % 0.0-0.9 [facility] Comment on above: IG% - Immature Granu locytes (promyelocytes, myelocytes and metamyelocytes) > 1% indicates that a LEFT SHIFT is Present. MCH (RBC) [Entitic mass] 30.2 pg 27.0-32.0 [facility] Nucleated RBC/100 WBC (Bld) [Ratio] 0 % 0-5 [facility] Auto (RBC) [Mass/Vol]Or dered By: Dr. Rock on 04-13-2022 MCHC (RBC) [Mass/Vol] 34.4 g/dL 32-36 [facility] No Panel InformationOrdered By: Dr. Rock on 04-13-2022 Estimated Creatinine Clearance Calc 71.94 ml/min [facility] Estimated GFR (MDRD) Amer 95 mL/min >60 [facility] Comment on above: GFR Calc Estimated GFR (MDRD) Non-Af Amer 78 mL/min >60 [facility] Comment on above: Non- GFR Calc Troponin I High Sensitivity 24 pg/mL 3.0-78.0 [facility] Comment on above: Please Note: New Nghia t Units and Gender Specific Reference Ranges. For more information see Policy Stat Procedure [place] High Sensitivity Troponin (TNIH) and attachments. Platelets bldOrdered By: Dr. Rock on 04-13-2022 Platelets (Bld) [#/Vol] 208 10*3/uL 150-450 [facility] Serum or plasma calcium phyllis urement (mass/volume)Ordered By: Dr. Rock on 04-13-2022 Calcium [Mass/Vol] 9.4 mg/dL 8.5-10.1 [facility] Serum or plasma creatinine m easurement (mass/volume)Ordered By: Dr. Rock on 04-13-2022 Creatinine [Mass/Vol] 1.01 mg/dL 0.70-1.30 [facility] Comment on above: The validity of the calculated GFR & GFRAA in patients over 70 years has not been determined. Clinical correlation is essential. Serum or plasma urea nitroge n measurement (mass/volume)Ordered By: Dr. Rock on 04-13-2022 Urea nitrogen [Mass/Vol] 15 mg/dL 7-18 [facility] Thin prep Papanicolaou smear with manual screeningOrdered By: Dr. Rock on 04-13-2022 Thin prep Papanicolaou smear with manual screening 5 5-15 [facility] Absolute lymphocyte countOrd ered By: Dr. Mccauley on 03-17-2022 Lymphocytes Auto (Unsp spec) [#/Vol] 2.17 10*3/uL 0.83-4.51 [facility] Basophil percentageOrdered B y: Dr. Mccauley on 03-17-2022 Basophils/100 WBC (Bld) 0.5 % 0-1 [facility] Bilirubin [Mass/Vol] 0.40 mg/dL 0.20-1.00 [facility] Comment on above: For patients on eltr ombopag therapy, use of Dimension [place] TBIL is not recommended. Chloride [Moles/Vol] 105 mmol/L 98-107 [facility] Eosinophils/100 WBC (Bld) 2.1 % 0-5 [facility] Glucose [Mass/Vol] 95 mg/dL 74-106 [facility] Neutrophils (Bld) [#/Vol] 2.7 10*3/uL 2.0-7.7 [facility] Neutrophils/100 WBC (Bld) 47.9 % 47-70 [facility] Potassium [Moles/Vol] 4.0 mmol/L 3.5-5.1 [facility] Protein [Mass/Vol] 7.1 g/dL 6.4-8.2 [facility] Sodium [Moles/Vol] 139 mmol/L 136-145 [facility] WBC (Bld) [#/Vol] 5.7 10*3/uL 4.4-11.0 [facility] Basophil percentage 0 SEEN /hpf 0-5 [facility] Bilirubin Test strip Ql (U)O rdered By: Dr. Mccauley on 03-17-2022 Bilirubin Ql (U) Negative Negative [facility] Blood erythrocytes count (nu mber/volume)Ordered By: Dr. Mccauley on 03-17-2022 RBC (Bld) [#/Vol] 4.50 10*6/uL 4.6-6.2 [facility] Blood hemoglobin measurement (mass/volume)Ordered By: Dr. Mccauley on 03-17-2022 Hemoglobin (Bld) [Mass/Vol] 13.4 g/dL 13.0-16.5 [facility] Blood lymphocytes/100 leukoc ytesOrdered By: Dr. Mccauley on 03-17-2022 Lymphocytes/100 WBC (Bld) 38.1 % 19-41 [facility] Blood monocytes/100 leukocyt esOrdered By: Dr. Mccauley on 03-17-2022 Monocytes/100 WBC (Bld) 11.2 % 0-10 [facility] Blood platelet mean volumeOr dered By: Dr. Mccauley on 03-17-2022 Platelet mean volume (Bld) [Entitic vol] 9.5 fL 6.2-12.0 [facility] Determination of erythrocyte mean corpuscular volume (MCV)Ordered By: Dr. Mccauley on 03-17-2022 MCV (RBC) [Entitic vol] 90.4 fL 80-94 [facility] Hematocrit Auto (Bld) [Volum e fraction]Ordered By: Dr. Mccauley on 03-17-2022 Hematocrit (Bld) [Volume fraction] 40.7 % 40-54 [facility] Ketones Test strip Ql (U)Ord ered By: Dr. Mccauley on 03-17-2022 Ketones Ql (U) Negative Negative [facility] Laboratory - Chemistry and C hemistry - challengeOrdered By: Dr. Mccauley on 03-17-2022 ALP [Catalytic activity/Vol] 61 U/L 45-117 [facility] ALT [Catalytic activity/Vol] 24 U/L 16-61 [facility] CO2 [Moles/Vol] 30.0 mmol/L 21.0-32.0 [facility] Globulin (S) [Mass/Vol] 3.4 g/dL 2.2-4.2 [facility] Urea nitrogen/Creatinine [Mass ratio] 17.0 mg/mg 10-20 [facility] Laboratory - Hematology and Cell countsOrdered By: Dr. Mccauley on 03-17-2022 Erythrocyte distribution width (RBC) [Entitic vol] 41.5 fL 35.1-43.9 [facility] Erythrocyte distribution width (RBC) [Ratio] 12.6 % 11.6-14.6 [facility] Immature granulocytes/100 WBC (Bld) 0.200 % 0.0-0.9 [facility] Comment on above: IG% - Immature Granu locytes (promyelocytes, myelocytes and metamyelocytes) > 1% indicates that a LEFT SHIFT is Present. MCH (RBC) [Entitic mass] 29.8 pg 27.0-32.0 [facility] Nucleated RBC/100 WBC (Bld) [Ratio] 0 % 0-5 [facility] MCHC Auto (RBC) [Mass/Vol]Or dered By: Dr. Mccauley on 03-17-2022 MCHC (RBC) [Mass/Vol] 32.9 g/dL 32-36 [facility] Mucus LM Ql (Urine sed)Order ed By: Dr. Mccaulye on 03-17-2022 Mucus Ql (Urine sed) 0 SEEN /hpf [facility] Nitrite Test strip Ql (U)Ord ered By: Dr. Mccauley on 03-17-2022 Nitrite Ql (U) Negative Negative [facility] No Panel InformationOrdered By: Dr. Mccauley on 03-17-2022 Estimated Creatinine Clearance Calc 64.88 ml/min [facility] Estimated GFR (MDRD) Amer 84 mL/min >60 [facility] Comment on above: GFR Calc Estimated GFR (MDRD) Non-Af Amer 70 mL/min >60 [facility] Comment on above: Non- GFR Calc Platelets bldOrdered By: Dr. Mccauley on 03-17-2022 Platelets (Bld) [#/Vol] 204 10*3/uL 150-450 [facility] Protein Test strip Ql (U)Ord ered By: Dr. Mccauley on 03-17-2022 Protein Ql (U) Negative Negative [facility] Serum or plasma albumin phyllis urement (mass/volume)Ordered By: Dr. Mccauley on 03-17-2022 Albumin [Mass/Vol] 3.7 g/dL 3.2-5.0 [facility] Serum or plasma albumin/glob ulin mass ratioOrdered By: Dr. Mccauley on 03-17-2022 Albumin/Globulin [Mass ratio] 1.1 {ratio} 0.9-2.4 [facility] Serum or plasma calcium phyllis urement (mass/volume)Ordered By: Dr. Mccauley on 03-17-2022 Calcium [Mass/Vol] 9.5 mg/dL 8.5-10.1 [facility] Serum or plasma creatinine m easurement (mass/volume)Ordered By: Dr. Mccauley on 03-17-2022 Creatinine [Mass/Vol] 1.12 mg/dL 0.70-1.30 [facility] Comment on above: The validity of the calculated GFR & GFRAA in patients over 70 years has not been determined. Clinical correlation is essential. Serum or plasma urea nitroge n measurement (mass/volume)Ordered By: Dr. Mccauley on 03-17-2022 Urea nitrogen [Mass/Vol] 19 mg/dL 7-18 [facility] Squamous epithelial cells de tection in urine sediment by light microscopyOrdered By: Dr. Mccauley on 03-17-2022 Epithelial cells.squamous LM Ql (Urine sed) 0 SEEN /hpf 0-5 [facility] Thin prep Papanicolaou smear with manual screeningOrdered By: Dr. Mccauley on 03-17-2022 Thin prep Papanicolaou smear with manual screening 17 U/L 15-37 [facility] Thin prep Papanicolaou smear with manual screening 4 5-15 [facility] Urine blood detectionOrdered By: Dr. Mccauley on 03-17-2022 RBC Ql (U) Negative Negative [facility] RBC Ql (U) 0 SEEN /hpf 0-5 [facility] Urine clarityOrdered By: Dr. Mccauley on 03-17-2022 Clarity (U) Clear Clear [facility] Urine color determinationOrd ered By: Dr. Mccauley on 03-17-2022 Color (U) Yellow Yellow [facility] Urine glucose detectionOrder ed By: Dr. Mccauley on 03-17-2022 Glucose Ql (U) Normal mg/dl Normal [facility] Urine leukocyte esterase det ection by dipstickOrdered By: Dr. Mccauley on 03-17-2022 Leukocyte esterase Test strip Ql (U) Negative Negative [facility] Urine pHOrdered By: Dr. Donato valerio on 03-17-2022 pH (U) 6.0 [pH] 5.0 - 8.0 [facility] Urine sediment bacteria coun t by microscopy (number/high power field)Ordered By: Dr. Mccauley on 03-17-2022 Bacteria LM.HPF (Urine sed) [#/Area] 0 /[HPF] None Seen [facility] Urine specific gravity measu rementOrdered By: Dr. Mccauley on 03-17-2022 Specific gravity (U) [Rel density] 1.015 1.002-1.030 [facility] Urobilinogen Auto test strip Ql (U)Ordered By: Dr. Mccauley on 03-17-2022 Urobilinogen Ql (U) Normal mg/dl Normal [facility] Basophil percentageon 2021 Chloride [Moles/Vol] 103 mmol/L 98-107 [facility] Work Phone: Cholesterol [Mass/Vol] 188 mg/dL <200 [facility] Work Phone: Comment on above: <200 mg/dL Desirable 200-240 mg/dL Borderline >240 mg/dL High Risk Glucose [Mass/Vol] 77 mg/dL 74-106 [facility] Work Phone: Potassium [Moles/Vol] 4.2 mmol/L 3.5-5.1 [facility] Work Phone: Sodium [Moles/Vol] 138 mmol/L 136-145 [facility] Work Phone: Triglyceride [Mass/Vol] 197 mg/dL <199 [facility] Work Phone: Comment on above: The drugs N-Acetylcy steine and Metamizole may falsely depress this assay.Serum Triglycerides Reference Interval Normal <150 mg/dL Borderline high 150 - 199 mg/dL High 200 - 499 mg/dL Very High > or = 500 mg/dL Laboratory - Chemistry and C hemistry - challengeon 02-17-2022 CO2 [Moles/Vol] 29.0 mmol/L 21.0-32.0 [facility] Work Phone: Urea nitrogen/Creatinine [Mass ratio] 15.4 mg/mg 10-20 [facility] Work Phone: No Panel Informationon 02-17 Estimated GFR (MDRD) Amer 80 mL/min >60 [facility] Work Phone: Comment on above: GFR Calc Estimated GFR (MDRD) Non-Af Amer 66 mL/min >60 [facility] Work Phone: Comment on above: Non- GFR Calc Serum or plasma calcium phyllis urement (mass/volume)on 02-17-2022 Calcium [Mass/Vol] 9.1 mg/dL 8.5-10.1 [facility] Work Phone: Serum or plasma cholesterol in HDL measurement (mass/volume)on 02-17-2022 Cholesterol in HDL [Mass/Vol] 49 mg/dL >40 [facility] Work Phone: Comment on above: The drugs N-Acetylcy steine and Metamizole may falsely depress this assay. Reference Range HDL <40 mg/dL Low HDL Cholesterol HDL >or= 60 mg/dL High HDL Cholesterol Serum or plasma cholesterol in VLDL measurement (mass/volume)on 02-17-2022 Cholesterol in VLDL [Mass/Vol] 39 mg/dL 5-40 [facility] Work Phone: Serum or plasma creatinine m easurement (mass/volume)on 02-17-2022 Creatinine [Mass/Vol] 1.17 mg/dL 0.70-1.30 [facility] Work Phone: Comment on above: The validity of the calculated GFR & GFRAA in patients over 70 years has not been determined. Clinical correlation is essential. Serum or plasma low density lipoprotein (LDL) cholesterol measurement (mass/volume)on 02-17-2022 Cholesterol in LDL [Mass/Vol] 100 mg/dL 0-130 [facility] Work Phone: Serum or plasma urea nitroge n measurement (mass/volume)on 02-17-2022 Urea nitrogen [Mass/Vol] 18 mg/dL 7-18 [facility] Work Phone: Thin prep Papanicolaou smear with manual screeningon 02-17-2022 Thin prep Papanicolaou smear with manual screening 6 5-15 [facility] Work Phone: CR Spine Lumbosacral Complet e w/ Bending min 6 vwson 01-06-2021 CR Spine Lumbosacral Complete w/ Bending min 6 vws [facility]: [id number] ACCESSION EXAM DATE/TIME PROCEDURE ORDERING PROVIDER [id number] 01/06/2021 15:20 EDT CR Spine Lumbosacral KATHY FRAZIER Complete w/ Bending CPT code 02500 Reason For Exam (CR Spine Lumbosacral Complete w/ Bending) bilateral low back pain with sciatia Report LUMBAR SPINE, FIVE VIEWS, WITH ADDITIONAL FLEXION-EXTENSION VIEWS: CLINICAL INFORMATION: Low back pain COMPARISON: None Frontal, bilateral obliques, flexion-extension and neutral lateral and coned down lumbosacral spot views of the lumbar spine were obtained. There are 5 typical lumbar vertebrae. The bone mineral density is normal. The vertebral body heights are within normal limits. The disk spaces are well preserved. No spondylolisthesis or spondylolysis is noted. No instability is noted with flexion or extension. The facet joints are within normal limits. No fracture is noted. IMPRESSION: Negative examination of the lumbar spine. Report Dictated on Final Dictating Physician: DO DE ALFRED Signed Date and Time: 01/07/2021 11:13 am Signed by: DO DE ALFRED Transcribed Date and Time: 01/07/2021 11:14 [facility] 10-24-2020 [facility] Office Visit (UCWSTR) ---- ALIZA VACA ([id number]) 1955 M Date Time Provider Department 10/24/20 11:15 AM SUSHIL CHAKRABORTY During your visit today, we recorded the following information about you: Temperature Pulse Respiration Blood pressure 97.3 degrees 90/minute 16/minute 108/68 Weight 101.2 kg Sushil Chakraborty MD 10/24/2020 2:38 PM Signed Patient presents with: Dizziness: fatigue, tingling in toes and frequent urination x 1 week HPI: Feeling dizzy for about a week, not able to remember exactly. Feels like he might pass out. No vertigo. Had a couple episodes of near syncope the last few days. [facility] was not right. He is [...] E,DL-ALPHA TOCOPHEROL, (VITAMIN E, BULK, MISC) Miscell. (Med.Supl.;Non-Drug s) ALLERGIES: ALLERGIES No Known Allergies VITALS: BP [...] ER for further evaluation. Report sent to [facility] by ER passport. Patient will [...] unlikely cause of frequency. Sushil Chakraborty MD Referring Provider: SELF [200] Allergies As of Date: 10/24/2020 (No Known Allergies) Date Reviewed: 10/24/2020 Reviewed by: Pavithra Gautam Ma - Fully Assessed Reason for Visit: Dizziness [36] Cmt: fatigue, tingling in toes and frequent urination x 1 week Primary Visit Diagnosis:Near syncope [R55] Other Visit Diagnoses:Dizziness [R42] Numbness of toes [R20.0] Vision changes [H53.9] Impacted cerumen of right ear [H61.21] Urinary frequency [R35.0] Proteinuria, unspecified type [R80.9] Order(s):UA DIP, URINE (POC) [8890216] Order #: [id number] #:[id number] Prescriptions as of 10/24/2020 Sig: CHOLECALCIFEROL (VITAMIN D3) * VITAMIN E 400 UNIT CAPSULE DOC-Q-LACE ORAL Take by mouth. BENZTROPINE ORAL Take by mouth. PALIPERIDONE PALMITATE 156 MG* Inject 156 mg intramuscularly* LORATADINE 10 MG TABLET Take 10 mg by mouth once jeferson* PROPRANOLOL 10 MG TABLET Take 10 mg by mouth three yanick* ATORVASTATIN 10 MG TABLET Take 10 mg by mouth once jeferson* ALBUTEROL SULFATE HFA 90 (more content not included)... Normal [facility] Vital Signs Date Time Vital Sign Value Performing Clinician Faci lity 12-31-2024 15:34-0400 Body temperature 98.4 [degF] Dr. Luis Diaz MD Work Phone: [facility] 12-31-2024 15:34-0400 Diastolic blood pressure 86 mm[Hg] Dr. Luis Diaz MD Work Phone: [facility] 12-31-2024 15:34-0400 Heart rate 69 /min Dr. Luis Diaz MD Work Phone: [facility] 12-31-2024 15:34-0400 Respiratory rate 16 /min Dr. Luis Diaz MD Work Phone: [facility] 12-31-2024 15:34-0400 SaO2% (BldA) [Mass fraction] 100 % Dr. Luis Diaz MD Work Phone: [facility] 12-31-2024 15:34-0400 Systolic blood pressure 147 mm[Hg] Dr. Luis Diaz MD Work Phone: [facility] 12-31-2024 11:18-0400 Body height 175.[address] Luis Diaz MD Work Phone: [facility] 12-31-2024 11:18-0400 Body mass index (BMI) [Ratio] 32.2 kg/m2 Dr. Luis Diaz MD Work Phone: [facility] 12-31-2024 11:18-0400 Body weight [address] Luis Diaz MD Work Phone: [facility] 09-03-2023 12:11-0400 Body temperature 97.4 [degF] Dr. Luis Diaz Work Phone: [facility] 09-03-2023 12:11-0400 Diastolic blood pressure 63 mm[Hg] Dr. Luis Diaz Work Phone: [phone] [place] [address] 09-03-2023 12:11-0400 Heart rate 71 /min Dr. Luis Diaz Work Phone: [facility] 09-03-2023 12:11-0400 Respiratory rate 15 /min Dr. Luis Diaz Work Phone: [phone] [place] [address] 09-03-2023 12:11-0400 SaO2% (BldA) [Mass fraction] 96 % Dr. Luis Diaz Work Phone: [facility] 09-03-2023 12:11-0400 Systolic blood pressure 137 mm[Hg] Dr. Luis Diaz Work Phone: [facility] 09-03-2023 09:30-0400 Body height 175.[address] Luis Diaz Work Phone: [facility] 09-03-2023 09:30-0400 Body mass index (BMI) [Ratio] 31.6 kg/m2 Dr. Luis Diaz Work Phone: [facility] 09-03-2023 09:30-0400 Body weight 97.[address] Luis Diaz Work Phone: [facility] 05-27-2023 19:53-0500 Diastolic blood pressure 102 mm[Hg] Dr. Luis Diaz Work Phone: [facility] 05-27-2023 19:53-0500 Heart rate 94 /min Dr. Luis Diaz Work Phone: [facility] 05-27-2023 19:53-0500 Respiratory rate 18 /min Dr. Luis Diaz Work Phone: [facility] 05-27-2023 19:53-0500 SaO2% (BldA) [Mass fraction] 94 % Dr. Luis Diaz Work Phone: [facility] 05-27-2023 19:53-0500 Systolic blood pressure 133 mm[Hg] Dr. Luis Diaz Work Phone: [facility] 05-27-2023 18:08-0500 Body height 175.[address] Luis Diaz Work Phone: [facility] 05-27-2023 18:08-0500 Body mass index (BMI) [Ratio] 31 kg/m2 Dr. Luis Diaz Work Phone: [facility] 05-27-2023 18:08-0500 Body temperature 97.1 [degF] Dr. Luis Diaz Work Phone: [facility] 05-27-2023 18:08-0500 Body weight 95.[address] Luis Diaz Work Phone: [facility] 05-04-2023 22:57-0500 Diastolic blood pressure 70 mm[Hg] [facility] 05-04-2023 22:57-0500 Systolic blood pressure 101 mm[Hg] [facility] 05-04-2023 21:45-0500 Heart rate 71 /min [facility] 05-04-2023 21:45-0500 Respiratory rate 13 /min [facility] 05-04-2023 21:45-0500 SaO2% (BldA) [Mass fraction] 95 % [facility] 05-04-2023 20:03-0500 Body height 175.26 cm [facility] 05-04-2023 20:03-0500 Body mass index (BMI) [Ratio] 31.7 kg/m2 [facility] 05-04-2023 20:03-0500 Body temperature 98.4 [degF] [facility] 05-04-2023 20:03-0500 Body weight 97.4 kg [facility] 09-04-2022 01:29-0400 Heart rate 79 /min [facility] 09-04-2022 01:29-0400 Respiratory rate 18 /min [facility] 09-04-2022 01:29-0400 SaO2% (BldA) [Mass fraction] 96 % [facility] 09-03-2022 21:24-0400 Body height 175.26 cm [facility] 09-03-2022 21:24-0400 Body mass index (BMI) [Ratio] 32.5 kg/m2 [facility] 09-03-2022 21:24-0400 Body temperature 98 [degF] [facility] 09-03-2022 21:24-0400 Body weight 99.79 kg [facility] 09-03-2022 21:24-0400 Diastolic blood pressure 85 mm[Hg] [facility] 09-03-2022 21:24-0400 Systolic blood pressure 147 mm[Hg] [facility] 07-26-2022 09:44-0500 Body height 175.26 cm [facility] 07-26-2022 09:44-0500 Body mass index (BMI) [Ratio] 28.8 kg/m2 [facility] 07-26-2022 09:44-0500 Body temperature 96.5 [degF] [facility] 07-26-2022 09:44-0500 Body weight 88.45 kg [facility] 07-26-2022 09:44-0500 Diastolic blood pressure 96 mm[Hg] [facility] 07-26-2022 09:44-0500 Heart rate 78 /min [facility] 07-26-2022 09:44-0500 Respiratory rate 18 /min [facility] 07-26-2022 09:44-0500 SaO2% (BldA) [Mass fraction] 98 % [facility] 07-26-2022 09:44-0500 Systolic blood pressure 138 mm[Hg] [facility] 04-13-2022 16:59-0500 Heart rate 60 /min [facility] 04-13-2022 15:47-0500 Diastolic blood pressure 86 mm[Hg] [facility] 04-13-2022 15:47-0500 Respiratory rate 21 /min [facility] 04-13-2022 15:47-0500 SaO2% (BldA) [Mass fraction] 97 % [facility] 04-13-2022 15:47-0500 Systolic blood pressure 130 mm[Hg] [facility] 04-13-2022 15:43-0500 Inhaled oxygen flow rate 97 L/min [facility] 04-13-2022 14:42-0500 Body height 175.26 cm [facility] 04-13-2022 14:42-0500 Body mass index (BMI) [Ratio] 30.7 kg/m2 [facility] 04-13-2022 14:42-0500 Body temperature 97.6 [degF] [facility] 04-13-2022 14:42-0500 Body weight 94.4 kg [facility] 03-17-2022 19:22-0400 Diastolic blood pressure 80 mm[Hg] [facility] 03-17-2022 19:22-0400 Heart rate 58 /min [facility] 03-17-2022 19:22-0400 Respiratory rate 16 /min [facility] 03-17-2022 19:22-0400 SaO2% (BldA) [Mass fraction] 98 % [facility] 03-17-2022 19:22-0400 Systolic blood pressure 128 mm[Hg] [facility] 03-17-2022 16:13-0400 Body height 175.26 cm [facility] Work Phone: 03-17-2022 16:13-0400 Body mass index (BMI) [Ratio] 29 kg/m2 [facility] 03-17-2022 16:13-0400 Body temperature 97.1 [degF] [facility] 03-17-2022 16:13-0400 Body weight 89.35 kg [facility] Encounters Encounter Date Encounter Type Care Provider Facility Start: 12-31-2024 End: 12-31-2024 Emergency department patient visit Dr. Luis Diaz MD Work Phone: -Emergency Department Work Phone: Start: 08-03-2024 End: 08-03-2024 Emergency department patient visit Luis Diaz Facility:[facility] Start: 12-20-2023 End: 12-20-2023 ambulatory Melinda Ames Facility:[facility] Start: 09-03-2023 End: 09-03-2023 Emergency department patient visit Dr. Luis Diaz Work Phone: [facility]Emergency Department Work Phone: Start: 07-22-2023 End: 07-22-[address] Luis Diaz Work Phone: [facility] Work Phone: Start: 07-22-2023 End: 07-22-[address] Luis Diaz Work Phone: [facility] Work Phone: Start: 06-22-2023 End: 06-22-[address] Luis Diaz Work Phone: [facility] Work Phone: Start: 06-22-2023 End: 06-22-[address] [facility] Start: 06-13-2023 Non-patient / Non-visit Dr. Jesu Diaz Work Phone: [facility] Start: 06-13-2023 End: 06-13-[address] Luis Diaz Work Phone: [facility] Work Phone: Start: 06-13-2023 End: 06-13-[address] Luis Diaz Work Phone: [facility] Work Phone: Start: 05-27-2023 End: 05-27-2023 [facility] Start: 05-04-2023 End: 05-04-2023 [facility] Start: 03-10-2023 End: 03-10-2023 Patient encounter procedure [facility] Start: 09-03-2022 End: 09-04-2022 [facility] Start: 08-20-2022 End: 08-20-2022 Patient encounter procedure [facility] Start: 07-26-2022 End: 07-26-2022 [facility] Start: 07-05-2022 End: 07-05-2022 ambulatory [facility] Work Phone: Start: 07-05-2022 End: 07-05-2022 Patient encounter procedure [facility] Start: 04-15-2022 End: 04-15-2022 ambulatory [facility] Work Phone: Start: 04-15-2022 End: 04-15-2022 Patient encounter procedure [facility] Start: 04-13-2022 End: 04-13-2022 [facility] Start: 03-17-2022 End: 03-17-2022 [facility] Start: 02-17-2022 End: 02-17-2022 ambulatory [facility] Work Phone: Start: 02-17-2022 End: 02-17-2022 Patient encounter procedure [facility] Start: 01-27-2021 End: 01-27-2021 Subsequent hospital visit by physician Kathy Frazier MD Work Phone: [facility] Comment on above: Numbness and tinglin g of both feet; Other fatigue Start: 01-06-2021 End: 01-06-2021 Subsequent hospital visit by physician Kathy Frazier MD Work Phone: [facility] Procedures Date Procedure Procedure Detail Performing Clinician Start: 12-31-2024 Plain chest X-ray Dr. Freeman Diaz MD Work Phone: Start: 12-31-[address] Luis Diaz MD Work Phone: Start: 09-03-2023 Streptococcus pyogen es rRNA assay Dr. Luis Diaz Work Phone: Start: 09-03-2023 Plain chest X-ray Dr. Freeman Diaz Work Phone: Start: 09-03-2023 X-ray of soft tissue of neck Dr. Luis Diaz Work Phone: Start: 05-27-2023 Plain chest X-ray Dr. Freeman Diaz Work Phone: Start: 05-27-2023 SARS-CoV-2 & FLU Ant igen (Rapid) Dr. Luis Diaz Work Phone: Start: 05-27-[address] Luis Diaz Work Phone: Start: 05-04-2023 Plain chest X-ray Start: 09-03-2022 Diagnostic radiograp hy of abdomen Start: 07-26-2022 Plain chest X-ray Start: 04-13-2022 Plain chest X-ray Start: 03-17-2022 CT of abdomen and pe lvis without contrast Start: 01-27-2021 [facility] REPORT Chandana hollis DO Work Phone: Start: 01-27-2021 NERVE CONDUCTION NGHIA T WITH [facility] Kathy Frazier MD Work Phone: SARS-CoV-2 & FLU Ant igen (Rapid) Plan of Treatment Date Care Activity Detail Author Start: 04-07-2028 Screening for malign ant neoplasm of colon Colon cancer screen colonoscopy [facility] Work Phone: Start: 12-31-2024 [facility] Start: 12-31-2024 [facility] Start: 01-07-2024 Diabetes screen Diabetes screen [facility] Work Phone: Start: 09-03-2023 [facility] Start: 05-27-2023 [facility] Start: 05-04-2023 [facility] Start: 05-04-2023 [facility] Start: 03-10-2023 Assay of prostate specific antigen total ASSAY OF PSA TOTAL [facility] Start: 07-26-2022 [facility] Start: 04-13-2022 [facility] Start: 02-04-2021 Influenza vaccination Flu vaccine (# 1) [facility] Work Phone: Start: 02-03-2021 End: 02-03-2021 Patient encounter procedure 02/03/2021 Office Visit Neurology Vianney Dennis APRN - [facility] [address] [place], [place] [id number] [facility] [place] Start: 01-27-2021 End: 01-27-2021 Patient encounter procedure 01/27/2021 Appointment Neurology [facility] Start: 11-02-2020 Pneumococcal 65+ yea rs Vaccine (1 of 1 - PPSV23) Pneumococcal 65+ years Vaccine (1 of 1 - PPSV23) [facility] Work Phone: Start: 11-02-2005 Shingles Vaccine (1 of 2) Shingles Vaccine (1 of 2) [facility] Work Phone: Start: 1995 Diabetes screen Diabetes screen [facility] Work Phone: Start: 11-02-1974 DTaP/Tdap/Td vaccine (1 - Tdap) DTaP/Tdap/Td vaccine (1 - Tdap) [facility] Work Phone: Start: 11-02-1970 HIV screening HIV screen [facility] Work Phone: Start: 11-02-1965 Lipid panel Lipid screen [facility] Work Phone: Start: 1955 Hepatitis C screening Hepatitis C sc reen [facility] Work Phone: [facility] REPORT [facility] RE[facility] Neuro logy 01/27/2021 2:13 PM EDT [facility] Work Phone: Patient Education [facility] Work Phone: Patient referral [facility] Work Phone: End: 01-06-2021 XR LUMBOSACRAL W OBLIQUES AND FLEXION AND EXTENSION XR LUMBOSACRAL W OBLIQUES AND FLEXION AND EXTENSION Imaging Routine Once for 1 Occurrences starting 01/06/2021 until 01/06/2021 [facility] Work Phone: Comment on above: Once for 1 Occurrenc es starting 01/06/2021 until 01/06/2021 XR LUMBOSACRAL W OBLIQUES AND FLEXION AND EXTENSION XR LUMBOSACRAL W OBLIQUES AND FLEXION AND EXTENSION Imaging Routine 01/06/2021 3:00 PM EDT [facility] Work Phone: Immunizations Immunization Date Immunization Notes Care Provider Fa cility 03-11-2021 tetanus toxoid, redu eve diphtheria toxoid, and acellular pertussis vaccine, adsorbed [facility] 07-21-2020 Covid (Moderna) [facility] 06-23-2020 Covid ([facility]) [facility] 03-06-2018 Influenza virus vaccine [facility] Payers Date Payer Category Payer Self-pay [id number] 2023 Unknown [id number] 2020 Unknown [id number] Unknown [id number] Unknown [id number] Unknown [id number] Social History Date Type Detail Facility Start: 01-06-2021 End: 12-31-2024 Tobacco smoking status NHIS Never smoker [facility] Start: 01-06-2021 Tobacco use and exposure Never used [facility] Start: 01-06-2021 Alcohol intake Lifetime non-d jeniffer (finding) [facility] Work Phone: Start: 11-21-2020 History SDOH Alcohol Frequency [facility] Work Phone: Start: 1955 Sex Assigned At Not on file [facility] Work Phone: Start: 03-17-2022 End: 09-03-2023 Tobacco smoking status NHIS Unknown if ever smoked [facility] Start: 01-02-2019 None [facility] Start: 01-02-2019 - [facility] Start: 10-24-2020 Non-smoker [facility] Start: 1955 Sex Assigned At Male [facility] Mental Status Date Assessment Result Facility 12-31-2024 Cognitive function Level Of Cons ciousness Awake;Alert;Appropriate;Follow s Commands [facility] Work Phone: 05-04-2023 Cognitive function Voice/Name [facility] Work Phone: 03-17-2022 Cognitive function Level Of Cons ciousness Awake;Alert;Appropriate;Follow s Commands [facility] Work Phone: Radiology Diagnostic study note 12-31-2024 Note Date & Type Note Facility 12-31-2024 Radiology Diagnostic study note [facility] Imaging Services [address] [place] [address] Chest 1 View (Portable) MR#: [id number] Acct: [id number] Name: YRN VACA Rep #: [id number] : 1955 M 69 From: Renae Chavez MD PCP: Dr. Luis Diaz MD Status: REG E R Study:Chest 1 View (Portable) Date of Exam: 12/31/24 Exam# [id number] Ordering Dr: Urbano Rock DO PROCEDURE: CHEST 1 VIEW (PORTABLE) 12/31/2024 REASON FOR EXAM: CHEST PAIN TECHNIQUE: Frontal view of the chest. COMPARISON: August 03, 2024 FINDINGS: Heart size and mediastinal configuration are within normal limits. There is no focal infiltrate or consolidation. There is no pneumothorax or effusion. There is no acute bony abnormality. There is no definite atherosclerosis. RAD/Chest 1 View (Portable) IMPRESSION: No acute process is identified in the chest. Reading Location: [facility] CC: Dr. Urbano Rock DO; Dr. Luis Diaz MD ~ Deli Clerk: Signed [facility] Discharge summary 09-03-2023 Note Date & Type Note Facility 09-03-2023 Discharge summary Note Date/Time September 03, 2023 9:45am [facility] Medical Records Department [address] [place] [address] Emergency Department Summary 09/03/23 MR#: [id number] Acct: [id number] Name: YRN VACA Rep #:[id number] : 1955 67 From: Deepak Oates MD PCP: Dr. Luis Diaz MD Status:REG E R Location: ED HPI History of Present Illness Chief Complaint: Shortness of Breath Informant: patient Narrative Narrative: 67-year-old male states he woke up a couple hours ago and his throat feels swollen and it is making him feel like he is a little short of breath. He denies any symptoms in his chest such as discomfort, palpitations, wheezing. Hedenies any edema in his legs or orthopnea. He denies any new medications, he cannot remember what he ate for dinner last night but he does not recall eating any new or different foods lately. No antibiotics recently for anything and denies any other recent illness. He states he feels it when he swallows and it is making him feel like he needs to clear his throat. He denies his voice beingany different. [facility] Medical History Allergic rhinitis Hyperlipidemia Schizophrenia Home Medications docusate sodium 100 mg capsule (DOK) 100 mg PO DAILY constipation 05/18/16 [History Last Taken 10/24/20] paliperidone palmitate 156 mg/mL intramuscular syringe (Invega Sustenna) 156 mg IM Q30D schitzophrenia 05/18/16 [History Last Taken 10/07/20] propranolol 10 mg tablet 10 mg PO BID heart 05/18/16 [History Last Taken 10/24/20] vitamin E (dl, acetate) 180 mg (400 unit) capsule 400 units PO TID suppliment 05/18/16 [History Last Taken 10/24/20] cholecalciferol (vitamin D3) 25 mcg (1,000 unit) capsule (Vitamin D3) 1,000 unitPO DAILY 10/24/20 [History Last Taken 10/24/20] loratadine 10 mg tablet (Allergy Relief (loratadine)) 10 mg PO DAILY PRN dizziness #0 tabs 10/25/20 [Rx Last Taken 10/24/20] docusate sodium 100 mg capsule (Colace) 100 mg PO BID 7 days #14 caps 09/04/22 [Rx Last Taken Unknown] atorvastatin 20 mg tablet 20 mg PO QHS hyperlipidemia 05/04/23 [History Last Taken Unknown] folic acid 1 mg tablet 1 mg PO 05/04/23 [History Last Taken Unknown] omeprazole 40 mg capsule,delayed release 40 mg PO 05/04/23 [History Last Taken Unknown] oxcarbazepine 300 mg tablet 300 mg PO seizures 05/04/23 [History Last Taken Unknown] risperidone 2 mg tablet 2 mg PO schizophrenia 05/04/23 [History Last Taken Unknown] Allergy/AdvReac Type Severity Reaction Status Date / Time No Known Allergies Allergy Verified 09/03/23 09:36 Social History household members: none housing: other details: prison Smoking Status: Never smoker substance use type: does not use ROS ROS ED Constitutional Constitutional ED: Denies chills or fever(s) Eyes Eyes: Denies change in vision or diplopia ENT ENT ED: Reports as per HPI and throat swelling; Denies ear pain, rhinorrhea or sore throat Cardiovascular Cardiovascular: Reports lightheadedness; Denies chest pain, palpitations or syncope Respiratory/Chest Respiratory/Chest: Reports as per HPI and dyspnea; Denies cough or difficulty clearing secretions Gastrointestinal Gastrointestinal: Denies abdominal pain, diarrhea, nausea or vomiting Genitourinary Genitourinary ED: Denies dysuria or hematuria Musculoskeletal Musculoskeletal: Denies back pain or neck pain Integumentary Denies abscess or rash Neurologic Neurologic: Denies headache(s), paresthesias or weakness Psychiatric Psychiatric: Denies anxiety or suicidal thoughts EXAM Physical Exam Const Vital Signs: 09/03/23 09:30 09/03/23 09:31 09/03/23 09:49 Temperature 96.4 F L 96.4 F L Temperature Source Temporal Temporal Pulse Rate 50 L 94 Respiratory Rate 18 18 Respiratory Effort Normal Respiratory Depth Normal Respiratory Pattern Normal Blood Pressure 130/99 H 130/99 H Blood Pressure Mean 109 109 Pulse Ox 98 98 Oxygen Delivery Method Room Air Nasal Cannula Room Air Positive well nourished and well developed General Appearance ED: well developed and NAD HEENT Reports moist mucous membranes HEENT Narrative: Posterior oropharynx clear, tongue depressor used. No stridor. Normal phonation. Normal oral mucosa no tongue elevation. Almost completely edentulous gingiva unremarkable. normocephalic and atraumatic Eyes PERRL and EOMs intact bilaterally Neck full ROM, no lymphadenopathy, supple and no JVD Chest Wall inspection of chest normal and palpation of chest normal Resp normal respiratory effort and clear to auscultation bilaterally Cardio regular rate, regular rhythm and no murmurs Rate: Negative for tachycardic GI non-tender and non-distended Auscultation: normoactive bowel sounds Palpation: soft Back/Spine no CVA tenderness General Back: other FROM Extremity normal to inspection General Extremety ED: Negative for edema, pulses abnormal or tenderness General Extremity: Negative for edema or pulses abnormal Neuro oriented x3, CN's II-XII intact bilaterally and no sensory deficits noted Sensorium / Orientation: awake and alert Motor Exam: strength 5/5 throughout Psych Psych Narrative: Flat affect Skin no rashes or lesions noted and no wounds MDM MDM MDM Narrative Medical decision making narrative: Patient has a normal exam, symptoms in his throat not his chest. I do not thinkthis is an aortic dissection, I did obtain a chest x-ray partially to look at the mediastinum, 2 views normal in my interpretation radiology in agreement. Also obtain 2 view soft tissue neck x-ray to look at the epiglottis, posterior pharynx, and the neck soft tissues in general. On my interpretation this is normal as well and radiology also agreed with that. Patient told nursing I think this is an infection, please swab my throat. I was happy to send a strepswab it is negative. He denied having a sore throat or odynophagia. At this time his vital signs are normal I do not think he needs any other further testing will give him a dose of Decadron orally and have him follow-up if symptoms persist or you can return here if he has any worsening. Radiography Diagnostic Testing: Clinical Impression(s) from Imaging Studies Chest X-Ray 09/03/23 09:45 IMPRESSION: Normal x-ray examination of the chest. Electronically Signed: Rowdy Zhang MD at 10:46 EDT , Soft Tissue Neck X-Ray 09/03/23 09:45 IMPRESSION: Unremarkable x-ray soft tissue neck. Electronically Signed: Rowdy Zhang MD at 10:40 EDT , Discharge Plan Triage Chief Complaint: Shortness of Breath ED Provider: Deepak Oates Dx/Rx/DC Orders Clinical Impression: Sensation of swollen throat Instructions: ED Pharyngitis, Viral Prescriptions: No Action propranolol 10 MG tablet 10 mg PO BID docusate sodium [DOK] 100 MG capsule 100 mg PO DAILY vitamin E (dl, acetate) 400 UNITS capsule 400 units PO TID Invega Sustenna 156 MG/ML syringe 156 mg IM Q30D cholecalciferol (vitamin D3) [Vitamin D3] 25 mcg (1,000 unit) capsule 1,000 unit PO DAILY loratadine [Allergy Relief (loratadine)] 10 MG tablet 10 mg PO DAILY PRN (Reason: dizziness) Qty: 0 0RF docusate sodium [Colace] 100 mg capsule 100 mg PO BID 7 Days Qty: 14 0RF atorvastatin 20 mg tablet 20 mg PO QHS oxcarbazepine 300 mg tablet 300 mg PO omeprazole 40 mg capsule,delayed release(/EC) 40 mg PO risperidone 2 mg tablet 2 mg PO folic acid 1 mg tablet 1 mg PO Primary Care Provider: Luis Diaz Referrals: Luis Diaz MD [Primary Care Provider] - 1 Week if not improving Disposition Disposition: Home, Self Care What to do if you have Problems For any increased pain, shortness of breath, bleeding, nausea or vomiting, chestpain, or any unexpected problems, contact your Primary Care Provider. Call [facility] ([phone]) or report to the closest Emergency Room. Call 911 if necessary. 09/03/23 1123 <Electronically signed by Deepak Oates MD> Cosigner Signature (if applicable): CC: Dr. Luis Diaz MD ~ Signed [facility] Work Phone: Discharge summary 05-04-2023 Note Date & Type Note Facility 05-04-2023 Discharge summary Note Date/Time May 04, 2023 8:15pm [facility] Medical Records Department [address] [place] [address] Emergency Department Summary 05/04/23 MR#: [id number] Acct: [id number] Name: YRN VACA Rep #:[id number] : 1955 67 From: Falguni Isaac DO PCP: Dr. Luis Diaz MD Status:REG E R Location: ED HPI History of Present Illness Chief Complaint: Chest Pain Detail of Chief Complaint: Chest pain Informant: patient Narrative Narrative: Patient presents to the emergency department complaint of chest pain that started about half an hour ago. Pain came on at rest. He is never had pain like this before. Describes a tightness in his chest. He called EMS and they gave him aspirin and 1 nitroglycerin tablet which seemed to help a little bit. Patient denies shortness of breath or diaphoresis. He denies radiation of the pain. He had no nausea or vomiting. He has had recent travel and that he droveback from [place] yesterday and today. No history of PE or DVT. Patient does not smoke. No significant family history of heart disease. Prior Similar Symptoms: No PFSH PFS Medical History Allergic rhinitis Hyperlipidemia Hyperlipidemia Schizophrenia Home Medications docusate sodium 100 mg capsule (DOK) 100 mg PO DAILY constipation 05/18/16 [History Last Taken 10/24/20] paliperidone palmitate 156 mg/mL intramuscular syringe (Invega Sustenna) 156 mg IM Q30D schitzophrenia 05/18/16 [History Last Taken 10/07/20] propranolol 10 mg tablet 10 mg PO BID heart 05/18/16 [History Last Taken 10/24/20] vitamin E (dl, acetate) 180 mg (400 unit) capsule 400 units PO TID suppliment 05/18/16 [History Last Taken 10/24/20] cholecalciferol (vitamin D3) 25 mcg (1,000 unit) capsule (Vitamin D3) 1,000 unitPO DAILY 10/24/20 [History Last Taken 10/24/20] loratadine 10 mg tablet (Allergy Relief (loratadine)) 10 mg PO DAILY PRN dizziness #0 tabs 10/25/20 [Rx Last Taken 10/24/20] docusate sodium 100 mg capsule (Colace) 100 mg PO BID 7 days #14 caps 09/04/22 [Rx Last Taken Unknown] atorvastatin 20 mg tablet 20 mg PO QHS hyperlipidemia 05/04/23 [History Last Taken Unknown] folic acid 1 mg tablet 1 mg PO 05/04/23 [History Last Taken Unknown] omeprazole 40 mg capsule,delayed release 40 mg PO 05/04/23 [History Last Taken Unknown] oxcarbazepine 300 mg tablet 300 mg PO seizures 05/04/23 [History Last Taken Unknown] risperidone 2 mg tablet 2 mg PO schizophrenia 05/04/23 [History Last Taken Unknown] Allergy/AdvReac Type Severity Reaction Status Date / Time No Known Allergies Allergy Verified 05/04/23 20:07 Social History (Updated 07/26/22 @ 10:[address] Freeman Mcdermott MD) household members: none housing: other details: prison Smoking Status: Never smoker substance use type: does not use ROS ROS ED Review of Systems ROS Unobtainable: other Constitutional Constitutional ED: Reports lethargy; Denies chills, fever(s), sweats or weight loss Eyes Eyes: Denies blurry vision, change in vision or diplopia ENT ENT ED: Denies rhinorrhea or sore throat Cardiovascular Cardiovascular: Reports chest pain; Denies orthopnea or racing heartbeat Respiratory/Chest Respiratory/Chest: Denies cough, dyspnea, dyspnea on exertion, orthopnea or sputum Gastrointestinal Gastrointestinal: Denies abdominal pain, diarrhea, nausea or vomiting Genitourinary Genitourinary ED: Denies dysuria, hematuria or urinary frequency Musculoskeletal Musculoskeletal: Denies arthralgias, back pain, myalgias or neck pain Integumentary Denies abscess, Abrasions or rash Neurologic Neurologic: Denies headache(s) or weakness Psychiatric Psychiatric: Denies anxiety, depression or suicidal thoughts Endocrine Endocrinology: Denies polydipsia, polyphagia or polyuria Hematologic/Lymphatic Hematologic/Lymphatic: Denies easy bleeding, easy bruising or lymphadenopathy Allergic/Immunologic Allergic/Immunologic ED: Denies mouth swelling, tongue swelling or urticaria EXAM Physical Exam Const Vital Signs: 05/04/23 20:03 05/04/23 20:08 05/04/23 20:22 Temperature 98.4 F Temperature Source Temporal Pulse Rate 79 79 73 Respiratory Rate 14 17 Respiratory Effort Respiratory Pattern Blood Pressure 87/65 L 132/70 H 103/69 Blood Pressure Mean 72 90 Pulse Ox 96 96 Oxygen Delivery Method Room Air Room Air 05/04/23 20:46 05/04/23 20:11 05/04/23 20:59 Temperature Temperature Source Pulse Rate 69 Respiratory Rate 16 Respiratory Effort Normal Respiratory Pattern Normal Blood Pressure Blood Pressure Mean Pulse Ox 96 94 Oxygen Delivery Method Room Air 05/04/23 21:00 05/04/23 21:03 05/04/23 21:10 Temperature Temperature Source Pulse Rate 72 69 73 Respiratory Rate 17 13 12 Respiratory Effort Respiratory Pattern Blood Pressure 113/82 H Blood Pressure Mean 92 Pulse Ox 93 94 96 Oxygen Delivery Method 05/04/23 21:15 05/04/23 21:20 05/04/23 21:30 Temperature Temperature Source Pulse Rate 68 78 71 Respiratory Rate 13 15 12 Respiratory Effort Respiratory Pattern Blood Pressure 108/71 92/69 Blood Pressure Mean 78 78 Pulse Ox 96 96 96 Oxygen Delivery Method Room Air 05/04/23 21:40 05/04/23 21:41 05/04/23 21:45 Temperature Temperature Source Pulse Rate 70 73 71 Respiratory Rate 18 14 13 Respiratory Effort Respiratory Pattern Blood Pressure 97/72 97/70 Blood Pressure Mean 78 77 Pulse Ox 95 95 Oxygen Delivery Method Positive well nourished and well developed General Appearance ED: well developed and NAD HEENT Reports TM's clear and moist mucous membranes normocephalic and atraumatic; Negative for trauma or tenderness Tympanic Membrane ED: Yes TM's clear Eyes PERRL and EOMs intact bilaterally General Eye ED: Negative for pale conjunctiva or scleral icterus Neck no lymphadenopathy, supple and no JVD General: Negative for tenderness Chest Wall inspection of chest normal and palpation of chest normal Chest: Negative for tenderness Resp normal respiratory effort and clear to auscultation bilaterally Effort and Inspection: Negative for respiratory distress or pain with movement Auscultation: Negative for rhonchi, wheezes or diminished lung sounds Cardio regular rate, regular rhythm, S1 normal heart sound, S2 normal heart sound and no murmurs Peripheral Pulses: pulses 2+ throughout GI normal to inspection, nondistended, normoactive bowel sounds, soft to palpation,non-tender, non-distended and no masses Back/Spine no CVA tenderness and no thoracic nor lumbar tenderness Extremity normal to inspection General Extremety ED: Negative for edema General Extremity: Negative for edema Neuro oriented x3, CN's II-XII intact bilaterally, no sensory deficits noted and gait normal Sensorium / Orientation: awake, alert, oriented to person, oriented to place andoriented to time Motor Exam: strength 5/5 throughout and strength abnormal Psych mental status grossly normal Skin no rashes or lesions noted and no wounds Heart Score History: Slightly/Non-Suspicious ECG: Nonspecific Repolarization Age: >/= 65 years Risk Factors: 1 or 2 Risk Factors Troponin: </= Normal Limit Score: 4 MDM MDM MDM Narrative Medical decision making narrative: Presents with chest pain. In the differential would be acute coronary syndrome versus PE versus pneumothorax or infectious etiology. IV line established. Patient placed on athletic monitor. EKG obtained shows sinus rhythm with a rate of [address] changes. She was appropriately 0.6 with hemoglobin 15 and platelet count of 244. Chemistries unremarkable. Troponin was normal at 31. 2-hour delta troponin also normal at 30. Heart score is a 4 but clinically I have low suspicion for acute coronary syndrome. D-dimer was normal. Chest x-ray was unremarkable. Patient is feeling well. Will dischargeto home. Advised return if worsening pain, increasing shortness of breath, exertional dyspnea, or condition worsening way. Lab Data Attestation: I reviewed the patient's lab results. Labs: Laboratory Results - last 24 hr 05/04/23 05/04/23 19:50 21:48 WBC 8.6 RBC 4.99 Hgb 15.1 Hct 44.9 MCV 90.0 MCH 30.3 MCHC 33.6 RDW Std Deviation 41.4 RDW Coeff of Clarissa 12.6 Plt Count 244 MPV 9.3 Immature Gran % (Auto) 0.500 Neut % (Auto) 50.9 Lymph % (Auto) 36.3 [place] % (Auto) 8.9 Eos % (Auto) 2.8 Baso % (Auto) 0.6 Absolute Neuts (auto) 4.4 Absolute Lymphs (auto) 3.13 Nucleated RBC % 0 D-Dimer Quant (PE/DVT) 0.29 Sodium 139 Potassium 3.6 Chloride 106 Carbon Dioxide 29.0 Anion Gap 4 L BUN 14 Creatinine 1.20 Estim Creat Clear Calc 59.73 Est GFR (MDRD) Af Amer 78 Est GFR (MDRD) Non-Af 64 BUN/Creatinine Ratio 11.7 Glucose 107 H Calcium 8.7 Troponin I High Sens 31 30 Radiography Diagnostic Testing: Clinical Impression(s) from Imaging Studies Chest X-Ray 05/04/23 20:25 IMPRESSION: Minor right basilar subsegmental atelectasis Electronically Signed: Vignesh Watkins MD at 20:41 EST Reading Location ID and State: [facility] / [place] Tel , Service support , Chest x-ray obtained interpreted by myself as no evidence of infiltrate or pneumothorax or acute disease process. Radiology in agreement. EKG Initial EKG: Attestation: I personally reviewed and interpreted this EKG as follows: Comments: Sinus rhythm with rate of [address] changes Discharge Plan Triage Chief Complaint: Chest Pain ED Provider: Falguni Isaac Dx/Rx/DC Orders Clinical Impression: Chest pain Instructions: ED Chest Pain, Uncertain Cause Prescriptions: No Action propranolol 10 MG tablet 10 mg PO BID docusate sodium [DOK] 100 MG capsule 100 mg PO DAILY vitamin E (dl, acetate) 400 UNITS capsule 400 units PO TID Invega Sustenna 156 MG/ML syringe 156 mg IM Q30D cholecalciferol (vitamin D3) [Vitamin D3] 25 mcg (1,000 unit) capsule 1,000 unit PO DAILY loratadine [Allergy Relief (loratadine)] 10 MG tablet 10 mg PO DAILY PRN (Reason: dizziness) Qty: 0 0RF docusate sodium [Colace] 100 mg capsule 100 mg PO BID 7 Days Qty: 14 0RF atorvastatin 20 mg tablet 20 mg PO QHS oxcarbazepine 300 mg tablet 300 mg PO omeprazole 40 mg capsule,delayed release(DR/EC) 40 mg PO risperidone 2 mg tablet 2 mg PO folic acid 1 mg tablet 1 mg PO Primary Care Provider: Luis Diaz Referrals: Luis Diaz MD [Primary Care Provider] - 3-5 Days Disposition Disposition: Home, Self Care What to do if you have Problems For any increased pain, shortness of breath, bleeding, nausea or vomiting, chestpain, or any unexpected problems, contact your Primary Care Provider. Call [facility] ([phone]) or report to the closest Emergency Room. Call 911 if necessary. 05/04/23 2301 <Electronically signed by Falguni Isaac DO> Cosigner Signature (if applicable): CC: Dr. Luis Diaz MD ~ Signed [facility] Work Phone: Discharge summary 07-26-2022 Note Date & Type Note Facility 07-26-2022 Discharge summary Note Date/Time July 26, 2022 10:07am [facility] Medical Records Department [address] [place] [address] Emergency Department Summary 07/26/22 MR#: [id number] Acct: [id number] Name: YRN VACA Rep #:[id number] : 1955 66 From: Freeman Mcdermott MD PCP: Dr. Luis Diaz MD Status:REG E R Location: ED HPI HPI - URI History of Present Illness Chief Complaint: Cold Sx Detail of Chief Complaint: I think I have COVID Informant: patient Onset/Context/Timing Onset: Days (Onset of illness 2 to 3 days ago) Context: Sudden Onset Timing: Continuous and Waxes and wanes Quality: Rhinorrhea, congestion, sore throat and cough Location: Upper respiratory Current Severity: Mild Maximum Severity: Moderate Worsened by: Not Worsened By Swallowing, Eating Solids or Drinking Liquids Relieved by: Not Relieved By Tylenol or NSAIDs Associated Symptoms Associated Symptoms: Positive for Nasal Congestion and Productive Cough (Not certain the color since he swallows his sputum); Negative for Headache, Sinus Pressure, Myalgias, Nausea, Vomiting, Diarrhea, Shortness of Breath, Chest Pain,Nonproductive cough or Hemoptysis Narrative Narrative: Patient is a 66-year-old male who is a poor informant. Prior records were reviewed to determine what healthcare problems he has, medications and allergies. Patient states he lives in a prison. Patient states he went [place] for a job. Patient denies headache. He does endorse rhinorrhea, congestion and sore throat. He does have a cough which is productive. Color is unknown. He denies fever or chills. He denies myalgias or arthralgias. He denies abdominal pain, nausea, vomiting or diarrhea. He deniesdysuria, frequency, urgency or hematuria. He denies myalgias or arthralgias. He denies rash. Patient has past history of depression with suicide attempt, hyperlipidemia, allergic rhinitis and possibly hypertension based on medication. Patient has been immunized for COVID in 2020. Last influenza vaccine March 06, 2018. Recent CBC dated April 13, 2022 is unremarkable. Most recent UA dated 2021 was negative. Most recent BMP dated July 05, 2022 is unremarkable. Most recent liver enzymes were unremarkable as well. Prior similar symptoms: Yes Recent Illness/Hospitalization: No ROS ROS ED Constitutional Constitutional ED: Denies chills, fever(s), subjective, sweats or weight loss Eyes Eyes: Denies blurry vision, change in vision or diplopia ENT ENT ED: Reports rhinorrhea and sore throat; Denies ear pain Cardiovascular Cardiovascular: Denies chest pain, orthopnea, palpitations, paroxysmal nocturnaldyspnea or racing heartbeat Respiratory/Chest Respiratory/Chest: Reports cough and sputum; Denies dyspnea, dyspnea on exertion, orthopnea or paroxysmal nocturnal dyspnea Gastrointestinal Gastrointestinal: Denies abdominal pain, diarrhea, nausea or vomiting Genitourinary Genitourinary ED: Denies dysuria, hematuria or urinary frequency Musculoskeletal Musculoskeletal: Denies arthralgias, back pain, myalgias or neck pain Integumentary Denies rash Neurologic Neurologic: Denies headache(s), paresthesias or weakness Hematologic/Lymphatic Hematologic/Lymphatic: Denies easy bleeding or easy bruising PFSH PFSH Medical History Allergic rhinitis Hyperlipidemia Hyperlipidemia Schizophrenia Home Medications docusate sodium 100 mg capsule (DOK) 100 mg PO DAILY constipation 05/18/16 [History Last Taken 10/24/20] paliperidone palmitate 156 mg/mL intramuscular syringe (Invega Sustenna) 156 mg IM Q30D schitzophrenia 05/18/16 [History Last Taken 10/07/20] propranolol 10 mg tablet 10 mg PO BID heart 05/18/16 [History Last Taken 10/24/20] vitamin E (dl, acetate) 180 mg (400 unit) capsule 400 units PO TID suppliment 05/18/16 [History Last Taken 10/24/20] cholecalciferol (vitamin D3) 25 mcg (1,000 unit) capsule (Vitamin D3) 1,000 unitPO DAILY 10/24/20 [History Last Taken 10/24/20] atorvastatin 10 mg tablet 20 mg PO QHS lowers cholesterol #0 tabs 10/25/20 [Rx Last Taken 10/23/20] loratadine 10 mg tablet (Allergy Relief (loratadine)) 10 mg PO DAILY PRN dizziness #0 tabs 10/25/20 [Rx Last Taken 10/24/20] Allergy/AdvReac Type Severity Reaction Status Date / Time No Known Allergies Allergy Verified 07/26/22 09:48 Social History (Updated 07/26/22 @ 10:[address] Freeman Mcdermott MD) household members: none housing: other details: prison Smoking Status: Never smoker substance use type: does not use EXAM Physical Exam Const Vital Signs: 07/26/22 09:44 07/26/22 09:54 Temperature 96.5 F L Temperature Source Temporal Pulse Rate 78 Respiratory Rate 18 Respiratory Effort Normal Non-Labored Blood Pressure 138/96 H Blood Pressure Mean 110 Pulse Ox 98 Oxygen Delivery Method Room Air Positive well nourished and well developed General Appearance ED: well developed and NAD; Negative for cyanotic, diaphoretic or pallor HEENT Reports moist mucous membranes HEENT Narrative: Positive rhinorrhea. Discharge is clear. TMs are normal. Posterior pharynx mild erythema. Uvula midline. There is no exudate. normocephalic and atraumatic Face and Sinus: Negative for sinus tenderness Throat: posterior oropharynx normal Eyes PERRL and EOMs intact bilaterally Neck no lymphadenopathy, supple and no meningeal signs General: Negative for anterior neck swelling Resp normal respiratory effort and clear to auscultation bilaterally Cardio S1 normal heart sound, S2 normal heart sound and no murmurs Rate: regular rate Rhythm: regular rhythm GI non-tender, non-distended and no masses Palpation: soft Extremity normal to inspection and full ROM Neuro oriented x3 and CN's II-XII intact bilaterally Sensorium / Orientation: alert Psych Psych Narrative: Affect is flat. Skin General Skin Exam: Negative for jaundice or pallor Lesions: no lesions Rashes: no rashes MDM MDM MDM Narrative Medical decision making narrative: Patient with upper respiratory symptoms. Will assess for influenza and COVID and obtain chest x-ray to assess for pneumonia. Because patient is a poor informant outside records were reviewed. This was documented in the HPI narrative. With a negative chest x-ray and negative for antigen for influenza and COVID treatment is symptomatic. Patient was made aware of his results. He also was told that his blood pressure was elevated and he needs to follow-up with Dr. Luis Diaz in 1 to 2 weeks for recheck. Lab Data Lab results narrative: Rapid COVID and influenza antigen are both negative. Radiography Diagnostic Testing: Clinical Impression(s) from Imaging Studies Chest X-Ray 07/26/22 09:56 IMPRESSION: No radiographic evidence of acute cardiopulmonary disease. Electronically Signed: Gerardo Briceno MD, ANGELINA at 10:52 EST Reading Location ID and State: [facility] / [place] Tel , Service support , 3 view chest x-ray revealed no acute process. There is mild chronic changes noted. Cardiac silhouette and size normal. Perihilar regions unremarkable. Osseous structures are unremarkable. There is no evidence of infiltrate or effusion. This was independently reviewed and interpreted by me. Discharge Plan Triage Chief Complaint: Cold Sx Other Complaint: Shortness of Breath ED Provider: Freeman Mcdermott Dx/Rx/DC Orders Clinical Impression: Upper respiratory infection with cough and congestion, History of schizophrenia, Elevated blood pressure reading Instructions: ED Hypertension, To Be Confirmed, ED URI, Viral, No Abx (Adult) Prescriptions: No Action propranolol 10 MG tablet 10 mg PO BID docusate sodium [DOK] 100 MG capsule 100 mg PO DAILY vitamin E (dl, acetate) 400 UNITS capsule 400 units PO TID Invega Sustenna 156 MG/ML syringe 156 mg IM Q30D cholecalciferol (vitamin D3) [Vitamin D3] 25 mcg (1,000 unit) capsule 1,000 unit PO DAILY atorvastatin 10 MG tablet 20 mg PO QHS Qty: 0 0RF loratadine [Allergy Relief (loratadine)] 10 MG tablet 10 mg PO DAILY PRN (Reason: dizziness) Qty: 0 0RF Primary Care Provider: Luis Diaz Referrals: Luis Diaz MD [Primary Care Provider] - 1-2 Weeks Disposition Disposition: Home, Self Care What to do if you have Problems For any increased pain, shortness of breath, bleeding, nausea or vomiting, chestpain, or any unexpected problems, contact your Primary Care Provider. Call [facility] ([phone]) or report to the closest Emergency Room. Call 911 if necessary. 07/26/22 1215 <Electronically signed by Freeman Mcdermott MD> Cosigner Signature (if applicable): CC: Dr. Luis Diaz MD ~ Signed [facility] Work Phone: Progress note 10-24-2020 Note Date & Type Note Facility 10-24-2020 Note HNO ID: [id number] Author: Sushil Chakraborty MD Service: ? Author [...] the last few days. Staff at his prison noticed he was not right. He is [...] ER for further evaluation. Report sent to [facility] by ER passport. Patient will [...] unlikely cause of frequency. Sushil Chakraborty MD [facility] Evaluation note Note Date & Type Note Facility Evaluation note Diagnosis Numbness and tingling of both feet Other fatigue documented in this encounter [facility] Work Phone: Evaluation note Note Date & Type Note Facility Evaluation note No assessment information availa [facility] Work Phone: Hospital Discharge instructions Note Date & Type Note Facility Hospital Discharge instructions Additional Instructions Please drink the GoLytely until it stimulates a bowel movement. The next day begin taking MiraLAX and Colace to help prevent constipation and allow your anal fissure to heal. Return to the ER should you have any further concerns [facility] Work Phone: Reason for referral (narrative) Note Date & Type Note Facility Reason for referral (narrative) No reason for referral information available [facility] Work Phone: Reason for Referral Status Reason Specialty Diagnoses / Procedures Referre d By Contact Referred To Contact [facility] Diagnoses Numbness and tingling of both feet Other fatigue Procedures Nerve Conduction Test with EMG Kathy Frazier MD [address] [place] [address] Summary Purpose Family History Relationship Condition Age at Onset Recorded Date/T sylvia Unknown Family History?Heart Disease, Hypertension Unknown January 02, 2019 11:03am Family History?No pertinent history Unkno wn January 02, 2019 11:03am Relationship Condition Age at Onset Recorded Date/T sylvia Unknown Family History?Heart Disease, Hypertension Unknown January 02, 2019 10:03am Family History?No pertinent history Unkno wn January 02, 2019 10:03am Advance Directives Advance Directive Response Recorded Date/ Time Advance Directives No May 6:47pm Living Will No March 17 5:24pm Power of Glaucoma Specialist No March 17, 2022 5:24pm Advance Directive Response Recorded Date/ Time Advance Directives No May 5:47pm Living Will No April 13 2:45pm Power of Glaucoma Specialist No April 13, 2022 2:45pm Advance Directive Response Recorded Date/ Time Advance Directives No May 5:47pm Living Will No July 26 9:54am Power of Glaucoma Specialist No July 26, 2022 9:54am Advance Directive Response Recorded Date/ Time Advance Directives No May 6:47pm Living Will No September 03, 2022 9:23pm Power of Glaucoma Specialist No September 03 9:23pm Advance Directive Response Recorded Date/ Time Advance Directives No May 5:47pm Living Will No May 04, 023 8:46pm Power of Glaucoma Specialist No May 04, 2023 8:46pm Advance Directive Response Recorded Date/ Time Advance Directives No May 6:47pm Living Will No September 03, 2023 9:48am Power of Glaucoma Specialist No September 02 9:48am Advance Directive Response Recorded Date/ Time Do you have a Healthcare Power of Glaucoma Specialist? No December 31, 2024 12:20pm Advance Directives No May 6:47pm Chief Complaint and Reason for Visit Chief Complaint FLANK PAIN Chief Complaint FLANK PAIN CHEST PAIN Chief Complaint CHEST PAIN COUGH Chief Complaint COUGH CONSTIPATION Chief Complaint cp Chief Complaint cp COUGH CP CP Chief Complaint COUGH CP CP SOB Chief Complaint Admit Date chest pain December 31, 2024 11:1 7am Additional Source Comments Reason for Visit (unrecogniz ed section and content) Status Reason Specialty Diagnoses / Procedures Referre d By Contact Referred To Contact [facility] Diagnoses Numbness and tingling of both feet Other fatigue Procedures Nerve Conduction Test with EMG Kathy Frazier MD [address] [place] [address] (unrecognized sect ion and content) No Status Records FoundNo Status Records FoundNo Status Records Found INFORMATION SOURCE (unrecogn ized section and content) DATE CREATED AUTHOR 01/29/2021 [facility] DATE CREATED AUTHOR AUTHOR'S ORGANIZ ATION 07/03/2021 [facility] DATE CREATED AUTHOR AUTHOR'S ORGANIZ ATION 08/19/2024 [facility] Goals (unrecognized section and content) Goals may be documented in a n alternate sectionGoals may be documented in an alternate sectionGoals may be documented in an alternate sectionGoals may be documented in an alternate sectionGoals may be documented in an alternate sectionGoals may be documented in an alternate sectionGoals may be documented in an alternate sectionGoals may be documented in an alternate sectionGoals may be documented in an alternate sectionGoals may be documented in an alternate sectionGoals may be documented in an alternate sectionGoals may be documented in an alternate section Care Teams (unrecognized sec tion and content) Team Status: Active Member Role Status Dates Dr. Luis Diaz MD Family Provider Active Dr. Luis Diaz MD Primary Care Provider Active Team Status: Inactive Member Role Status Dates Dr. Luis Diaz MD Primary Care Provider Active Dr. Grady Mccauley MD Attending Provider, Emergency Provider Active Team Status: Inactive Member Role Status Dates Dr. Luis Diaz MD Primary Care Provider Active Dr. Urbano Rock DO Attending Provider, Emergency P rovider Active Team Status: Inactive Member Role Status Dates Dr. Luis Diaz MD Primary Care Provi oz, Attending Provider, Referring Provider Active Team Status: Inactive Member Role Status Dates Dr. Luis Diaz MD Primary Care Provider Active Dr. Melinda Ames MD Attending Provider, Referring P rovider Active Team Status: Inactive Member Role Status Dates Dr. Luis Diaz MD Primary Care Provider Active Dr. Freeman Mcdermott MD Emergency Provider Active Team Status: Inactive Member Role Status Dates Dr. Luis Diaz MD Primary Care Provider Active Dr. Freeman Mcdermott MD Attending Provider, Emergency Provi oz Active Team Status: Inactive Member Role Status Dates Dr. Luis Diaz MD Primary Care Provider Active Dr. Ke Lugo DO Emergency Provider Active Team Status: Inactive Member Role Status Dates Dr. Luis Diaz MD Primary Care Provider, Attending Provider Active Team Status: Inactive Member Role Status Dates Dr. Luis Diaz MD Primary Care Provider Active Dr. Falguni Isaac DO Emergency Provider Active Team Status: Active Member Role Status Dates Dr. Luis Diaz MD Primary Care Provi oz, Referring Provider, Other Provider Active Dr. Chinedu Lopez MD Attending Provider Active Team Status: Inactive Member Role Status Dates Dr. Luis Diaz MD Primary Care Provider Active Dr. Falguni Isaac DO Attending Provider, Emergency Pro vider Active Team Status: Inactive Member Role Status Dates Dr. Luis Diaz MD Primary Care Provider Active Dr. Felisha Stapleton MD Attending Provider, Emergency Provider Active Team Status: Inactive Member Role Status Dates Dr. Luis Diaz MD Primary Care Provider Active Dr. Deepak Oates MD Emergency Provider Active Team Status: Active Member Role/Relationship Status Dates Dr. Luis Diaz MD Primary Care Provider Active Team Status: Inactive Member Role/Relationship Status Dates Dr. Luis Diaz MD Primary Care Provider Active Start: December 31, 2024 End: December 31, 2024 Dr. Urbano Rock DO Emergency Provider Active Start: December 31, 2024 End: December 31, 2024 FOR RECORDS PERTAINING TO PATIENTS WHO ARE [...] BE BASED ON THE PRIMARY CLINICAL RECORDS. [employer] provides no warranty or guarantee of the accuracy or completeness of information in this document.
== END 2024-12-31 15:34 | disposition home or self-care (01) ==
PROVIDERS: Emergency Provider Emergency Medicine; PCP Family Medicine; Visit Provider Emergency Medicine
DX: R07.9 Chest pain, unspecified (principal); F20.9 Schizophrenia, unspecified; I10 Essential (primary) hypertension; E78.00 Pure hypercholesterolemia, unspecified; Z79.899 Other long term (current) drug therapy
CPT/HCPCS: 71045; 80048; 84484; 85025; 93005; 99284; A4216

== ENCOUNTER → 2025-02-27 | Outpatient (CLI) | payer MEDICAID, SELFPAY ==
[2025-02-27 16:13] LABS: AST(SGOT) 23 U/L (<=37); Alanine Aminotransfer ALT/SGPT 25 U/L (<=46); Albumin, Serum 4.3 g/dL (3.4-4.8); Alkaline Phosphatase 57 U/L (40-129); Anion Gap 12 (5-15); BUN 20 mg/dL (4-19); BUN/Creat Ratio 18.2 RATIO (10-20); Calcium,Total 9.3 mg/dL (7.6-11.0); Carbon Dioxide 22.4 mmol/L (21.0-32.0); Chloride 102 mmol/L (98-108); Cholesterol 198 mg/dL (<=200); Globulin 2.5 g/dL (2.2-4.2); Glucose 120 mg/dL (70-99); Low Density Lipoprotein Calc. 104 mg/dL; Potassium 4.0 mmol/L (3.3-5.1); Triglycerides 257 mg/dL; Very Low Density Lipoprotein 51 mg/dL (5-40); cholesterol:hdl ratio screen 4.65
== END | disposition home or self-care (01) ==
LOC: MFPLAB 12:03
PROVIDERS: PCP Family Medicine; Visit Provider Family Medicine
DX: I10 Essential (primary) hypertension (principal)
CPT/HCPCS: 36415; 80053; 80061

== ENCOUNTER 2025-04-27 11:34 | Emergency (ER) | payer MEDICAID, SELFPAY ==
[2025-04-27] VITALS (8 sets, daily range): BP systolic 85–116; BP diastolic 56–86; PULSE 60–96; RESP 15–20; TEMP 36.4–36.9; O2SAT 95–98; BMI 32.5
--- OUTSIDE RECORDS SUMMARY | 2025-04-27 11:47 | XMS RPT_ITS | CCD ---
Author Organization [facility] Care Team Providers Care Corporate Giving Manager Name Role Phone Luis Bingham MD Primary Care Provider Joe, Dr. Smith Primary Care Provider Joe, Dr. Smith Referring Provider Joe, Dr. Smith Other Provider Dr. Chinedu Lopez Attending Provider Dr. Luis Bingham Primary Care Provider [phone] Joe, Dr. Smith Referring Provider [phone] Joe, Dr. Smith Other Provider Dr. Chinedu Lopez Attending Provider Dr. Luis Bingham MD Primary Care Provider [phone] Dr. Urbano Rock DO Emergency Provider LUIS BINGHAM Primary Care Unavailable MIGUEL EM Attending Unavailable LUIS BINGHAM Primary Care Unavailable MIGUEL EM Referring Unavailable Luis Bingham Primary Care Unavailable Urbano Rock Attending Unavailable Urbano Rock Attending Unavailable Luis Bingham Primary Care Unavailable Lusi Bingham Attending Unavailable Luis Bingham Primary Care Unavailable Medications Current Medications Medication Drug Class(es) Dates [...] 11:53am Start: 05-18-2016 take 1 capsule by [facility] once daily Docusate Sodium (Dok) 100 MG capsule Active 100 mg PO DAILY May 18, 2016 1:00am constipation polyethylene glycol 3350 92479 mg powder for oral solution (7 sources) Osmotic Laxative Start: 09-04-2022 End: 05-04-2023 Polyethylene Glycol 3350 (Miralax) 17 gram powder in packet Discontinued 17 g PO DAILY 30 0 September 043 12:00am May 04, 2023 10:39pm Problems Problem Classification Problem Date Documented Da [...] Translations: [Unspecified fall, initial encounter] 04-12-2021 Episodic Essential hypertension (1 source) Essential (primary) hypertension; Translations: [Essential (primary) hypertension] Onset: 03-29-2025 Chronic Influenza (5 sources) Influenza due to Influenza A virus; Translations: [Influenza due to other identified influenza virus with other respiratory manifestations] 06-04-2023 Episodic Malaise and fatigue (1 source) Fatigue; Translations: [Other fatigue] Episodic Nonspecific chest pain (19 sources) Chest pain; Translations: [Chest pain, unspecified] Onset: 01-03-2025 04-13-2022 Episodic Other circulatory disease (8 sources) Elevated blood pressure; Translations: [Elevated blood-pressure reading, without diagnosis of hypertension] 07-26-2022 Episodic Other connective tissue disease (1 source) Pain in left foot; Translations: [Heel pain, chronic, left] Onset: 03-28-2025 Episodic Other gastrointestinal disorders (7 sources) Constipation; Translations: [Constipation, unspecified] 09-04-2022 Episodic Other lower respiratory disease (12 sources) Dyspnea; Translations: [Dyspnea, unspecified] 02-09-2021 Episodic Other nervous system disorders (1 source) Other chronic pain; Translations: [Heel pain, chronic, left] Onset: 03-28-2025 Chronic Other nervous system disorders (1 source) Paresthesia [...] syncope; Translations: [Syncope and collapse] 10-24-2020 Episodic Results Test Name Value Interpretation Reference Range Facility [facility] 03-28-2025 CNOV Office Visit ([facility]) ---- ALIZA PAGAN ([id number]) 1955 M Date Time Provider Department 03/28/25 10:00 AM MIGUEL EM During your visit today, we recorded the following information about you: Temperature Pulse Respiration Blood pressure 96.9 degrees 71/minute 18/minute 125/84 Weight 97 kg Miguel Em APRN.CNP 03/28/2025 12:15 PM Signed SUBJECTIVE: Juan Pagan is a 69 year old male. Who presents today with left heel pain for the last 3 days. He thinks that he hit it on the step causing the pain. He has not taken any medication for the pain. He can walk but is limping. He no other sore areas and no bruising or swelling. PAST MEDICAL HISTORY Diagnosis Date Schizophrenia (HCC) TB lung, latent 11/21/2017 No family history on file. SOCIAL HISTORY[1] ALLERGIES No Known Allergies Current Outpatient Medications Medication Sig Dispense Refill vitamin E, dl,tocopheryl acet, (VITAMIN E, DL, ACETATE,) 180 mg (400 unit) capsule risperiDONE (RISPERDAL) 2 mg tablet OXcarbazepine (TRILEPTAL) 300 mg tablet omeprazole (PRILOSEC) 40 mg capsule folic acid 1 mg tablet atorvastatin (LIPITOR) 20 mg tablet docusate sodium (COLACE) 100 mg capsule loratadine (CLARITIN) 10 mg tablet Take 10 mg by mouth once daily. propranolol (INDERAL) 10 mg tablet Take 10 mg by mouth three times daily. Cholecalciferol, Vitamin D3, 25 mcg (1,000 unit) cap Vitamin E, dl, acetate, (VITAMIN E) 400 unit capsule (Patient not taking: Reported on 03/28/2025) albuterol HFA (PROAIR HFA) 90 mcg/actuation inhaler Inhale 2 Puffs as instructed every 4 hours as needed. (Patient not taking: Reported on 10/24/2020 ) 1 Inhaler 0 DOCUSATE SODIUM (DOC-Q-LACE ORAL) Take by mouth. (Patient not taking: Reported on 03/28/2025) PALIPERIDONE ORAL Take by mouth. (Patient not taking: Reported on 10/24/2020 ) BENZTROPINE MESYLATE (BENZTROPINE ORAL) Take by mouth. HYDROXYZINE PAMOATE ORAL Take by mouth. (Patient not taking: Reported on 10/24/2020 ) paliperidone palmitate (INVEGA SUSTENNA) 156 mg/mL syrg Inject 156 mg intramuscularly one time only. (Patient not taking: Reported on 03/28/2025) VITAMIN E,DL-ALPHA TOCOPHEROL, (VITAMIN E, BULK, MISC) (Patient not taking: Reported on 03/28/2025) atorvastatin (LIPITOR) 10 mg tablet Take 10 mg by mouth once daily. (Patient not taking: Reported on 03/28/2025) No current facility-administer ed medications for this visit. OBJECTIVE: BP 125/84 Pulse 71 Temp 36.1 ?C (96.9 ?F) Resp 18 Wt 97 kg (213 lb 13.5 oz) SpO2 97% ROS all other systems reviewed and are negative Physical Exam Constitutional: Well developed, well nourished, NAD, AANDO X3 ENT: Head is atraumatic, airway patent, mucosal membranes moist pink Respiratory: Respirations even and unlabored MS: no swelling, or deformity in upper or lower extremities right foot is tender over the heel no swelling or redness is noted no wounds full range of motion of the ankle and toes pulses +2 cap refill brisk no pain over the lateral or medial malleolus no pain over the foot patient is ambulatory and has a normal steady gait Neuro: strength sensation and coordination intact. CN II-XII grossly intact, Skin: warm and dry with out rash, lesion or ecchymosis on exposed skin Psych: alert appropriate, speech clear MDM It was a pleasure to take care of Juan Pagan today. An x-ray was obtained of the foot that shows no acute fracture or dislocation. Patient may take Motrin or Tylenol for any discomfort. Most likely his pain is caused from a contusion from hitting it on the step. Patient and his family member have verbalized understanding of plan of care and are agreeable Patient will follow up with family physician. They may return to the Urgent Care or go to the ER for worsening symptoms or concerns. Patient verbalized understanding of plan of care and is in agreement. ASSESSMENT/PLAN: 1. Heel pain, chronic, left - ICD9: 729.5, 338.29, ICD10: M79.672, G89.29 (primary diagnosis) - XR FOOT GENERAL 3V AP/LAT/OBL LEFT 2. 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 OTC Medications were advised: [1] Social History Tobacco Use Smoking status: Never Smokeless tobacco: Never Allergies As of Date: 03/28/2025 (No Known Allergies) Date Reviewed: 03/28/2025 Reviewed by: Marie Dudley MA - Fully Assessed Reason for Visit: Heel Pain [1025] Cmt: L foot x3 days Primary Visit Diagnosis:Heel pain, chronic, left [M79.672, G89.29] Other (more content not included)... Normal [facility] XR FOOT 3V AP/LAT/OBL LTon 1 XR FOOT 3V AP/LAT/OBL LT * * *Final Repo rt* * * DATE OF EXAM: Mar 28 2025 10:26AM WOX [id number] - XR FOOT 3V AP/LAT/OBL LT / PROCEDURE REASON: multiple diagnoses * * * * Physician Interpretation * * * * EXAMINATION / TECHNIQUE: XR FOOT 3V AP/LAT/OBL LT HISTORY: Heel pain, chronic COMPARISON: None RESULT: No acute fracture or dislocation. Mild degenerative change at the first MTP joint. No osseous lesion appreciated. IMPRESSION: No acute fracture. [employer] Director: [employer] Transcribe Date/Time: Mar 28 2025 10:44A Dictated by : OG SMITH MD This examination was interpreted and the report reviewed and electronically signed by: OG SMITH MD on Mar 28 2025 10:48AM EST [id number] ACN Normal [facility] Comprehensive Metabolic Prof ilon 02-27-2025 Albumin [Mass/Vol] 4.3 g/dL Normal 3.4-4.[address] [facility] Comment on above: Performed By: #### L 500.4100, L500.4050 #### [facility] [address] [facility] [facility] [address] Albumin/Globulin [Mass ratio] 1.7 {ratio} Normal 0.9-2.4 [facility] Comment on above: Performed By: #### L 500.4100, L500.4050 #### [facility] [address] [place], [address] ALK PHOS 57 U/L Normal 40-129 [facility] Comment on above: Performed By: #### L 500.4100, L500.4050 #### [facility] [address] [place], [address] ALT [Catalytic activity/Vol] 25 U/L Normal <=46 [facility] Comment on above: Performed By: #### L 500.4100, L500.4050 #### [facility] [address] [place], [address] AST [Catalytic activity/Vol] 23 U/L Normal <=37 [facility] Comment on above: Performed By: #### L 500.4100, L500.4050 #### [facility] [address] [place], [address] Bilirubin [Mass/Vol] 0.33 mg/dL Normal 0.00-1.30 [facility] Comment on above: Performed By: #### L 500.4100, L500.4050 #### [facility] [address] [place], [address] BUN/CRE 18.2 RATIO Normal 10-20 [facility] Comment on above: Performed By: #### L 500.4100, L500.4050 #### [facility] [address] [place], [address] Calcium [Mass/Vol] 9.3 mg/dL Normal 7.6-11.[address] [facility] Comment on above: Performed By: #### L 500.4100, L500.4050 #### [facility] [address] [place], [address] Chloride [Moles/Vol] 102 mmol/L Normal 98-108 [facility] Comment on above: Performed By: #### L 500.4100, L500.4050 #### [facility] [address] [place], [address] CO2 [Moles/Vol] 22.4 mmol/L Normal 21.0-32.0 [facility] Comment on above: Performed By: #### L 500.4100, L500.4050 #### [facility] [address] [place], [address] Creatinine [Mass/Vol] 1.10 mg/dL Normal 0.70-1.20 [facility] Comment on above: Performed By: #### L 500.4100, L500.4050 #### [facility] [address] [place], [address] GAP 12 Normal 5-15 [facility] Comment on above: Performed By: #### L 500.4100, L500.4050 #### [facility] [address] [place], [address] GFR/1.73 sq M.predicted among non-blacks MDRD (S/P/Bld) [Vol rate/Area] 73 mL/min/{1.73_m2} Normal >60 [facility] Comment on above: Result Comment: mL/m in/1.73m2 CKD-EPI Creatinine Equation (2020) Performed By: #### L 500.4100, L500.4050 #### [facility] [address] [place], [address] Globulin (S) [Mass/Vol] 2.5 g/dL Normal 2.2-4.2 [facility] Comment on above: Performed By: #### L 500.4100, L500.4050 #### [facility] [address] [place], [address] Glucose [Mass/Vol] 120 mg/dL High 70-[address] [facility] Comment on above: Performed By: #### L 500.4100, L500.4050 #### [facility] [address] [place], [address] Potassium [Moles/Vol] 4.0 mmol/L Normal 3.3-5.1 [facility] Comment on above: Performed By: #### L 500.4100, L500.4050 #### [facility] [address] [place], [address] Sodium [Moles/Vol] 137 mmol/L Normal 133-145 [facility] Comment on above: Performed By: #### L 500.4100, L500.4050 #### [facility] [address] [place], [address] T PROT 6.8 g/dL Normal 5.9-8.4 [facility] Comment on above: Performed By: #### L 500.4100, L500.4050 #### [facility] [address] [place], [address] Urea nitrogen [Mass/Vol] 20 mg/dL High 4-19 [facility] Comment on above: Performed By: #### L 500.4100, L500.4050 #### [facility] [address] [place], [address] Lipid Profileon 02-27-2025 CHOL:HDL 4.65 [facility] Comment on above: Performed By: #### L 500.4100, L500.4050 ####[facility] [address] [place], [address] Cholesterol [Mass/Vol] 198 mg/dL Normal <=200 [facility] Comment on above: Result Comment: Chol esterol level, Desirable <200 mg/dL Borderline high cholesterol 200-239 mg/dL High cholesterol >=240 mg/dL Recommendations of the NCEP Adult Treatment Panel for the following risk-cutoff thresholds for the [place] population. Performed By: #### L 500.4100, L500.4050 ####[facility] [address] [place], [address] Cholesterol in HDL [Mass/Vol] 43 mg/dL [facility] Comment on above: Result Comment: Anastasia onal Cholesterol Education Program (NCEP) guidelines: <40 mg/dL: Low HDL-cholesterol (major risk factor for CHD) >= 60 mg/dL: High HDL-cholesterol (negative risk factor for CHD) HDL-cholesterol is affected by a number of factors, e.g. smoking, exercise, hormones, sex and age. Performed By: #### L 500.4100, L500.4050 ####[facility] [address] [place], [address] Cholesterol in LDL [Mass/Vol] 104 mg/dL [facility] Comment on above: Result Comment: Bord qzmhab=133-082 mg/dL Higher Ttov=501 mg/dL or greater Friedwald Equation for LDL-C Performed By: #### L 500.4100, L500.4050 ####[facility] [address] [place], [address] Cholesterol in VLDL [Mass/Vol] 51 mg/dL High 5-40 [facility] Comment on above: Performed By: #### L 500.4100, L500.4050 ####[facility] [address] [place], [address] Triglyceride [Mass/Vol] 257 mg/dL High [facility] Comment on above: Result Comment: The drugs N-Acetylcysteine and Metamizole may falsely depress this assay. Normal range: <150 mg/dL Borderline High: 150-199 mg/dL High: 200-499 mg/dL Very High: >500 mg/dL Performed By: #### L 500.4100, L500.4050 ####[facility] [address] [place], [address] 12 Lead EKGon 12-31-2024 12 Lead EKG [facility] [address] [place] [address] 12 Lead EKG 12/31/24 1211 MR#: [id number] Acct: [id number] Name: ALIZA PAGAN Rep #: [id number] : 1955 69 From: Chinedu Lopez MD Attending Dr: Status: DEP ER Ordering Dr: Urbano Rock DO Date: 12/31/24 Location: ED Sex: M C Admitted: Test Reason : CP Blood Pressure : */* mmHG Vent. Rate : 59 BPM Atrial Rate : 59 BPM P-R Int : 178 ms QRS Dur : 92 ms QT Int : 438 ms P-R-T Axes : 58 5 13 degrees QTcB Int : 433 ms Sinus bradycardia Otherwise normal ECG Confirmed by CHINEDU LOPEZ MD ([id number]), medical editor MIGUEL LOZA ([id number]) on 01/01/2025 1:00:58 PM Referred By: Confirmed By: CHINEDU LOPEZ MD 01/01/25 1301 Date Chinedu Lopez MD CC: Dr. Urbano Rock, DO; Dr. Luis Bingham MD Signed [facility] Absolute lymphocyte countOrd ered By: Urbano Rokc on 12-31-2024 Lymphocytes Auto (Unsp spec) [#/Vol] 1.99 10*3/uL 0.83-4.51 [facility] Absolute neutrophil countOrd ered By: Urbano Rock on 12-31-2024 Neutrophils (Bld) [#/Vol] 2.5 10*3/uL 2.0-7.7 [facility] Anion gap in Serum or Plasma Ordered By: Urbano Rock on 12-31-2024 Anion gap [Moles/Vol] 10 mmol/L 5-15 [facility] Automated lymphocyte count a s percentage of total leukocytesOrdered By: Urbano Rock on 12-31-2024 Lymphocytes/100 WBC Auto (Unsp spec) 38.2 % 19-41 [facility] BUN/creatinine ratioOrdered By: Urbano Rock on 12-31-2024 Urea nitrogen/Creatinine [Mass ratio] 13.6 mg/mg 10- [facility] Basic Metabolic Profile (BMP )on 12-31-2024 BUN/CRE 13.6 RATIO Normal - [facility] Comment on above: Performed By: #### L 501.4021, L100.0100, L500.2500 #### [facility] [address] [place], [address] Calcium [Mass/Vol] 9.2 mg/dL Normal 7.6-11.[address] [facility] Comment on above: Performed By: #### L 501.4021, L100.0100, L500.2500 #### [facility] [address] [place], [address] Chloride [Moles/Vol] 102 mmol/L Normal 98-108 [facility] Comment on above: Performed By: #### L 501.4021, L100.0100, L500.2500 #### [facility] [address] [place], [address] CO2 [Moles/Vol] 24.7 mmol/L Normal 21.0-32.0 [facility] Comment on above: Performed By: #### L 501.4021, L100.0100, L500.2500 #### [facility] [address] [place], [address] Creatinine [Mass/Vol] 1.18 mg/dL Normal 0.70-1.20 [facility] Comment on above: Performed By: #### L 501.4021, L100.0100, L500.2500 #### [facility] [address] [place], [address] ECRCL 68.54 ml/min Normal 50-250 [facility] Comment on above: Performed By: #### L 501.4021, L100.0100, L500.2500 #### [facility] [address] [place], [address] GAP 10 Normal 5-15 [facility] Comment on above: Performed By: #### L 501.4021, L100.0100, L500.2500 #### [facility] [address] [place], [address] GFR/1.73 sq M.predicted among non-blacks MDRD (S/P/Bld) [Vol rate/Area] 67 mL/min/{1.73_m2} Normal >60 [facility] Comment on above: Result Comment: mL/m in/1.73m2 CKD-EPI Creatinine Equation (2020) Performed By: #### L 501.4021, L100.0100, L500.2500 #### [facility] [address] [place], [address] Glucose [Mass/Vol] 113 mg/dL High 70-[address] [facility] Comment on above: Performed By: #### L 501.4021, L100.0100, L500.2500 #### [facility] [address] [place], [address] Potassium [Moles/Vol] 4.0 mmol/L Normal 3.3-5.1 [facility] Comment on above: Performed By: #### L 501.4021, L100.0100, L500.2500 #### [facility] [address] [place], [address] Sodium [Moles/Vol] 137 mmol/L Normal 133-[address] [facility] Comment on above: Performed By: #### L 501.4021, L100.0100, L500.2500 #### [facility] [address] [place], [address] Urea nitrogen [Mass/Vol] 16 mg/dL Normal 4-19 [facility] Comment on above: Performed By: #### L 501.4021, L100.0100, L500.2500 #### [facility] [address] [place], [address] Basophil percentageOrdered B y: Urbano Rock on 12-31-2024 Basophils/100 WBC (Bld) 0.6 % 0-1 [facility] CBC W/Diff, Automatedon 12-05 Absolute Lymph 1.99 X10 3/uL Normal 0.83-4.51 [facility] Comment on above: Performed By: #### L 501.4021, L100.0100, L500.2500 #### [facility] [address] [place], [address] Absolute Neut 2.5 X10 3/uL Normal 2.0-7.7 [facility] Comment on above: Performed By: #### L 501.4021, L100.0100, L500.2500 #### [facility] [address] [place], [address] Basophils/100 WBC (Bld) 0.6 % Normal 0-1 [facility] Comment on above: Performed By: #### L 501.4021, L100.0100, L500.2500 #### [facility] [address] [place], [address] Eosinophils/100 WBC (Bld) 3.6 % Normal 0-5 [facility] Comment on above: Performed By: #### L 501.4021, L100.0100, L500.2500 #### [facility] [address] [place], [address] Erythrocyte distribution width (RBC) [Ratio] 12.2 % Normal 11.6-14.6 [facility] Comment on above: Performed By: #### L 501.4021, L100.0100, L500.2500 #### [facility] [address] [place], [address] Hematocrit (Bld) [Volume fraction] 42.2 % Normal 40-54 [facility] Comment on above: Performed By: #### L 501.4021, L100.0100, L500.2500 #### [facility] [address] [place], [address] Hemoglobin (Bld) [Mass/Vol] 14.6 g/dL Normal 13.0-16.5 [facility] Comment on above: Performed By: #### L 501.4021, L100.0100, L500.2500 #### [facility] [address] [place], [address] IG% 0.200 Normal 0.0-0.9 [facility] Comment on above: Result Comment: IG% - Immature Granulocytes (promyelocytes, myelocytes and metamyelocytes) > 1% indicates that a LEFT SHIFT is Present. Performed By: #### L 501.4021, L100.0100, L500.2500 #### [facility] [address] [place], [address] Lymphocytes/100 WBC (Bld) 38.2 % Normal 19-41 [facility] Comment on above: Performed By: #### L 501.4021, L100.0100, L500.2500 #### [facility] [address] [place], [address] MCH (RBC) [Entitic mass] 30.5 pg Normal 27.0-32.0 [facility] Comment on above: Performed By: #### L 501.4021, L100.0100, L500.2500 #### [facility] [address] [place], [address] MCHC (RBC) [Mass/Vol] 34.6 g/dL Normal 32-36 [facility] Comment on above: Performed By: #### L 501.4021, L100.0100, L500.2500 #### [facility] [address] [place], [address] MCV (RBC) [Entitic vol] 88.1 fL Normal 80-94 [facility] Comment on above: Performed By: #### L 501.4021, L100.0100, L500.2500 #### [facility] [address] [place], [address] Monocytes/100 WBC (Bld) 8.8 % Normal 0-10 [facility] Comment on above: Performed By: #### L 501.4021, L100.0100, L500.2500 #### [facility] [address] [place], [address] Neutrophils/100 WBC (Bld) 48.6 % Normal 47-70 [facility] Comment on above: Performed By: #### L 501.4021, L100.0100, L500.2500 #### [facility] [address] [place], [address] Nucleated RBC (Bld) [#/Vol] 0 10*3/uL Normal 0-5 [facility] Comment on above: Performed By: #### L 501.4021, L100.0100, L500.2500 #### [facility] [address] [place], [address] Platelet mean volume (Bld) [Entitic vol] 9.8 fL Normal 6.2-12.0 [facility] Comment on above: Performed By: #### L 501.4021, L100.0100, L500.2500 #### [facility] [address] [place], [address] Platelets (Bld) [#/Vol] 221 10*3/uL Normal 150-450 [facility] Comment on above: Performed By: #### L 501.4021, L100.0100, L500.2500 #### [facility] [address] [place], [address] RBC (Bld) [#/Vol] 4.79 10*6/uL Normal 4.6-6.2 [facility] Comment on above: Performed By: #### L 501.4021, L100.0100, L500.2500 #### [facility] [address] [place], [address] RDW SD 39.1 fl Normal 35.1-43.9 [facility] Comment on above: Performed By: #### L 501.4021, L100.0100, L500.2500 #### [facility] [address] [place], [address] WBC (Bld) [#/Vol] 5.2 10*3/uL Normal 4.4-11.[address] [facility] Comment on above: Performed By: #### L 501.4021, L100.0100, L500.2500 #### [facility] [address] [place], [place], [address] Carbon dioxide, total [Moles /volume] in Central venous bloodOrdered By: Urbano Rock on 12-31-2024 CO2 [Moles/Vol] 24.7 mmol/L 21.0-32.0 [facility] Chest 1 View (Portable)on Chest 1 View (Portable) [facility] Imaging Services [address] [place], [place] [address] Chest 1 View (Portable) MR#: [id number] Acct: [id number] Name: ALIZA PAGAN Rep #: [id number] : 1955 M 69 From: Juan José Chavez MD PCP: Dr. Luis Bingham MD Status: [facility] ER Study: Chest 1 View (Portable) Date of Exam: 12/31/24 Exam# [id number] Ordering Dr: Urbano oRck DO PROCEDURE: CHEST 1 VIEW (PORTABLE) 12/31/2024 [...] CC: Dr. Urbano Rock DO; Dr. Luis Binghma MD [employer] Director: Signed [facility] Chloride assayOrdered By: Masood Rock on 12-31-2024 Chloride [Moles/Vol] 102 mmol/L 98-108 [facility] Emergency Department Summary on 12-31-2024 Emergency Department Summary [facility] Medical Records Department [address] [place] [address] Emergency Department Summary 12/31/24 MR#: [id number] Acct: [id number] Name: ALIZA PAGAN Rep #: [id number] : 1955 69 From: Urbano Rock DO PCP: Dr. Luis Bingham MD Status:DEP ER Location: ED HPI History of Present Illness Chief Complaint: Chest Pain Informant: patient Onset/Context/Ralph cervantes Onset: Yesterday Activity at onset: gradual Timing: Continuous Quality: Positive for Dull Location: Left Chest Worsened By: Nothing Relieved By: Nothing Associated Symptoms: Positive for Lightheadedness; Negative for Nausea, Vomiting, Diaphoresis, Dyspnea, Cough, Fever, Acid Reflux or Palpitations Narrative Narrative: Patient presents with chest pain that began yesterday. Patient states it came on gradually. Patient states it has been constant. Patient describes it as dull. Patient states it is over the left side of his chest. Patient denies any radiation of the pain. Patient states nothing makes it better and nothing makes it worse. Patient is to some lightheadedness. Patient denies any nausea or vomiting. Patient denies any diaphoresis. Patient denies any shortness of breath or cough. CVD Risk Factors: Positive for Hypertension and Hypercholesterolemi a; Negative for Diabetes, Family History 1' PE Risk Factors: [...] dizziness #0 10/24/20 Rx Relief (loratadine)) tabs atorvastatin 20 mg tablet 20 mg PO QHS hyperlipidemia Unknown History folic acid 1 mg tablet 1 mg PO DAILY 05/04/23 Unknown His tory omeprazole 40 mg capsule,delayed 40 mg PO DAILY 05/04/23 Unknown Hi story release oxcarbazepine 300 mg tablet 300 mg PO BID seizures 05/04/23 Un known History risperidone 2 mg tablet 2 mg PO BID schizophrenia 05/04/23 Unknown History Allergy/AdvReac Type Severity Reaction Status Date / Time No Known Allergies Allergy Verified 12/31/24 11:19 Social History household members: none housing: other details: [facility] Smoking Status: Never smoker substance use type: does not use ROS ROS ED Constitutional Constitutional ED: Denies chills or fever(s) Eyes Eyes: Denies blurry vision or change in vision ENT ENT ED: Denies rhinorrhea or sore throat Cardiovascular Cardiovascular: Reports chest pain; Denies palpitations Respiratory/Chest Respiratory/Chest: Denies cough or dyspnea Gastrointestinal Gastrointestinal: Denies nausea or vomiting Genitourinary Genitourinary ED: Denies dysuria or hematuria Musculoskeletal Musculoskeletal: Denies back pain or neck pain Integumentary Denies abscess or rash Neurologic Neurologic: Denies headache(s) or weakness Allergic/Immunologi c Allergic/Immunologi c ED: Denies mouth swelling or urticaria EXAM Physical Exam Const Vital Signs: 12/31/24 11:18 12/31/24 12:20 12/31/24 12:21 Temperature 97.6 F L Temperature Source Oral Pulse Rate 67 102 H Respiratory Rate 19 H 15 Blood Pressure 111/63 111/65 Blood Pressure Mean 79 80 Pulse Ox 98 100 Oxygen Delivery Method Room Air Room Air 12/31/24 13:00 12/31/24 14:00 12/31/24 15:00 Temperature Temperature Source Pulse Rate 59 L 64 Respiratory Rate Blood Pressure 107/79 125/90 H 125/74 H Blood Pressure Mean 88 101 91 Pulse Ox Oxygen Delivery Method 12/31/24 15:34 Temperature 98.4 F Temperature Source Pulse Rate 69 Respiratory Rate 16 Blood Pressure 147/86 H Blood Pressure Mean 106 Pulse Ox 100 Oxygen Delivery Method Positive well nourished and well developed General Appearance ED: well developed and NAD HEENT Reports moist mucous membranes Neck supple and no JVD Chest Wall palpation of chest normal Resp normal respiratory effort and clear to auscu (more content not included)... [facility] Eosinophil percentageOrdered By: Urbaon Rock on 12-31-2024 Eosinophils/100 WBC (Bld) 3.6 % 0-5 [facility] Erythrocyte distribution wid th ratioOrdered By: Urbano Rock on 12-31-2024 Erythrocyte distribution width (RBC) [Ratio] 12.2 % 11.6-14.6 [facility] Erythrocyte distribution wid th standard deviationOrdered By: Urbano Rock on 12-31-2024 Erythrocyte distribution width (RBC) [Ratio] 39.1 fl 35.1-43.9 [facility] Glomerular filtration rate ( GFR) estimation/1.73 sq m using serum, plasma, or whole bOrdered By: Urbano Rock on 12-31-2024 GFR/1.73 sq M.predicted among non-blacks MDRD (S/P/Bld) [Vol rate/Area] 67 mL/min/{1.73_m2} >60 [facility] Comment on above: mL/min/1.73m2 CKD-EP I Creatinine Equation (2020) Hematocrit Auto (Bld) [Volum e fraction]Ordered By: Urbano Rock on 12-31-2024 Hematocrit (Bld) [Volume fraction] 42.2 % 40-54 [facility] Hemoglobin measurementOrdere d By: Urbano Rock on 12-31-2024 Hemoglobin (Bld) [Mass/Vol] 14.6 g/dL 13.0-16.5 [facility] Immature granulocytes/100 WB C Auto (Bld)Ordered By: Urbano Rock on 12-31-2024 Immature granulocytes/100 WBC (Bld) 0.200 % 0.0-0.9 [facility] Comment on above: IG% - Immature Granu locytes (promyelocytes, myelocytes and metamyelocytes) > 1% indicates that a LEFT SHIFT is Present. L501.4021on 12-31-2024 Trop T High Sen 8 ng/L Normal <=22 [facility] Comment on above: Performed By: #### L 501.4021, L100.0100, L500.2500 #### [facility] [address] [place], [place], [id number] MCV (mean corpuscular volume ) determinationOrdered By: Urbano Rock on 12-31-2024 MCV (RBC) [Entitic vol] 88.1 fL 80-94 [facility] Mean corpuscular hemoglobin (MCH) determinationOrdered By: Urbano Rock on 12-31-2024 MCH (RBC) [Entitic mass] 30.5 pg 27.0-32.0 [facility] Mean corpuscular hemoglobin concentration (MCHC) determinationOrdered By: Urbano Rock on 12-31-2024 MCHC (RBC) [Mass/Vol] 34.6 g/dL 32-36 [facility] Mean platelet volume determi nationOrdered By: Urbano Rock on 12-31-2024 Platelet mean volume (Bld) [Entitic vol] 9.8 fL 6.2-12.0 [facility] Monocyte percentageOrdered B y: Urbano Rock on 12-31-2024 Monocytes/100 WBC (Bld) 8.8 % 0-10 [facility] Neutrophil percentageOrdered By: Urbano Rock on 12-31-2024 Neutrophils/100 WBC (Bld) 48.6 % 47-70 [facility] Nucleated red blood cell per centageOrdered By: Urbano Rock on 12-31-2024 Nucleated RBC/100 WBC (Bld) [Ratio] 0 % 0-5 [facility] Platelet countOrdered By: Masood Rock on 12-31-2024 Platelets (Bld) [#/Vol] 221 10*3/uL 150-450 [facility] Potassium measurement (mass/ volume)Ordered By: Urbano Rock on 12-31-2024 Potassium (Unsp spec) [Mass/Vol] 4.0 mmol/L 3.3-5.1 [facility] RBC Auto (Bld) [#/Vol]Ordere d By: Urbano Rock on 12-31-2024 RBC (Bld) [#/Vol] 4.79 10*6/uL 4.6-6.2 [facility] Serum creatinine measurement (mass/volume)Ordered By: Urbano Rock on 12-31-2024 Creatinine [Mass/Vol] 1.18 mg/dL 0.70-1.20 [facility] Serum glucose measurement (m ass/volume)Ordered By: Urbano Rock on 12-31-2024 Glucose [Mass/Vol] 113 mg/dL High 70-[address] [facility] Serum or plasma calcium phyllis urement (mass/volume)Ordered By: Urbano Rock on 12-31-2024 Calcium [Mass/Vol] 9.2 mg/dL 7.6-11.[address] [facility] Serum or plasma urea nitroge n measurement (mass/volume)Ordered By: Urbano Rock on 12-31-2024 Urea nitrogen [Mass/Vol] 16 mg/dL 4-19 [facility] Sodium levelOrdered By: Urbano Rock on 12-31-2024 Sodium [Moles/Vol] 137 mmol/L 133-[address] [facility] Troponin T HS 2 HRon 025 Trop T High Sen 7 ng/L Normal <=22 [facility] Comment on above: Performed By: #### L 499.0042 ####[facility] [address] [place], [place], [id number] Troponin T HS 4 HRon 025 Trop T High Sen Normal <=22 [facility] Comment on above: Result Comment: Canc elled via OM: Order cancelled - Patient discharged Performed By: #### L 499.0043 ####[facility] [address] [place], [place], [id number] Troponin T.cardiac [Mass/vol ume] in Serum or Plasma by High sensitivity methodOrdered By: Urbano Rock on 12-31-2024 Troponin T.cardiac High sensitivity method [Mass/Vol] 7 ng/L <22 [facility] Troponin T.cardiac High sensitivity method [Mass/Vol] 8 ng/L <22 [facility] Comment on above: Delta: 7 on 08/03/24 -182 White blood cell (WBC) count Ordered By: Urbano Rock on 12-31-2024 WBC (Bld) [#/Vol] 5.2 10*3/uL 4.4-11.[address] [facility] 12 Lead EKGon 08-03-2024 12 Lead EKG [facility] Cardi[facility] Services [address] [place] [address] 12 Lead EKG 08/03/24 1753 MR#: [id number] Acct: [id number] Name: ALIZA PAGAN Rep #: [id number] : 1955 68 From: Srinivasa Haskins MD Attending Dr: Status: DEP ER Ordering Dr: Urbano Rock DO Date: 08/03/24 Location: ED Sex: M [...] abnormality Abnormal ECG Confirmed by Srinivasa Haskins ([id number]), medical editor MIGUEL LOZA ([id number]) on 08/06/2024 10:49:55 AM Referred By: Confirmed By: Srinivasa Haskins 08/06/24 1049 Date Srinivasa Haskins MD CC: Dr. Urbano Rock DO; Dr. Luis Bingham MD Signed [facility] Basic Metabolic Profile (BMP )on 08-03-2024 Anion gap [Moles/Vol] 12 mmol/L Normal - [facility] Comment on above: Performed By: #### L 100.0100, L501.4021, L500.2500 #### [facility] [address] [place], [address] BUN/CRE 21.5 RATIO High 10-20 [facility] Comment on above: Performed By: #### L 100.0100, L501.4021, L500.2500 #### [facility] [address] [place], [address] Calcium [Mass/Vol] 9.2 mg/dL Normal 7.6-11.[address] [facility] Comment on above: Performed By: #### L 100.0100, L501.4021, L500.2500 #### [facility] [address] [place], [address] Chloride [Moles/Vol] 103 mmol/L Normal 96-108 [facility] Comment on above: Performed By: #### L 100.0100, L501.4021, L500.2500 #### [facility] [address] [place], [address] CO2 [Moles/Vol] 23.7 mmol/L Normal 22.0-29.0 [facility] Comment on above: Performed By: #### L 100.0100, L501.4021, L500.2500 #### [facility] [address] [place], [address] Creatinine [Mass/Vol] 0.97 mg/dL Normal 0.70-1.20 [facility] Comment on above: Performed By: #### L 100.0100, L501.4021, L500.2500 #### [facility] [address] [place], [address] ECRCL 87.28 ml/min [facility] Comment on above: Performed By: #### L 100.0100, L501.4021, L500.2500 #### [facility] [address] [place], [address] GFR/1.73 sq M.predicted among non-blacks MDRD (S/P/Bld) [Vol rate/Area] 85 mL/min/{1.73_m2} Normal >60 [facility] Comment on above: Result Comment: mL/m in/1.73m2 CKD-EPI Creatinine Equation (2020) Performed By: #### L 100.0100, L501.4021, L500.2500 #### [facility] [address] [place], [address] Glucose [Mass/Vol] 119 mg/dL High 70-[address] [facility] Comment on above: Performed By: #### L 100.0100, L501.4021, L500.2500 #### [facility] [address] [place], [address] Potassium [Moles/Vol] 3.8 mmol/L Normal 3.3-5.1 [facility] Comment on above: Performed By: #### L 100.0100, L501.4021, L500.2500 #### [facility] [address] [place], [address] Sodium [Moles/Vol] 138 mmol/L Normal 133-[address] [facility] Comment on above: Performed By: #### L 100.0100, L501.4021, L500.2500 #### [facility] [address] [place], [address] Urea nitrogen [Mass/Vol] 21 mg/dL High 4-19 [facility] Comment on above: Performed By: #### L 100.0100, L501.4021, L500.2500 #### [facility] [address] [place], [address] CBC W/Diff, Automatedon -2 Absolute Lymph 2.40 X10 3/uL Normal 0.83-4.51 [facility] Comment on above: Performed By: #### L 100.0100, L501.4021, L500.2500 #### [facility] [address] [place], [address] Absolute Neut 3.1 X10 3/uL Normal 2.0-7.7 [facility] Comment on above: Performed By: #### L 100.0100, L501.4021, L500.2500 #### [facility] [address] [place], [address] Basophils/100 WBC (Bld) 0.6 % Normal 0-1 [facility] Comment on above: Performed By: #### L 100.0100, L501.4021, L500.2500 #### [facility] [address] [place], [address] Eosinophils/100 WBC (Bld) 4.0 % Normal 0-5 [facility] Comment on above: Performed By: #### L 100.0100, L501.4021, L500.2500 #### [facility] [address] [place], [address] Erythrocyte distribution width (RBC) [Ratio] 12.1 % Normal 11.6-14.6 [facility] Comment on above: Performed By: #### L 100.0100, L501.4021, L500.2500 #### [facility] [address] [place], [address] Hematocrit (Bld) [Volume fraction] 39.8 % Low 40-54 [facility] Comment on above: Performed By: #### L 100.0100, L501.4021, L500.2500 #### [facility] [address] [place], [address] Hemoglobin (Bld) [Mass/Vol] 13.7 g/dL Normal 13.0-16.5 [facility] Comment on above: Performed By: #### L 100.0100, L501.4021, L500.2500 #### [facility] [address] [place], [address] IG% 0.200 Normal 0.0-0.9 [facility] Comment on above: Result Comment: IG% - Immature Granulocytes (promyelocytes, myelocytes and metamyelocytes) > 1% indicates that a LEFT SHIFT is Present. Performed By: #### L 100.0100, L501.4021, L500.2500 #### [facility] [address] [place], [address] Lymphocytes/100 WBC (Bld) 38.2 % Normal 19-41 [facility] Comment on above: Performed By: #### L 100.0100, L501.4021, L500.2500 #### [facility] [address] [place], [address] MCH (RBC) [Entitic mass] 29.9 pg Normal 27.0-32.0 [facility] Comment on above: Performed By: #### L 100.0100, L501.4021, L500.2500 #### [facility] [address] [place], [address] MCHC (RBC) [Mass/Vol] 34.4 g/dL Normal 32-36 [facility] Comment on above: Performed By: #### L 100.0100, L501.4021, L500.2500 #### [facility] [address] [place], [address] MCV (RBC) [Entitic vol] 86.9 fL Normal 80-94 [facility] Comment on above: Performed By: #### L 100.0100, L501.4021, L500.2500 #### [facility] [address] [place], [address] Monocytes/100 WBC (Bld) 7.8 % Normal 0-10 [facility] Comment on above: Performed By: #### L 100.0100, L501.4021, L500.2500 #### [facility] [address] [place], [address] Neutrophils/100 WBC (Bld) 49.2 % Normal 47-70 [facility] Comment on above: Performed By: #### L 100.0100, L501.4021, L500.2500 #### [facility] [address] [place], [address] Nucleated RBC (Bld) [#/Vol] 0 10*3/uL Normal 0-5 [facility] Comment on above: Performed By: #### L 100.0100, L501.4021, L500.2500 #### [facility] [address] [place], [address] Platelet mean volume (Bld) [Entitic vol] 9.1 fL Normal 6.2-12.0 [facility] Comment on above: Performed By: #### L 100.0100, L501.4021, L500.2500 #### [facility] [address] [place], [address] Platelets (Bld) [#/Vol] 210 10*3/uL Normal 150-450 [facility] Comment on above: Performed By: #### L 100.0100, L501.4021, L500.2500 #### [facility] [address] [place], [address] RBC (Bld) [#/Vol] 4.58 10*6/uL Low 4.6-6.2 [facility] Comment on above: Performed By: #### L 100.0100, L501.4021, L500.2500 #### [facility] [address] [place], [address] RDW SD 38.4 fl Normal 35.1-43.9 [facility] Comment on above: Performed By: #### L 100.0100, L501.4021, L500.2500 #### [facility] [address] [place], [address] WBC (Bld) [#/Vol] 6.3 10*3/uL Normal 4.4-11.[address] [facility] Comment on above: Performed By: #### L 100.0100, L501.4021, L500.2500 #### [facility] [address] [place], [address] Chest PA and Lateralon 08-03 Chest PA and Lateral [facility] Imaging Services [address] [place] [address] Chest PA and Lateral MR#: [id number] Acct: [id number] Name: ALIZA PAGAN Rep #: [id number] : 1955 M 68 From: Luis Grimm MD PCP: Dr. Luis Bingham MD Status: [facility] ER Study: Chest PA and Lateral Date of Exam: 08/03/24 Exam# [id number] Ordering Dr: Urbano Rock DO PROCEDURE: CHEST [...] CC: Dr. Urbano Rock DO; Dr. Luis Bingham MD [employer] Director: Signed [facility] Emergency Department Summary on 08-03-2024 Emergency Department Summary [facility] Medical Records Department [address] [place] [address] Emergency Department Summary 08/03/24 MR#: [id number] Acct: [id number] Name: ALIZA PAGAN Rep #: [id number] : 1955 68 From: Urbano Rock DO PCP: Dr. Luis Bingham MD Status:[facility] ER Location: ED HPI History of Present [...] mg PO BID 7 days #14 caps 04/06/28 Unknown Rx (Colace) atorvastatin 20 mg tablet [...] History household members: none housing: other details: [facility] Smoking Status: Never smoker substance use type: [...] Resp filemon (more content not included)... [facility] L499.0042on 08-03-2024 Trop T Delta 0 [facility] Comment on above: Result Comment: If c linical suspicion for ACS is high, suggest getting a third troponin. Otherwise, stress test or CTCA. Performed By: #### L 499.0042 ####[facility] [address] [place], [address] Trop T High Sen 7 ng/L Normal <=22 [facility] Comment on above: Performed By: #### L 499.0042 ####[facility] [address] [place], [address] L499.0043on 08-03-2024 Trop T Delta [facility] Comment on above: Result Comment: MERRICK ENT DISCHARGED Performed By: #### L 499.0043 ####[facility] [address] [place], [address] Trop T High Sen Normal <=22 [facility] Comment on above: Result Comment: MERRICK ENT DISCHARGED Performed By: #### L 499.0043 ####[facility] [address] [place], [address] L501.4021on 08-03-2024 Trop T High Sen 7 ng/L Normal <=22 [facility] Comment on above: Performed By: #### L 100.0100, L501.4021, L500.2500 #### [facility] [address] [place], [address] Streptococcus pyogenes rRNA detection in throat by DNA probeOrdered By: Deepak Oates on 09-03-2023 S. pyogenes rRNA Probe Ql (Throat) [facility] Basophil percentageOrdered B y: Melinda Ames on 07-22-2023 Bilirubin [Mass/Vol] 0.40 mg/dL 0.20-1.00 [facility] Comment on above: For patients on eltr ombopag therapy, use of Dimension Remer TBIL is not recommended. Chloride [Moles/Vol] 106 mmol/L 98-107 [facility] Cholesterol [Mass/Vol] 224 mg/dL <200 [facility] Comment on above: <200 mg/dL Desirable 200-240 mg/dL Borderline >240 mg/dL High Risk Glucose [Mass/Vol] 107 mg/dL 74-[address] [facility] Comment on above: Fasting Glucose resu lt from 100 to 125 mg/dL suggests IMPAIRED HOMEOSTASIS per A.D.A. criteria. Potassium [Moles/Vol] 3.9 mmol/L 3.5-5.1 [facility] Protein [Mass/Vol] 7.1 g/dL 6.4-8.[address] [facility] Sodium [Moles/Vol] 140 mmol/L 136-[address] [facility] Triglyceride [Mass/Vol] 381 mg/dL <199 [facility] Comment on above: The drugs N-Acetylcy steine and Metamizole may falsely depress this assay.Serum Triglycerides Reference Interval Normal <150 mg/dL Borderline high 150 - 199 mg/dL High 200 - 499 mg/dL Very High > or = 500 mg/dL Laboratory - Chemistry and C hemistry - challengeOrdered By: Melinda Ames on 07-22-2023 Albumin/Globulin [Mass ratio] 1.2 {ratio} 0.9-2.4 [facility] ALP [Catalytic activity/Vol] 57 U/L 45-117 [facility] ALT [Catalytic activity/Vol] 24 U/L 16-61 [facility] Cholesterol in HDL [Mass/Vol] 46 mg/dL >40 [facility] Comment on above: The drugs N-Acetylcy steine and Metamizole may falsely depress this assay. Reference Range HDL <40 mg/dL Low HDL Cholesterol HDL >or= 60 mg/dL High HDL Cholesterol Cholesterol in LDL [Mass/Vol] 102 mg/dL 0-130 [facility] CO2 [Moles/Vol] 28.0 mmol/L 21.0-32.0 [facility] Globulin (S) [Mass/Vol] 3.3 g/dL 2.2-4.2 [facility] Urea nitrogen/Creatinine [Mass ratio] 17.4 mg/mg 10-20 [facility] No Panel InformationOrdered By: Melinda Ames on 07-22-2023 Estimated GFR (MDRD) Amer 87 mL/min >60 [facility] Comment on above: GFR Calc Estimated GFR (MDRD) Non-Af Amer 72 mL/min >60 [facility] Comment on above: Non- GFR Calc Prolactin 13.9 ng/mL [facility] Comment on above: NORMAL REFERENCE RAN GES FEMALE NON- 2.2 - 30.3 ng/mL 8.1 - 347.6 ng/mL POST-MENOPAUSAL 0.7 - 31.5 ng/mL MALE 2.5 - 17.4 ng/mL VLDL Cholesterol 76 mg/dL 5-40 [facility] Serum or plasma calcium phyllis urement (mass/volume)Ordered By: Melinda Ames on 07-22-2023 Calcium [Mass/Vol] 9.6 mg/dL 8.5-10.[address] [facility] Serum or plasma creatinine m easurement (mass/volume)Ordered By: Melinda Ames on 07-22-2023 Creatinine [Mass/Vol] 1.09 mg/dL 0.70-1.30 [facility] Comment on above: The validity of the calculated GFR & GFRAA in patients over 70 years has not been determined. Clinical correlation is essential. Serum or plasma urea nitroge n measurement (mass/volume)Ordered By: Melinda Ames on 07-22-2023 Urea nitrogen [Mass/Vol] 19 mg/dL 7-18 [facility] Thin prep Papanicolaou smear with manual screeningOrdered By: Melinda Ames on 07-22-2023 Thin prep Papanicolaou smear with manual screening 3.8 g/dL 3.2-5.0 [facility] Thin prep Papanicolaou smear with manual screening 19 U/L 15-37 [facility] Thin prep Papanicolaou smear with manual screening 6 5-15 [facility] Whole blood hemoglobin A1c/t otal hemoglobin ratio (mass fraction)Ordered By: Melinda Ames on 07-22-2023 HbA1c (Bld) [Mass fraction] 5.8 % 3.8-5.6 [facility] Comment on above: Normal < 5.7 % Predi abetic 5.7 - 6.4 % Diabetic >or= 6.5 % Please note range changes. Absolute lymphocyte countOrd ered By: Luis Bingham on 06-22-2023 Lymphocytes Auto (Unsp spec) [#/Vol] 2.43 10*3/uL 0.83-4.51 [facility] Automated lymphocyte count a s percentage of total leukocytesOrdered By: Luis Bingham on 06-22-2023 Lymphocytes/100 WBC Auto (Unsp spec) 42.1 % 19-41 [facility] Basophil percentageOrdered B y: Luis Bingham on 06-22-2023 Basophils/100 WBC (Bld) 0.7 % 0-1 [facility] Chloride [Moles/Vol] 109 mmol/L 98-107 [facility] Eosinophils/100 WBC (Bld) 4.2 % 0-5 [facility] Glucose [Mass/Vol] 110 mg/dL 74-[address] [facility] Comment on above: Fasting Glucose resu lt from 100 to 125 mg/dL suggests IMPAIRED HOMEOSTASIS per A.D.A. criteria. Hemoglobin (Bld) [Mass/Vol] 13.3 g/dL 13.0-16.5 [facility] Monocytes/100 WBC (Bld) 9.9 % 0-10 [facility] Neutrophils (Bld) [#/Vol] 2.5 10*3/uL 2.0-7.7 [facility] Neutrophils/100 WBC (Bld) 42.9 % 47-70 [facility] Potassium [Moles/Vol] 4.2 mmol/L 3.5-5.1 [facility] Sodium [Moles/Vol] 141 mmol/L 136-[address] [facility] Testosterone [Mass/Vol] 343.96 ng/dL [facility] Comment on above: CENTRAL 90% REFERENC E RANGES MALE AGE <50 197.44 - 669.58 ng/dL MALE AGE > or = 50 187.72 - 684.19 ng/dL FEMALE AGE <50 8.38 - 35.01 ng/dL FEMALE AGE > or = 50 <7.00 - 35.92 ng/dL Effective as of 12/30/20 WBC (Bld) [#/Vol] 5.8 10*3/uL 4.4-11.[address] [facility] Determination of erythrocyte mean corpuscular volume (MCV)Ordered By: Luis Bingham on 06-22-2023 MCV (RBC) [Entitic vol] 92.1 fL 80-94 [facility] Erythrocyte distribution wid th ratioOrdered By: Luis Bingham on 06-22-2023 Erythrocyte distribution width (RBC) [Ratio] 12.9 % 11.6-14.6 [facility] Erythrocyte distribution wid th standard deviationOrdered By: Luis Bingham on 06-22-2023 Erythrocyte distribution width (RBC) [Entitic vol] 43.5 fL 35.1-43.[address] [facility] Hematocrit Auto (Bld) [Volum e fraction]Ordered By: Luis Bingham on 06-22-2023 Hematocrit (Bld) [Volume fraction] 41.0 % 40-54 [facility] Immature granulocytes/100 WB C Auto (Bld)Ordered By: Luis Bingham on 06-22-2023 Immature granulocytes/100 WBC (Bld) 0.200 % 0.0-0.9 [facility] Comment on above: IG% - Immature Granu locytes (promyelocytes, myelocytes and metamyelocytes) > 1% indicates that a LEFT SHIFT is Present. Laboratory - Chemistry and C hemistry - challengeOrdered By: Luis Bingham on 06-22-2023 CO2 [Moles/Vol] 27.0 mmol/L 21.0-32.0 [facility] Urea nitrogen/Creatinine [Mass ratio] 16.5 mg/mg 10-20 [facility] - Hematology and Cell countsOrdered By: Luis Bingham on 06-22-2023 MCH (RBC) [Entitic mass] 29.9 pg 27.0-32.0 [facility] MCHC (RBC) [Mass/Vol] 32.4 g/dL 32-36 [facility] Nucleated RBC/100 WBC (Bld) [Ratio] 0 % 0-5 [facility] Platelets (Bld) [#/Vol] 182 10*3/uL 150-450 [facility] No Panel InformationOrdered By: Luis Bingham on 06-22-2023 Estimated GFR (MDRD) Amer 93 mL/min >60 [facility] Comment on above: GFR Calc Estimated GFR (MDRD) Non-Af Amer 76 mL/min >60 [facility] Comment on above: Non- GFR Calc Platelet mean volume Alfonso-Ec ker (Bld) [Entitic vol]Ordered By: Luis Bingham on 06-22-2023 Platelet mean volume (Bld) [Entitic vol] 9.9 fL 6.2-12.0 [facility] RBC Auto (Bld) [#/Vol]Ordere d By: Luis Bingham on 06-22-2023 RBC (Bld) [#/Vol] 4.45 10*6/uL 4.6-6.2 [facility] Serum or plasma calcium phyllis urement (mass/volume)Ordered By: Luis Bingham on 06-22-2023 Calcium [Mass/Vol] 8.7 mg/dL 8.5-10.[address] [facility] Serum or plasma creatinine m easurement (mass/volume)Ordered By: Luis Bingham on 06-22-2023 Creatinine [Mass/Vol] 1.03 mg/dL 0.70-1.30 [facility] Comment on above: The validity of the calculated GFR & GFRAA in patients over 70 years has not been determined. Clinical correlation is essential. Serum or plasma thyroid stim ulating hormone (TSH) measurement (units/volume)Ordered By: Luis Bingham on 06-22-2023 TSH Qn 1.67 uIU/mL 0.358-3.74 [facility] Serum or plasma urea nitroge n measurement (mass/volume)Ordered By: Luis Bingham on 06-22-2023 Urea nitrogen [Mass/Vol] 17 mg/dL 7-18 [facility] Thin prep Papanicolaou smear with manual screeningOrdered By: Luis Bingham on 06-22-2023 Thin prep Papanicolaou smear with manual screening 5 5-15 [facility] Influenza virus A and B and SARS-CoV-2 (COVID-19) Ag panel - Upper respiratory specimOrdered By: Felisha Stapleton on 05-27-2023 SARS-CoV-2 & FLU Antigen (Rapid) Influenzae A [facility] Upper respiratory specimen i nfluenza A virus, influenza B virus, and severe acute resOrdered By: Felisha Stapleton on 05-27-2023 SARS-CoV-2 & FLU Antigen (Rapid) Influenzae A [facility] Absolute lymphocyte countOrd ered By: Falguni Isaac on 05-04-2023 Lymphocytes Auto (Unsp spec) [#/Vol] 3.13 10*3/uL 0.83-4.51 [facility] Basophil percentageOrdered B y: Falguni Isaac on 05-04-2023 Basophils/100 WBC (Bld) 0.6 % 0-1 [facility] Chloride [Moles/Vol] 106 mmol/L 98-107 [facility] Eosinophils/100 WBC (Bld) 2.8 % 0-5 [facility] Glucose [Mass/Vol] 107 mg/dL 74-[address] [facility] Comment on above: Fasting Glucose resu lt from 100 to 125 mg/dL suggests IMPAIRED HOMEOSTASIS per A.D.A. criteria. Neutrophils (Bld) [#/Vol] 4.4 10*3/uL 2.0-7.7 [facility] Neutrophils/100 WBC (Bld) 50.9 % 47-70 [facility] Potassium [Moles/Vol] 3.6 mmol/L 3.5-5.1 [facility] Sodium [Moles/Vol] 139 mmol/L 136-[address] [facility] WBC (Bld) [#/Vol] 8.6 10*3/uL 4.4-11.[address] [facility] Blood erythrocytes count (nu mber/volume)Ordered By: Falguni Isaac on 05-04-2023 RBC (Bld) [#/Vol] 4.99 10*6/uL 4.6-6.2 [facility] Blood hemoglobin measurement (mass/volume)Ordered By: Falguni Isaac on 05-04-2023 Hemoglobin (Bld) [Mass/Vol] 15.1 g/dL 13.0-16.5 [facility] Blood lymphocytes/100 leukoc ytesOrdered By: Falguni Isaac on 05-04-2023 Lymphocytes/100 WBC (Bld) 36.3 % 19-41 [facility] Blood monocytes/100 leukocyt esOrdered By: Falguni Isaac on 05-04-2023 Monocytes/100 WBC (Bld) 8.9 % 0-10 [facility] Blood platelet mean volumeOr dered By: Falguni Isaac on 05-04-2023 Platelet mean volume (Bld) [Entitic vol] 9.3 fL 6.2-12.0 [facility] Determination of erythrocyte mean corpuscular volume (MCV)Ordered By: Falguni Isaac on 05-04-2023 MCV (RBC) [Entitic vol] 90.0 fL 80-94 [facility] Hematocrit Auto (Bld) [Volum e fraction]Ordered By: [facility] on 05-04-2023 Hematocrit (Bld) [Volume fraction] 44.9 % 40-54 [facility] Laboratory - Chemistry and C hemistry - challengeOrdered By: [facility] on 05-04-2023 CO2 [Moles/Vol] 29.0 mmol/L 21.0-32.0 [facility] Urea nitrogen/Creatinine [Mass ratio] 11.7 mg/mg 10-20 [facility] Laboratory - Hematology and Cell countsOrdered By: [facility] on 05-04-2023 Erythrocyte distribution width (RBC) [Entitic vol] 41.4 fL 35.1-43.[address] [facility] Erythrocyte distribution width (RBC) [Ratio] 12.6 % 11.6-14.6 [facility] Immature granulocytes/100 WBC (Bld) 0.500 % 0.0-0.9 [facility] Comment on above: IG% - Immature Granu locytes (promyelocytes, myelocytes and metamyelocytes) > 1% indicates that a LEFT SHIFT is Present. MCH (RBC) [Entitic mass] 30.3 pg 27.0-32.0 [facility] Nucleated RBC/100 WBC (Bld) [Ratio] 0 % 0-5 [facility] MCHC Auto (RBC) [Mass/Vol]Or dered By: [facility] on 05-04-2023 MCHC (RBC) [Mass/Vol] 33.6 g/dL 32-36 [facility] No Panel InformationOrdered By: [facility] on 05-04-2023 Troponin I High Sensitivity 30 pg/mL 3.0-78.0 [facility] Comment on above: Please Note: New Nghia t Units and Gender Specific Reference Ranges. For more information see Policy Stat Procedure Remer High Sensitivity Troponin (TNIH) and attachments. D-Dimer Quantitative (PE/DVT) 0.29 FEU/ug/m 0.27-0.49 [facility] Comment on above: NORMAL D-Dimer level (<0.50) indicates no DVT or PE. Estimated Creatinine Clearance Calc 59.73 ml/min [facility] Estimated GFR (MDRD) Amer 78 mL/min >60 [facility] Comment on above: GFR Calc Estimated GFR (MDRD) Non-Af Amer 64 mL/min >60 [facility] Comment on above: Non- GFR Calc Platelets bldOrdered By: Noy Isaac on 05-04-2023 Platelets (Bld) [#/Vol] 244 10*3/uL 150-450 [facility] Serum or plasma calcium phyllis urement (mass/volume)Ordered By: Remus Lopezparam on 05-04-2023 Calcium [Mass/Vol] 8.7 mg/dL 8.5-10.[address] [facility] Serum or plasma creatinine m easurement (mass/volume)Ordered By: [facility] on 05-04-2023 Creatinine [Mass/Vol] 1.20 mg/dL 0.70-1.30 [facility] Comment on above: The validity of the calculated GFR & GFRAA in patients over 70 years has not been determined. Clinical correlation is essential. Serum or plasma urea nitroge n measurement (mass/volume)Ordered By: Hartfield Johnparam on 05-04-2023 Urea nitrogen [Mass/Vol] 14 mg/dL 7-18 [facility] Thin prep Papanicolaou smear with manual screeningOrdered By: [facility] on 05-04-2023 Thin prep Papanicolaou smear with manual screening 4 5-15 [facility] Basophil percentageOrdered B y: Lius Bingham on 03-10-2023 Bilirubin [Mass/Vol] 0.40 mg/dL 0.20-1.00 [facility] Comment on above: For patients on eltr ombopag therapy, use of Dimension Remer TBIL is not recommended. Chloride [Moles/Vol] 104 mmol/L 98-107 [facility] Cholesterol [Mass/Vol] 199 mg/dL <200 [facility] Comment on above: <200 mg/dL Desirable 200-240 mg/dL Borderline >240 mg/dL High Risk Glucose [Mass/Vol] 97 mg/dL 74-[address] [facility] Potassium [Moles/Vol] 4.0 mmol/L 3.5-5.1 [facility] Protein [Mass/Vol] 7.2 g/dL 6.4-8.[address] [facility] Sodium [Moles/Vol] 136 mmol/L 136-[address] [facility] Triglyceride [Mass/Vol] 145 mg/dL <199 [facility] Comment on above: The drugs N-Acetylcy steine and Metamizole may falsely depress this assay.Serum Triglycerides Reference Interval Normal <150 mg/dL Borderline high 150 - 199 mg/dL High 200 - 499 mg/dL Very High > or = 500 mg/dL Laboratory - Chemistry and C hemistry - challengeOrdered By: Luis Bingham on 03-10-2023 ALP [Catalytic activity/Vol] 51 U/L 45-117 [facility] ALT [Catalytic activity/Vol] 29 U/L 16-61 [facility] CO2 [Moles/Vol] 27.0 mmol/L 21.0-32.0 [facility] Globulin (S) [Mass/Vol] 3.5 g/dL 2.2-4.2 [facility] Urea nitrogen/Creatinine [Mass ratio] 15.1 mg/mg 10-20 [facility] No Panel InformationOrdered By: Luis Bingham on 03-10-2023 Estimated GFR (MDRD) Amer 78 mL/min >60 [facility] Comment on above: GFR Calc Estimated GFR (MDRD) Non-Af Amer 65 mL/min >60 [facility] Comment on above: Non- GFR Calc Prostate Specific Antigen Screen 1.19 ng/mL 0.00-4.00 [facility] Comment on above: This test was perfor med using the TPSA assay method for the[facility] system. Values obtained with differentassay methods cannot be used interchangably.When changing PSA assays in the course of monitoring apatient, additional sequential testing should be carriedout to confirm baseline values. Serum or plasma albumin phyllis urement (mass/volume)Ordered By: Luis Bingham on 03-10-2023 Albumin [Mass/Vol] 3.7 g/dL 3.2-5.[address] [facility] Serum or plasma albumin/glob ulin mass ratioOrdered By: Luis Bingham on 03-10-2023 Albumin/Globulin [Mass ratio] 1.1 {ratio} 0.9-2.4 [facility] Serum or plasma calcium phyllis urement (mass/volume)Ordered By: Luis Bingham on 03-10-2023 Calcium [Mass/Vol] 9.1 mg/dL 8.5-10.[address] [facility] Serum or plasma cholesterol in HDL measurement (mass/volume)Ordered By: Luis Bingham on 03-10-2023 Cholesterol in HDL [Mass/Vol] 45 mg/dL >40 [facility] Comment on above: The drugs N-Acetylcy steine and Metamizole may falsely depress this assay. Reference Range HDL <40 mg/dL Low HDL Cholesterol HDL >or= 60 mg/dL High HDL Cholesterol Serum or plasma cholesterol in VLDL measurement (mass/volume)Ordered By: Luis Bingham on 03-10-2023 Cholesterol in VLDL [Mass/Vol] 29 mg/dL 5-40 [facility] Serum or plasma creatinine m easurement (mass/volume)Ordered By: Luis Bingham on 03-10-2023 Creatinine [Mass/Vol] 1.19 mg/dL 0.70-1.30 [facility] Comment on above: The validity of the calculated GFR & GFRAA in patients over 70 years has not been determined. Clinical correlation is essential. Serum or plasma low density lipoprotein (LDL) cholesterol measurement (mass/volume)Ordered By: Luis Bingham on 03-10-2023 Cholesterol in LDL [Mass/Vol] 125 mg/dL 0-130 [facility] Serum or plasma urea nitroge n measurement (mass/volume)Ordered By: Luis Bingham on 03-10-2023 Urea nitrogen [Mass/Vol] 18 mg/dL 7-18 [facility] Thin prep Papanicolaou smear with manual screeningOrdered By: Luis Bingham on 03-10-2023 Thin prep Papanicolaou smear with manual screening 18 U/L 15-37 [facility] Thin prep Papanicolaou smear with manual screening 5 5-15 [facility] Basophil percentageOrdered B y: Dr. Bingham on 08-20-2022 Cholesterol [Mass/Vol] 256 mg/dL <200 [facility] Comment on above: <200 mg/dL Desirable 200-240 mg/dL Borderline >240 mg/dL High Risk Triglyceride [Mass/Vol] 139 mg/dL <199 [facility] Comment on above: The drugs N-Acetylcy steine and Metamizole may falsely depress this assay.Serum Triglycerides Reference Interval Normal <150 mg/dL Borderline high 150 - 199 mg/dL High 200 - 499 mg/dL Very High > or = 500 mg/dL Serum or plasma cholesterol in HDL measurement (mass/volume)Ordered By: Dr. Bingham on 08-20-2022 Cholesterol in HDL [Mass/Vol] 50 mg/dL >40 [facility] Comment on above: The drugs N-Acetylcy steine and Metamizole may falsely depress this assay. Reference Range HDL <40 mg/dL Low HDL Cholesterol HDL >or= 60 mg/dL High HDL Cholesterol Serum or plasma cholesterol in VLDL measurement (mass/volume)Ordered By: Dr. Bingham on 08-20-2022 Cholesterol in VLDL [Mass/Vol] 28 mg/dL 5-40 [facility] Serum or plasma low density lipoprotein (LDL) cholesterol measurement (mass/volume)Ordered By: Dr. Bingham on 08-20-2022 Cholesterol in LDL [Mass/Vol] 178 mg/dL 0-130 [facility] Influenza virus A and B and SARS-CoV-2 (COVID-19) Ag panel - Upper respiratory specimOrdered By: Dr. Mcdermott on 07-26-2022 SARS-CoV-2 (COVID-19) RNA MAXIME+probe Ql (Resp) [facility] Basophil percentageOrdered B y: Dr. Ames on 07-05-2022 Bilirubin [Mass/Vol] 0.30 mg/dL 0.20-1.00 [facility] Comment on above: For patients on eltr ombopag therapy, use of Dimension Remer TBIL is not recommended. Chloride [Moles/Vol] 104 mmol/L 98-107 [facility] Glucose [Mass/Vol] 101 mg/dL 74-[address] [facility] Comment on above: Fasting Glucose resu lt from 100 to 125 mg/dL suggests IMPAIRED HOMEOSTASIS per A.D.A. criteria. Potassium [Moles/Vol] 4.6 mmol/L 3.5-5.1 [facility] Protein [Mass/Vol] 7.1 g/dL 6.4-8.[address] [facility] Sodium [Moles/Vol] 140 mmol/L 136-[address] [facility] Laboratory - Chemistry and C hemistry - challengeOrdered By: Dr. Ames on 07-05-2022 ALP [Catalytic activity/Vol] 53 U/L 45-117 [facility] ALT [Catalytic activity/Vol] 23 U/L 16-61 [facility] CO2 [Moles/Vol] 30.0 mmol/L 21.0-32.0 [facility] Globulin (S) [Mass/Vol] 3.5 g/dL 2.2-4.2 [facility] Urea nitrogen/Creatinine [Mass ratio] 13.5 mg/mg 10-20 [facility] No Panel InformationOrdered By: Dr. Ames on 07-05-2022 Estimated GFR (MDRD) Amer 85 mL/min >60 [facility] Comment on above: GFR Calc Estimated GFR (MDRD) Non-Af Amer 70 mL/min >60 [facility] Comment on above: Non- GFR Calc Serum or plasma albumin phyllis urement (mass/volume)Ordered By: Dr. Ames on 07-05-2022 Albumin [Mass/Vol] 3.6 g/dL 3.2-5.[address] [facility] Serum or plasma albumin/glob ulin mass ratioOrdered By: Dr. Ames on 07-05-2022 Albumin/Globulin [Mass ratio] 1.0 {ratio} 0.9-2.4 [facility] Serum or plasma calcium phyllis urement (mass/volume)Ordered By: Dr. Ames on 07-05-2022 Calcium [Mass/Vol] 9.2 mg/dL 8.5-10.[address] [facility] Serum or plasma creatinine m easurement (mass/volume)Ordered By: Dr. Ames on 07-05-2022 Creatinine [Mass/Vol] 1.11 mg/dL 0.70-1.30 [facility] Comment on above: The validity of the calculated GFR & GFRAA in patients over 70 years has not been determined. Clinical correlation is essential. Serum or plasma prolactin me asurement (mass/volume)Ordered By: Dr. Ames on 07-05-2022 Prolactin [Mass/Vol] 16.6 ng/mL [facility] Comment on above: NORMAL REFERENCE RAN GES FEMALE NON- 2.2 - 30.3 ng/mL 8.1 - 347.6 ng/mL POST-MENOPAUSAL 0.7 - 31.5 ng/mL MALE 2.5 - 17.4 ng/mL Serum or plasma urea nitroge n measurement (mass/volume)Ordered By: Dr. Ames on 07-05-2022 Urea nitrogen [Mass/Vol] 15 mg/dL 7-18 [facility] Thin prep Papanicolaou smear with manual screeningOrdered By: Dr. Ames on 07-05-2022 Thin prep Papanicolaou smear with manual screening 18 U/L 15-37 [facility] Thin prep Papanicolaou smear with manual screening 6 5-15 [facility] Whole blood hemoglobin A1c/t otal hemoglobin ratio (mass fraction)Ordered By: Dr. Ames on 07-05-2022 HbA1c (Bld) [Mass fraction] 5.8 % 3.8-5.6 [facility] Comment on above: Normal < 5.7 % Predi abetic 5.7 - 6.4 % Diabetic >or= 6.5 % Please note range changes. No Panel InformationOrdered By: Dr. Bingham on 04-15-2022 D-Dimer Quantitative (PE/DVT) 0.33 FEU/ug/m 0.27-0.49 [facility] Comment on above: NORMAL D-Dimer level (<0.50) indicates no DVT or PE. Absolute lymphocyte countOrd ered By: Dr. Rock on 04-13-2022 Lymphocytes Auto (Unsp spec) [#/Vol] 1.76 10*3/uL 0.83-4.51 [facility] Basophil percentageOrdered B y: Dr. Rock on 04-13-2022 Basophils/100 WBC (Bld) 0.6 % 0-1 [facility] Chloride [Moles/Vol] 104 mmol/L 98-107 [facility] Eosinophils/100 WBC (Bld) 3.0 % 0-5 [facility] Glucose [Mass/Vol] 68 mg/dL 74-[address] [facility] Neutrophils (Bld) [#/Vol] 2.6 10*3/uL 2.0-7.7 [facility] Neutrophils/100 WBC (Bld) 51.2 % 47-70 [facility] Potassium [Moles/Vol] 4.0 mmol/L 3.5-5.1 [facility] Sodium [Moles/Vol] 138 mmol/L 136-[address] [facility] WBC (Bld) [#/Vol] 5.1 10*3/uL 4.4-11.[address] [facility] Blood erythrocytes count (nu mber/volume)Ordered By: Dr. Rock on 04-13-2022 RBC (Bld) [#/Vol] 4.80 10*6/uL 4.6-6.2 [facility] Blood hemoglobin measurement (mass/volume)Ordered By: Dr. Rock on 04-13-2022 Hemoglobin (Bld) [Mass/Vol] 14.5 g/dL 13.0-16.5 [facility] Blood lymphocytes/100 leukoc ytesOrdered By: Dr. Rock on 04-13-2022 Lymphocytes/100 WBC (Bld) 34.9 % 19-41 [facility] Blood monocytes/100 leukocyt esOrdered By: Dr. Rock on 04-13-2022 Monocytes/100 WBC (Bld) 10.1 % 0-10 [facility] Blood platelet mean volumeOr dered By: Dr. Rock on 04-13-2022 Platelet mean volume (Bld) [Entitic vol] 9.4 fL 6.2-12.0 [facility] Determination of erythrocyte mean corpuscular volume (MCV)Ordered By: Dr. Rock on 04-13-2022 MCV (RBC) [Entitic vol] 87.9 fL 80-94 [facility] Hematocrit Auto (Bld) [Volum e fraction]Ordered By: Dr. Rock on 04-13-2022 Hematocrit (Bld) [Volume fraction] 42.2 % 40-54 [facility] Laboratory - Chemistry and C hemistry - challengeOrdered By: Dr. Rock on 04-13-2022 CO2 [Moles/Vol] 29.0 mmol/L 21.0-32.0 [facility] Urea nitrogen/Creatinine [Mass ratio] 14.9 mg/mg 10-20 [facility] Laboratory - Hematology and Cell countsOrdered By: Dr. Rock on 04-13-2022 Erythrocyte distribution width (RBC) [Entitic vol] 39.1 fL 35.1-43.[address] [facility] Erythrocyte distribution width (RBC) [Ratio] 12.1 % 11.6-14.6 [facility] Immature granulocytes/100 WBC (Bld) 0.200 % 0.0-0.9 [facility] Comment on above: IG% - Immature Granu locytes (promyelocytes, myelocytes and metamyelocytes) > 1% indicates that a LEFT SHIFT is Present. MCH (RBC) [Entitic mass] 30.2 pg 27.0-32.0 [facility] Nucleated RBC/100 WBC (Bld) [Ratio] 0 % 0-5 [facility] MCHC Auto (RBC) [Mass/Vol]Or dered By: Dr. Rock on 04-13-2022 MCHC (RBC) [Mass/Vol] 34.4 g/dL 32-36 [facility] No Panel InformationOrdered By: Dr. Rock on 04-13-2022 Estimated Creatinine Clearance Calc 71.94 ml/min [facility] Estimated GFR (MDRD) Amer 95 mL/min >60 [facility] Comment on above: GFR Calc Estimated GFR (MDRD) Non-Af Amer 78 mL/min >60 [facility] Comment on above: Non- GFR Calc Troponin I High Sensitivity 24 pg/mL 3.0-78.0 [facility] Comment on above: Please Note: New Nghia t Units and Gender Specific Reference Ranges. For more information see Policy Stat Procedure Remer High Sensitivity Troponin (TNIH) and attachments. Platelets bldOrdered By: Dr. Rock on 04-13-2022 Platelets (Bld) [#/Vol] 208 10*3/uL 150-450 [facility] Serum or plasma calcium phyllis urement (mass/volume)Ordered By: Dr. Rock on 04-13-2022 Calcium [Mass/Vol] 9.4 mg/dL 8.5-10.[address] [facility] Serum or plasma creatinine m easurement (mass/volume)Ordered By: Dr. Rock on 04-13-2022 Creatinine [Mass/Vol] 1.01 mg/dL 0.70-1.30 [facility] Comment on above: The validity of the calculated GFR & GFRAA in patients over 70 years has not been determined. Clinical correlation is essential. Serum or plasma urea nitroge n measurement (mass/volume)Ordered By: Dr. Rock on 04-13-2022 Urea nitrogen [Mass/Vol] 15 mg/dL 7-18 [facility] Thin prep Papanicolaou smear with manual screeningOrdered By: Dr. Rock on 04-13-2022 Thin prep Papanicolaou smear with manual screening 5 5-15 [facility] Absolute lymphocyte countOrd ered By: Dr. Mccauley on 03-17-2022 Lymphocytes Auto (Unsp spec) [#/Vol] 2.17 10*3/uL 0.83-4.51 [facility] Basophil percentageOrdered B y: Dr. Mccauley on 03-17-2022 Basophils/100 WBC (Bld) 0.5 % 0-1 [facility] Bilirubin [Mass/Vol] 0.40 mg/dL 0.20-1.00 [facility] Comment on above: For patients on eltr ombopag therapy, use of Dimension Remer TBIL is not recommended. Chloride [Moles/Vol] 105 mmol/L 98-107 [facility] Eosinophils/100 WBC (Bld) 2.1 % 0-5 [facility] Glucose [Mass/Vol] 95 mg/dL 74-[address] [facility] Neutrophils (Bld) [#/Vol] 2.7 10*3/uL 2.0-7.7 [facility] Neutrophils/100 WBC (Bld) 47.9 % 47-70 [facility] Potassium [Moles/Vol] 4.0 mmol/L 3.5-5.1 [facility] Protein [Mass/Vol] 7.1 g/dL 6.4-8.[address] [facility] Sodium [Moles/Vol] 139 mmol/L 136-[address] [facility] WBC (Bld) [#/Vol] 5.7 10*3/uL 4.4-11.[address] [facility] Basophil percentage 0 SEEN /hpf 0-5 [facility] Bilirubin Test strip Ql (U)O rdered By: Dr. Mccauley on 03-17-2022 Bilirubin Ql (U) Negative Negative [facility] Blood erythrocytes count (nu mber/volume)Ordered By: Dr. Mccauley on 03-17-2022 RBC (Bld) [#/Vol] 4.50 10*6/uL 4.6-6.2 [facility] Blood hemoglobin measurement (mass/volume)Ordered By: Dr. Mccauley on 03-17-2022 Hemoglobin (Bld) [Mass/Vol] 13.4 g/dL 13.0-16.5 [facility] Blood lymphocytes/100 leukoc ytesOrdered By: Dr. Mccauley on 03-17-2022 Lymphocytes/100 WBC (Bld) 38.1 % 19-41 [facility] Blood monocytes/100 leukocyt esOrdered By: Dr. Mccauley on 03-17-2022 Monocytes/100 WBC (Bld) 11.2 % 0-10 [facility] Blood platelet mean volumeOr dered By: Dr. Mccauley on 03-17-2022 Platelet mean volume (Bld) [Entitic vol] 9.5 fL 6.2-12.0 [facility] Determination of erythrocyte mean corpuscular volume (MCV)Ordered By: Dr. Mccauley on 03-17-2022 MCV (RBC) [Entitic vol] 90.4 fL 80-94 [facility] Hematocrit Auto (Bld) [Volum e fraction]Ordered By: Dr. Mccauley on 03-17-2022 Hematocrit (Bld) [Volume fraction] 40.7 % 40-54 [facility] Ketones Test strip Ql (U)Ord ered By: Dr. Mccauley on 03-17-2022 Ketones Ql (U) Negative Negative [facility] Laboratory - Chemistry and C hemistry - challengeOrdered By: Dr. Mccauley on 03-17-2022 ALP [Catalytic activity/Vol] 61 U/L 45-117 [facility] ALT [Catalytic activity/Vol] 24 U/L 16-61 [facility] CO2 [Moles/Vol] 30.0 mmol/L 21.0-32.0 [facility] Globulin (S) [Mass/Vol] 3.4 g/dL 2.2-4.2 [facility] Urea nitrogen/Creatinine [Mass ratio] 17.0 mg/mg 10-20 [facility] Laboratory - Hematology and Cell countsOrdered By: Dr. Mccauley on 10-12-2022 Erythrocyte distribution width (RBC) [Entitic vol] 41.5 fL 35.1-43.[address] [facility] Erythrocyte distribution width (RBC) [Ratio] 12.6 % 11.6-14.6 [facility] Immature granulocytes/100 WBC (Bld) 0.200 % 0.0-0.9 [facility] Comment on above: IG% - Immature Granu locytes (promyelocytes, myelocytes and metamyelocytes) > 1% indicates that a LEFT SHIFT is Present. MCH (RBC) [Entitic mass] 29.8 pg 27.0-32.0 [facility] Nucleated RBC/100 WBC (Bld) [Ratio] 0 % 0-5 [facility] MCHC Auto (RBC) [Mass/Vol]Or dered By: Dr. Mccauley on 03-17-2022 MCHC (RBC) [Mass/Vol] 32.9 g/dL 32-36 [facility] Mucus LM Ql (Urine sed)Order ed By: Dr. Mccauley on 03-17-2022 Mucus Ql (Urine sed) 0 SEEN /hpf [facility] Nitrite Test strip Ql (U)Ord ered By: Dr. Mccauley on 03-17-2022 Nitrite Ql (U) Negative Negative [facility] No Panel InformationOrdered By: Dr. Mccauley on 03-17-2022 Estimated Creatinine Clearance Calc 64.88 ml/min [facility] Estimated GFR (MDRD) Amer 84 mL/min >60 [facility] Comment on above: GFR Calc Estimated GFR (MDRD) Non-Af Amer 70 mL/min >60 [facility] Comment on above: Non- GFR Calc Platelets bldOrdered By: Dr. Mccauley on 03-17-2022 Platelets (Bld) [#/Vol] 204 10*3/uL 150-450 [facility] Protein Test strip Ql (U)Ord ered By: Dr. Mccauley on 03-17-2022 Protein Ql (U) Negative Negative [facility] Serum or plasma albumin phyllis urement (mass/volume)Ordered By: Dr. Mccauley on 03-17-2022 Albumin [Mass/Vol] 3.7 g/dL 3.2-5.0 [facility] Serum or plasma albumin/glob ulin mass ratioOrdered By: Dr. Mccauley on 03-17-2022 Albumin/Globulin [Mass ratio] 1.1 {ratio} 0.9-2.4 [facility] Serum or plasma calcium phyllis urement (mass/volume)Ordered By: Dr. Mccauley on 03-17-2022 Calcium [Mass/Vol] 9.5 mg/dL 8.5-10.[address] [facility] Serum or plasma creatinine m easurement (mass/volume)Ordered By: Dr. Mccauley on 03-17-2022 Creatinine [Mass/Vol] 1.12 mg/dL 0.70-1.30 [facility] Comment on above: The validity of the calculated GFR & GFRAA in patients over 70 years has not been determined. Clinical correlation is essential. Serum or plasma urea nitroge n measurement (mass/volume)Ordered By: Dr. Mccauley on 03-17-2022 Urea nitrogen [Mass/Vol] 19 mg/dL 7-18 [facility] Squamous epithelial cells de tection in urine sediment by light microscopyOrdered By: Dr. Mccauley on 03-17-2022 Epithelial cells.squamous LM Ql (Urine sed) 0 SEEN /hpf 0-5 [facility] Thin prep Papanicolaou smear with manual screeningOrdered By: Dr. Mccauley on 03-17-2022 Thin prep Papanicolaou smear with manual screening 17 U/L 15-37 [facility] Thin prep Papanicolaou smear with manual screening 4 5-15 [facility] Urine blood detectionOrdered By: Dr. Mccauley on 03-17-2022 RBC Ql (U) Negative Negative [facility] RBC Ql (U) 0 SEEN /hpf 0-5 [facility] Urine clarityOrdered By: Dr. Mccauley on 03-17-2022 Clarity (U) Clear Clear [facility] Urine color determinationOrd ered By: Dr. Mccauley on 03-17-2022 Color (U) Yellow Yellow [facility] Urine glucose detectionOrder ed By: Dr. Mccauley on 03-17-2022 Glucose Ql (U) Normal mg/dl Normal [facility] Urine leukocyte esterase det ection by dipstickOrdered By: Dr. Mccauley on 03-17-2022 Leukocyte esterase Test strip Ql (U) Negative Negative [facility] Urine pHOrdered By: Dr. Donato valerio on 03-17-2022 pH (U) 6.0 [pH] 5.0 - 8.0 [facility] Urine sediment bacteria coun t by microscopy (number/high power field)Ordered By: Dr. Mccauley on 03-17-2022 Bacteria LM.HPF (Urine sed) [#/Area] 0 /[HPF] None Seen [facility] Urine specific gravity measu rementOrdered By: Dr. Mccauley on 03-17-2022 Specific gravity (U) [Rel density] 1.015 1.002-1.030 [facility] Urobilinogen Auto test strip Ql (U)Ordered By: Dr. Mccauley on 03-17-2022 Urobilinogen Ql (U) Normal mg/dl Normal [facility] Basophil percentageon 2021 Chloride [Moles/Vol] 103 mmol/L 98-107 [facility] Work Phone: Cholesterol [Mass/Vol] 188 mg/dL <200 [facility] Work Phone: Comment on above: <200 mg/dL Desirable 200-240 mg/dL Borderline >240 mg/dL High Risk Glucose [Mass/Vol] 77 mg/dL 74-[address] [facility] Work Phone: Potassium [Moles/Vol] 4.2 mmol/L 3.5-5.1 [facility] Work Phone: Sodium [Moles/Vol] 138 mmol/L 136-[address] [facility] Work Phone: Triglyceride [Mass/Vol] 197 mg/dL <199 [facility] Work Phone: Comment on above: The drugs N-Acetylcy steine and Metamizole may falsely depress this assay.Serum Triglycerides Reference Interval Normal <150 mg/dL Borderline high 150 - 199 mg/dL High 200 - 499 mg/dL Very High > or = 500 mg/dL Laboratory - Chemistry and C hemistry - challengeon 02-17-2022 CO2 [Moles/Vol] 29.0 mmol/L 21.0-32.0 [facility] Work Phone: Urea nitrogen/Creatinine [Mass ratio] 15.4 mg/mg 10-20 [facility] Work Phone: No Panel Informationon 02-17 Estimated GFR (MDRD) Amer 80 mL/min >60 [facility] Work Phone: Comment on above: GFR Calc Estimated GFR (MDRD) Non-Af Amer 66 mL/min >60 [facility] Work Phone: Comment on above: Non- GFR Calc Serum or plasma calcium phyllis urement (mass/volume)on 02-17-2022 Calcium [Mass/Vol] 9.1 mg/dL 8.5-10.[address] [facility] Work Phone: Serum or plasma cholesterol in HDL measurement (mass/volume)on 02-17-2022 Cholesterol in HDL [Mass/Vol] 49 mg/dL >40 [facility] Work Phone: Comment on above: The drugs N-Acetylcy steine and Metamizole may falsely depress this assay. Reference Range HDL <40 mg/dL Low HDL Cholesterol HDL >or= 60 mg/dL High HDL Cholesterol Serum or plasma cholesterol in VLDL measurement (mass/volume)on 02-17-2022 Cholesterol in VLDL [Mass/Vol] 39 mg/dL 5-40 [facility] Work Phone: Serum or plasma creatinine m easurement (mass/volume)on 02-17-2022 Creatinine [Mass/Vol] 1.17 mg/dL 0.70-1.30 [facility] Work Phone: Comment on above: The validity of the calculated GFR & GFRAA in patients over 70 years has not been determined. Clinical correlation is essential. Serum or plasma low density lipoprotein (LDL) cholesterol measurement (mass/volume)on 02-17-2022 Cholesterol in LDL [Mass/Vol] 100 mg/dL 0-130 [facility] Work Phone: Serum or plasma urea nitroge n measurement (mass/volume)on 02-17-2022 Urea nitrogen [Mass/Vol] 18 mg/dL 7-18 [facility] Work Phone: Thin prep Papanicolaou smear with manual screeningon 02-17-2022 Thin prep Papanicolaou smear with manual screening 6 5-15 [facility] Work Phone: CR Spine Lumbosacral Complet e w/ Bending min 6 vwson 01-06-2021 CR Spine Lumbosacral Complete w/ Bending min 6 vws [facility]: [id number] ACCESSION EXAM DATE/TIME PROCEDURE ORDERING PROVIDER [id number] 01/06/2021 15:20 EDT CR Spine Lumbosacral KATHY FRAZIER Complete w/ Bending CPT code 38311 Reason For Exam (CR Spine Lumbosacral Complete [...] ALFRED Transcribed Date and Time: 01/07/2021 11:14 Normal [facility] Vital Signs Date Time Vital Sign Value Performing Clinician Maei giselle 12-31-2024 15:34-0400 Body temperature 98.4 [degF] Dr. Luis Bingham MD Work Phone: [facility] 12-31-2024 15:34-0400 Diastolic blood pressure 86 mm[Hg] Dr. Luis Bingham MD Work Phone: [facility] 12-31-2024 15:34-0400 Heart rate 69 /min Dr. Luis Bingham MD Work Phone: [facility] 12-31-2024 15:34-0400 Respiratory rate 16 /min Dr. Luis Bingham MD Work Phone: [facility] 12-31-2024 15:34-0400 SaO2% (BldA) [Mass fraction] 100 % Dr. Luis Bingham MD Work Phone: [facility] 12-31-2024 15:34-0400 Systolic blood pressure 147 mm[Hg] Dr. Luis Bingham MD Work Phone: 0(467)[phone] [address] 12-31-2024 11:18-0400 Body height 175.[address] Luis Bingham MD Work Phone: 3(193)[phone] [address] 12-31-2024 11:18-0400 Body mass index (BMI) [Ratio] 32.2 kg/m2 Dr. Luis Bingham MD Work Phone: 6(537)[phone] [address] 12-31-2024 11:18-0400 Body weight [address] Luis Bingham MD Work Phone: 1(439)848-269820 [address] 09-03-2023 12:11-0400 Body temperature 97.4 [degF] Dr. Luis Bingham Work Phone: 1(071)141-444420 [address] 09-03-2023 12:11-0400 Diastolic blood pressure 63 mm[Hg] Dr. Luis Bingham Work Phone: [facility] 09-03-2023 12:11-0400 Heart rate 71 /min Dr. Luis Bingham Work Phone: [facility] 09-03-2023 12:11-0400 Respiratory rate 15 /min Dr. Luis Bingham Work Phone: 2(261)[phone] [address] 09-03-2023 12:11-0400 SaO2% (BldA) [Mass fraction] 96 % Dr. Luis Bingham Work Phone: [facility] 09-03-2023 12:11-0400 Systolic blood pressure 137 mm[Hg] Dr. Luis Bingham Work Phone: [facility] 09-03-2023 09:30-0400 Body height 175.[address] Luis Bingham Work Phone: [facility] 09-03-2023 09:30-0400 Body mass index (BMI) [Ratio] 31.6 kg/m2 Dr. Luis Bingham Work Phone: 9(608)[phone] [place] [address] 09-03-2023 09:30-0400 Body weight 97.[address] Luis Bingham Work Phone: [facility] 05-27-2023 19:53-0500 Diastolic blood pressure 102 mm[Hg] Dr. Luis Bingham Work Phone: 6(618)[phone] [address] 05-27-2023 19:53-0500 Heart rate 94 /min Dr. Luis Bingham Work Phone: 2(009)[phone] [place] [address] 05-27-2023 19:53-0500 Respiratory rate 18 /min Dr. Luis Bingham Work Phone: 4(819)[phone] [address] 05-27-2023 19:53-0500 SaO2% (BldA) [Mass fraction] 94 % Dr. Luis Bingham Work Phone: 7(559)018-342034 [place] [address] 05-27-2023 19:53-0500 Systolic blood pressure 133 mm[Hg] Dr. Luis Bingham Work Phone: 3(785)[phone] [address] 05-27-2023 18:08-0500 Body height 175.[address] Luis Bingham Work Phone: [facility] 05-27-2023 18:08-0500 Body mass index (BMI) [Ratio] 31 kg/m2 Dr. Luis Bingham Work Phone: 4(375)[phone] [address] 05-27-2023 18:08-0500 Body temperature 97.1 [degF] Dr. Luis Bingham Work Phone: 5(690)[phone] [place] [address] 05-27-2023 18:08-0500 Body weight 95.[address] Luis Bingham Work Phone: 8(174)[phone] [address] 05-04-2023 22:57-0500 Diastolic blood pressure 70 mm[Hg] [facility] 05-04-2023 22:57-0500 Systolic blood pressure 101 mm[Hg] [facility] 05-04-2023 21:45-0500 Heart rate 71 /min [facility] 05-04-2023 21:45-0500 Respiratory rate 13 /min [facility] 05-04-2023 21:45-0500 SaO2% (BldA) [Mass fraction] 95 % [facility] 05-04-2023 20:03-0500 Body height 175.26 cm [facility] 05-04-2023 20:03-0500 Body mass index (BMI) [Ratio] 31.7 kg/m2 [facility] 05-04-2023 20:03-0500 Body temperature 98.4 [degF] [facility] 05-04-2023 20:03-0500 Body weight 97.4 kg [facility] 09-04-2022 01:29-0400 Heart rate 79 /min [facility] 09-04-2022 01:29-0400 Respiratory rate 18 /min [facility] 09-04-2022 01:29-0400 SaO2% (BldA) [Mass fraction] 96 % [facility] 09-03-2022 21:24-0400 Body height 175.26 cm [facility] 09-03-2022 21:24-0400 Body mass index (BMI) [Ratio] 32.5 kg/m2 [facility] 09-03-2022 21:24-0400 Body temperature 98 [degF] [facility] 09-03-2022 21:24-0400 Body weight 99.79 kg [facility] 09-03-2022 21:24-0400 Diastolic blood pressure 85 mm[Hg] [facility] 09-03-2022 21:24-0400 Systolic blood pressure 147 mm[Hg] [facility] 07-26-2022 09:44-0500 Body height 175.26 cm [facility] 07-26-2022 09:44-0500 Body mass index (BMI) [Ratio] 28.8 kg/m2 [facility] 07-26-2022 09:44-0500 Body temperature 96.5 [degF] [facility] 07-26-2022 09:44-0500 Body weight 88.45 kg [facility] 07-26-2022 09:44-0500 Diastolic blood pressure 96 mm[Hg] [facility] 07-26-2022 09:44-0500 Heart rate 78 /min [facility] 07-26-2022 09:44-0500 Respiratory rate 18 /min [facility] 07-26-2022 09:44-0500 SaO2% (BldA) [Mass fraction] 98 % [facility] 07-26-2022 09:44-0500 Systolic blood pressure 138 mm[Hg] [facility] 04-13-2022 16:59-0500 Heart rate 60 /min [facility] 04-13-2022 15:47-0500 Diastolic blood pressure 86 mm[Hg] [facility] 04-13-2022 15:47-0500 Respiratory rate 21 /min [facility] 04-13-2022 15:47-0500 SaO2% (BldA) [Mass fraction] 97 % [facility] 04-13-2022 15:47-0500 Systolic blood pressure 130 mm[Hg] [facility] 04-13-2022 15:43-0500 Inhaled oxygen flow rate 97 L/min [facility] 04-13-2022 14:42-0500 Body height 175.26 cm [facility] 04-13-2022 14:42-0500 Body mass index (BMI) [Ratio] 30.7 kg/m2 [facility] 04-13-2022 14:42-0500 Body temperature 97.6 [degF] [facility] 04-13-2022 14:42-0500 Body weight 94.4 kg [facility] 03-17-2022 19:22-0400 Diastolic blood pressure 80 mm[Hg] [facility] 03-17-2022 19:22-0400 Heart rate 58 /min [facility] 03-17-2022 19:22-0400 Respiratory rate 16 /min [facility] 03-17-2022 19:22-0400 SaO2% (BldA) [Mass fraction] 98 % [facility] 03-17-2022 19:22-0400 Systolic blood pressure 128 mm[Hg] [facility] 03-17-2022 16:13-0400 Body height 175.26 cm [facility] Work Phone: 03-17-2022 16:13-0400 Body mass index (BMI) [Ratio] 29 kg/m2 [facility] 03-17-2022 16:13-0400 Body temperature 97.1 [degF] [facility] 03-17-2022 16:130400 Body weight 89.35 kg [facility] Encounters Encounter Date Encounter Type Care Provider Facility Start: 03-28-2025 End: 03-28-2025 ambulatory LUIS BINGHAM Facility:[facility] Start: 02-27-2025 End: 02-27-2025 ambulatory Luis Bingham [facility] Start: 12-31-2024 End: 12-31-2024 Emergency department patient visit Dr. Luis Bingham MD Work Phone: -Emergency Department Work Phone: Start: 08-03-2024 End: 08-03-2024 Emergency department patient visit Luis Bingham Facility[facility] Start: 09-03-2023 End: 09-03-2023 Emergency department patient visit Dr. Luis Bingham Work Phone: [facility] Work Phone: Start: 07-22-2023 End: 07-22-[address] Luis Bingham Work Phone: [facility] Work Phone: Start: 07-22-2023 End: 07-22-[address] Luis Bingham Work Phone: [facility] Work Phone: Start: 06-22-2023 End: 06-22-[address] Luis Bingham Work Phone: [facility] Work Phone: Start: 06-22-2023 End: 06-22-[address] Luis Bingham Work Phone: [facility] Work Phone: Start: 06-13-2023 Non-patient / Non-visit Dr. Jesu Bingham Work Phone: [facility] Start: 06-13-2023 End: 06-13-[address] Luis Bingham Work Phone: [facility] Work Phone: Start: 06-13-2023 End: 06-13-[address] [facility] Work Phone: Start: 05-27-2023 End: 05-27-2023 Emergency department patient [facility] Work Phone: Start: 05-04-2023 End: 05-04-2023 Emergency department patient visit [facility] Work Phone: Start: 03-10-2023 End: 03-10-2023 Patient encounter procedure [facility] Start: 09-03-2022 End: 09-04-2022 Emergency department patient visit [facility] Start: 08-20-2022 End: 08-20-2022 Patient encounter procedure [facility] Start: 07-26-2022 End: 07-26-2022 [facility] Start: 07-05-2022 End: 07-05-2022 ambulatory [facility] Work Phone: Start: 07-05-2022 End: 07-05-2022 [facility] Start: 04-15-2022 End: 04-15-2022 ambulatory [facility] Work Phone: Start: 04-15-2022 End: 04-15-2022 Patient encounter procedure [facility] Start: 04-13-2022 End: 04-13-2022 Emergency department patient visit [facility] Start: 03-17-2022 End: 03-17-2022 Emergency department patient visit [facility] Start: 02-17-2022 End: 02-17-2022 ambulatory [facility] Work Phone: Start: 02-17-2022 End: 02-17-2022 Patient encounter procedure [facility] Start: 01-27-2021 End: 01-27-2021 Subsequent hospital visit by physician Kathy Frazier MD Work Phone: [facility] Comment on above: Numbness and tinglin g of both feet; Other fatigue Start: 01-06-2021 End: 01-06-2021 Subsequent hospital visit by physician Kathy Frazier MD Work Phone: [facility] Radiology Procedures Date Procedure Procedure Detail Performing Clinician Start: 12-31-2024 Plain chest X-ray Dr. Freeman Bingham MD Work Phone: Start: 12-31-[address] Luis Bingham MD Work Phone: Start: 09-03-2023 Streptococcus pyogen es rRNA assay Dr. Luis Bingham Work Phone: Start: 09-03-2023 Plain chest X-ray Dr. Freeman Bingham Work Phone: Start: 09-03-2023 X-ray of soft tissue of neck Dr. Luis Bingham Work Phone: Start: 05-27-2023 Plain chest X-ray Dr. Freeman Bingham Work Phone: Start: 05-27-2023 SARS-CoV-2 & FLU Ant igen (Rapid) Dr. Luis Bingham Work Phone: Start: 05-27-[address] Luis Bingham Work Phone: Start: 05-04-2023 Plain chest X-ray [...] neoplasm of colon Colon cancer screen colonoscopy [facility] Work Phone: Start: 12-31-2024 [facility] Start: 12-31-2024 [facility] Start: 01-07-2024 Diabetes screen Diabetes screen [facility] Work Phone: Start: 09-03-2023 [facility] Start: 05-27-2023 [facility] Start: 05-04-2023 [facility] Start: 05-04-2023 [facility] Start: 03-10-2023 Assay of prostate specific antigen total ASSAY OF PSA TOTAL [facility] Start: 07-26-2022 [facility] Start: 04-13-2022 [facility] Start: 02-04-2021 Influenza vaccination Flu vaccine (# 1) [facility] Work Phone: Start: 02-03-2021 End: 02-03-2021 Patient encounter procedure 02/03/2021 Office Visit Neurology Vianney Dennis APRN - ENGINEERING TECHNICAL WRITER [address] [place] [address] [phone] [facility] Neurology Lili Start: 01-27-2021 End: 01-27-2021 Patient encounter procedure 01/27/2021 Appointment Neurology [facility] Start: 11-02-2020 Pneumococcal 65+ yea rs [...] REPORT Neuro logy 01/27/2021 2:13 PM EDT [facility] Work Phone: Patient Education [facility] Work Phone: Patient referral [facility] Work Phone: End: 01-06-2021 XR LUMBOSACRAL W OBLIQUES AND FLEXION AND EXTENSION XR LUMBOSACRAL W OBLIQUES AND FLEXION AND EXTENSION Imaging Routine Once for 1 Occurrences starting 01/06/2021 until 01/06/2021 [facility] Work Phone: Comment on above: Once for 1 Occurrenc es starting 01/06/2021 until 01/06/2021 XR LUMBOSACRAL W OBLIQUES AND FLEXION AND EXTENSION XR LUMBOSACRAL W OBLIQUES AND FLEXION AND EXTENSION Imaging Routine 01/06/2021 3:00 PM EDT [facility] Work Phone: Immunizations Immunization Date Immunization Notes Care Provider Fa lyndsay 03-11-2021 tetanus toxoid, redu eve diphtheria toxoid, and acellular pertussis vaccine, adsorbed [facility] 07-21-2020 Covid (Moderna) [facility] 06-23-2020 Covid ([facility]) [facility] 03-06-2018 Influenza virus vaccine [facility] Payers Date Payer Category Payer Self-pay [id number] 2022 Unknown [id number] 2020 Unknown [id number] Unknown [id number] Unknown [id number] Unknown [id number] Social History Date Type Detail Facility Start: 01-06-2021 End: 12-31-2024 Tobacco smoking status NHIS Never smoker [facility] Start: 01-06-2021 Tobacco use and exposure Never used [facility] Start: 01-06-2021 Alcohol intake Lifetime non-d jeniffer (finding) [facility] Work Phone: Start: 11-21-2020 History SDOH Alcohol Frequency 1 [facility] Work Phone: Start: 1955 Sex Assigned At Not on file S [facility] Work Phone: Start: 03-17-2022 End: 09-03-2023 Tobacco smoking status KYIS Unknown if ever smoked [facility] Start: 01-02-2019 None [facility] Start: 01-02-2019 - [facility] Start: 10-24-2020 Non-smoker [facility] Start: 1955 Sex Assigned At Male [facility] Mental Status Date Assessment Result Facility 12-31-2024 Cognitive function Level Of Cons ciousness Awake;Alert;Appropriate;Follow s [facility] Work Phone: 05-04-2023 Cognitive function Voice/Name [facility] Work Phone: 03-17-2022 Cognitive function Level Of Cons ciousness Awake;Alert;Appropriate;Follow s [facility] Work Phone: Progress note 03-28-2025 Note Date & Type Note Facility 03-28-2025 Note HNO ID: [id number] Author: JATIN HASTINGS RT(R) Service: ? Author Type: Technologist Type: Progress Notes Filed: 03/28/2025 10:27 Note Text: Radiology Service Progress Note PATIENT NAME: Juan Pagan DATE OF SERVICE: March 28, 2025 TIME: 10:16 AM PATIENT IDENTITY VERIFICATION COMPLETED USING TWO (2) IDENTIFIERS: Name and Date of confirmed by patient verbally. FALL SCREENING: Has the patient had 2 falls in the last year or 1 fall with injury or currently using an Ambulatory Assistive Device (Walker, Cane, Wheelchair, Crutches, etc.)? No PATIENT GENDER DATA: Assigned male at PATIENT RELEVANT IMPLANT DATA REVIEWED: Yes PATIENT PRESENTS WITH AN IMPLANTABLE OR ATTACHED DECK MATE: No RADIOLOGY DEPARTMENT: General X-ray: Exam(s) Completed: Lower Extremity X-Ray(s): Heel, Left PERIPHERAL IV DATA: Not applicable SIGNED BY: RT Nitesh(R) March 28, 2025 10:16 AM [facility] Progress note 03-28-2025 Note Date & Type Note Facility 03-28-2025 Note HNO ID: [id number] Author: MIGUEL EM APRN.ENGINEERING TECHNICAL WRITER Service: ? Author Type: Nurse Practitioner Type: Progress Notes Filed: 03/28/2025 12:15 Note Text: SUBJECTIVE: Juan Pagan is a 69 year old male. Who presents today with left heel pain for the last 3 days. He thinks that he hit it on the step causing the pain. He has not taken any medication for the pain. He can walk but is limping. He no other sore areas and no bruising or swelling. PAST MEDICAL HISTORY Diagnosis Date Schizophrenia (HCC) TB lung, latent 11/21/2017 No family history on file. SOCIAL HISTORY[1] ALLERGIES No Known Allergies Current Outpatient Medications Medication Sig Dispense Refill vitamin E, dl,tocopheryl acet, (VITAMIN E, DL, ACETATE,) 180 mg (400 unit) capsule risperiDONE (RISPERDAL) 2 mg tablet OXcarbazepine (TRILEPTAL) 300 mg tablet omeprazole (PRILOSEC) 40 mg capsule folic acid 1 mg tablet atorvastatin (LIPITOR) 20 mg tablet docusate sodium (COLACE) 100 mg capsule loratadine (CLARITIN) 10 mg tablet Take 10 mg by mouth once daily. propranolol (INDERAL) 10 mg tablet Take 10 mg by mouth three times daily. Cholecalciferol, Vitamin D3, 25 mcg (1,000 unit) cap Vitamin E, dl, acetate, (VITAMIN E) 400 unit capsule (Patient not taking: Reported on 03/28/2025) albuterol HFA (PROAIR HFA) 90 mcg/actuation inhaler Inhale 2 Puffs as instructed every 4 hours as needed. (Patient not taking: Reported on 10/24/2020 ) 1 Inhaler 0 DOCUSATE SODIUM (DOC-Q-LACE ORAL) Take by mouth. (Patient not taking: Reported on 03/28/2025) PALIPERIDONE ORAL Take by mouth. (Patient not taking: Reported on 10/24/2020 ) BENZTROPINE MESYLATE (BENZTROPINE ORAL) Take by mouth. HYDROXYZINE PAMOATE ORAL Take by mouth. (Patient not taking: Reported on 10/24/2020 ) paliperidone palmitate (INVEGA SUSTENNA) 156 mg/mL syrg Inject 156 mg intramuscularly one time only. (Patient not taking: Reported on 03/28/2025) VITAMIN E,DL-ALPHA TOCOPHEROL, (VITAMIN E, BULK, MISC) (Patient not taking: Reported on 03/28/2025) atorvastatin (LIPITOR) 10 mg tablet Take 10 mg by mouth once daily. (Patient not taking: Reported on 03/28/2025) No current facility-administered medications for this visit. OBJECTIVE: BP 125/84 Pulse 71 Temp 36.1 ?C (96.9 ?F) Resp 18 Wt 97 kg (213 lb 13.5 oz) SpO2 97% ROS all other systems reviewed and are negative Physical Exam Constitutional: Well developed, well nourished, NAD, AANDO X3 ENT: Head is atraumatic, airway patent, mucosal membranes moist pink Respiratory: Respirations even and unlabored MS: no swelling, or deformity in upper or lower extremities right foot is tender over the heel no swelling or redness is noted no wounds full range of motion of the ankle and toes pulses +2 cap refill brisk no pain over the lateral or medial malleolus no pain over the foot patient is ambulatory and has a normal steady gait Neuro: strength sensation and coordination intact. CN II-XII grossly intact, Skin: warm and dry with out rash, lesion or ecchymosis on exposed skin Psych: alert appropriate, speech clear MDM It was a pleasure to take care of Juan Pagan today. An x-ray was obtained of the foot that shows no acute fracture or dislocation. Patient may take Motrin or Tylenol for any discomfort. Most likely his pain is caused from a contusion from hitting it on the step. Patient and his family member have verbalized understanding of plan of care and are agreeable Patient will follow up with family physician. They may return to the Urgent Care or go to the ER for worsening symptoms or concerns. Patient verbalized understanding of plan of care and is in agreement. ASSESSMENT/PLAN: 1. Heel pain, chronic, left - ICD9: 729.5, 338.29, ICD10: M79.672, G89.29 (primary diagnosis) - XR FOOT GENERAL 3V AP/LAT/OBL LEFT 2. 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 OTC Medications were advised: [1] Social History Tobacco Use Smoking status: Never Smokeless tobacco: Never [facility] Radiology Diagnostic study note 12-31-2024 Note Date & Type Note Facility 12-31-2024 Radiology Diagnostic study note [facility] Imaging Services [address] [place] [address] [id number] Chest 1 View (Portable) MR#: [id number] Acct: [id number] Name: JUAN PAGAN Rep #: [id number] : 1955 M 69 From: Renae Chavez MD PCP: Dr. Luis Bingham MD Status: REG E R Study:Chest 1 View (Portable) Date of Exam: 12/31/24 Exam# [id number] Ordering Dr: Urbano Rock DO PROCEDURE: CHEST [...] CC: Dr. Urbano Rock DO; Dr. Luis Bingham MD ~ [facility] [employer] [facility] Director: [facility] Discharge summary 09-03-2023 Note Date & Type Note Facility 09-03-2023 Discharge summary Note Date/Time September 03, 2023 9:45am [facility] Medical Records Department [address] [place] [address] Emergency Department Summary 09/03/23 MR#: [id number] Acct: [id number] Name: JUAN PAGAN Rep #:[id number] : 1955 67 From: Deepak Oates MD PCP: Dr. Luis Bingham MD Status:REG E R Location: ED HPI [...] throat. He denies his voice beingany different. [facility] Medical History Allergic rhinitis Hyperlipidemia Schizophrenia Home [...] History household members: none housing: other details: [facility] Smoking Status: Never smoker substance use type: [...] also agreed with that. Patient told nursing "I think this is an infection, please swab my throat." I was happy to send a strepswab [...] 1 mg PO Primary Care Provider: Luis Bingham Referrals: Luis Bingham MD [Primary Care Provider] - 1 Week if not improving Disposition Disposition: Home, Self Care What to do if you have Problems For any increased pain, shortness of breath, bleeding, nausea or vomiting, chestpain, or any unexpected problems, contact your Primary Care Provider. Call [facility] ([phone]) or report to the closest Emergency Room. Call 911 if necessary. 09/03/23 1123 <Electronically signed by Deepak Oates MD> Cosigner Signature (if applicable): CC: Dr. Luis Bingham MD ~ [facility] Work Phone: Discharge summary 05-04-2023 Note Date & Type Note Facility 05-04-2023 Discharge summary Note Date/Time May 04, 2023 8:15pm [facility] Medical Records Department [address] [place] [address] Emergency Department Summary 05/04/23 MR#: [id number] Acct: [id number] Name: JUAN PAGAN Rep #:[id number] : 1955 67 From: Falguni Isaac DO PCP: Dr. Luis Bingham MD Status:REG E R Location: ED HPI [...] recent travel and that he droveback from [place] yesterday and today. No history of PE or DVT. Patient does not smoke. No significant family history of heart disease. Prior Similar Symptoms: No PFSH PFSH Medical History Allergic rhinitis Hyperlipidemia [...] MD) household members: none housing: other details: [facility] Smoking Status: Never smoker substance use type: [...] etiology. IV line established. Patient placed on environmental monitoring technician. EKG obtained shows sinus rhythm with a [...] % (Auto) 50.9 Lymph % (Auto) 36.3 Cobb % (Auto) 8.9 Eos % (Auto) 2.8 [...] 20:41 EST Reading Location ID and State: [facility] / [place] Tel [phone], Service support , Chest x-ray obtained interpreted [...] 1 mg PO Primary Care Provider: Luis Bingham Referrals: Luis Bingham MD [Primary Care Provider] - 3-5 Days Disposition Disposition: Home, Self Care What to do if you have Problems For any increased pain, shortness of breath, bleeding, nausea or vomiting, chestpain, or any unexpected problems, contact your Primary Care Provider. Call [facility] ([phone]) or report to the closest Emergency Room. Call 911 if necessary. 05/04/23 2305 <Electronically signed by Falguni Isaac DO> Cosigner Signature (if applicable): CC: Dr. Luis Bingham MD ~ [facility] Work Phone: Discharge summary 07-26-2022 Note Date & Type Note Facility 07-26-2022 Discharge summary Note Date/Time July 26, 2022 10:07am [facility] Medical Records Department [address] [place] [address] Emergency Department Summary 07/26/22 MR#: [id number] Acct: [id number] Name: JUAN PAGAN Rep #:[id number] : 1955 66 From: Freeman Mcdermott MD PCP: Dr. Luis Bingham MD Status:REG E R Location: ED HPI HPI - URI History of Present Illness Chief Complaint: Cold Sx Detail of Chief Complaint: "I think I have COVID " Informant: patient Onset/Context/Timing Onset: Days (Onset of [...] allergies. Patient states he lives in a custodial. Patient states he went [place] for a job. Patient denies headache. [...] Denies easy bleeding or easy bruising PFSH PFS Medical History Allergic rhinitis Hyperlipidemia [...] MD) household members: none housing: other details: [facility] Smoking Status: Never smoker substance use type: [...] he needs to follow-up with Dr. Luis Bingham in 1 to 2 weeks for recheck. Lab Data Lab results narrative: Rapid COVID and influenza antigen are both negative. Radiography Diagnostic Testing: Clinical Impression(s) from Imaging Studies Chest X-Ray 07/26/22 09:56 IMPRESSION: No radiographic evidence of acute cardiopulmonary disease. Electronically Signed: Gerardo Briceno MD, ANGELINA at 10:52 EST , 3 view chest x-ray revealed no [...] Qty: 0 0RF Primary Care Provider: Luis Bingham Referrals: Luis Bingham MD [Primary Care Provider] - 1-2 Weeks Disposition Disposition: Home, Self Care What to do if you have Problems For any increased pain, shortness of breath, bleeding, nausea or vomiting, chestpain, or any unexpected problems, contact your Primary Care Provider. Call [facility] ([phone]) or report to the closest Emergency Room. Call 911 if necessary. 07/26/22 1215 <Electronically signed by Freeman Mcdermott MD> Cosigner Signature (if applicable): CC: Dr. Luis Bingham MD ~ [facility] Work Phone: Evaluation note Note Date & Type Note Facility Evaluation note Diagnosis Numbness and tingling of both feet Other fatigue documented in this encounter [facility] Work Phone: Evaluation note Note Date & Type Note Facility Evaluation note No assessment information availa ble [facility] Work Phone: Hospital Discharge instructions Note Date & Type Note Facility Hospital Discharge instructions Additional Instructions Please drink the GoLytely until it stimulates a bowel movement. The next day begin taking MiraLAX and Colace to help prevent constipation and allow your anal fissure to heal. Return to the ER should you have any further concerns [facility] Work Phone: Reason for referral (narrative) Note Date & Type Note Facility Reason for referral (narrative) No reason for referral information available [facility] Work Phone: Reason for Referral Status Reason Specialty Diagnoses / Procedures Referre d By Contact Referred To Contact [facility] Diagnoses Numbness and tingling of both feet Other fatigue Procedures Nerve Conduction Test with EMG Kathy Frazier MD [address] [place] [address] Summary Purpose Family History No Family History Records Found Relationship Condition Age at Onset Recorded Date/T sylvia Unknown Family History?Heart Disease, Hypertension Unknown January 02, 2019 11:03am Family History?No pertinent history Unkno wn January 02, 2019 11:03am Relationship Condition Age at Onset Recorded Date/T sylvia Unknown Family History?Heart Disease, Hypertension Unknown January 02, 2019 10:03am Family History?No pertinent history Unkno wn January 02, 2019 10:03am Advance Directives No Advanced Directives Records Found Advance Directive Response Recorded Date/ Time Advance Directives No May 6:47pm Living Will No March 17 5:24pm Power of Tooth Inspector No March 17, 2022 5:24pm Advance Directive Response Recorded Date/ Time Advance Directives No May 5:47pm Living Will No April 13 2:45pm Power of Tooth Inspector No April 13, 2022 2:45pm Advance Directive Response Recorded Date/ Time Advance Directives No May 5:47pm Living Will No July 26 023 9:54am Power of Tooth Inspector No July 26, 2022 9:54am Advance Directive Response Recorded Date/ Time Advance Directives No May 6:47pm Living Will No September 03, 2022 9:23pm Power of Tooth Inspector No September 03 9:23pm Advance Directive Response Recorded Date/ Time Advance Directives No May 5:47pm Living Will No May 04, 2 023 8:46pm Power of Tooth Inspector No May 04, 2023 8:46pm Advance Directive Response Recorded Date/ Time Advance Directives No May 6:47pm Living Will No September 03, 2023 9:48am Power of Tooth Inspector No September 02 9:48am Advance Directive Response Recorded Date/ Time Do you have a Healthcare Power of Tooth Inspector? No December 31, 2024 12:20pm Advance Directives [...] Kathy Frazier MD [address] [place] [address] (unrecognized sect ion and content) No Status Records FoundNo Status Records FoundNo Status Records Found INFORMATION SOURCE (unrecogn ized section and content) DATE CREATED AUTHOR 01/29/2021 [facility] DATE CREATED AUTHOR AUTHOR'S ORGANIZ ATION 03/29/2025 [facility] DATE CREATED AUTHOR AUTHOR'S ORGANIZ ATION 03/31/2025 [facility] Goals (unrecognized section and content) Goals may [...] Active Member Role Status Dates Dr. Luis Bingham MD Family Provider Active Dr. Luis Bingham MD Primary Care Provider Active Team Status: Inactive Member Role Status Dates Dr. Luis Bingham MD Primary Care Provider Active Dr. Grady Mccauley MD Attending Provider, Emergency Provider Active Team Status: Inactive Member Role Status Dates Dr. Luis Bingham MD Primary Care Provider Active Dr. Urbano Rock DO Attending Provider, Emergency P rovider Active Team Status: Inactive Member Role Status Dates Dr. Luis Bingham MD Primary Care Provi oz, Attending Provider, Referring Provider Active Team Status: Inactive Member Role Status Dates Dr. Luis Bingham MD Primary Care Provider Active Dr. Melinda Ames MD Attending Provider, Referring P rovider Active Team Status: Inactive Member Role Status Dates Dr. Luis Bingham MD Primary Care Provider Active Dr. Freeman Mcdermott MD Emergency Provider Active Team Status: Inactive Member Role Status Dates Dr. Luis Bingham MD Primary Care Provider Active Dr. Freeman Mcdermott MD Attending Provider, Emergency Provi oz Active Team Status: Inactive Member Role Status Dates Dr. Luis Bingham MD Primary Care Provider Active Dr. Ke Lugo DO Emergency Provider Active Team Status: Inactive Member Role Status Dates Dr. Luis Bingham MD Primary Care Provider, Attending Provider Active Team Status: Inactive Member Role Status Dates Dr. Luis Bingham MD Primary Care Provider Active Dr. Falguni Isaac DO Emergency Provider Active Team Status: Active Member Role Status Dates Dr. Luis Bingham MD Primary Care Provi oz, Referring Provider, Other Provider Active Dr. Chinedu Lopez MD Attending Provider Active Team Status: Inactive Member Role Status Dates Dr. Luis Bingham MD Primary Care Provider Active Dr. Falguni Isaac DO Attending Provider, Emergency Pro vider Active Team Status: Inactive Member Role Status Dates Dr. Luis Bingham MD Primary Care Provider Active Dr. Felisha Stapleton MD Attending Provider, Emergency Provider Active Team Status: Inactive Member Role Status Dates Dr. Luis Bingham MD Primary Care Provider Active Dr. Deepak Oates MD Emergency Provider Active Team Status: Active Member Role/Relationship Status Dates Dr. Luis Bingham MD Primary Care Provider Active Team Status: Inactive Member Role/Relationship Status Dates Dr. Luis Bingham MD Primary Care Provider Active Start: December [...] BE BASED ON THE PRIMARY CLINICAL RECORDS. [facility] [employer] [facility]. provides no warranty or guarantee of the accuracy or completeness of information in this document.
--- NOTE | 2025-04-27 13:04 | EKG12_ITS ---
Test Reason : INTERMINT CP Blood Pressure : */* mmHG Vent. Rate : 60 BPM Atrial Rate : 60 BPM P-R Int : 184 ms QRS Dur : 102 ms QT Int : 436 ms P-R-T Axes : 61 7 24 degrees QTcB Int : 436 ms Normal sinus rhythm Nonspecific T wave abnormality Abnormal ECG Confirmed by JANINA MADDOX, CHAGO ([id number]), book editor MIGUEL LOZA ([id number]) on 04/29/2025 1:38:25 PM Referred By: Confirmed By: CHAGO ROA MD
--- NOTE | 2025-04-27 13:05 | EX.ED.DYSGE1 ---
HPI History of Present Illness Chief Complaint: Chest Pain Narrative Narrative: 69-year-old male presents with lightheadedness and dizziness that he began having earlier this morning. States it intensified around 8 AM, more than 5 hours ago. Although triage states that he has been having intermittent chest pain, he denies this to me. His history and physical is mildly limited secondary to schizophrenia. He states that he is more lightheaded worse with standing. He denies any fevers or chills, no nausea or vomiting or diarrhea. He denies any decreased p.o. intake, no dysuria or hematuria, no exacerbating or alleviating factors. [facility] Medical History Allergic rhinitis Hyperlipidemia Schizophrenia Home Medications Medication Instructions Recorded Last Taken Type docusate sodium 100 mg capsule 100 mg PO DAILY constipation 05/18/16 10/24/20 History (DOK) paliperidone palmitate 156 mg/mL 156 mg IM Q30D schitzophrenia 05/18/16 10/07/20 History intramuscular syringe (Invega Sustenna) propranolol 10 mg tablet 10 mg PO BID heart 05/18/16 10/24/20 History vitamin E (dl, acetate) 180 mg 400 units PO TID suppliment 05/18/16 10/24/20 History (400 unit) capsule cholecalciferol (vitamin D3) 25 1,000 unit PO DAILY 10/24/20 10/24/20 History mcg (1,000 unit) capsule (Vitamin D3) loratadine 10 mg tablet (Allergy 10 mg PO DAILY PRN dizziness #0 10/25/20 10/24/20 Rx Relief (loratadine)) tabs atorvastatin 20 mg tablet 20 mg PO QHS hyperlipidemia 05/04/23 Unknown History folic acid 1 mg tablet 1 mg PO DAILY 05/04/23 Unknown History omeprazole 40 mg capsule,delayed 40 mg PO DAILY 05/04/23 Unknown History release oxcarbazepine 300 mg tablet 300 mg PO BID seizures 05/04/23 Unknown History risperidone 2 mg tablet 2 mg PO BID schizophrenia 05/04/23 Unknown History Allergy/AdvReac Type Severity Reaction Status Date / Time No Known Allergies Allergy Verified 12/31/24 11:19 Social History household members: none housing: other details: [facility] Smoking Status: Never smoker substance use type: does not use ROS ROS ED ROS Narrative Review of systems positive for lightheadedness and dizziness. Worse with standing. No recent fevers or chills, no cough, no chest pain or shortness of breath. No nausea or vomiting, no diarrhea. EXAM Physical Exam Narrative Exam Narrative: Afebrile. Vital signs noted. Nontoxic-appearing. Cardiovascular examination regular rate and rhythm. Lungs clear to auscultation bilaterally. Abdomen soft and nontender with normoactive bowel sounds. Neurological examination nonfocal, nonlateralizing. Ambulatory in ED. Flat affect. Const Vital Signs: 04/27/25 11:34 04/27/25 12:34 04/27/25 13:00 Temperature 97.5 F L Temperature Source Oral Pulse Rate 79 61 60 Pulse Rate [Lying] Pulse Rate [Sitting (for 1 minute prior to obtaining)] Pulse Rate [Standing (for 1 minute prior to obtaining)] Respiratory Rate 16 18 15 Blood Pressure 111/70 116/74 Blood Pressure [Lying] Blood Pressure [Sitting (for 1 minute prior to obtaining)] Blood Pressure [Standing (for 1 minute prior to obtaining)] Blood Pressure Mean 83 88 Blood Pressure Mean [Lying] Blood Pressure Mean [Sitting (for 1 minute prior to obtaining)] Blood Pressure Mean [Standing (for 1 minute prior to obtaining)] Pulse Ox 96 96 95 Oxygen Delivery Method Room Air Room Air 04/27/25 13:54 04/27/25 14:00 04/27/25 15:00 Temperature Temperature Source Pulse Rate 71 96 Pulse Rate [Lying] 60 Pulse Rate [Sitting (for 1 minute prior to obtaining)] 60 Pulse Rate [Standing (for 1 minute prior to obtaining)] 74 Respiratory Rate 18 18 Blood Pressure 100/86 H 104/65 Blood Pressure [Lying] 100/74 Blood Pressure [Sitting (for 1 minute prior to obtaining)] 103/74 Blood Pressure [Standing (for 1 minute prior to obtaining)] 85/56 L Blood Pressure Mean 90 78 Blood Pressure Mean [Lying] 82 Blood Pressure Mean [Sitting (for 1 minute prior to obtaining)] 83 Blood Pressure Mean [Standing (for 1 minute prior to obtaining)] 65 Pulse Ox 98 Oxygen Delivery Method Room Air Room Air MDM MDM MDM Narrative Medical decision making narrative: Differential diagnosis includes but not limited to dehydration versus intravascular volume depletion versus other electrolyte abnormality. Once again he is denying chest pain, but states he called the squad more for lightheadedness. Comprehensive workup was pursued including EKG and troponins and chest x-ray. He will be bolused normal saline 1 L intravenously. Upon entry to the room, he was standing outside of visit however, stating he wanted to go get something to eat. EKG was obtained and interpreted by myself independently as normal sinus rhythm at 60 bpm without ectopy or acute ST changes. No STEMI. QTc normal at 436 ms. I reviewed his laboratory work and he has normal white count of 5.9 with hemoglobin 13.5, hematocrit slightly low at 38.3, platelet count normal at 194. CMP shows glucose of 100 with anion gap normal at 10, normal sodium and potassium. BUN/creatinine also normal. LFTs grossly unremarkable. Initial high-sensitivity troponin is less than 6. Urinalysis is negative for infection with 0 WBCs, negative ketones. Repeat examination during bolus, shows the patient lying on the cot, no acute distress. He states he is hungry. He will be given a p.o. challenge. At this point in time, his second troponin is currently pending. Even though he states he was not having chest pain, as well as his repeat troponin remains acceptable with an acceptable delta troponin I do feel he can be discharged to follow-up with his primary care provider. Patient will be signed out to the oncoming physician, Dr. Sandoval, to check the second troponin and make final disposition on the patient which I anticipate his discharge. He is in stable condition. History & Record Review Discussion w/independent historian: Patient Additional record(s) reviewed:: Prior ED visit Lab Data Attestation: I reviewed the patient's lab results. Labs: Laboratory Results - last 24 hr 04/27/25 04/27/25 13:15 14:10 WBC 5.9 RBC 4.42 L Hgb 13.5 Hct 38.3 L MCV 86.7 MCH 30.5 MCHC 35.2 RDW Std Deviation 39.4 RDW Coeff of Clarissa 12.5 Plt Count 194 MPV 9.7 Immature Gran % (Auto) 0.200 Neut % (Auto) 50.5 Lymph % (Auto) 36.5 [place] % (Auto) 9.3 Eos % (Auto) 3.0 Baso % (Auto) 0.5 Absolute Neuts (auto) 3.0 Absolute Lymphs (auto) 2.16 Nucleated RBC % 0 Sodium 138 Potassium 4.2 Chloride 107 Carbon Dioxide 21.7 Anion Gap 10 BUN 18 Creatinine 0.95 Estim Creat Clear Calc 85.47 Est GFR (MDRD) Non-Af 87 BUN/Creatinine Ratio 19.3 Glucose 100 H Calcium 8.9 Total Bilirubin 0.28 AST 24 ALT 21 Alkaline Phosphatase 51 Troponin T High Sens < 6 D Total Protein 6.3 Albumin 3.9 Globulin 2.4 Albumin/Globulin Ratio 1.6 Urine Color Yellow Urine Clarity Sl. Cloudy Urine pH 6.0 Ur Specific [place] 1.020 Urine Protein 15 H Urine Glucose (UA) Normal Urine Ketones Negative Urine Occult Blood 10 H Urine Nitrite Negative Urine Bilirubin Negative Urine Urobilinogen Normal Ur Leukocyte Esterase Negative Urine RBC 0-5 SEEN Urine WBC 0 SEEN Ur Squamous Epith Cells 0-5 SEEN Urine Bacteria 0 SEEN Urine Mucus 0 SEEN Radiography Diagnostic Testing: Clinical Impression(s) from Imaging Studies Chest X-Ray 04/27/25 13:42 IMPRESSION: No Acute Findings. Reading Location: [facility] Discharge Plan Triage Chief Complaint: Chest Pain ED Provider: Az Alcazar Dx/Rx/DC Orders Clinical Impression: Near syncope, Schizophrenia Instructions: ED Chest Pain, Uncertain Cause, ED Near-Fainting, Uncertain Cause Prescriptions: No Action propranolol 10 MG tablet 10 mg PO BID docusate sodium [DOK] 100 MG capsule 100 mg PO DAILY vitamin E (dl, acetate) 400 UNITS capsule 400 units PO TID Invega Sustenna 156 MG/ML syringe 156 mg IM Q30D cholecalciferol (vitamin D3) [Vitamin D3] 25 mcg (1,000 unit) capsule 1,000 unit PO DAILY loratadine [Allergy Relief (loratadine)] 10 MG tablet 10 mg PO DAILY PRN (Reason: dizziness) Qty: 0 0RF atorvastatin 20 mg tablet 20 mg PO QHS oxcarbazepine 300 mg tablet 300 mg PO BID omeprazole 40 mg capsule,delayed release(DR/EC) 40 mg PO DAILY risperidone 2 mg tablet 2 mg PO BID folic acid 1 mg tablet 1 mg PO DAILY Primary Care Provider: Luis Diaz Referrals: Luis Diaz MD [Primary Care Provider, Family Practice] - 3-5 Days if not improving Print Language: Pashto Disposition Disposition: Home, Self Care
--- NOTE | 2025-04-27 13:23 | ED.RN ---
pt unaware of home medications
[2025-04-27 13:28] LABS: Hematocrit 38.3 % (40-54); Hemoglobin 13.5 g/dL (13.0-16.5); Immature Granulocytes Count 0.010 X10^3/uL (0.0-0.0); Mean Corp Hgb Conc 35.2 g/dL (32-36); Mean Corpuscular Volume 86.7 fL (80-94); Mean Platelet Vol. 9.7 fl (6.2-12.0); NRBC Flagged by Analyzer 0 % (0-5); Platelet Count 194 K/mm3 (150-450); RBC Distribution Width CV 12.5 % (11.6-14.6); RBC Distribution Width SD 39.4 fl (35.1-43.9); Red Blood Count 4.42 M/mm3 (4.6-6.2); White Blood Count 5.9 K/mm3 (4.4-11.0)
--- NOTE | 2025-04-27 13:42 | RAD_ITS ---
PROCEDURE: CHEST 1 VIEW (PORTABLE) 04/27/2025 REASON FOR EXAM: CHEST PAIN TECHNIQUE: Frontal view of the chest. COMPARISON: 12/31/2024 FINDINGS: LUNGS AND PLEURA: The lungs are clear. No pleural effusion or pneumothorax. HEART AND MEDIASTINUM: The heart size and mediastinal contours are normal. BONES: No acute osseous abnormality. RAD/Chest 1 View (Portable) IMPRESSION: No Acute Findings. Reading Location: [id number]
[2025-04-27] MEDS: 0.9% Normal Saline (1000mL) 1,000 ML 1000 ML IV (13:57)
[2025-04-27 14:03] LABS: Troponin T High Sensitivity < 6 ng/L (<=22)
[2025-04-27 14:04] LABS: AST(SGOT) 24 U/L (<=37); Alanine Aminotransfer ALT/SGPT 21 U/L (<=46); Albumin, Serum 3.9 g/dL (3.4-4.8); Alkaline Phosphatase 51 U/L (40-129); Anion Gap 10 (5-15); BUN 18 mg/dL (4-19); BUN/Creat Ratio 19.3 RATIO (10-20); Calcium,Total 8.9 mg/dL (7.6-11.0); Carbon Dioxide 21.7 mmol/L (21.0-32.0); Chloride 107 mmol/L (98-108); Estimated Creatinine Clearance 85.47 ml/min (50-250); Globulin 2.4 g/dL (2.2-4.2); Glucose 100 mg/dL (70-99); Potassium 4.2 mmol/L (3.3-5.1)
[2025-04-27 14:14] LABS: Mucous, Urine 0 SEEN /hpf (<or=2+)
[2025-04-27 14:16] LABS: Color, Urine Yellow (Yellow); Glucose, Dipstick Normal (Normal); Ketone-Dipstick Negative (Negative); Leukocyte Esterase-Dipstick Negative /ul (Negative); Nitrite-Dipstick Negative (Negative); Occult Blood-Urine 10 /ul (Negative); Protein-Dipstick 15 mg/dl (Negative); Specific Gravity, Urine 1.020 (1.002-1.030); Urine Bilirubin Dipstick Negative (Negative)
[2025-04-27 14:21] LABS: Red Blood Cells-Urine 0-5 SEEN /hpf (0-5); Squamous Epithelial Cells - UA 0-5 SEEN /hpf (0-5)
[2025-04-27 15:52] LABS: Troponin T High Sens 2 HR < 6 ng/L (<=22)
== END 2025-04-27 16:17 | disposition home or self-care (01) ==
PROVIDERS: Emergency Provider Emergency Medicine; PCP Family Medicine; Visit Provider Emergency Medicine
DX: R42 Dizziness and giddiness (principal); F20.9 Schizophrenia, unspecified; E78.5 Hyperlipidemia, unspecified
CPT/HCPCS: 71045; 80053; 81001; 84484; 85025; 93005; 96360; 96361; 99285; A4216

== ENCOUNTER → 2025-05-15 | Outpatient (CLI) | payer MEDICAID, SELFPAY ==
[2025-05-15 13:03] LABS: AST(SGOT) 22 U/L (<=37); Alanine Aminotransfer ALT/SGPT 22 U/L (<=46); Albumin, Serum 4.3 g/dL (3.4-4.8); Alkaline Phosphatase 53 U/L (40-129); Anion Gap 11 (5-15); BUN 20 mg/dL (4-19); BUN/Creat Ratio 18.4 RATIO (10-20); Calcium,Total 9.5 mg/dL (7.6-11.0); Carbon Dioxide 25.2 mmol/L (21.0-32.0); Chloride 104 mmol/L (98-108); Cholesterol 197 mg/dL (<=200); Globulin 2.6 g/dL (2.2-4.2); Glucose 100 mg/dL (70-99); Low Density Lipoprotein Calc. 120 mg/dL; Potassium 3.9 mmol/L (3.3-5.1); Triglycerides 199 mg/dL; Very Low Density Lipoprotein 40 mg/dL (5-40); cholesterol:hdl ratio screen 4.74
[2025-05-21 15:08] LABS: PROLACTIN 32.4 ng/mL (3.6-25.2); Trileptal-Oxcarbazepine 10 ug/mL (10-35)
== END | disposition home or self-care (01) ==
LOC: MFPLAB 09:54
PROVIDERS: PCP Family Medicine; Visit Provider Family Medicine
DX: Z79.899 Other long term (current) drug therapy (principal)
CPT/HCPCS: 36415; 80053; 80061; 82542; 83036; 84146